=== PATIENT | male | born 1935 | race Caucasian/White ===

== ENCOUNTER → 2016-07-04 | Outpatient (CLI) | payer MEDICARE, OTHER ==
--- NOTE | 2016-07-05 08:11 | EKG REPORT ---
SEVERITY:- ABNORMAL ECG - UNKNOWN RHYTHM, IRREGULAR RATE 53-76 FIRST DEGREE AV BLOCK PROBABLE LEFT ATRIAL ABNORMALITY LOW VOLTAGE IN FRONTAL LEADS LEFT VENTRICULAR HYPERTROPHY : Confirmed by: Marily Mcgrath MD 05-Jul-2016 08:11:18
== END ==
LOC: OD 15:42
PROVIDERS: ATTEND Internal Medicine Nephrology
DX: I49.9 Cardiac arrhythmia, unspecified (principal)
CPT/HCPCS: 93005; 93010

== ENCOUNTER → 2016-07-04 | Outpatient (CLI) | payer MEDICARE, OTHER ==
[2016-07-04 18:46] LABS: HEMATOCRIT 29.5 % (37.9-51.0); HEMOGLOBIN 9.7 g/dL (13.5-17.0); HGB HCT DIFFERENCE -0.4; MEAN CORPUSCULAR HEMOGLOBIN 31.3 pg (27.0-33.4); MEAN CORPUSCULAR HGB CONC 32.8 g/dL (32.0-36.0); MEAN CORPUSCULAR VOLUME 96 fl (80-97); RED BLOOD COUNT 3.09 10^6/uL (4.35-5.55); RED CELL DISTRIBUTION WIDTH 16.1 % (11.5-14.0); WHITE BLOOD COUNT 4.4 10^3/uL (4.0-10.5)
== END ==
LOC: DAVITANR 17:31
PROVIDERS: ATTEND Internal Medicine Nephrology
DX: D64.9 Anemia, unspecified (principal)
CPT/HCPCS: 85027

== ENCOUNTER → 2016-08-07 | Outpatient (CLI) | payer MEDICARE, OTHER | LOC: OD 11:20 | PROVIDERS: ATTEND Family Medicine Geriatric Medicine | DX: J44.1 Chronic obstructive pulmonary disease with (acute) exacerbation (principal) | CPT/HCPCS: 71020 ==

== ENCOUNTER → 2016-10-18 | Outpatient (CLI) | payer MEDICARE, OTHER ==
[2016-10-18 14:23] LABS: ABSOLUTE EOSINOPHILS # (AUTO) 0.2 10^3/uL (0.0-0.6); ABSOLUTE LYMPHOCYTES (AUTO) 1.2 10^3/uL (0.5-4.7); ABSOLUTE MONOCYTES (AUTO) 0.4 10^3/uL (0.1-1.4); ABSOLUTE NEUT (AUTO) 1.8 10^3/uL (1.7-8.2); BASOPHILS % (AUTO) 0.6 % (0-2); EOSINOPHILS % (AUTO) 6.1 % (0-6); HEMATOCRIT 41.9 % (37.9-51.0); HEMOGLOBIN 13.3 g/dL (13.5-17.0); LYMPHOCYTES % (AUTO) 33.4 % (13-45); MEAN CORPUSCULAR HEMOGLOBIN 28.4 pg (27.0-33.4); MEAN CORPUSCULAR HGB CONC 31.7 g/dL (32.0-36.0); MEAN CORPUSCULAR VOLUME 90 fl (80-97); MONOCYTES % (AUTO) 10.2 % (3-13); RED BLOOD COUNT 4.68 10^6/uL (4.35-5.55); RED CELL DISTRIBUTION WIDTH 17.5 % (11.5-14.0); SEGMENTED NEUTROPHILS % (AUTO) 49.7 % (42-78); WHITE BLOOD COUNT 3.7 10^3/uL (4.0-10.5)
[2016-10-18 14:56] LABS: ALANINE AMINOTRANSFERASE 28 U/L (21-72); ALBUMIN 3.9 g/dL (3.5-5.0); ALKALINE PHOSPHATASE 58 U/L (38-126); ANION GAP 11 (5-19); ASPARTATE AMINO TRANSFERASE 22 U/L (17-59); BILIRUBIN,DIRECT 0.7 mg/dL (0.0-0.4); BILIRUBIN,TOTAL 0.8 mg/dL (0.2-1.3); BLOOD UREA NITROGEN 32 mg/dL (7-20); CALCIUM 8.8 mg/dL (8.4-10.2); CARBON DIOXIDE 28 mmol/L (22-30); CHLORIDE 99 mmol/L (98-107); CHOLESTEROL 178.88 mg/dL (0-200); CREATININE RESULT 3.55 mg/dL (0.52-1.25); Direct HDL 82 mg/dL (>40); GLUCOSE 81 mg/dL (75-110); POTASSIUM 5.1 mmol/L (3.6-5.0); SODIUM 138.4 mmol/L (137-145); TOTAL PROTEIN 6.4 g/dL (6.3-8.2); TRIGLYCERIDES 74 mg/dL (<150)
--- NOTE | 2016-10-18 14:57 | RADIOLOGY REPORT (SQ) ---
EXAM DESCRIPTION: CHEST PA/LATERAL COMPLETED DATE/TIME: 10/18/2016 2:12 pm REASON FOR STUDY: COPD; LLL PNEUMONIA COMPARISON: 08/07/2016 EXAM PARAMETERS: NUMBER OF VIEWS: two views TECHNIQUE: Digital Frontal and Lateral radiographic views of the chest acquired. RADIATION DOSE: NA LIMITATIONS: none FINDINGS: LUNGS AND PLEURA: Chronic interstitial changes are present. There is subsegmental atelect asis in the right base. The colon appears to be interposed between the liver and right hemidiaphragm . No acute pulmonary infiltrate is appreciated. MEDIASTINUM AND HILAR STRUCTURES: No masses or contour abnormalities. HEART AND VASCULAR STRUCTURES: The heart size is at the upper limit of normal. There is pulmonary va scular prominence. BONES: No acute findings. HARDWARE: Sternotomy wires. OTHER: No other significant finding. IMPRESSION: 1. Chronic lung changes with no acute pulmonary disease. 2. Pulmonary vascular congestion. 3. The left lower lobe pneumonia on the earlier study appears to have resolved, leaving only chronic changes. TECHNICAL DOCUMENTATION: JOB ID: [id number] [employer]- All Rights Reserved
[2016-10-18 15:07] LABS: DIRECT LDL 69 mg/dL (<100)
== END ==
LOC: OD 13:30
PROVIDERS: ATTEND Family Medicine Geriatric Medicine
DX: J18.9 Pneumonia, unspecified organism (principal); J44.9 Chronic obstructive pulmonary disease, unspecified; E11.9 Type 2 diabetes mellitus without complications; I10 Essential (primary) hypertension; Z79.899 Other long term (current) drug therapy
CPT/HCPCS: 36415; 71020; 80053; 80061; 83036; 84443; 85025

== ENCOUNTER → 2016-10-22 | Outpatient (CLI) | payer MEDICARE, OTHER | LOC: OD 15:04 | PROVIDERS: ATTEND Family Medicine Geriatric Medicine | DX: E87.6 Hypokalemia (principal); Z79.899 Other long term (current) drug therapy | CPT/HCPCS: 36415; 84132 ==

== ENCOUNTER → 2016-12-26 | Outpatient (CLI) | payer MEDICARE, OTHER ==
[2016-12-26 16:24] LABS: ABSOLUTE BASOPHILS # (AUTO) 0.1 10^3/uL (0.0-0.2); ABSOLUTE EOSINOPHILS # (AUTO) 0.2 10^3/uL (0.0-0.6); ABSOLUTE MONOCYTES (AUTO) 0.5 10^3/uL (0.1-1.4); BASOPHILS % (AUTO) 1.4 % (0-2); EOSINOPHILS % (AUTO) 6.2 % (0-6); HEMATOCRIT 31.1 % (37.9-51.0); HEMOGLOBIN 10.5 g/dL (13.5-17.0); HGB HCT DIFFERENCE 0.4; MEAN CORPUSCULAR HEMOGLOBIN 31.5 pg (27.0-33.4); MEAN CORPUSCULAR HGB CONC 33.9 g/dL (32.0-36.0); MEAN CORPUSCULAR VOLUME 93 fl (80-97); MONOCYTES % (AUTO) 12.4 % (3-13); RED BLOOD COUNT 3.34 10^6/uL (4.35-5.55); RED CELL DISTRIBUTION WIDTH 17.8 % (11.5-14.0); WHITE BLOOD COUNT 3.7 10^3/uL (4.0-10.5)
--- NOTE | 2016-12-28 15:34 | RADIOLOGY REPORT (SQ) ---
EXAM DESCRIPTION: CHEST PA/LATERAL COMPLETED DATE/TIME: 12/26/2016 3:38 pm REASON FOR STUDY: Cough COMPARISON: CT angio chest 11/04/2015 Chest films 08/07/2016, 10/18/2016 TECHNIQUE: PA and lateral chest LIMITATIONS: None FINDINGS: Lungs are hyperinflated and hyperlucent from obstructive disease. No pleural effusions. No pneumothorax. No focal infiltrates. Cardiac silhouette size normal. Old sternotomy for CABG. IMPRESSION: No acute findings. Obstructive lung disease.
== END ==
LOC: OD 15:11
PROVIDERS: ATTEND Internal Medicine Pulmonary Disease
DX: R05 Cough (principal)
CPT/HCPCS: 36415; 71020; 85025

== ENCOUNTER 2016-12-27 07:23 | Emergency (ER) | payer OTHER, MEDICARE ==
[2016-12-27 07:34] VITALS: BP 152/46
--- NOTE | 2016-12-27 07:55 | ER Document Report ---
ED General - General Mode of Arrival: Ambulatory Information source: Patient TRAVEL OUTSIDE OF THE [place] IN LAST 30 DAYS: No - HPI Onset: Other - past month Associated symptoms: Other - see above - General Chief Complaint: Abnormal Lab Results Stated Complaint: DIFFICULTY BREATHING Notes: Patient is an 81 year old male who presents to the ED sent by Dr. Conner for high WBC and possible anemia. He states he was told his chest x ray showed the start of pneumonia and extreme anemia. Patient reports a cough x3 months and was diagnosed with pneumonia approximately 5 months ago. Patient has a history of COPD. Upon reviewing patients labs his WBC was actually found to be low and his hemoglobin was was actually at or above baseline to him in comparison to his CBCs over the last year. His chest x ray showed stable COPD and it was much improved from his last x ray from October of this year. Patient states yesterday while he was at dialysis he felt SOB and was recommended to go see his Dredge Runner. Patient states he has been wheezing more than baseline for him for a little over the past month. They have not adjusted any of his daily medications over this past month. Patient is on 2L of O2 at home. PCP: Dr. Liu Fashion Photographer: Dr. Bhardwaj Dredge Runner: Dr. Conner ([facility]) - Related Data Allergies/Adverse Reactions: adhesive tape Allergy (Verified 12/27/16 07:33) Blisters propofol Adverse Reaction (Uncoded 12/27/16 07:33) Past Medical History - General Information source: Patient - Social History Smoking Status: Former Smoker Family History: Reviewed & Not Pertinent - Medical History Medical History: Other - hyperlipidemia - Past Medical History Cardiac Medical History: Reports: Hx Hypertension Pulmonary Medical History: Reports: Hx COPD Renal/ Medical History: Reports: Hx End Stage Renal Disease. Denies: Hx Peritoneal Dialysis Infectious Medical History: Denies: Hx Hepatitis Past Surgical History: Reports: Hx Herniorrhaphy, Hx Open Heart Surgery - mitral valve repair 2009, Hx Tonsillectomy. Denies: Hx Pacemaker - Immunizations Hx Diphtheria, Pertussis, Tetanus Vaccination: No Hx Pneumococcal Vaccination: 03/13/11 Review of Systems - Review of Systems Constitutional: No symptoms reported EENT: No symptoms reported Cardiovascular: No symptoms reported Respiratory: See HPI, Cough, Short of breath, Wheezing Gastrointestinal: No symptoms reported Genitourinary: No symptoms reported Male Genitourinary: No symptoms reported Musculoskeletal: No symptoms reported Skin: No symptoms reported Hematologic/Lymphatic: No symptoms reported Neurological/Psychological: No symptoms reported Physical Exam - General General appearance: Alert, Other - cachectic In distress: None - HEENT Head: Normocephalic, Atraumatic Eyes: Normal Extraocular movements intact: Yes Pupils: PERRL Neck: No: Carotid bruit - Respiratory Respiratory status: No respiratory distress, Other - dysnea standing and talking , pulse ox 94% Breath sounds: Rhonchi, Wheezing - Cardiovascular Rhythm: Other - frequent irregular beats Heart sounds: Normal auscultation Murmur: No - Abdominal Distension: No distension - Back Back: Normal - Extremities General upper extremity: Normal inspection, Normal ROM General lower extremity: Normal inspection, Normal ROM. No: Edema - Neurological Neuro grossly intact: Yes - Psychological Associated symptoms: Normal affect, Normal mood - Skin Skin Temperature: Warm Skin Moisture: Dry Skin Color: Normal - Vital signs Vitals: Temp Pulse Resp BP Pulse Ox 98.4 F 67 16 152/46 H 93 12/27/16 07:32 12/27/16 07:32 12/27/16 07:32 12/27/16 07:32 12/27/16 07:32 Course - Re-evaluation Re-evalutation: 12/27/16 09:10 The patient is improved after the DuoNeb treatment. He does have DuoNeb at home , but uses it only twice daily. He is reluctant to use it in the late afternoon to evening because it keeps him from sleeping at night. He also drinks at least 3 cups of coffee daily. I will give him a prescription for Atrovent solution to use in the nebulizer in the evening and see if this helps without causing sleeping problems that seem to be due to the albuterol. He will also try a mentholated cough drops such as Ricola a to see if that helps his cough, as he has been taking Tessalon Perles without much improvement. (THU MALONE) - Vital Signs Vital signs: Temp Pulse Resp BP Pulse Ox 98.4 F 67 22 H 152/46 H 96 12/27/16 07:32 12/27/16 07:32 12/27/16 08:00 12/27/16 07:32 12/27/16 08:00 Discharge - Discharge Clinical Impression: Anemia in chronic kidney disease, on chronic dialysis, Cough COPD (chronic obstructive pulmonary disease) Qualifiers: COPD type: unspecified COPD Qualified Code(s): J44.9 - Chronic obstructive pulmonary disease, unspecified Condition: Stable Disposition: HOME, SELF-CARE Additional Instructions: Your hemoglobin level yesterday was normal for you. Your chest x-ray yesterday did not show acute process, it did show considerable improvement since a chest x-ray done in October of this year. Add the ipratropium bromide nebulizing treatments in the early evening to see if that helps her breathing without preventing sleep. Try Ricola a cough drops to see if it will help with your cough. Follow-up with your primary care doctor next week for recheck if not improving. RETURN TO THE EMERGENCY ROOM IF ANY NEW OR WORSENING SYMPTOMS. Prescriptions: Ipratropium [place] 0.2 mg IH DAILY #30 ml Referrals: ANYI LIU MD [Primary Care Provider] - Follow up as needed Scribe Attestation: 12/27/16 08:45 I personally performed the services described in the documentation, reviewed and edited the documentation which was dictated to the scribe in my presence, and it accurately records my words and actions. (THU MALONE) Scribe Documentation - Scribe Written by Mack:: mack Acharya, 12/27/2016, 804 acting as scribe for :: Marlon
[2016-12-27] MEDS ORDERED: IPRATROPIUM/ALBUTEROL 0.5-2.5 MG/3 ML AMPUL NEB ONE (08:10)
== END 2016-12-27 09:39 | disposition home or self-care (01) ==
LOC: ER 07:23
DX: Z99.81 Dependence on supplemental oxygen (principal); J44.9 Chronic obstructive pulmonary disease, unspecified; I12.0 Hypertensive chronic kidney disease with stage 5 chronic kidney disease or end stage renal disease; N18.6 End stage renal disease; Z99.2 Dependence on renal dialysis; D63.1 Anemia in chronic kidney disease; R05 Cough; Z87.01 Personal history of pneumonia (recurrent); Z79.899 Other long term (current) drug therapy; Z91.048 Other nonmedicinal substance allergy status
CPT/HCPCS: 94640; 99283; J7620

== ENCOUNTER 2017-01-06 18:16 | Emergency (ER) | payer OTHER, MEDICARE ==
--- NOTE | 2017-01-06 22:33 | RADIOLOGY REPORT (SQ) ---
EXAM DESCRIPTION: CT ABD/PELVIS ORAL ONLY COMPLETED DATE/TIME: 01/06/2017 10:03 pm REASON FOR STUDY: ABD PAIN/RLQ COMPARISON: None. TECHNIQUE: CT scan of the abdomen and pelvis performed without intravenous or oral contrast. Images reviewed with lung, soft tissue, and bone windows. Reconstructed coronal and sagittal MPR images revi ewed. All images stored on PACS. All CT scanners at this facility use dose modulation, iterative reconstruction, and/or weight based d osing when appropriate to reduce radiation dose to as low as reasonably achievable (ALARA). [facility]: Dose Right [facility]: CareDose [facility]: Dose Right [facility]: Teradose 4D [facility]: [employer] RADIATION DOSE: mGy. LIMITATIONS: None. FINDINGS: LOWER CHEST: Bilateral lower lobe subsegmental atelectasis. NON-CONTRASTED LIVER, SPLEEN, ADRENALS: Evaluation limited by lack of IV contrast. No identified sign ificant masses. PANCREAS: No masses. No peripancreatic inflammatory changes. GALLBLADDER: No identified stones by CT criteria. No inflammatory changes to suggest cholecystitis. RIGHT KIDNEY AND URETER: No suspicious masses. Assessment limited by lack of IV contrast. No signif icant calcifications. No hydronephrosis or hydroureter. LEFT KIDNEY AND URETER: 5.6 cm cyst, assessment limited by lack of IV contrast. No significant calc ifications. No hydronephrosis or hydroureter. 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 No retroperitoneal masses or adenopathy. BOWEL AND PERITONEAL CAVITY: No obstruction. No obvious masses or inflammatory changes. No free flui d. APPENDIX: Not visualized. PELVIS, BLADDER, AND ABDOMINAL WALL:No abnormal masses. No free fluid. Bladder normal. BONES: No significant findings. OTHER: No other significant finding. IMPRESSION: No acute inflammatory changes or evidence of obstruction.Bilateral lower lobe subsegment al atelectasis. TECHNICAL DOCUMENTATION: JOB ID: [id number] Quality ID # [id number]: Final reports with documentation of one or more dose reduction techniques (e.g., Au tomated exposure control, adjustment of the mA and/or kV according to patient size, use of iterative reconstruction technique) 2010 [employer]- All Rights Reserved
--- NOTE | 2017-01-06 22:38 | ER Document Report ---
ED GI/ - General Mode of Arrival: Ambulatory Information source: Patient TRAVEL OUTSIDE OF THE [place] IN LAST 30 DAYS: No - HPI Patient complains to provider of: Abdominal pain Onset: Just prior to arrival Timing/Duration: Sudden Associated symptoms: Vomiting - General Chief Complaint: Abdominal Pain Time Seen by Provider: 01/06/17 21:37 Notes: Patient is an 82-year-old male who presents to the emergency department today secondary to complaints of abdominal pain. Patient states that almost immediately after consuming a cup of coffee his abdominal pain began. Patient states this pain to be localized in his right lower quadrant and he describes the pain as a sharp and throbbing sensation. Patient states he has had associated vomiting but denies any diarrhea, blood in his vomit, fevers, or radiation of pain into his testicles. (LEAH TURNER) - Related Data Allergies/Adverse Reactions: adhesive tape Allergy (Verified 12/27/16 07:33) Blisters propofol Adverse Reaction (Uncoded 12/27/16 07:33) Past Medical History - General Information source: Patient, [facility] Records - Social History Smoking Status: Former Smoker Cigarette use (# per day): No Frequency of alcohol use: None Drug Abuse: None Family History: Reviewed & Not Pertinent - Past Medical History Cardiac Medical History: Reports: Hx Hypertension Pulmonary Medical History: Reports: Hx COPD Renal/ Medical History: Reports: Hx End Stage Renal Disease Past Surgical History: Reports: Hx Abdominal Surgery - hernia repair, Hx Herniorrhaphy, Hx Open Heart Surgery - mitral valve repair 2009, Hx Tonsillectomy. Denies: Hx Pacemaker - Immunizations Hx Diphtheria, Pertussis, Tetanus Vaccination: No Hx Pneumococcal Vaccination: 03/13/11 Review of Systems - Review of Systems Constitutional: denies: Fever EENT: No symptoms reported Cardiovascular: No symptoms reported Respiratory: No symptoms reported Gastrointestinal: See HPI, Abdominal pain, Vomiting. denies: Diarrhea Genitourinary: No symptoms reported Male Genitourinary: No symptoms reported Musculoskeletal: No symptoms reported Skin: No symptoms reported Hematologic/Lymphatic: No symptoms reported Neurological/Psychological: No symptoms reported -: Yes All other systems reviewed and negative Physical Exam - Notes Notes: PHYSICAL EXAM GENERAL: Alert, interacts well. No acute distress. HEAD: Normocephalic, atraumatic. EYES: Pupils equal, round, and reactive to light. Extraocular movements intact. ENT: Oral mucosa moist, tongue midline. NECK: Full range of motion. Supple. Trachea midline. LUNGS: Clear to auscultation bilaterally, no wheezes, rales, or rhonchi. No respiratory distress. HEART: Regular rate and rhythm. No gallops or rubs. Systolic ejection murmur best heard at the right upper sternal border. ABDOMEN: Soft, RLQ and RUQ tenderness with palpation with small amount of guarding, no rebound or rigidity. Non-distended. Bowel sounds present in all 4 quadrants. EXTREMITIES: Moves all 4 extremities spontaneously. No edema, radial and dorsalis pedis pulses 2/4 bilaterally. No cyanosis. Fistula on left forearm with good thrill. NEUROLOGICAL: Alert and oriented x3. Normal speech. PSYCH: Normal affect, normal mood. SKIN: Warm, dry, normal turgor. No rashes or lesions noted. (LEAH TURNER) Course - Re-evaluation Re-evalutation: 01/06/17 22:58 CT scan shows no acute process, CBC shows chronic anemia with hemoglobin 10.9 likely related to his renal dysfunction, no leukocytosis, CMP shows chronic renal failure, patient is feeling much better, no further nausea or vomiting, pain is completely resolved, at present I do not have an exact explanation for the patient's abdominal pain however has completely resolved and there is no leukocytosis and there is no fever. Patient will be discharged home. Appendix was not visualized on the CAT scan, patient is aware of this, patient will return should pain return, he develop any fevers or he develop any new or concerning symptoms. (VANI ARZOLA) Discharge - Discharge Clinical Impression: Right lower quadrant abdominal pain of unknown etiology Condition: Stable Disposition: HOME, SELF-CARE Additional Instructions: Today your CAT scan was normal, there is no evidence of infection, your white blood cell count was normal. On the CAT scan we were unable to see your appendix. I find it unlikely that you have appendicitis as your white blood cell count was normal and your pain has completely resolved however since we could not see your appendix I cannot tell you this for certain. Should your pain return, you develop fevers, you develop vomiting or you have any new or concerning symptoms please return to the emergency department. Referrals: AYLA VÁSQUEZ MD [[facility]] - Follow up as needed Scribe Attestation: 01/06/17 23:16 I personally performed the services described in the documentation, reviewed and edited the documentation which was dictated to the scribe in my presence, and it accurately records my words and actions. (VANI ARZOLA)
[2017-01-06 23:19] VITALS: BP 146/64
[2017-01-07 05:47] LABS: ABSOLUTE BASOPHILS # (AUTO) 0.1 10^3/uL (0.0-0.2); ABSOLUTE EOSINOPHILS # (AUTO) 0.1 10^3/uL (0.0-0.6); ABSOLUTE LYMPHOCYTES (AUTO) 0.6 10^3/uL (0.5-4.7); ABSOLUTE MONOCYTES (AUTO) 0.4 10^3/uL (0.1-1.4); EOSINOPHILS % (AUTO) 1.8 % (0-6); HEMATOCRIT 31.6 % (37.9-51.0); HEMOGLOBIN 10.9 g/dL (13.5-17.0); HGB HCT DIFFERENCE 1.1; LYMPHOCYTES % (AUTO) 9.8 % (13-45); MEAN CORPUSCULAR HEMOGLOBIN 32.2 pg (27.0-33.4); MEAN CORPUSCULAR HGB CONC 34.5 g/dL (32.0-36.0); MEAN CORPUSCULAR VOLUME 93 fl (80-97); MONOCYTES % (AUTO) 5.8 % (3-13); RED BLOOD COUNT 3.39 10^6/uL (4.35-5.55); RED CELL DISTRIBUTION WIDTH 16.9 % (11.5-14.0); SEGMENTED NEUTROPHILS % (AUTO) 81.6 % (42-78); WHITE BLOOD COUNT 6.2 10^3/uL (4.0-10.5)
[2017-01-07 05:48] LABS: BLOOD UREA NITROGEN 40 mg/dL (7-20); CALCIUM 9.3 mg/dL (8.4-10.2); CREATININE RESULT 5.14 mg/dL (0.52-1.25); GLUCOSE 105 mg/dL (75-110)
[2017-01-07 05:49] LABS: ALANINE AMINOTRANSFERASE 29 U/L (21-72); ALBUMIN 4.4 g/dL (3.5-5.0); ALKALINE PHOSPHATASE 65 U/L (38-126); ANION GAP 17 (5-19); ASPARTATE AMINO TRANSFERASE 26 U/L (17-59); CARBON DIOXIDE 22 mmol/L (22-30); CHLORIDE 99 mmol/L (98-107)
[2017-01-07 05:50] LABS: LIPASE 183.3 U/L (23-300); TOTAL PROTEIN 6.6 g/dL (6.3-8.2)
== END 2017-01-06 23:19 | disposition home or self-care (01) ==
LOC: ER 18:16
DX: R10.31 Right lower quadrant pain (principal); R11.10 Vomiting, unspecified; J44.9 Chronic obstructive pulmonary disease, unspecified; I12.0 Hypertensive chronic kidney disease with stage 5 chronic kidney disease or end stage renal disease; N18.6 End stage renal disease; D63.1 Anemia in chronic kidney disease
CPT/HCPCS: 36415; 74176; 80053; 83690; 85025; 99284

== ENCOUNTER → 2017-02-07 | Outpatient (CLI) | payer OTHER, MEDICARE ==
[2017-02-07 13:20] LABS: ABSOLUTE BASOPHILS # (AUTO) 0.1 10^3/uL (0.0-0.2); ABSOLUTE EOSINOPHILS # (AUTO) 0.3 10^3/uL (0.0-0.6); ABSOLUTE LYMPHOCYTES (AUTO) 1.2 10^3/uL (0.5-4.7); ABSOLUTE MONOCYTES (AUTO) 0.5 10^3/uL (0.1-1.4); ABSOLUTE NEUT (AUTO) 2.8 10^3/uL (1.7-8.2); BASOPHILS % (AUTO) 1.2 % (0-2); EOSINOPHILS % (AUTO) 6.1 % (0-6); HEMATOCRIT 34.1 % (37.9-51.0); HEMOGLOBIN 11.6 g/dL (13.5-17.0); HGB HCT DIFFERENCE 0.7; LYMPHOCYTES % (AUTO) 23.9 % (13-45); MEAN CORPUSCULAR HEMOGLOBIN 32.1 pg (27.0-33.4); MEAN CORPUSCULAR VOLUME 94 fl (80-97); MONOCYTES % (AUTO) 10.8 % (3-13); RED BLOOD COUNT 3.61 10^6/uL (4.35-5.55); RED CELL DISTRIBUTION WIDTH 13.8 % (11.5-14.0); WHITE BLOOD COUNT 4.9 10^3/uL (4.0-10.5)
[2017-02-07 13:43] LABS: ALANINE AMINOTRANSFERASE 31 U/L (21-72); ANION GAP 11 (5-19); ASPARTATE AMINO TRANSFERASE 18 U/L (17-59); BLOOD UREA NITROGEN 36 mg/dL (7-20); CALCIUM 9.2 mg/dL (8.4-10.2); CARBON DIOXIDE 30 mmol/L (22-30); CHLORIDE 97 mmol/L (98-107); CHOLESTEROL 156.73 mg/dL (0-200); CREATININE RESULT 3.98 mg/dL (0.52-1.25); Direct HDL 77 mg/dL (>40); GLUCOSE 84 mg/dL (75-110); POTASSIUM 4.9 mmol/L (3.6-5.0); SODIUM 138.2 mmol/L (137-145); TRIGLYCERIDES 71 mg/dL (<150)
[2017-02-07 13:54] LABS: DIRECT LDL 64 mg/dL (<100)
== END ==
LOC: OD 12:29
PROVIDERS: ATTEND Family Medicine Geriatric Medicine
DX: R19.7 Diarrhea, unspecified (principal)
CPT/HCPCS: 36415; 80048; 80061; 84450; 84460; 85025

== ENCOUNTER → 2017-02-08 | Outpatient (CLI) | payer OTHER, MEDICARE | LOC: OD 10:26 | PROVIDERS: ATTEND Physician Assistant Surgical | DX: Z53.9 Procedure and treatment not carried out, unspecified reason (principal) ==

== ENCOUNTER → 2017-06-20 | Outpatient (CLI) | payer MEDICARE, OTHER ==
[2017-06-20 13:56] LABS: ABSOLUTE EOSINOPHILS # (AUTO) 0.2 10^3/uL (0.0-0.6); ABSOLUTE LYMPHOCYTES (AUTO) 0.8 10^3/uL (0.5-4.7); ABSOLUTE MONOCYTES (AUTO) 0.5 10^3/uL (0.1-1.4); ABSOLUTE NEUT (AUTO) 1.7 10^3/uL (1.7-8.2); ABSOLUTE RETICS # 0.051 10^6/uL (0.028-0.122); BASOPHILS % (AUTO) 1.4 % (0-2); EOSINOPHILS % (AUTO) 5.9 % (0-6); HEMOGLOBIN 9.6 g/dL (13.5-17.0); LYMPHOCYTES % (AUTO) 26.1 % (13-45); MEAN CORPUSCULAR HEMOGLOBIN 32.1 pg (27.0-33.4); MEAN CORPUSCULAR HGB CONC 33.3 g/dL (32.0-36.0); MEAN CORPUSCULAR VOLUME 97 fl (80-97); MONOCYTES % (AUTO) 14.3 % (3-13); PLATELET COUNT 140 10^3/uL (150-450); RED CELL DISTRIBUTION WIDTH 15.5 % (11.5-14.0); RETICULOCYTE COUNT (AUTO) 1.71 % (0.66-2.85); SEGMENTED NEUTROPHILS % (AUTO) 52.3 % (42-78); TOTAL CELLS COUNTED % (AUTO) 100 %; WHITE BLOOD COUNT 3.2 10^3/uL (4.0-10.5)
== END ==
LOC: OD 13:00
PROVIDERS: ATTEND Family Medicine Geriatric Medicine
DX: J44.9 Chronic obstructive pulmonary disease, unspecified (principal); N18.6 End stage renal disease; R53.83 Other fatigue
CPT/HCPCS: 36415; 82728; 83540; 83550; 84443; 84466; 85025; 85045

== ENCOUNTER → 2017-07-04 | Outpatient (CLI) | payer MEDICARE, OTHER ==
--- NOTE | 2017-07-04 14:10 | RADIOLOGY REPORT (SQ) ---
EXAM DESCRIPTION: CT CHEST WITHOUT COMPLETED DATE/TIME: 07/04/2017 9:49 am REASON FOR STUDY: R91.1 SOLITARY PULMONARY NODULE R91.1 SOLITARY PULMONARY NODULE COMPARISON: CT chest exams 08/13/2006, 08/29/2012, 12/29/2012, 05/26/2015, 01/04/2016 TECHNIQUE: CT scan performed of the chest without intravenous contrast. Images reviewed with lung, soft tissue and bone windows. Reconstructed coronal and sagittal MPR images reviewed. All images st ored on PACS. All CT scanners at this facility use dose modulation, iterative reconstruction, and/or weight based d osing when appropriate to reduce radiation dose to as low as reasonably achievable (ALARA). [facility]: Dose Right [facility]: CareDose [facility]: Dose Right [facility]: Teradose 4D [facility]: Smart [employer] RADIATION DOSE: CT Rad equipment meets quality standard of care and radiation dose reduction techniq ues were employed. CTDIvol: 3.9 mGy. DLP: 160 mGy-cm. mGy. LIMITATIONS: No technical limitations. FINDINGS: LUNGS AND PLEURA: The right upper lobe lesion seen on 05/26/2015 is no longer present. No worrisome pulmonary nodules. Obstructive lung disease is present with enlarged airspaces most pronounced in the bilateral upper lo bes. There is fluid and debris in the right bronchus intermedius and right lower lobe segmental bronchi. Question aspiration. Minimal volume loss right lower lobe without dense consolidation. No pleural effusions, no pneumothorax. HILAR AND MEDIASTINAL STRUCTURES: No identified masses or abnormal nodes. No obvious aneurysm. HEART AND VASCULAR STRUCTURES: No aneurysm. No pericardial effusion. Old sternotomy for CABG, heavi ly calcified [place] coronary arteries. Calcified aortic valve and aortic arch UPPER ABDOMEN: 1 cm hemorrhagic cyst right upper pole kidney. Colonic interposition between the live r and right hemidiaphragm THYROID AND OTHER SOFT TISSUES: No masses. No adenopathy. BONES: No significant finding. HARDWARE: None in the chest. OTHER: No other significant findings. IMPRESSION: No worrisome pulmonary nodules Fluid and debris in the bronchus intermedius and right lower lobe bronchi. Findings are worrisome fo r aspiration TECHNICAL DOCUMENTATION: JOB ID: [id number] Quality ID # [id number]: Final reports with documentation of one or more dose reduction techniques (e.g., Au tomated exposure control, adjustment of the mA and/or kV according to patient size, use of iterative reconstruction technique) 2010 [employer]- All Rights Reserved
== END ==
LOC: RAD 09:50
PROVIDERS: ATTEND Physician Assistant
DX: R91.1 Solitary pulmonary nodule (principal)
CPT/HCPCS: 71250

== ENCOUNTER → 2017-07-25 | Outpatient (CLI) | payer MEDICARE, OTHER ==
--- NOTE | 2017-07-25 11:18 | RADIOLOGY REPORT (SQ) ---
EXAM DESCRIPTION: SHALA SWALLOW COMPLETED DATE/TIME: 07/25/2017 8:45 am REASON FOR STUDY: R13.10 DYSPHAGIA, UNSPECIFIED R05 COUGH R13.10 DYSPHAGIA, UNSPECIFIED R05 COUGH COMPARISON: None. TECHNIQUE: Videofluoroscopic swallowing examination was performed in conjunction with speech patholo gy. Videofluoroscopic imaging was obtained and reviewed and these are the findings: RADIATION DOSE: 1 minutes 27 seconds of fluoroscopy was used. 1 images saved to PACS. LIMITATIONS: None FINDINGS: The patient was brought into the fluoro room and placed upright on a modified barium swall ow chair. The patient was then given multiple consistencies mixed with barium to swallow under live fluoroscopic video guidance. According to the Speech Pathologist there was no penetration or aspirat ion. Moderate cricopharyngeal hypertrophy IMPRESSION: NO EVIDENCE OF PENETRATION OR ASPIRATION.PLEASE SEE SPEECH PATHOLOGIST REPORT FOR OTHER FINDINGS AND RECOMMENDATIONS. COMMENT: Quality ID [id number]: Final reports for procedures using fluoroscopy that document radiation exp osure indices, or exposure time and number of fluorographic images (if radiation exposure indices are not available) TECHNICAL DOCUMENTATION: JOB ID: [id number] [employer]- All Rights Reserved Reading location - IP/workstation name: [email or web address]
--- NOTE | 2017-07-25 17:39 | ST Modified Barium Swallow ---
Recommendation - Recommendations Recommendations: No diet change recommendations, oral and pharyngeal phase swallowing within normal limits. Possible esophageal deficits, may benefit from additional gastrointestinal consult. Medical Diagnoses - Medical Diagnoses Medical Diagnosis Description & ICD-10 Code(s): cough R05, dysphaga R13.10 Other Medical Diagnoses/Co-Morbidities: patient reports COPD, possible reflux ST Modified Barium Swallow - General Date: 07/25/17 Referring Physician: DRAGAN Markham - History History obtained from: Patient -: Medical - Patient states that he has some pain swallowing water, states this happens when taking "large gulps". Also states that he is recovering from a recent pneumonia. When asked about reflux, patient stated that the "doctor says it appears I have reflux" but did not report symptoms. Medications: Patient reports taking "heart meds, breathing meds, kidney meds, aspirin" and is on dialysis. - Functional Status Prior Functional Status: INDEPENDENT: feeding - independent Current Functional Limitations: feeding - Subjective Cognitive-Linguistic Function: WNL Speech Intelligibility: WNL Current Nutritional Means: PO Current PO diet: Regular Current symptoms: other Pain: Patient reports, 0/5 - Objective Assessment: Upright, Left Lateral - Food Trials Used Food trials used: Thin liquids, Pureed, Regular The patient: Was Able to Self Feed - Oral-Motor Skills Oral Motor Skills: WNL - Assessment Oral prep: Normal Labial closure: Adequate Leakage: None Mastication: Adequate Lingual Movement: Normal Oral stage: Normal for this Procedure - Pharyngeal Stage Initiation of Pharyngeal Stage Reflex: Normal Decreased laryngeal elevation: No Reduced Velopharyngeal Closure: no Reduced pressure generation: No reduced tongue-based retraction: No Pre-swallow pooling in valleculae: None Pre-Swallow pooling in pyriforms: None Reduced Thyro-Hyoid approximation: No Reduced epiglottic excursion: No Reduced pharyngeal peristalsis/contraction: No Post-swallow residulas vallecular: None Post-Swallow residuals in pyriforms: Mild Pharyngeal Stage Comments: Normal pharyngeal function, possible reduced movement of bolus through UES. - Esophageal Stage Esophageal Stage: Possible signs of reduced upper esophageal peristalsis. - Fall Risk Assessment Medications/Conditions that increase fall risks include: Antidepressants, sedatives, anti-arrhythmic, diuretic, benzodiazipenes, neuroleptics. BP regulation problems, cardiac problems, balance or gait deficits, neurological problems. Fall Risk Actions Taken: No action needed - Behavioral Observations During evaluation process patient: was pleasant, was cooperative, able to answer questions - Treatment / Educational Needs: Treatment/Education Needs: Treatment consisted of patient education on the role of the Speech Pathologist. Patient's plan of care and golas were communicated as well as scheduling and attendance policies. Recommendations for initial home program were shared. Patient demonstrated understanding and verbalized agreement. - Impression/Summary Laryngeal Penetration: No Tracheal Aspiration: no Patient presents with: Normal swallow at eval Evaluation and Findings: Patient presents with normal oral and pharyngeal phase swallowing. Possible signs of esophageal issues. - Recommendations Solid diet recommendations: Regular Liquid Diet Modification: Thin Dysphagia therapy with TRACK WORKER: no Reflux Precautions: Taught to Patient Recommended techniques: Fully Upright During Meal, Small Bites and Sips Supervision: Independent Information, Precautions and Recommendations: Patient (Written), Patient (Verbal ) - Plan of Care Strategies to optimize patient understanding include:: ongoing assessment of educational needs, implementation of educational strategies, and re-education. - - -: Thank you for the opportunity to work with this patient and his/her family. Should you have any questions about this patient's plan or progress, I can be reached at [phone]. Charge G Code? - - -: Yes ST F.L. Impairment Category - Rationale Based On Rationale Based On: Func. Asses. Tool Results - Swallowing Current G8996: CH 0% Impaired Goal G8997: CH 0% Impaired Discharge G8998: CH 0% Impaired
== END ==
LOC: RAD 08:30
PROVIDERS: ATTEND Physician Assistant
DX: R13.10 Dysphagia, unspecified (principal); R05 Cough
CPT/HCPCS: 74230; 92611; G8996; G8997; G8998

== ENCOUNTER → 2017-08-12 | Outpatient (CLI) | payer MEDICARE, OTHER ==
--- NOTE | 2017-08-12 13:16 | RADIOLOGY REPORT (SQ) ---
EXAM DESCRIPTION: U/S ABDOMEN LIMITED W/O DOP COMPLETED DATE/TIME: 08/12/2017 1:01 pm REASON FOR STUDY: RUQ ABD PAIN (R10.11) R10.11 RIGHT UPPER QUADRANT PAIN COMPARISON: CT chest 07/04/2017 CT abdomen pelvis 01/06/2017 TECHNIQUE: Dynamic and static grayscale images acquired of the abdomen and recorded on PACS. Additio nal selected color Doppler and spectral images recorded. LIMITATIONS: Midline bowel gas FINDINGS: PANCREAS: Not well seen LIVER: No masses. Echotexture normal. LIVER VASCULATURE: Normal directional flow of the main portal vein and hepatic veins. GALLBLADDER: No stones. Normal wall thickness. No pericholecystic fluid. ULTRASOUND-DETECTED IVY'S SIGN: Negative. INTRAHEPATIC DUCTS AND COMMON DUCT: CBD and intrahepatic ducts normal caliber. No filling defects. INFERIOR VENA CAVA: Normal flow. AORTA: Infrarenal abdominal aorta is 3.5 x 3.4 cm in greatest diameter, similar compared to CT abdome n and pelvis 01/06/2017 RIGHT KIDNEY: Normal size. Cortical thinning with diffuse increased echogenicity. No solid or suspi cious masses. 2.3 cm upper pole cyst, 2.3 cm lower pole cyst. No hydronephrosis. No calcifications. PERITONEAL AND RIGHT PLEURAL SPACE: No ascites or effusions. OTHER: No other significant findings. IMPRESSION: No gallstones, gallbladder wall thickening or pericholecystic fluid Increased echogenicity right kidney from medical renal disease Unruptured 3.5 x 3.4 cm infrarenal abdominal aortic aneurysm TECHNICAL DOCUMENTATION: JOB ID: [id number] [employer]- All Rights Reserved Reading location - IP/workstation name: [email or web address]END[facility] TO [email or web address]
== END ==
LOC: RAD 12:15
PROVIDERS: ATTEND Family Medicine Geriatric Medicine
DX: R10.11 Right upper quadrant pain (principal); I71.4 Abdominal aortic aneurysm, without rupture
CPT/HCPCS: 76705

== ENCOUNTER → 2017-08-13 | Outpatient (CLI) | payer MEDICARE, OTHER ==
--- NOTE | 2017-08-13 11:09 | RADIOLOGY REPORT (SQ) ---
EXAM DESCRIPTION: RIBS RIGHT W/PA CHEST COMPLETED DATE/TIME: 08/13/2017 10:23 am REASON FOR STUDY: RIGHT UPPER QUADRANT PAIN,PLEURODYNIA R10.11 RIGHT UPPER QUADRANT PAIN R07.81 PL EURODYNIA COMPARISON: CT chest 07/04/2017 TECHNIQUE: Frontal view of the chest and additional views of the right ribs acquired. NUMBER OF VIEWS: PA chest, right rib detail three views LIMITATIONS: None. FINDINGS: FRONTAL CXR: No pneumothorax. No pleural effusion. No atelectasis or infiltrates. Old s ternotomy for CABG. Mild cardiomegaly. Chronic bandlike scarring left lateral lung base. RIBS: No displaced rib fractures. No lytic or blastic bony lesions. OTHER: No other significant finding. IMPRESSION: NO PNEUMOTHORAX. NO DISPLACED RIB FRACTURES. COMMENT: SITE OF TRAUMA/COMPLAINT MARKED/STAMP COMPLETED: Yes TECHNICAL DOCUMENTATION: JOB ID: [id number] [employer]- All Rights Reserved Reading location - IP/workstation name: [email or web address]
== END ==
LOC: OD 09:54
PROVIDERS: ATTEND Family Medicine Geriatric Medicine
DX: R07.81 Pleurodynia (principal); R10.11 Right upper quadrant pain

== ENCOUNTER → 2017-10-05 | Outpatient (CLI) | payer MEDICARE, OTHER ==
--- NOTE | 2017-10-05 12:01 | RADIOLOGY REPORT (SQ) ---
EXAM DESCRIPTION: CHEST 2 VIEWS COMPLETED DATE/TIME: 10/05/2017 10:52 am REASON FOR STUDY: COPD R05 COUGH COMPARISON: 02/10/2016. NUMBER OF VIEWS: Two view. TECHNIQUE: Frontal and lateral radiographic views of the chest acquired. LIMITATIONS: None. FINDINGS: LUNGS AND PLEURA: Chronic interstitial scarring. No focal infiltrates, masses or pneumoth orax. No pleural effusion. Attenuated blood vessels and flattened alexia-diaphragms. MEDIASTINUM AND HILAR STRUCTURES: No masses. No contour abnormalities. HEART AND VASCULAR STRUCTURES: Heart normal in size and contour. No evidence for failure. BONES: No acute findings. HARDWARE: Sternotomy wires. OTHER: No other significant finding. IMPRESSION: COPD. CHRONIC SCARRING. NO ACUTE RADIOGRAPHIC FINDING IN THE CHEST. TECHNICAL DOCUMENTATION: JOB ID: [id number] [employer]- All Rights Reserved Reading location - IP/workstation name: [email or web address]
--- NOTE | 2017-10-05 13:14 | RADIOLOGY REPORT (SQ) ---
EXAM DESCRIPTION: CT CHEST WITHOUT COMPLETED DATE/TIME: 10/05/2017 11:18 am REASON FOR STUDY: COUGH R05 COUGH COMPARISON: Chest x-ray dated 10/05/2017. Chest CT dated 07/04/2017. TECHNIQUE: CT scan performed of the chest without intravenous contrast. Images reviewed with lung, soft tissue and bone windows. Reconstructed coronal and sagittal MPR images reviewed. All images st ored on PACS. All CT scanners at this facility use dose modulation, iterative reconstruction, and/or weight based d osing when appropriate to reduce radiation dose to as low as reasonably achievable (ALARA). [facility]: Dose Right [facility]: CareDose [facility]: Dose Right [facility]: Teradose 4D [facility]: O[employer] Water RADIATION DOSE: CT Rad equipment meets quality standard of care and radiation dose reduction techniq ues were employed. CTDIvol: 6.6 mGy. DLP: 285 mGy-cm. mGy. LIMITATIONS: No technical limitations. FINDINGS: LUNGS AND PLEURA: Emphysematous changes. Linear parenchymal scarring in the lung bases. No masses, infiltrates, pneumothorax. No pleural effusions, calcifications. HILAR AND MEDIASTINAL STRUCTURES: No identified masses or abnormal nodes. No obvious aneurysm. HEART AND VASCULAR STRUCTURES: No aneurysm. No pericardial effusion. UPPER ABDOMEN: No significant findings. Limited exam. THYROID AND OTHER SOFT TISSUES: No masses. No adenopathy. BONES: No significant finding. HARDWARE: None in the chest. OTHER: No other significant findings. IMPRESSION: EMPHYSEMATOUS CHANGES. SCARRING IN THE LUNG BASES. NO ACUTE FINDING ON NON-CONTRASTED CHEST CT. TECHNICAL DOCUMENTATION: JOB ID: [id number] Quality ID # [id number]: Final reports with documentation of one or more dose reduction techniques (e.g., Au tomated exposure control, adjustment of the mA and/or kV according to patient size, use of iterative reconstruction technique) 2010 [employer]- All Rights Reserved Reading location - IP/workstation name: [email or web address]
== END ==
LOC: RAD 10:41
PROVIDERS: ATTEND Physician Assistant
DX: J44.9 Chronic obstructive pulmonary disease, unspecified (principal); R05 Cough
CPT/HCPCS: 71046; 71250

== ENCOUNTER → 2017-10-17 | Outpatient (CLI) | payer MEDICARE, OTHER ==
[2017-10-17 14:00] LABS: HEMATOCRIT 27.9 % (37.9-51.0); HEMOGLOBIN 9.4 g/dL (13.5-17.0); MEAN CORPUSCULAR HEMOGLOBIN 30.6 pg (27.0-33.4); MEAN CORPUSCULAR HGB CONC 33.7 g/dL (32.0-36.0); MEAN CORPUSCULAR VOLUME 91 fl (80-97); PLATELET COUNT 151 10^3/uL (150-450); RED BLOOD COUNT 3.07 10^6/uL (4.35-5.55); RED CELL DISTRIBUTION WIDTH 16.5 % (11.5-14.0); WHITE BLOOD COUNT 4.1 10^3/uL (4.0-10.5)
[2017-10-17 14:23] LABS: ALBUMIN 3.4 g/dL (3.5-5.0); ANION GAP 10 (5-19); BLOOD UREA NITROGEN 34 mg/dL (7-20); CALCIUM 8.6 mg/dL (8.4-10.2); CARBON DIOXIDE 29 mmol/L (22-30); CHLORIDE 97 mmol/L (98-107); GLUCOSE 95 mg/dL (75-110); NT PRO BNP 14100 pg/mL (<450); PHOSPHORUS 5.1 mg/dL (2.5-4.5); POTASSIUM 4.8 mmol/L (3.6-5.0); TROPONIN I < 0.012 ng/mL
== END ==
LOC: LAB 13:40
PROVIDERS: ATTEND Internal Medicine Cardiovascular Disease
DX: I50.9 Heart failure, unspecified (principal); R53.83 Other fatigue
CPT/HCPCS: 36415; 80069; 83735; 83880; 84443; 84484; 85027

== ENCOUNTER → 2017-10-29 | Outpatient (CLI) | payer MEDICARE, OTHER ==
--- NOTE | 2017-10-29 15:54 | RADIOLOGY REPORT (SQ) ---
EXAM DESCRIPTION: VENOUS UNILATERAL LOWER COMPLETED DATE/TIME: 10/29/2017 3:45 pm REASON FOR STUDY: VENOUS INSUFF I87.2 VENOUS INSUFFICIENCY (CHRONIC) (PERIPHERAL) COMPARISON: None. TECHNIQUE: Dynamic and static reilly scale and color images acquired of the left leg venous system. Se lected spectral images acquired with additional compression and augmentation maneuvers. The contralat eral common femoral vein and saphenofemoral junction were also imaged. Images stored on PACS. LIMITATIONS: None. FINDINGS: COMMON FEMORAL: Normal phasicity, compression and augmentation. No visualized echogenic ma terial on reilly scale. No defects on color images. FEMORAL: Normal compression and augmentation. No visualized echogenic material on reilly scale. No defe cts on color images. POPLITEAL: Normal compression, augmentation. No visualized echogenic material on reilly scale. No defec ts on color images. CALF VESSELS: Normal compression, augmentation. No visualized echogenic material on reilly scale. No de fects on color images. GSV and SSV: Normal compression, augmentation. No visualized echogenic material on reilly scale. No def ects on color images. ANY DEEP VENOUS INSUFFICIENCY: No. ANY EVIDENCE OF POPLITEAL CYST: No. OTHER: No other significant finding. CONTRALATERAL COMMON FEMORAL VEIN AND SAPHENOFEMORAL JUNCTION: Normal phasicity, compression and augmentation. No visualized echogenic material on reilly scale. No de fects on color images. IMPRESSION: NO EVIDENCE OF DVT OR SVT IN THE LEFT LEG. NO EVIDENCE OF VENOUS INSUFFICIENCY. TECHNICAL DOCUMENTATION: JOB ID: [id number] [employer]- All Rights Reserved Reading location - IP/workstation name: [email or web address]
== END ==
LOC: SP 14:09
PROVIDERS: ATTEND Physician Assistant Medical
DX: I87.2 Venous insufficiency (chronic) (peripheral) (principal); R23.8 Other skin changes
CPT/HCPCS: 93971

== ENCOUNTER 2017-11-26 15:20 | Day surgery (SDC) | payer MEDICARE, OTHER ==
[~2017-11-26 15:20] MED LIST: DIPHENHYDRAMINE HCL 50 MG/ML VIAL ONE; EPINEPHRINE INJ 1 MG/10 ML DISP.SYRIN ONE; FLUMAZENIL INJ 0.5 MG/5 ML VIAL ONE; GLUCAGON,HUMAN RECOMB 1 MG INJ ONE; MIDAZOLAM 2 MG/2 ML INJ ONE; NALOXONE HCL INJ/PF 0.4 MG/1 ML SDV ONE; ONDANSETRON HCL INJ/PF 4 MG/2 ML SDV ONE
[2017-11-26] MEDS: FENTANYL CITRATE INJ/PF 100 MCG/2 ML AMPUL ONE ×2 (16:20→16:30)
--- NOTE | 2017-11-26 17:30 | Operative Report ---
Operative Report DATE OF SURGERY: 11/26/17 Operative Report: Pre-op diagnosis: Anemia Post-op diagnosis: 1. 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 Upper endoscopy could not be performed 3. Sigmoid diverticulosis 4. Polyps in the ascending, transverse, descending, and the rectum Surgery: Attempted upper endoscopy and Colonoscopy with polypectomy Medications: Versed 2mg, Fentanyl 75mcg IV push Tissue removed: Colon polyps Procedure: After informed consent obtained from patient, patient's pharynx was sprayed with Hurricane and conscious sedation was achieved. Multiple attempts were then made to pass the endoscope into the esophagus unsuccessfully. Digital rectal examination was performed and this was unremarkable. The colonoscope was inserted into the rectum and advanced to the cecum. The appendiceal orifice and the terminal ileum were both identified. The mucosa was examined into details as the colonoscope was slowly pulled out of the patient. The endoscope was retroflexed in the rectum. Patient tolerated the procedure well. 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 Multiple diverticuli were identified Rectum: Normal except for internal hemorrhoids Plan: Await pathology. Schedule barium swallow OPERATION: .
[2017-11-26 17:58] VITALS: BP 147/59
== END 2017-11-26 18:15 | disposition home or self-care (01) ==
LOC: END 15:20
PROVIDERS: ATTEND Internal Medicine Gastroenterology
DX: D50.0 Iron deficiency anemia secondary to blood loss (chronic) (principal); D12.4 Benign neoplasm of descending colon; D12.2 Benign neoplasm of ascending colon; D12.3 Benign neoplasm of transverse colon; D12.5 Benign neoplasm of sigmoid colon; K57.30 Diverticulosis of large intestine without perforation or abscess without bleeding; K92.1 Melena; Z86.010 Personal history of colon polyps; E78.00 Pure hypercholesterolemia, unspecified; J44.9 Chronic obstructive pulmonary disease, unspecified; I12.0 Hypertensive chronic kidney disease with stage 5 chronic kidney disease or end stage renal disease; N18.5 Chronic kidney disease, stage 5; Z99.2 Dependence on renal dialysis; Z99.81 Dependence on supplemental oxygen; Z79.899 Other long term (current) drug therapy; Z79.51 Long term (current) use of inhaled steroids; Z79.82 Long term (current) use of aspirin
CPT/HCPCS: 45385; 88305 ×2; J2250; J3010; J0171; J1200; J1610; J2310; J2405; J3490

== ENCOUNTER → 2017-12-05 | Outpatient (CLI) | payer MEDICARE, OTHER ==
--- NOTE | 2017-12-05 16:21 | RADIOLOGY REPORT (SQ) ---
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 TECHNIQUE: Under fluoroscopic guidance, patient ingested effervescent granules followed by thick and thin barium. Fluoroscopic spot images and routine radiographic images acquired and stored on PACS. 12 MM BARIUM TABLET GIVEN: The patient swallowed a 12 mm barium tablet which passed easily through th e esophagus and into the stomach without delay. LIMITATIONS: None. FLUOROSCOPY TIME: FLUORO TIME: 3.27 minutes 10 images saved to PACS. FINDINGS: NEUROMUSCULAR COORDINATION OF SWALLOW: Normal. No aspiration. Cricopharyngeus hypertrophy causing a narrowing in the upper esophagus. ESOPHAGEAL MOTILITY: Mild esophageal dysmotility with mild tertiary contractions seen. ESOPHAGEAL MUCOSA: Normal mucosa without masses or ulceration. GASTRO-ESOPHAGEAL JUNCTION: Small hiatal hernia present. No gastroesophageal reflux. NON-GI TRACT STRUCTURES: No significant finding. OTHER: No other significant finding. 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 ESOPHAGEAL DYSMOTILITY. OTHERWISE UNREMARKABLE STUDY. RECOMMENDATION: None COMMENT: None Quality ID 145: Final reports for procedures using fluoroscopy that document radiation exposure jonathan shirley, or exposure time and number of fluorographic images (if radiation exposure indices are not avail able) TECHNICAL DOCUMENTATION: JOB ID: [id number] [employer]- All Rights Reserved Reading location - IP/workstation name: [email or web address] [id number]
== END ==
LOC: RAD 08:51
PROVIDERS: ATTEND Internal Medicine Gastroenterology
DX: D50.0 Iron deficiency anemia secondary to blood loss (chronic) (principal); K21.9 Gastro-esophageal reflux disease without esophagitis
CPT/HCPCS: 74220

== ENCOUNTER 2018-01-10 15:32 | Emergency (ER) | payer MEDICARE, OTHER ==
[2018-01-10] MEDS ORDERED: METHYLPREDNISOLONE INJ 125 MG/2 ML SDV IV ONE (15:48)
[2018-01-10] MEDS ORDERED: IPRATROPIUM/ALBUTEROL 0.5-2.5 MG/3 ML AMPUL NEB ONE (15:48)
--- NOTE | 2018-01-10 15:52 | ER Document Report ---
ED Medical Screen (RME) - General Chief Complaint: Shortness Of Breath Stated Complaint: SHORT OF BREATH Time Seen by Provider: 01/10/18 15:48 Notes: 82 years old male with a history of COPD terminal, end-stage renal disease on dialysis, post dialysis had increasing shortness of breath from his baseline. And also his hemoglobin was around 5 therefore was patient was sent over to the ED to be evaluated further. No fever chills or other constitutional symptoms Cachectic elderly male seems to be in moderate respiratory discomfort. With inspiratory coarse crackles, no expiratory wheezing TRAVEL OUTSIDE OF THE [place] IN LAST 30 DAYS: No - Related Data Allergies/Adverse Reactions: adhesive tape Allergy (Verified 11/26/17 15:33) Blisters propofol Adverse Reaction (Uncoded 11/26/17 15:33) Past Medical History - Social History Chew tobacco use (# tins/day): No Frequency of alcohol use: None Drug Abuse: None - Past Medical History Cardiac Medical History: Reports: Hx Hypertension Denies: Hx Coronary Artery Disease, Hx Heart Attack Pulmonary Medical History: Reports: Hx COPD Denies: Hx Asthma, Hx Bronchitis, Hx Pneumonia Neurological Medical History: Denies: Hx Cerebrovascular Accident, Hx Seizures Renal/ Medical History: Reports: Hx End Stage Renal Disease. Denies: Hx Peritoneal Dialysis Musculoskeltal Medical History: Denies Hx Arthritis Past Surgical History: Reports: Hx Abdominal Surgery - hernia repair, Hx Herniorrhaphy, Hx Open Heart Surgery - mitral valve repair 2009, Hx Tonsillectomy. Denies: Hx Pacemaker - Immunizations Hx Diphtheria, Pertussis, Tetanus Vaccination: No Physical Exam - Vital signs Vitals: Temp Pulse Resp BP Pulse Ox 98.5 F 94 32 H 107/49 L 84 L 01/10/18 15:47 01/10/18 15:47 01/10/18 15:47 01/10/18 15:47 01/10/18 15:47 Course - Vital Signs Vital signs: Temp Pulse Resp BP Pulse Ox 98.5 F 94 32 H 107/49 L 84 L 01/10/18 15:47 01/10/18 15:47 01/10/18 15:47 01/10/18 15:47 01/10/18 15:47 Doctor's Discharge - Discharge Referrals: Dean PORRAS MD [Primary Care Provider] - Follow up as needed
--- NOTE | 2018-01-10 16:29 | RADIOLOGY REPORT (SQ) ---
EXAM DESCRIPTION: CHEST SINGLE VIEW COMPLETED DATE/TIME: 01/10/2018 4:14 pm REASON FOR STUDY: Shortness of breath COMPARISON: 526 18th EXAM PARAMETERS: NUMBER OF VIEWS: One view. TECHNIQUE: Single frontal radiographic view of the chest acquired. RADIATION DOSE: NA LIMITATIONS: None. FINDINGS: LUNGS AND PLEURA: Mild hyperexpansion of the lungs. No infiltrate or effusion. No mass. MEDIASTINUM AND HILAR STRUCTURES: No masses. Contour normal. HEART AND VASCULAR STRUCTURES: Heart normal in size. Normal vasculature. BONES: No acute findings. HARDWARE: Sternotomy wires. OTHER: No other significant finding. IMPRESSION: Chronic lung changes with no acute cardiopulmonary disease. TECHNICAL DOCUMENTATION: JOB ID: [id number] [employer]- All Rights Reserved Reading location - IP/workstation name: [email or web address]
[2018-01-10 16:48] LABS: VENOUS BLOOD BASE EXCESS 7.6 mmol/L; VENOUS BLOOD HCO3 34.9 mmol/L (20-32); VENOUS BLOOD PH 7.32 (7.30-7.42)
[2018-01-10 16:52] LABS: VENOUS BLOOD PCO2 68.9 mmHg (35-63)
[2018-01-10 17:09] LABS: ABSOLUTE LYMPHOCYTES (AUTO) 0.5 10^3/uL (0.5-4.7); ABSOLUTE MONOCYTES (AUTO) 0.8 10^3/uL (0.1-1.4); ABSOLUTE NEUT (AUTO) 4.7 10^3/uL (1.7-8.2); BASOPHILS % (AUTO) 0.6 % (0-2); EOSINOPHILS % (AUTO) 0.2 % (0-6); HEMATOCRIT 22.9 % (37.9-51.0); LYMPHOCYTES % (AUTO) 8.9 % (13-45); MEAN CORPUSCULAR VOLUME 103 fl (80-97); MONOCYTES % (AUTO) 12.6 % (3-13); PLATELET COUNT 152 10^3/uL (150-450); RED BLOOD COUNT 2.21 10^6/uL (4.35-5.55); RED CELL DISTRIBUTION WIDTH 18.5 % (11.5-14.0); SEGMENTED NEUTROPHILS % (AUTO) 77.7 % (42-78); TOTAL CELLS COUNTED % (AUTO) 100 %; WHITE BLOOD COUNT 6.1 10^3/uL (4.0-10.5)
[2018-01-10 17:11] LABS: HEMOGLOBIN 7.1 g/dL (13.5-17.0)
[2018-01-10 17:30] LABS: ALANINE AMINOTRANSFERASE 38 U/L (21-72); ALBUMIN 3.4 g/dL (3.5-5.0); ALKALINE PHOSPHATASE 55 U/L (38-126); ANION GAP 11 (5-19); ASPARTATE AMINO TRANSFERASE 20 U/L (17-59); BILIRUBIN,DIRECT 0.4 mg/dL (0.0-0.4); BILIRUBIN,TOTAL 0.4 mg/dL (0.2-1.3); BLOOD UREA NITROGEN 26 mg/dL (7-20); CALCIUM 8.5 mg/dL (8.4-10.2); CARBON DIOXIDE 29 mmol/L (22-30); CHLORIDE 98 mmol/L (98-107); GLUCOSE 107 mg/dL (75-110); POTASSIUM 3.8 mmol/L (3.6-5.0); SODIUM 138.4 mmol/L (137-145); TOTAL PROTEIN 5.6 g/dL (6.3-8.2)
[2018-01-10] MEDS ORDERED: NORMAL SALINE 250 ML IV PRN ×2 (17:35)
[2018-01-10] MEDS ORDERED: PANTOPRAZOLE SODIUM 40 MG VIAL IV ONE (17:50)
--- NOTE | 2018-01-10 18:25 | ER Document Report ---
ED General - General Chief Complaint: Shortness Of Breath Stated Complaint: SHORT OF BREATH Time Seen by Provider: 01/10/18 15:48 TRAVEL OUTSIDE OF THE [place] IN LAST 30 DAYS: No - HPI Patient complains to provider of: Shortness of breath low hemoglobin Notes: Patient is a renal dialysis patient come having dialysis every Saturday coming in from dialysis due to low hemoglobin shortness of breath. Patient states he was able to complete his entire session however since they are because he was told his hemoglobin was 6. Patient states history of low hemoglobins due to her iron insufficiency receiving blood transfusion and iron infusions in the past. Patient states recently had a colonoscopy performed by Dr. Galeano with no source of bleeding found. Patient states that he is scheduled for an EGD with Dr. Galeano later on. Patient otherwise was found to be acutely short of breath however does wear oxygen on the 24 7 also wears CPAP at night. Patient was placed on his oxygen dose given a breathing treatment with improvement of his symptoms upon my evaluation. Patient does have an AV fistula of the left arm at the wrist with a palpable thrill. Otherwise patient denies any fevers chills nausea vomiting diarrhea chest pain abdominal pain denies any cough no sputum production. - Related Data Allergies/Adverse Reactions: adhesive tape Allergy (Verified 11/26/17 15:33) Blisters propofol Adverse Reaction (Uncoded 11/26/17 15:33) Past Medical History - Social History Smoking Status: Former Smoker Chew tobacco use (# tins/day): No Frequency of alcohol use: None Drug Abuse: None Family History: Reviewed & Not Pertinent Patient has suicidal ideation: No Patient has homicidal ideation: No - Past Medical History Cardiac Medical History: Reports: Hx Hypertension Denies: Hx Coronary Artery Disease, Hx Heart Attack Pulmonary Medical History: Reports: Hx COPD Denies: Hx Asthma, Hx Bronchitis, Hx Pneumonia Neurological Medical History: Denies: Hx Cerebrovascular Accident, Hx Seizures Renal/ Medical History: Reports: Hx End Stage Renal Disease. Denies: Hx Peritoneal Dialysis Musculoskeletal Medical History: Denies Hx Arthritis Past Surgical History: Reports: Hx Abdominal Surgery - hernia repair, Hx Herniorrhaphy, Hx Open Heart Surgery - mitral valve repair 2009, Hx Tonsillectomy. Denies: Hx Pacemaker - Immunizations Hx Diphtheria, Pertussis, Tetanus Vaccination: No Hx Pneumococcal Vaccination: 11/01/11 Review of Systems - Review of Systems Constitutional: No symptoms reported EENT: No symptoms reported Cardiovascular: Dyspnea Respiratory: Short of breath Gastrointestinal: No symptoms reported Genitourinary: No symptoms reported Male Genitourinary: No symptoms reported Musculoskeletal: No symptoms reported Skin: No symptoms reported Hematologic/Lymphatic: No symptoms reported Neurological/Psychological: No symptoms reported -: Yes All other systems reviewed and negative Physical Exam - Vital signs Vitals: Temp Pulse Resp BP Pulse Ox 98.5 F 94 32 H 107/49 L 84 L 01/10/18 15:47 01/10/18 15:47 01/10/18 15:47 01/10/18 15:47 01/10/18 15:47 Interpretation: Normal - General General appearance: Appears well, Alert - HEENT Head: Normocephalic, Atraumatic Eyes: Normal Pupils: PERRL - Respiratory Respiratory status: No respiratory distress Breath sounds: Normal, Wheezing Chest palpation: Normal - Cardiovascular Rhythm: Regular Heart sounds: Normal auscultation Murmur: No - Abdominal Inspection: Normal Distension: No distension Bowel sounds: Normal Tenderness: Nontender Organomegaly: No organomegaly - Rectal Tenderness: No Stool: Heme positive, Black Hemorrhoids: External Prostate: Normal - Back Back: Normal, Nontender - Extremities General upper extremity: Normal inspection, Nontender, Normal color, Normal ROM , Normal temperature, Other - AV fistula left upper extremity at the wrist with palpable thrill General lower extremity: Normal inspection, Nontender, Normal color, Normal ROM , Normal temperature, Normal weight bearing. No: Sindy's sign - Neurological Neuro grossly intact: Yes Cognition: Normal Orientation: AAOx4 Jeremias Coma Scale Eye Opening: Spontaneous Jeremias Coma Scale Verbal: Oriented [place] Coma Scale Motor: Obeys Commands Jeremias Coma Scale Total: 15 Speech: Normal Motor strength normal: LUE, RUE, LLE, RLE Sensory: Normal - Psychological Associated symptoms: Normal affect, Normal mood - Skin Skin Temperature: Warm Skin Moisture: Dry Skin Color: Normal Course - Re-evaluation Re-evalutation: 01/10/18 18:21 Patient's hemoglobin returned at 7.1. Patient does seem to be symptomatic with his shortness of breath. states much improved sob with vbg show hypercapnia with no acidosis possible baseline as the patient on reeval shows no signs of sob/hypercapnic state aox3 Hemoccult card did return positive for blood in stool was black. Patient was informed of his results. Also informed the patient and due to lack of dialysis and also due to lack of GI coverage would recommend transfer to another tertiary care facility at this time. Patient is refusing transfer and admission to the hospital at this time. I did discuss the patient's case with his boat tender Dr. Rios who agrees that with the patient being dialyzed today that more likely will have enough room for 2 units of blood without too much of a concern for fluid overload. Long discussion with the patient at bedside risk and benefits of being transferred to tertiary care facility for further GI workup. Patient states that he would rather receive only blood return to the ER if symptoms worsen follow-up with Dr. Galeano as outpatient so that he may enjoy the weekend. Patient is alert and oriented 3 able to make his own medical decisions understands the risk of and disability if the patient leaves without further evaluation of his symptoms. Will order the patient blood will monitor the patient after his blood is being transfused patient will sign out AGAINST MEDICAL ADVICE. 01/10/18 20:26 - Vital Signs Vital signs: Temp Pulse Resp BP Pulse Ox 98.5 F 94 32 H 107/49 L 84 L 01/10/18 15:47 01/10/18 15:47 01/10/18 15:47 01/10/18 15:47 01/10/18 15:47 - Laboratory Result Diagrams: 01/10/18 16:38 01/10/18 16:38 Laboratory results interpreted by me: 01/10/18 01/10/18 01/10/18 16:38 16:38 16:38 RBC 2.21 L Hgb 7.1 L Hct 22.9 L MCV 103 H MCHC 31.0 L RDW 18.5 H Lymphocytes % 8.9 L VBG pCO2 68.9 H* VBG HCO3 34.9 H BUN 26 H Creatinine 3.62 H Est GFR ( Amer) 20 L Est GFR (Non-Af Amer) 16 L Total Protein 5.6 L Albumin 3.4 L Crossmatch 01/10/18 16:38 RBC Hgb Hct MCV MCHC RDW Lymphocytes % VBG pCO2 VBG HCO3 BUN Creatinine Est GFR ( Amer) Est GFR (Non-Af Amer) Total Protein Albumin Crossmatch See Detail Discharge - Discharge Clinical Impression: Anemia Qualifiers: Anemia type: unspecified type Qualified Code(s): D64.9 - Anemia, unspecified Chronic obstructive lung disease Qualifiers: COPD type: unspecified COPD Qualified Code(s): J44.9 - Chronic obstructive pulmonary disease, unspecified GI bleed Qualifiers: GI bleed type/associated pathology: unspecified gastrointestinal hemorrhage type Qualified Code(s): K92.2 - Gastrointestinal hemorrhage, unspecified Condition: Good Disposition: AGAINST MEDICAL ADVICE Instructions: Anemia ([facility]), Rectal Bleeding, Unclear Cause ([facility]) Additional Instructions: You this is to leave AGAINST MEDICAL ADVICE at this time. Your physical examination and workup shows signs of a possible underlying GI bleed for the reason of your anemia. We did give you blood here however he may continue to bleed causing worsening anemia unstable vital signs causing possible and disability. You have excepted these risk stated you will follow-up with your GI specialist as outpatient. You are welcome to return to the ER at any time to complete your workup. Follow-up with your physicians immediately Prescriptions: Omeprazole 20 mg PO DAILY #10 capsule. Referrals: Dean RIOS MD [ACTIVE STAFF] - Follow up as needed BUBBA GALEANO MD [ACTIVE STAFF] - Follow up as needed
--- NOTE | 2018-01-10 19:06 | EKG REPORT ---
SEVERITY:- ABNORMAL ECG - SINUS RHYTHM WITH FIRST DEGREE AVB MULTIPLE VENTRICULAR PREMATURE COMPLEXES NONSPECIFIC INTRAVENTRICULAR CONDUCTION DELAY PROBABLE LEFT VENTRICULAR HYPERTROPHY : Confirmed by: [place] MD 10-Jan-2018 19:06:18
[2018-01-11 01:44] VITALS: BP 120/63
== END 2018-01-11 02:31 | disposition left against medical advice (07) ==
LOC: ER 15:32
DX: J44.9 Chronic obstructive pulmonary disease, unspecified (principal); K92.2 Gastrointestinal hemorrhage, unspecified; D64.9 Anemia, unspecified; R06.02 Shortness of breath; Z87.891 Personal history of nicotine dependence; I10 Essential (primary) hypertension
CPT/HCPCS: 93005; 94640; 99285; 96361; 96374; 96375; 86900; 86901; 36415; 36430; 86850; 85025; 82272; 80053; 86920; 82803; 71045; 93010; P9016; J2930; C9113; J7050; A9270; J7620; S0164

== ENCOUNTER 2018-02-18 14:14 | Day surgery (SDC) | payer MEDICARE, OTHER ==
[~2018-02-18 14:14] MED LIST changes: -DIPHENHYDRAMINE HCL 50 MG/ML VIAL ONE; -EPINEPHRINE INJ 1 MG/10 ML DISP.SYRIN ONE; +ETOMIDATE INJ/PF 20 MG/10 ML SDV IV ONE; -FLUMAZENIL INJ 0.5 MG/5 ML VIAL ONE; -GLUCAGON,HUMAN RECOMB 1 MG INJ ONE; -MIDAZOLAM 2 MG/2 ML INJ ONE; -NALOXONE HCL INJ/PF 0.4 MG/1 ML SDV ONE
[2018-02-18] MEDS ORDERED: PROPOFOL INJ 200 MG/20 ML VIAL IV ONE (15:26)
[2018-02-18] MEDS ORDERED: MIDAZOLAM 2 MG/2 ML INJ ONE (15:43)
[2018-02-18] MEDS ORDERED: PROMETHAZINE HCL INJ 25 MG/1 ML VIAL IV PRN (16:28)
[2018-02-18] MEDS ORDERED: MEPERIDINE HCL/PF INJ 25 MG/1 ML DISP.SYRIN IV PRN (16:28)
[2018-02-18] MEDS ORDERED: FENTANYL CITRATE INJ/PF 100 MCG/2 ML AMPUL IV PRN (16:28)
[2018-02-18] MEDS ORDERED: DIPHENHYDRAMINE HCL 50 MG/ML VIAL IV PRN (16:28)
--- NOTE | 2018-02-18 16:30 | Operative Report ---
Operative Report DATE OF SURGERY: 02/18/18 Operative Report: Pre-op diagnosis: Persistent iron deficiency anemia and history of cricopharyngeal hypertrophy Post-op diagnosis: 1. Mild antral gastritis 2. Gastric body polyp 3. Normal duodenum and proximal jejunum 4. Upper esophageal sphincter stricture Surgery: Esophagogastroduodenoscopy with enteroscopy and biopsy Medications: As per anesthesia Tissue removed: Antral biopsy and gastric polyp for pathology Procedure: After informed consent obtained from patient, the throat was sprayed with Hurricane and conscious sedation was achieved by anesthesia. The pediatric colonoscope was initially used and multiple attempts at passing the upper esophageal sphincter were unsuccessful. This was then changed to the regular EGD scope that I was able to pass with some difficulty. The endoscope was inserted into the stomach, duodenum and proximal jejunum about 10-15 cm beyond the ligament of Treitz. Endoscope was then slowly pulled out of the patient as the mucosa was examined into details. Patient tolerated procedure well. Findings Esophagus: Normal Antrum: Mild antral gastritis Body: 4 mm polyp removed with the biopsy forceps Fundus: Normal Duodenum first part: Normal Duodenum second part: Normal Proximal jejunum: Normal Plan: Await pathology. Patient was not able to swallow a capsule endoscope. Continue to follow CBC and iron levels OPERATION: .
[2018-02-18] MEDS ORDERED: DEXTROSE 5%-1/2 NORMAL SALINE 1,000 ML IV PRN (16:44)
[2018-02-18] MEDS ORDERED: SIMETHICONE 80 MG TAB.CHEW PO PRN (17:11)
[2018-02-18] MEDS ORDERED: ACETAMINOPHEN 325 MG TABLET PO PRN (17:15)
[2018-02-18] MEDS ORDERED: PROMETHAZINE HCL INJ 25 MG/1 ML VIAL INJ PRN (17:15)
[2018-02-18] MEDS: FLUMAZENIL INJ 0.5 MG/5 ML VIAL ONE ×2 (17:15→17:25)
[2018-02-18 19:16] VITALS: BP 130/53
== END 2018-02-18 19:10 | disposition home or self-care (01) ==
LOC: OROUT 14:14
PROVIDERS: ATTEND Internal Medicine Gastroenterology
DX: K31.7 Polyp of stomach and duodenum (principal); K29.70 Gastritis, unspecified, without bleeding; K22.2 Esophageal obstruction; D50.0 Iron deficiency anemia secondary to blood loss (chronic); I12.0 Hypertensive chronic kidney disease with stage 5 chronic kidney disease or end stage renal disease; N18.5 Chronic kidney disease, stage 5; J44.9 Chronic obstructive pulmonary disease, unspecified; E78.00 Pure hypercholesterolemia, unspecified; Z99.2 Dependence on renal dialysis; Z79.899 Other long term (current) drug therapy; Z79.51 Long term (current) use of inhaled steroids; Z79.82 Long term (current) use of aspirin; Z99.81 Dependence on supplemental oxygen
CPT/HCPCS: 43239; 88342 ×2; 88305 ×2; J3490 ×2; J2250; J2405; 36415; 44376; 731; J2704

== ENCOUNTER 2018-02-19 19:30 | Inpatient (IN) | payer MEDICARE, OTHER ==
--- NOTE | 2018-02-19 19:52 | ER Document Report ---
ED Respiratory Problem - General Chief Complaint: Shortness Of Breath Stated Complaint: SHORTNESS OF BREATH Time Seen by Provider: 02/19/18 19:49 Notes: This is an 82-year-old male patient to the emergency department for evaluation of fall. Altered mental status. Patient states that he tripped over his oxygen concentrator cord. Landed on his oxygen concentrator. Hit his head. Had pain in the left side of his chest and left arm with some bleeding on his left arm. EMS called and evaluated patient. Patient refused to come in. His arm had a skin tear on the right elbow area which was bandaged with a triple dressing. Throughout the day patient complained of increased shortness of breath, sleepy, headache and generally not feeling well. Finally agreed to come in to be evaluated. Patient is a renal failure patient on dialysis. Has not been to dialysis because he did not feel good enough to go. TRAVEL OUTSIDE OF THE [place] IN LAST 30 DAYS: No - HPI Patient complains to provider of: Short of breath Onset: Yesterday Duration: Worse/persistent - Related Data Allergies/Adverse Reactions: adhesive tape Allergy (Verified 11/26/17 15:33) Blisters propofol Adverse Reaction (Unknown, Uncoded 02/18/18 15:41) Past Medical History - General Information source: Patient - Social History Smoking Status: Former Smoker Cigarette use (# per day): No Frequency of alcohol use: None Drug Abuse: None Lives with: Family Family History: Reviewed & Not Pertinent - Past Medical History Cardiac Medical History: Reports: Hx Hypertension Denies: Hx Coronary Artery Disease, Hx Heart Attack Pulmonary Medical History: Reports: Hx COPD Denies: Hx Asthma, Hx Bronchitis, Hx Pneumonia Neurological Medical History: Denies: Hx Cerebrovascular Accident, Hx Seizures Renal/ Medical History: Reports: Hx End Stage Renal Disease. Denies: Hx Peritoneal Dialysis Musculoskeletal Medical History: Reports Hx Arthritis Past Surgical History: Reports: Hx Abdominal Surgery - hernia repair, Hx Herniorrhaphy, Hx Open Heart Surgery - mitral valve repair 2009, Hx Tonsillectomy. Denies: Hx Pacemaker - Immunizations Hx Diphtheria, Pertussis, Tetanus Vaccination: No Hx Pneumococcal Vaccination: 03/13/11 Review of Systems - Review of Systems Notes: Constitutional: denies: Chills, Diaphoresis, Fever, Malaise, Weakness. States that he feels sluggish EENT: denies: Eye discharge, Blurred vision, Tearing, Double vision, Nose congestion, Nose discharge, Throat swelling, Mouth pain Cardiovascular: denies: Palpitations, Heart racing, Orthopnea, Dyspnea, Chest pain Respiratory: denies: Cough, Hurts to breathe, Wheezing. Does complain of some chest wall pain and increased shortness of breath Gastrointestinal: denies: Abdominal pain, Diarrhea, Nausea, Vomiting, Black stools, bright red blood in stool Genitourinary: denies: Burning, Dysuria, Discharge, Frequency, Flank pain, Hematuria Musculoskeletal: denies: Joint pain, Joint swelling, Muscle pain, Muscle stiffness, back pain Hematologic/Lymphatic: denies: Anemia, Easy bleeding, Easy bruising, Blood clots Neurological/Psychological: denies: Confusion, Dementia, Depression, Loss of consciousness Skin: No lesions, no masses, no skin breakdown, no abscesses. Complains of a laceration/skin tear on the right elbow area. Physical Exam - Vital signs Vitals: Pulse Resp BP Pulse Ox 79 24 H 93/37 L 83 L 02/19/18 19:38 02/19/18 19:38 02/19/18 19:38 02/19/18 19:38 Interpretation: Tachycardic - irregular, Tachypneic - General General appearance: Appears well, Alert - HEENT Head: Normocephalic, Atraumatic Eyes: Normal Pupils: PERRL - Respiratory Respiratory status: No respiratory distress Chest status: Nontender Breath sounds: Normal Chest palpation: Normal - Cardiovascular Rhythm: Irregularly irregular, Tachycardia Heart sounds: Normal auscultation Murmur: No - Abdominal Inspection: Normal Distension: No distension Bowel sounds: Normal Tenderness: Nontender Organomegaly: No organomegaly - Back Back: Normal, Nontender - Extremities General upper extremity: Normal inspection, Nontender, Normal color, Normal ROM , Normal temperature, Other - Patient has an AV fistula present in the left upper extremity. There is a skin tear present on the right elbow with approximately time since injury of 24 hours. Is a cellulitis or infection. General lower extremity: Normal inspection, Nontender, Normal color, Normal ROM , Normal temperature, Normal weight bearing, Other - No hip pain. No hip instability.. No: Sindy's sign - Neurological Neuro grossly intact: Yes Cognition: Normal Orientation: AAOx4 [place] Coma Scale Eye Opening: Spontaneous Jeremias Coma Scale Verbal: Oriented Jeremias Coma Scale Motor: Obeys Commands Jeremias Coma Scale Total: 15 Speech: Normal Motor strength normal: LUE, RUE, LLE, RLE Sensory: Normal - Psychological Associated symptoms: Normal affect, Normal mood - Skin Skin Temperature: Warm Skin Moisture: Dry Skin Color: Normal Course - Re-evaluation Re-evalutation: Chest X-Ray 02/19/18 19:51 IMPRESSION: Borderline cardiomegaly without pulmonary edema. Cannot exclude limited left lower lobe pneumonia. Head CT 02/19/18 20:28 IMPRESSION: Limited study due to motion artifact. No gross intracranial hemorrhage or skull fracture. 02/19/18 21:41 Laboratory 02/19/18 02/19/18 02/19/18 20:32 20:32 20:32 WBC 8.0 RBC 2.74 L Hgb 7.8 L Hct 25.8 L MCV 94 MCH 28.4 MCHC 30.2 L RDW 18.5 H Plt Count 170 Total Counted 100 Seg Neutrophils % Not Reportable Seg Neuts % (Manual) 82 H Band Neutrophils % 2 L Lymphocytes % Not Reportable Lymphocytes % (Manual) 5 L Monocytes % Not Reportable Monocytes % (Manual) 10 Eosinophils % Not Reportable Eosinophils % (Manual) 0 Basophils % Not Reportable Basophils % (Manual) 0 Metamyelocytes % 1 H Absolute Neutrophils Not Reportable Abs Neuts (Manual) 6.8 Absolute Lymphocytes Not Reportable Abs Lymphs (Manual) 0.4 L Absolute Monocytes Not Reportable Abs Monocytes (Manual) 0.8 Absolute Eosinophils Not Reportable Absolute Eos (Manual) 0.0 Absolute Basophils Not Reportable Abs Basophils (Manual) 0.0 Toxic Granulation SLIGHT Platelet Comment ADEQUATE Polychromasia SLIGHT Hypochromasia SLIGHT Poikilocytosis SLIGHT Anisocytosis 2+ Ovalocytes SLIGHT PT INR APTT Sodium 137.6 Potassium 6.5 H* Chloride 95 L Carbon Dioxide 21 L Anion Gap 22 H BUN 68 H Creatinine 6.83 H Est GFR ( Amer) 9 L Est GFR (Non-Af Amer) 8 L Glucose 99 Calcium 8.6 Total Bilirubin 1.0 Direct Bilirubin 1.0 H Neonat Total Bilirubin Not Reportable Neonat Direct Bilirubin Not Reportable Neonat Indirect Bili Not Reportable AST 264 H ALT 220 H Alkaline Phosphatase 75 Creatine Kinase 69 CK-MB (CK-2) 5.53 H Troponin I 0.041 Total Protein 6.5 Albumin 4.0 02/19/18 20:32 WBC RBC Hgb Hct MCV MCH MCHC RDW Plt Count Total Counted Seg Neutrophils % Seg Neuts % (Manual) Band Neutrophils % Lymphocytes % Lymphocytes % (Manual) Monocytes % Monocytes % (Manual) Eosinophils % Eosinophils % (Manual) Basophils % Basophils % (Manual) Metamyelocytes % Absolute Neutrophils Abs Neuts (Manual) Absolute Lymphocytes Abs Lymphs (Manual) Absolute Monocytes Abs Monocytes (Manual) Absolute Eosinophils Absolute Eos (Manual) Absolute Basophils Abs Basophils (Manual) Toxic Granulation Platelet Comment Polychromasia Hypochromasia Poikilocytosis Anisocytosis Ovalocytes PT 16.0 H INR 1.22 APTT 34.7 Sodium Potassium Chloride Carbon Dioxide Anion Gap BUN Creatinine Est GFR ( Amer) Est GFR (Non-Af Amer) Glucose Calcium Total Bilirubin Direct Bilirubin Neonat Total Bilirubin Neonat Direct Bilirubin Neonat Indirect Bili AST ALT Alkaline Phosphatase Creatine Kinase CK-MB (CK-2) Troponin I Total Protein Albumin Patient with hyperkalemia, low hemoglobin and hematocrit. Likely needs blood transfusion. Starting temporizing measures for his hyperkalemia due to the fact that he has new onset atrial fibrillation and shortness of breath. Uncertain whether or not he has something going on in his lungs. Likely this is a pleural effusion but will add blood culture as well. Will type and cross for PRBCs. Will order transfusion. Will consult with custom shop worker and hospitalist shortly. Anticipate admit to ICU. 02/19/18 21:44 02/19/18 22:10 Initially ordered 1 unit of PRBCs but custom shop worker, Dr. Rios, does not want me to transfuse him at this time. He will do that during dialysis. Starting on a diltiazem drip. Will give Kayexalate based on Dr. Rios's recommendations. Have done all the other temporizing measures for the atrial fibrillation. At this time patient is in stable condition but definitely is guarded. Will consult with hospitalist for admission at this time. - Vital Signs Vital signs: Temp Pulse Resp BP Pulse Ox 97.6 F 79 24 H 93/37 L 83 L 02/19/18 20:11 02/19/18 19:38 02/19/18 19:38 02/19/18 19:38 02/19/18 19:38 - Laboratory Result Diagrams: 02/19/18 20:32 02/19/18 20:32 Laboratory results interpreted by me: 02/19/18 02/19/18 02/19/18 20:32 20:32 20:32 RBC 2.74 L Hgb 7.8 L Hct 25.8 L MCHC 30.2 L RDW 18.5 H Seg Neuts % (Manual) 82 H Band Neutrophils % 2 L Lymphocytes % (Manual) 5 L Metamyelocytes % 1 H Abs Lymphs (Manual) 0.4 L PT Potassium 6.5 H* Chloride 95 L Carbon Dioxide 21 L Anion Gap 22 H BUN 68 H Creatinine 6.83 H Est GFR ( Amer) 9 L Est GFR (Non-Af Amer) 8 L Direct Bilirubin 1.0 H AST 264 H ALT 220 H CK-MB (CK-2) 5.53 H 02/19/18 20:32 RBC Hgb Hct MCHC RDW Seg Neuts % (Manual) Band Neutrophils % Lymphocytes % (Manual) Metamyelocytes % Abs Lymphs (Manual) PT 16.0 H Potassium Chloride Carbon Dioxide Anion Gap BUN Creatinine Est GFR ( Amer) Est GFR (Non-Af Amer) Direct Bilirubin AST ALT CK-MB (CK-2) - EKG Interpretation by Me Rhythm: A.Flutter Critical Care Note - Critical Care Note Total time excluding time spent on procedures (mins): 60 Comments: Hyperkalemia, renal failure, A. fib with RVR Discharge - Discharge Clinical Impression: Hyperkalemia, Atrial fibrillation with rapid ventricular response Condition: Good Disposition: ADMITTED INPATIENT Admitting Provider: Hospitalist [facility] Admitted: ICU Referrals: SHEA ERVIN MD [Primary Care Provider] - Follow up as needed
--- NOTE | 2018-02-19 20:27 | RADIOLOGY REPORT (SQ) ---
EXAM DESCRIPTION: CHEST SINGLE VIEW COMPLETED DATE/TIME: 02/19/2018 8:06 pm REASON FOR STUDY: sob COMPARISON: 01/10/2018 EXAM PARAMETERS: NUMBER OF VIEWS: One view. TECHNIQUE: Single frontal radiographic view of the chest acquired. RADIATION DOSE: NA LIMITATIONS: None. FINDINGS: LUNGS AND PLEURA: Elevated right hemidiaphragm. Patchy opacification in the left base. MEDIASTINUM AND HILAR STRUCTURES: No masses. Contour normal. HEART AND VASCULAR STRUCTURES: Heart size is borderline. No pulmonary edema. BONES: No acute findings. HARDWARE: Sternotomy wires. OTHER: No other significant finding. IMPRESSION: Borderline cardiomegaly without pulmonary edema. Cannot exclude limited left lower lobe pneumonia. TECHNICAL DOCUMENTATION: JOB ID: [id number] [employer]- All Rights Reserved Reading location - IP/workstation name: [email or web address]
[2018-02-19 20:55] LABS: INTERNATIONAL RATION (INR) 1.22
[2018-02-19 20:56] LABS: PARTIAL THROMBOPLASTIN TIME 34.7 SEC (23.5-35.8)
[2018-02-19 21:02] LABS: ALANINE AMINOTRANSFERASE 220 U/L (21-72); ALKALINE PHOSPHATASE 75 U/L (38-126); ASPARTATE AMINO TRANSFERASE 264 U/L (17-59); BLOOD UREA NITROGEN 68 mg/dL (7-20); CALCIUM 8.6 mg/dL (8.4-10.2); CREATINE KINASE 69 U/L (55-170); GLUCOSE 99 mg/dL (75-110); TOTAL PROTEIN 6.5 g/dL (6.3-8.2)
[2018-02-19 21:06] LABS: HEMATOCRIT 25.8 % (37.9-51.0); MEAN CORPUSCULAR HEMOGLOBIN 28.4 pg (27.0-33.4); MEAN CORPUSCULAR HGB CONC 30.2 g/dL (32.0-36.0); MEAN CORPUSCULAR VOLUME 94 fl (80-97); PLATELET COUNT 170 10^3/uL (150-450); RED BLOOD COUNT 2.74 10^6/uL (4.35-5.55); RED CELL DISTRIBUTION WIDTH 18.5 % (11.5-14.0)
[2018-02-19 21:08] LABS: CARBON DIOXIDE 21 mmol/L (22-30); CHLORIDE 95 mmol/L (98-107); SODIUM 137.6 mmol/L (137-145)
[2018-02-19 21:12] LABS: ANION GAP 22 (5-19)
[2018-02-19 21:14] LABS: CREATINE KINASE MB 5.53 ng/mL (<4.55); POTASSIUM 6.5 mmol/L (3.6-5.0)
[2018-02-19] MEDS ORDERED: CALCIUM GLUCONATE 1000 MG/10 ML INJ IV ONE (21:15)
[2018-02-19] MEDS ORDERED: SODIUM BICARBONATE 8.4% INJ 50 MEQ/50 ML DISP.SYRIN IV ONE (21:15)
[2018-02-19] MEDS ORDERED: DILTIAZEM HCL 120 MG CAP.SR.24H PO ONE (21:15)
[2018-02-19 21:16] LABS: TROPONIN I 0.041 ng/mL
[2018-02-19] MEDS ORDERED: DEXTROSE 50%-WATER 25 GM/50 ML DISP.SYRIN IV ONE (21:17)
[2018-02-19] MEDS ORDERED: INSULIN REG, HUMAN 100 UNIT/ML 3 ML VIAL (PYX) IV ONE (21:17)
[2018-02-19 21:22] LABS: ABSOLUTE LYMPHOCYTES# (MANUAL) 0.4 10^3/uL (0.5-4.7); ABSOLUTE MONOCYTES # (MANUAL) 0.8 10^3/uL (0.1-1.4); ABSOLUTE NEUTROPHILS# (MANUAL) 6.8 10^3/uL (1.7-8.2); BAND NEUTROPHILS % (MANUAL) 2 % (3-5); BASOPHILS % (MANUAL) 0 % (0-2); EOSINOPHILS % (MANUAL) 0 % (0-6); LYMPHOCYTES % (MANUAL) 5 % (13-45); METAMYELOCYTES % (MANUAL) 1 % (0); MONOCYTES % (MANUAL) 10 % (3-13); SEGMENTED NEUTROPHILS % (MAN) 82 % (42-78); TOTAL CELLS COUNTED 100
--- NOTE | 2018-02-19 21:25 | RADIOLOGY REPORT (SQ) ---
CT HEAD WITHOUT IV CONTRAST HISTORY: Fall. Altered mental status. COMPARISON: None. TECHNIQUE: CT scan of the brain. This exam was performed according to our departmental dose-optimization program, which includes automated exposure control, adjustment of the mA and/or kV according to patient size and/or use of iterative reconstruction technique. FINDINGS: Limited study due to motion artifact. No gross intracranial hemorrhage. No air-fluid levels in the paranasal sinuses. Skull is intact. IMPRESSION: Limited study due to motion artifact. No gross intracranial hemorrhage or skull fracture.
[2018-02-19 21:30] LABS: ANISOCYTOSIS 2+; HYPOCHROMASIA SLIGHT; OVALOCYTES SLIGHT; PLATELET COMMENT ADEQUATE; POIKILOCYTOSIS SLIGHT; POLYCHROMASIA SLIGHT; TOXIC GRANULATION SLIGHT
[2018-02-19 21:33] LABS: HEMOGLOBIN 7.8 g/dL (13.5-17.0)
[2018-02-19] MEDS ORDERED: NORMAL SALINE 250 ML IV PRN (21:41)
[2018-02-19] MEDS ORDERED: DILTIAZEM HCL/D5W 125 MG/125 ML RTUINJ IV PRN ×2 (21:43→22:29)
[2018-02-19] MEDS ORDERED: SODIUM POLYSTYRENE SULFONATE 15 GM/60 ML PO ONE (22:08)
[2018-02-19] MEDS ORDERED: DILTIAZEM HCL/D5W 125 MG/125 ML RTUINJ IV ONE (22:25)
[2018-02-19] MEDS ORDERED: HEPARIN SODIUM,PORCINE/D5W 25,000 UNIT/250 ML RTUINJ IV PRN (22:32)
[2018-02-19] MEDS ORDERED: MAGNESIUM HYDROXIDE SUSP 30 ML UDCUP PO PRN (22:32)
[2018-02-19] MEDS ORDERED: LEVALBUTEROL HCL NEB 1.25 MG/3 ML AMPUL NEB PRN (22:32)
[2018-02-19] MEDS ORDERED: NORMAL SALINE 1000 ML 1,000 ML IV PRN (22:37)
[2018-02-19] MEDS ORDERED: CALCIUM GLUCONATE 2,000 MG in DEXTROSE 5%-WATER 100 ML IV ONE (22:45)
[2018-02-19] MEDS ORDERED: LACTULOSE SYRUP 20 GM/30 ML UDCUP PO ONE (22:45)
[2018-02-19] MEDS ORDERED: HEPARIN SOD (PORCINE) 1,000 UNIT/ML 10 ML VIAL IV ONE (23:00)
[2018-02-19 23:33] LABS: HEMATOCRIT 24.2 % (37.9-51.0); MEAN CORPUSCULAR HEMOGLOBIN 28.3 pg (27.0-33.4); MEAN CORPUSCULAR HGB CONC 30.9 g/dL (32.0-36.0); MEAN CORPUSCULAR VOLUME 92 fl (80-97); PLATELET COUNT 148 10^3/uL (150-450); RED BLOOD COUNT 2.64 10^6/uL (4.35-5.55); RED CELL DISTRIBUTION WIDTH 18.3 % (11.5-14.0); WHITE BLOOD COUNT 7.1 10^3/uL (4.0-10.5)
[2018-02-19 23:35] LABS: ABSOLUTE RETICS # 0.057 10^6/uL (0.028-0.122); RETICULOCYTE COUNT (AUTO) 2.17 % (0.66-2.85)
[2018-02-19] MEDS ORDERED: NORMAL SALINE 1000 ML 500 ML IV PRN (23:46)
[2018-02-19 23:47] LABS: INTERNATIONAL RATION (INR) 1.28; PROTHROMBIN TIME 16.6 SEC (11.4-15.4)
[2018-02-19 23:55] LABS: ABSOLUTE LYMPHOCYTES# (MANUAL) 0.4 10^3/uL (0.5-4.7); ABSOLUTE MONOCYTES # (MANUAL) 0.3 10^3/uL (0.1-1.4); ABSOLUTE NEUTROPHILS# (MANUAL) 6.5 10^3/uL (1.7-8.2); BASOPHILS % (MANUAL) 0 % (0-2); EOSINOPHILS % (MANUAL) 0 % (0-6); LYMPHOCYTES % (MANUAL) 5 % (13-45); MONOCYTES % (MANUAL) 4 % (3-13); NUCLEATED RED BLOOD CELLS 1 /100 WBC (0); SEGMENTED NEUTROPHILS % (MAN) 91 % (42-78); TOTAL CELLS COUNTED 100
[2018-02-19 23:56] LABS: ANISOCYTOSIS 2+; PLATELET COMMENT DECREASED; POLYCHROMASIA SLIGHT
[2018-02-19 23:57] LABS: HEMOGLOBIN 7.5 g/dL (13.5-17.0)
[2018-02-20 00:27] LABS: BLOOD UREA NITROGEN 70 mg/dL (7-20); CALCIUM 8.5 mg/dL (8.4-10.2); GLUCOSE 221 mg/dL (75-110)
[2018-02-20 00:33] LABS: CARBON DIOXIDE 25 mmol/L (22-30); CHLORIDE 91 mmol/L (98-107); SODIUM 136.4 mmol/L (137-145)
[2018-02-20 00:34] LABS: ANION GAP 20 (5-19)
[2018-02-20 00:37] LABS: POTASSIUM 6.3 mmol/L (3.6-5.0)
[2018-02-20 01:14] LABS: CREATINE KINASE MB 4.68 ng/mL (<4.55); TROPONIN I 0.043 ng/mL
[2018-02-20 01:23] LABS: FOLATE > 20.00 ng/mL (>2.76)
[2018-02-20] MEDS ORDERED: HEPARIN SOD (PORCINE) 1,000 UNIT/ML 10 ML VIAL IV PRN (01:35)
--- NOTE | 2018-02-20 01:42 | RADIOLOGY REPORT (SQ) ---
EXAM DESCRIPTION: US ABDOMEN DOPPLER LIMITED COMPLETED DATE/TME: 02/19/2018 22:19 CLINICAL HISTORY: 82 years, Male, elevated LFT COMPARISON: None. TECHNIQUE: Grayscale and color Doppler evaluation of the right upper quadrant of the abdomen was done LIMITATIONS: None. FINDINGS: The gallbladder wall is thickened measuring 5 mm. There is mild pericholecystic fluid There is no intraluminal sludge or gallstones. These findings are suspicious for acute acalculous cholecystitis. There is no ultrasonographically positive Reyes's sign. 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 The liver measures 13.7 cm in length without any intrahepatic biliary dilatation. The common duct is of normal caliber measuring 2 mm across. The right kidney measures 9.5 cm in length. There is generalized increased echogenicity of the right kidney suspicious for underlying medical renal disease. Multiple cysts are seen in the right kidney, the largest measuring 1.6 x 1.4 x 1.6 cm. There is also presence of complex free fluid superior to the right kidney in the hepatorenal pouch. There is no hydronephrosis or nephrolithiasis in the right kidney IMPRESSION: The gallbladder wall is thickened measuring 5 mm. There is mild pericholecystic fluid There is no intraluminal sludge or gallstones. These findings are suspicious for acute acalculous cholecystitis. 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 There is generalized increased echogenicity of the right kidney suspicious for underlying medical renal disease. Multiple cysts are seen in the right kidney, the largest measuring 1.6 x 1.4 x 1.6 cm. There is also presence of complex free fluid superior to the right kidney in the hepatorenal pouch 2010 [employer]- All Rights Reserved
[2018-02-20] MEDS ORDERED: NORMAL SALINE 500 ML IV ONE (02:00)
[2018-02-20 05:13] LABS: HEMATOCRIT 22.9 % (37.9-51.0); MEAN CORPUSCULAR HEMOGLOBIN 28.2 pg (27.0-33.4); MEAN CORPUSCULAR HGB CONC 30.7 g/dL (32.0-36.0); MEAN CORPUSCULAR VOLUME 92 fl (80-97); PLATELET COUNT 157 10^3/uL (150-450); RED BLOOD COUNT 2.49 10^6/uL (4.35-5.55); RED CELL DISTRIBUTION WIDTH 18.5 % (11.5-14.0); WHITE BLOOD COUNT 9.3 10^3/uL (4.0-10.5)
[2018-02-20 05:34] LABS: ABSOLUTE LYMPHOCYTES# (MANUAL) 0.7 10^3/uL (0.5-4.7); ABSOLUTE MONOCYTES # (MANUAL) 0.7 10^3/uL (0.1-1.4); ABSOLUTE NEUTROPHILS# (MANUAL) 7.9 10^3/uL (1.7-8.2); BAND NEUTROPHILS % (MANUAL) 1 % (3-5); BASOPHILS % (MANUAL) 0 % (0-2); EOSINOPHILS % (MANUAL) 0 % (0-6); LYMPHOCYTES % (MANUAL) 8 % (13-45); MONOCYTES % (MANUAL) 7 % (3-13); SEGMENTED NEUTROPHILS % (MAN) 84 % (42-78); TOTAL CELLS COUNTED 100
[2018-02-20 05:35] LABS: ANISOCYTOSIS 2+; OVALOCYTES SLIGHT; PLATELET COMMENT ADEQUATE; POIKILOCYTOSIS SLIGHT; POLYCHROMASIA SLIGHT
[2018-02-20] MEDS ORDERED: IRON SUCROSE COMPLEX INJ/PF 100 MG/5 ML SDV IV ONE (05:35)
[2018-02-20 05:39] LABS: CREATINE KINASE MB 4.22 ng/mL (<4.55); TROPONIN I 0.053 ng/mL
--- NOTE | 2018-02-20 06:01 | PDOC H&P ---
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 In the emergency room he is found to have new A. fib, A flutter with RVR, hypotension, acute on chronic anemia, LFT elevation and hyperkalemia with peaked T waves. He receives calcium , dextrose, insulin, albuterol, Kayexalate and referred to the hospitalist for admission. He denies alcohol, excessive caffeine, constipation, recent change in medication , diet or lifestyle. He admits to dark stools, Tylenol 2 tabs unknown dose every 6 hours. Past Medical History Cardiac Medical History: Reports: Coronary Artery Disease, Hypertension Denies: Atrial Fibrillation, Myocardial Infarction Pulmonary Medical History: Reports: Chronic Obstructive Pulmonary Disease (COPD) Denies: Asthma, Bronchitis, Pneumonia Neurological Medical History: Denies: Seizures Renal/ Medical History: Reports: End Stage Renal Disease GI Medical History: Denies: Cirrhosis Musculoskeltal Medical History: Reports: Arthritis Psychiatric Medical History: Denies: Alcohol Dependency, Depression, Substance Abuse, Tobacco Dependency Hematology: Reports: Anemia, Bleeding Tendencies Denies: Sickle Cell Disease Past Surgical History Past Surgical History: Reports: Herniorrhaphy, Tonsillectomy, Other - Mitral valve repair Denies: Pacemaker Social History Information Source: Patient, Emergency Med Personnel, [facility] Records Lives with: Family Smoking Status: Former Smoker Last Time Smoked: 1997 Frequency of Alcohol Use: None Hx Recreational Drug Use: No Drugs: None Hx Prescription Drug Abuse: No - Advance Directive Resuscitation Status: Full Code Family History Family History: Hypertension Parental Family History Reviewed: Yes Children Family History Reviewed: Yes Sibling(s) Family History Reviewed.: Yes Medication/Allergy Home Medications: Ezetimibe [Zetia 10 mg Tablet] 10 mg PO QHS 12/07/13 Rosuvastatin Calcium [Crestor 20 mg Tablet] 40 mg PO QHS 12/07/13 Montelukast Sodium [Singulair] 10 mg PO QPM #0 tablet 04/23/15 Sertraline HCl [Zoloft 50 mg Tablet] 50 mg PO QAM #0 tablet 09/02/14 Cholecalciferol (Vitamin D3) [Vitamin D3 1000 Unit Tablet] 1,000 unit PO DAILY # 0 tablet 05/12/15 Fluticasone/Salmeterol [Advair 500-50 Diskus 14 Dose/Diskus] 1 inh IH Q12 #0 inhaler 05/12/15 Amlodipine Besylate [Norvasc 10 mg Tablet] 10 mg PO DAILY 06/23/15 Tiotropium [place] [Spiriva Handihaler 18 mcg/dose (30 Dose)] 2 puff IH DAILY Albuterol Sulfate [Proventil 0.5% Neb 2.5 mg/0.5 ml Vial.neb] 2.5 mg NEB ASDIR 11/26/17 Aspirin [Aspirin EC] 81 mg PO DAILY 11/26/17 Benzonatate [Tessalon Perle 100 mg Capsule] 100 mg PO ASDIR PRN 11/26/17 Cetirizine HCl [All Day Allergy] 10 mg PO DAILY 11/26/17 Folic Acid/Vitamin B Comp W-C [Nephrocaps Multiple Vitamin Capsule] 1 cap PO DAILY 11/26/17 Furosemide [Lasix] 40 mg PO DAILY 11/26/17 Guaifenesin [Mucinex] 600 mg PO BID 11/26/17 Ipratropium [place] 2 spray IH BID 11/26/17 Omeprazole 20 mg PO DAILY #10 capsule. 01/10/18 Allergies/Adverse Reactions: adhesive tape Allergy (Verified 11/26/17 15:33) Blisters propofol Adverse Reaction (Unknown, Uncoded 02/18/18 15:41) Review of Systems Constitutional: PRESENT: as per HPI, fatigue, weakness. ABSENT: chills, fever(s ), headache(s), weight gain, weight loss Eyes: ABSENT: visual disturbances Ears: ABSENT: hearing changes Cardiovascular: PRESENT: as per HPI, dyspnea on exertion, palpitations. ABSENT : chest pain, edema, orthropnea Respiratory: ABSENT: cough, hemoptysis Gastrointestinal: PRESENT: as per HPI. ABSENT: abdominal pain, constipation, diarrhea, hematemesis, hematochezia, nausea, vomiting Genitourinary: ABSENT: dysuria, hematuria Musculoskeletal: ABSENT: joint swelling Integumentary: ABSENT: rash, wounds Neurological: ABSENT: abnormal gait, abnormal speech, confusion, dizziness, focal weakness, syncope Psychiatric: ABSENT: anxiety, depression, homidical ideation, suicidal ideation Endocrine: ABSENT: cold intolerance, heat intolerance, polydipsia, polyuria Hematologic/Lymphatic: ABSENT: easy bleeding, easy bruising Physical Exam Vital Signs: Temp Pulse Resp BP Pulse Ox 98.2 F 74 15 114/47 L 96 02/20/18 05:12 02/20/18 00:17 02/20/18 04:50 02/20/18 04:50 02/20/18 04:50 Intake & Output 02/18/18 02/19/18 02/20/18 11:59 11:59 11:59 Intake Total 6 Output Total 0 Balance 6 Weight 58.7 kg General appearance: PRESENT: cooperative, mild distress, thin. ABSENT: hard of hearing, obese, severe distress Head exam: PRESENT: atraumatic, normocephalic Eye exam: PRESENT: conjunctiva pink, EOMI, PERRLA. ABSENT: scleral icterus Ear exam: PRESENT: normal external ear exam Mouth exam: PRESENT: dry mucosa, tongue midline Neck exam: ABSENT: carotid bruit, JVD, lymphadenopathy, thyromegaly Respiratory exam: PRESENT: prolonged expiratory phas, symmetrical, tachypnea. ABSENT: rales, rhonchi, wheezes Cardiovascular exam: PRESENT: irregular rhythm, +S1, +S2, tachycardia Pulses: PRESENT: normal dorsalis pedis pul Vascular exam: PRESENT: normal capillary refill GI/Abdominal exam: PRESENT: normal bowel sounds, soft. ABSENT: distended, guarding, mass, organolmegaly, rebound, tenderness Rectal exam: PRESENT: deferred Extremities exam: PRESENT: full ROM, other - 2 large right forearm skin tears. ABSENT: calf tenderness, clubbing, pedal edema Musculoskeletal exam: PRESENT: ambulatory, full ROM. ABSENT: deformity, dislocation Neurological exam: PRESENT: alert, awake, oriented to person, oriented to place , oriented to time, oriented to situation, CN II-XII grossly intact. ABSENT: motor sensory deficit Psychiatric exam: PRESENT: appropriate affect, normal mood. ABSENT: homicidal ideation, suicidal ideation Skin exam: PRESENT: dry, skin tears - X2 right forearm, other. ABSENT: intact Results Laboratory Results: 02/20/18 04:55 02/19/18 02/19/18 02/19/18 23:05 23:05 23:05 WBC RBC Hgb Hct MCV MCH MCHC RDW Plt Count Seg Neutrophils % Lymphocytes % Monocytes % Eosinophils % Basophils % Absolute Neutrophils Absolute Lymphocytes Absolute Monocytes Absolute Eosinophils Absolute Basophils Retic Count (auto) 2.17 Absolute Retic 0.057 Sodium Potassium Chloride Carbon Dioxide Anion Gap BUN Creatinine Est GFR ( Amer) Est GFR (Non-Af Amer) Glucose Calcium Iron 12.0 L TIBC 414 % Saturation 3 Ferritin 1780.00 H Vitamin B12 872.0 Folate > 20.00 TSH Stool Occult Blood Blood Type O POSITIVE Antibody Screen NEGATIVE 02/19/18 02/19/18 02/19/18 23:05 23:05 23:05 WBC 7.1 RBC 2.64 L Hgb 7.5 L Hct 24.2 L MCV 92 MCH 28.3 MCHC 30.9 L RDW 18.3 H Plt Count 148 L Seg Neutrophils % Not Reportable Lymphocytes % Not Reportable Monocytes % Not Reportable Eosinophils % Not Reportable Basophils % Not Reportable Absolute Neutrophils Not Reportable Absolute Lymphocytes Not Reportable Absolute Monocytes Not Reportable Absolute Eosinophils Not Reportable Absolute Basophils Not Reportable Retic Count (auto) Absolute Retic Sodium 136.4 L Potassium 6.3 H* Chloride 91 L Carbon Dioxide 25 Anion Gap 20 H BUN 70 H Creatinine 6.44 H Est GFR ( Amer) 10 L Est GFR (Non-Af Amer) 8 L Glucose 221 H Calcium 8.5 Iron TIBC % Saturation Ferritin Vitamin B12 Folate TSH 1.41 Stool Occult Blood Blood Type Antibody Screen 02/20/18 02/20/18 02:20 04:55 WBC 9.3 RBC 2.49 L Hgb 7.0 L Hct 22.9 L MCV 92 MCH 28.2 MCHC 30.7 L RDW 18.5 H Plt Count 157 Seg Neutrophils % Not Reportable Lymphocytes % Not Reportable Monocytes % Not Reportable Eosinophils % Not Reportable Basophils % Not Reportable Absolute Neutrophils Not Reportable Absolute Lymphocytes Not Reportable Absolute Monocytes Not Reportable Absolute Eosinophils Not Reportable Absolute Basophils Not Reportable Retic Count (auto) Absolute Retic Sodium Potassium Chloride Carbon Dioxide Anion Gap BUN Creatinine Est GFR ( Amer) Est GFR (Non-Af Amer) Glucose Calcium Iron TIBC % Saturation Ferritin Vitamin B12 Folate TSH Stool Occult Blood POSITIVE Blood Type Antibody Screen 02/20/18 02/20/18 00:30 00:30 Creatine Kinase 55 CK-MB (CK-2) 4.68 H Troponin I 0.043 Impressions: Chest X-Ray 02/19/18 19:51 IMPRESSION: Borderline cardiomegaly without pulmonary edema. Cannot exclude limited left lower lobe pneumonia. Head CT 02/19/18 20:28 IMPRESSION: Limited study due to motion artifact. No gross intracranial hemorrhage or skull fracture. Abdomen Ultrasound 02/19/18 22:19 IMPRESSION: The gallbladder wall is thickened measuring 5 mm. There is mild pericholecystic fluid There is no intraluminal sludge or gallstones. These findings are suspicious for acute acalculous cholecystitis. 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 There is generalized increased echogenicity of the right kidney suspicious for underlying medical renal disease. Multiple cysts are seen in the right kidney, the largest measuring 1.6 x 1.4 x 1.6 cm. There is also presence of complex free fluid superior to the right kidney in the hepatorenal pouch 2010 [employer]- All Rights Reserved Assessment & Plan - Diagnosis (1) Hyperkalemia Is this a current diagnosis for this admission?: Yes Plan: Complicated by peaked T waves and end-stage renal failure. ICU admission, Kayexalate, lactulose, calcium gluconate, emergent hemodialysis, follow-up chemistry every 8 hours (2) Atrial fibrillation with rapid ventricular response Is this a current diagnosis for this admission?: Yes Plan: No clear underlying trigger. Although appears somewhat hypovolemic, IV Cardizem , serial cardiac enzymes and cardiology consult from Dr. Montez. (3) End stage renal failure on dialysis Is this a current diagnosis for this admission?: Yes Plan: Limit volume resuscitation, nephrology consulted. (4) LFT elevation Is this a current diagnosis for this admission?: Yes Plan: Aside from Tylenol level, follow-up hepatitis profile. (5) Anemia Qualifiers: Anemia type: iron deficiency Iron deficiency anemia type: chronic blood loss Qualified Code(s): D50.0 - Iron deficiency anemia secondary to blood loss (chronic) Is this a current diagnosis for this admission?: Yes Plan: Multifactorial secondary to suspected AVM resulting in iron deficiency also of chronic renal failure. Follow-up iron level, iron and packed red blood cells as needed, follow-up GI consult and CBC (6) Laceration of right upper arm Qualifiers: Encounter type: initial encounter Qualified Code(s): S41.111A - Laceration without foreign body of right upper arm, initial encounter Is this a current diagnosis for this admission?: Yes Plan: Secondary to mechanical fall, symptomatic management, consider PT consult (7) Chronic obstructive lung disease Qualifiers: COPD type: unspecified COPD Qualified Code(s): J44.9 - Chronic obstructive pulmonary disease, unspecified Is this a current diagnosis for this admission?: Yes Plan: Supplemental oxygen, incentive spirometry, flutter valve, Xopenex over albuterol given new A. fib. - Time Time Spent: Greater than 70 Minutes - Inpatient Certification Medical Necessity: Need Close Monitoring Due to Risk of Patient Decompensation
[2018-02-20] MEDS ORDERED: DEXTROSE 50%-WATER 25 GM/50 ML DISP.SYRIN IV ONE (06:18)
[2018-02-20] MEDS ORDERED: DEXTROSE 40% GEL 15 GM TUBE PO PRN (06:29)
[2018-02-20] MEDS ORDERED: DEXTROSE 40% GEL 15 GM TUBE X 2 PO PRN (06:29)
[2018-02-20] MEDS ORDERED: DEXTROSE 50%-WATER SYRINGE 12.5 GM/25 ML DOSE IV PRN (06:29)
[2018-02-20] MEDS ORDERED: GLUCAGON,HUMAN RECOMB 1 MG INJ IM PRN (06:29)
[2018-02-20] MEDS ORDERED: DEXTROSE 50%-WATER SYRINGE 25 GM/50 ML DOSE IV PRN (06:29)
--- NOTE | 2018-02-20 06:46 | EKG REPORT ---
SEVERITY:- ABNORMAL ECG - ATRIAL FLUTTER, A-RATE 200 NONSPECIFIC IVCD WITH LAD LVH WITH SECONDARY REPOLARIZATION ABNORMALITY PROBABLE INFERIOR INFARCT, OLD : Confirmed by: Marily Mcgrath MD 20-Feb-2018 06:45:22
[2018-02-20 07:11] LABS: ANION GAP 13 (5-19); BLOOD UREA NITROGEN 76 mg/dL (7-20); CALCIUM 7.8 mg/dL (8.4-10.2); CARBON DIOXIDE 26 mmol/L (22-30); CHLORIDE 97 mmol/L (98-107); CREATINE KINASE 50 U/L (55-170); GLUCOSE 149 mg/dL (75-110); POTASSIUM 5.7 mmol/L (3.6-5.0); SODIUM 135.5 mmol/L (137-145)
[2018-02-20] MEDS ORDERED: EPOETIN ALFA 30,000 UNIT in SYRINGE, DISPOSABLE, 1 EACH IV ONE (09:00)
[2018-02-20] MEDS ORDERED: NALOXONE HCL INJ 2 MG/2 ML DISP.SYRIN ONE (09:19)
[2018-02-20] MEDS ORDERED: CALCIUM GLUCONATE 1000 MG/10 ML INJ IV ONE ×2 (09:38→11:56)
[2018-02-20 10:03] LABS: ABSOLUTE BASOPHILS # (AUTO) 0.1 10^3/uL (0.0-0.2); ABSOLUTE LYMPHOCYTES (AUTO) 0.7 10^3/uL (0.5-4.7); ABSOLUTE MONOCYTES (AUTO) 1.2 10^3/uL (0.1-1.4); ABSOLUTE NEUT (AUTO) 10.4 10^3/uL (1.7-8.2); BASOPHILS % (AUTO) 0.4 % (0-2); EOSINOPHILS % (AUTO) 0.1 % (0-6); HEMATOCRIT 30.9 % (37.9-51.0); LYMPHOCYTES % (AUTO) 5.8 % (13-45); MEAN CORPUSCULAR HEMOGLOBIN 29.2 pg (27.0-33.4); MEAN CORPUSCULAR HGB CONC 31.4 g/dL (32.0-36.0); MEAN CORPUSCULAR VOLUME 93 fl (80-97); MONOCYTES % (AUTO) 9.6 % (3-13); PLATELET COUNT 174 10^3/uL (150-450); RED BLOOD COUNT 3.32 10^6/uL (4.35-5.55); RED CELL DISTRIBUTION WIDTH 16.9 % (11.5-14.0); SEGMENTED NEUTROPHILS % (AUTO) 84.1 % (42-78); TOTAL CELLS COUNTED % (AUTO) 100 %; WHITE BLOOD COUNT 12.3 10^3/uL (4.0-10.5)
[2018-02-20 10:06] LABS: HEMOGLOBIN 9.7 g/dL (13.5-17.0)
[2018-02-20 10:22] LABS: ANION GAP 7 (5-19); CARBON DIOXIDE 35 mmol/L (22-30); CHLORIDE 98 mmol/L (98-107); GLUCOSE 118 mg/dL (75-110); PHOSPHORUS 6.5 mg/dL (2.5-4.5)
[2018-02-20 10:24] LABS: ARTERIAL BLOOD FIO2 4L; ARTERIAL BLOOD H2CO3 4.83 mmol/L (1.05-1.35); ARTERIAL BLOOD HCO3 37.8 mmol/L (20-24); ARTERIAL BLOOD O2 SATURATION 91.8 % (94-98); ARTERIAL BLOOD PO2 98.5 mmHg (80-100); ARTERIAL BLOOD TOTAL CO2 42.8 mmol/L (23-27)
[2018-02-20 10:26] LABS: ARTERIAL BLOOD PCO2 160.6 mmHg (35-45); ARTERIAL BLOOD PH 6.99 (7.35-7.45)
[2018-02-20] MEDS ORDERED: AMIODARONE HCL INJ 150 MG/3 ML VIAL IV ONE (10:30)
[2018-02-20 10:38] LABS: BLOOD UREA NITROGEN 30 mg/dL (7-20); POTASSIUM 3.9 mmol/L (3.6-5.0)
[2018-02-20 11:04] LABS: AMORPHOUS SEDIMENT,URINE 1+ /HPF; APPEARANCE,URINE CLOUDY; BILIRUBIN,URINE NEGATIVE (NEGATIVE); GLUCOSE, URINE NEGATIVE (NEGATIVE); KETONES,URINE NEGATIVE (NEGATIVE); LEUKOCYTE ESTERASE,URINE TRACE (NEGATIVE); NITRITE,URINE NEGATIVE (NEGATIVE); PROTEIN,URINE 100 mg/dL (NEGATIVE); URINE SPECIFIC GRAVITY 1.016; UROBILINOGEN,URINE NEGATIVE mg/dL (<2.0)
[2018-02-20 11:05] LABS: COLOR,URINE YELLOW
--- NOTE | 2018-02-20 11:21 | CONSULTATION REPORT E ---
Consultation Report NAME: VERN COLLINS : 1935 AGE: 82Y DATE: 608 A TO: AYLA VÁSQUEZ M.D. FROM: CARMEN PHILLIP M.D. Requesting Physician REASON FOR CONSULTATION: ATRIAL FIBRILLATION AND VENTRICULAR TACHYCARDIA. HISTORY OF PRESENT ILLNESS: This 82-year-old male, well-known to me for cardiac problems to include frequent PACs, moderate MR with severe left atrial enlargement, mild calcific aortic valvular stenosis, and moderate aortic regurgitation with no need for aortic valve replacement, chronic severe dyspnea with minimal exertion, recent workup by [facility] bleach maker to show that his class-III dyspnea is mostly due to his end-stage COPD and therefore does not require any aortic valve replacement, known to have only mild coronary artery disease with most coronary vessels by catheterization showing 20% lesions and only 1 vessel showing only 40% lesion; therefore also no need for revascularization. He is known to have end-stage renal disease and has been on dialysis, he skipped yesterday due to not feeling well at home after he fell and hit his head. Daughter said he had been feeling sick for 2 weeks. He finally felt terrible enough to agree togo to the ER and was found to have first time atrial fibrillation with rapid ventricular response, with a blood pressure in the 90s (? before or during IV Cardizem) in the ER. Therefore, IV Cardizem was stopped. He also presented with hyperkalemia due to absent dialysis x1 day and was treated in the ER with IV dextrose, insulin, and calcium infusion followed by Kayexalate. He was noted to be anemic with Hemoglobin in the 7.0 and was given 2 units of packed cells. He was then admitted to the ICU, during which he was able to recover his blood pressure up to 140 at the time of my examination. However, his mental status continued to deteriorate to the point that he is lethargic and unable to respond to me calling his name on exam. An ABG is in the works (eventually came back pCO2 of 160. Contemplating intubation, confirming CO2 narcosis and respiratory failure. Initially family (daughter) requests intubation, shortly thereafter she requested that this patient be made a DNR, therefore intubation will not be pursued, pt currently place on BiPAP. While in the ICU an initiation of dialysis was done, during which he had several runs of ventricular tachycardia besides being in the atrial fibrillation rhythm off Cardizem. Dialysis had to be stopped. His vital signs showed no further hypotension, in fact last blood pressure was systolic 140. I discussed this patient's cardiac status with Dr. Rios and his PA, with the nurses, and spent another 1/2 hour discussing pts situation with the daughter and son who is regarding changing Bipap to intubation and mechanical ventilation since Bipap not likely to work at pCO2 of 160. Another son is coming. I have reviewed his entire chart in my office with respect to all of his cardiac problems up to date. I have reviewed the hospital EMR regarding his initial 12 to 24 hour course while in the ER and in ICU and management achieved up to this point. I have examined the patient.I agree with most of the documentation on these charts up to this point. RECOMMENDATION: 1. Atrial fibrillation with intermittent ventricular tachycardia since admission. The total duration of atrial fibrillation (i.e. onset? time) is unknown, posibly 2 weeks. Patient is currently unresponsive to his name and gentle stimulation. His ventricular response is not high but he does have episodes of ventricular tachycardia, at which time the dialysis was stopped. 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 He also developed hypotension while being given IV Cardizem for rate control. Due to his lethargy, it is suspected that we need to rule out thromboembolism causing stroke, although he was moving all 4 on admission, and now, and admission CT head showed no stroke. Therefore, recommend: a. No attempt to do direct current cardioversion. b. Due to atrial fibrillation with initial rapid ventricular response and now emergence of ventricular tachycardia, there is no other choice but resort to IV amiodarone. Therefore we will begin with 150 mg bolus over 10 minutes followed by 1 mg/minute IV infusion for 6 hours, then followed by 0.5 mg/minute for 18 hours before converting it to oral amiodarone tomorrow if patient survives. Hopefully this will achieve rate control and stability from his ventricular tachycardia. Daily serum potassium and serum magnesium level will be monitored. Troponin-I needs to be done every 8 hours x3 to detect any evidence of acute CO which is not shown on his admission EKG. There is a risk of him converting to normal sinus rhythm while on IV amiodarone loading, and this will increase his stroke risk from TE, and we are unable to anticoagulate due to GI bleeding. Will have to tolerate this risk due to both atrial and ventricular tachyarrhythmias. 2. Respiratory failure. Patient is lethargic, unresponsive. ABG showed pCO2 of 160, this is severe CO2 narcosis and hypoxemic respiratory failure. He is better served by intubation due to no hypoxemic drive and overall frailty to be able to breathe adequately and pre-existing severe end stage COPD and history that he had undergone intubation mechan. ventilation in the past and was weanable from respirator. Pending family's decision for intubation. 3. It is recalled that his echo on 10/24/2017 showed an LVES of 57% with stage-I left ventricular diastolic dysfunction but increased LVEDP which is being treated through dialysis. He has mild cor disease only. So he has the cardiac reserve, and may be the coronary reserve to go through this illness if adequately supported by mech ventialtion till he is weanable. Except if this continues he may have a Type 2 CO reducing his chance of survival. ASSESSMENT: 1. ATRIAL FIBRILLATION, VENTRICULAR TACHYCARDIA. 2. HYPOTENSION, REVERSED. 3. ALTERED MENTAL STATUS, LETHARGY, AcuteRESPIRATORY FAILURE with severe CO2 narcosis. 4. HYPERKALEMIA. MISSED DIALYSIS X1 DAY, temporarily reversed. 5. RULE OUT CARDIOGENIC EMBOLI FROM UNKNOWN DURATION ATRIAL FIBRILLATION. TOTAL TIME SPENT: One hour and 50 minutes including talking to the daughter and son and also hospitalist. DICTATING PHYSICIAN: AYLA VÁSQUEZ M.D. [id number] PHY#: [id number] ID: [id number] JOB#: [id number] ACCT: [id number] cc:AYLA VÁSQUEZ M.D. > MTDD
--- NOTE | 2018-02-20 11:35 | PDOC PROGRESS REPORT ---
Subjective Progress Note for:: 02/20/18 Subjective:: VERN COLLINS is a 82 year old male with a complex past medical history of oxygen dependent COPD, coronary artery disease, hypertension, mitral valve repair, iron deficient anemia with suspected AVM, and end-stage renal failure on hemodialysis Saturday, missing his scheduled dialysis appointment February 19 after sustaining a mechanical fall resulting in right forearm skin tear and emergency room evaluation. In the emergency room he is found to have new A. fib, A flutter with RVR, hypotension, acute on chronic anemia, LFT elevation and hyperkalemia with peaked T waves. He receives calcium , dextrose, insulin, albuterol, Kayexalate and referred to the hospitalist for admission. Patient receiving dialysis this morning. Patient was responsive during admission was somewhat lethargic at the initiation of dialysis and became more lethargic. A glucose was checked and he was hypoglycemic at 34. Patient was given dextrose and his sugar responded however his level of consciousness did not improve. An ABG was ordered by Dr. Rios which revealed severe hypercapnia with a CO2 of 160. Discussion with the daughter regarding the patient's wishes he initially was a full code however had said in the past he did not want to go on a ventilator. Waterworks Chief Engineer Dr. MONTEZ was present in the room and the daughter and son decided the patient will be a DNR. Patient was placed on BiPAP for ventilatory support and Dr. Flores who was consulted is aware. An ABG will be performed after patient has had sufficient time on BiPAP and a determination at that time as to whether to proceed to mechanical ventilation and intubation will be made by the family. Reason For Visit: HYPERKALEMIA, AFLUTTER, LFT ELEVATION, ESRD, Physical Exam Vital Signs: Temp Pulse Resp BP Pulse Ox 97.4 F 68 16 151/73 H 99 02/20/18 08:19 02/20/18 08:43 02/20/18 11:11 02/20/18 10:05 02/20/18 11:11 Intake & Output 02/19/18 02/20/18 02/21/18 06:59 06:59 06:59 Intake Total 506 601.5 Output Total 0 Balance 506 601.5 Weight 58.7 kg General appearance: PRESENT: no acute distress, other - Obtunded but tolerating BiPAP Neck exam: ABSENT: carotid bruit, JVD, lymphadenopathy, thyromegaly Cardiovascular exam: PRESENT: irregular rhythm, systolic murmur - 2/6 GI/Abdominal exam: PRESENT: normal bowel sounds, soft. ABSENT: distended, guarding, mass, organolmegaly, rebound, tenderness Extremities exam: PRESENT: full ROM. ABSENT: calf tenderness, clubbing, pedal edema Neurological exam: PRESENT: other - Obtunded moving all extremities Skin exam: PRESENT: abrasion - Right arm fistula left arm Results Laboratory Results: 02/20/18 09:50 02/20/18 09:50 02/19/18 02/19/18 02/19/18 23:05 23:05 23:05 WBC RBC Hgb Hct MCV MCH MCHC RDW Plt Count Seg Neutrophils % Lymphocytes % Monocytes % Eosinophils % Basophils % Absolute Neutrophils Absolute Lymphocytes Absolute Monocytes Absolute Eosinophils Absolute Basophils Retic Count (auto) 2.17 Absolute Retic 0.057 Carbonic Acid HCO3/H2CO3 Ratio ABG pH ABG pCO2 ABG pO2 ABG HCO3 ABG O2 Saturation ABG Base Excess FiO2 Sodium Potassium Chloride Carbon Dioxide Anion Gap BUN Creatinine Est GFR ( Amer) Est GFR (Non-Af Amer) Glucose Calcium Phosphorus Magnesium Iron 12.0 L TIBC 414 % Saturation 3 Ferritin 1780.00 H Vitamin B12 872.0 Folate > 20.00 TSH Urine Color Urine Appearance Urine pH Ur Specific [place] Urine Protein Urine Glucose (UA) Urine Ketones Urine Blood Urine Nitrite Ur Leukocyte Esterase Urine WBC (Auto) Urine RBC (Auto) Stool Occult Blood Blood Type O POSITIVE Antibody Screen NEGATIVE 02/19/18 02/19/18 02/19/18 23:05 23:05 23:05 WBC 7.1 RBC 2.64 L Hgb 7.5 L Hct 24.2 L MCV 92 MCH 28.3 MCHC 30.9 L RDW 18.3 H Plt Count 148 L Seg Neutrophils % Not Reportable Lymphocytes % Not Reportable Monocytes % Not Reportable Eosinophils % Not Reportable Basophils % Not Reportable Absolute Neutrophils Not Reportable Absolute Lymphocytes Not Reportable Absolute Monocytes Not Reportable Absolute Eosinophils Not Reportable Absolute Basophils Not Reportable Retic Count (auto) Absolute Retic Carbonic Acid HCO3/H2CO3 Ratio ABG pH ABG pCO2 ABG pO2 ABG HCO3 ABG O2 Saturation ABG Base Excess FiO2 Sodium 136.4 L Potassium 6.3 H* Chloride 91 L Carbon Dioxide 25 Anion Gap 20 H BUN 70 H Creatinine 6.44 H Est GFR ( Amer) 10 L Est GFR (Non-Af Amer) 8 L Glucose 221 H Calcium 8.5 Phosphorus Magnesium Iron TIBC % Saturation Ferritin Vitamin B12 Folate TSH 1.41 Urine Color Urine Appearance Urine pH Ur Specific [place] Urine Protein Urine Glucose (UA) Urine Ketones Urine Blood Urine Nitrite Ur Leukocyte Esterase Urine WBC (Auto) Urine RBC (Auto) Stool Occult Blood Blood Type Antibody Screen 02/20/18 02/20/18 02/20/18 02:20 04:55 04:55 WBC 9.3 RBC 2.49 L Hgb 7.0 L Hct 22.9 L MCV 92 MCH 28.2 MCHC 30.7 L RDW 18.5 H Plt Count 157 Seg Neutrophils % Not Reportable Lymphocytes % Not Reportable Monocytes % Not Reportable Eosinophils % Not Reportable Basophils % Not Reportable Absolute Neutrophils Not Reportable Absolute Lymphocytes Not Reportable Absolute Monocytes Not Reportable Absolute Eosinophils Not Reportable Absolute Basophils Not Reportable Retic Count (auto) Absolute Retic Carbonic Acid HCO3/H2CO3 Ratio ABG pH ABG pCO2 ABG pO2 ABG HCO3 ABG O2 Saturation ABG Base Excess FiO2 Sodium Cancelled Potassium Cancelled Chloride Cancelled Carbon Dioxide Cancelled Anion Gap Cancelled BUN Cancelled Creatinine Cancelled Est GFR ( Amer) Cancelled Est GFR (Non-Af Amer) Cancelled Glucose Cancelled Calcium Cancelled Phosphorus Magnesium Cancelled Iron TIBC % Saturation Ferritin Vitamin B12 Folate TSH Urine Color Urine Appearance Urine pH Ur Specific [place] Urine Protein Urine Glucose (UA) Urine Ketones Urine Blood Urine Nitrite Ur Leukocyte Esterase Urine WBC (Auto) Urine RBC (Auto) Stool Occult Blood POSITIVE Blood Type Antibody Screen 02/20/18 02/20/18 02/20/18 06:34 09:36 09:50 WBC 12.3 H RBC 3.32 L Hgb 9.7 L D Hct 30.9 L MCV 93 MCH 29.2 MCHC 31.4 L RDW 16.9 H Plt Count 174 Seg Neutrophils % 84.1 H Lymphocytes % 5.8 L Monocytes % 9.6 Eosinophils % 0.1 Basophils % 0.4 Absolute Neutrophils 10.4 H Absolute Lymphocytes 0.7 Absolute Monocytes 1.2 Absolute Eosinophils 0.0 Absolute Basophils 0.1 Retic Count (auto) Absolute Retic Carbonic Acid Cancelled HCO3/H2CO3 Ratio Cancelled ABG pH Cancelled ABG pCO2 Cancelled ABG pO2 Cancelled ABG HCO3 Cancelled ABG O2 Saturation Cancelled ABG Base Excess Cancelled FiO2 Cancelled Sodium 135.5 L Potassium 5.7 H Chloride 97 L Carbon Dioxide 26 Anion Gap 13 BUN 76 H Creatinine 6.64 H Est GFR ( Amer) 10 L Est GFR (Non-Af Amer) 8 L Glucose 149 H Calcium 7.8 L Phosphorus Magnesium 2.4 H Iron TIBC % Saturation Ferritin Vitamin B12 Folate TSH Urine Color Urine Appearance Urine pH Ur Specific [place] Urine Protein Urine Glucose (UA) Urine Ketones Urine Blood Urine Nitrite Ur Leukocyte Esterase Urine WBC (Auto) Urine RBC (Auto) Stool Occult Blood Blood Type Antibody Screen 02/20/18 02/20/18 02/20/18 09:50 10:10 10:20 WBC RBC Hgb Hct MCV MCH MCHC RDW Plt Count Seg Neutrophils % Lymphocytes % Monocytes % Eosinophils % Basophils % Absolute Neutrophils Absolute Lymphocytes Absolute Monocytes Absolute Eosinophils Absolute Basophils Retic Count (auto) Absolute Retic Carbonic Acid 4.83 H HCO3/H2CO3 Ratio 7:1 ABG pH 6.99 L* ABG pCO2 160.6 H* ABG pO2 98.5 ABG HCO3 37.8 H ABG O2 Saturation 91.8 L ABG Base Excess 3.0 FiO2 4L Sodium 140.0 Potassium 3.9 D Chloride 98 Carbon Dioxide 35 H Anion Gap 7 BUN 30 H D Creatinine 2.92 H Est GFR ( Amer) 25 L Est GFR (Non-Af Amer) 21 L Glucose 118 H Calcium 8.0 L Phosphorus 6.5 H Magnesium 2.1 Iron TIBC % Saturation Ferritin Vitamin B12 Folate TSH Urine Color YELLOW Urine Appearance CLOUDY Urine pH 5.0 Ur Specific [place] 1.016 Urine Protein 100 H Urine Glucose (UA) NEGATIVE Urine Ketones NEGATIVE Urine Blood MODERATE H Urine Nitrite NEGATIVE Ur Leukocyte Esterase TRACE H Urine WBC (Auto) 3 Urine RBC (Auto) 3 Stool Occult Blood Blood Type Antibody Screen 02/20/18 02/20/18 02/20/18 00:30 00:30 04:55 Creatine Kinase 55 Cancelled CK-MB (CK-2) 4.68 H Troponin I 0.043 02/20/18 02/20/18 04:55 06:34 Creatine Kinase 50 L CK-MB (CK-2) 4.22 Troponin I 0.053 Impressions: Chest X-Ray 02/19/18 19:51 IMPRESSION: Borderline cardiomegaly without pulmonary edema. Cannot exclude limited left lower lobe pneumonia. Head CT 02/19/18 20:28 IMPRESSION: Limited study due to motion artifact. No gross intracranial hemorrhage or skull fracture. Abdomen Ultrasound 02/19/18 22:19 IMPRESSION: The gallbladder wall is thickened measuring 5 mm. There is mild pericholecystic fluid There is no intraluminal sludge or gallstones. These findings are suspicious for acute acalculous cholecystitis. 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 There is generalized increased echogenicity of the right kidney suspicious for underlying medical renal disease. Multiple cysts are seen in the right kidney, the largest measuring 1.6 x 1.4 x 1.6 cm. There is also presence of complex free fluid superior to the right kidney in the hepatorenal pouch 2010 [employer]- All Rights Reserved Assessment & Plan - Diagnosis (1) Acute on chronic respiratory failure with hypoxia and hypercapnia Is this a current diagnosis for this admission?: Yes Plan: CO2 of 160 on ABG. Patient placed on BiPAP achieving tidal volumes of 500 and rate set at 12 to help ventilate. Will check ABG at noon and at that time we will have further discussion with the family as to whether they wish to proceed with intubation despite the patient expressing in the past he has not want to be on a ventilator. Daughter and son feel it may be indicated if it is just a brief time to assist him with his hypercapnia. (2) Blood in stool Is this a current diagnosis for this admission?: Yes Plan: Stool not colonic but guaiac positive. Patient has had a GI workup in the past suspected he has AVMs there was no active bleeding but some gastritis found. GI has been consulted (3) Chronic blood loss anemia Is this a current diagnosis for this admission?: Yes Plan: Iron deficiency anemia. Iron level 12 with a saturation of 3. Ferritin 1700 however in September of this year was 57. Suspect ferritin elevated by acute phase reactant due to the profound hypercapnia. (4) Anemia in chronic renal disease Is this a current diagnosis for this admission?: Yes Plan: Baseline hemoglobin varies between 7.5 and 9.8 historically. Has received 2 units of packed red cells during dialysis. Post transfusion hemoglobin 9.7 we will follow daily CBCs. (5) Atrial fibrillation with rapid ventricular response Is this a current diagnosis for this admission?: Yes Plan: Initiated on amiodarone drip. Case discussed with Dr. Montez with family present. Patient is not to have cardio version or defibrillation she had a rhythm deteriorate. Troponins mild elevation but flat likely secondary to his renal disease. (6) End stage renal failure on dialysis Is this a current diagnosis for this admission?: Yes Plan: Nephrology consulted for dialysis as per Dr. Rios (7) Hyperkalemia Is this a current diagnosis for this admission?: Yes Plan: Post dialysis follow-up labs pending. - Time Time Spent with patient: 35 or more minutes
[2018-02-20] MEDS ORDERED: DEXTROSE 5%-1/2 NORMAL SALINE 1,000 ML IV PRN (11:43)
[2018-02-20] MEDS: DEXTROSE 5%-WATER 500 ML with AMIODARONE HCL 900 MG IV PRN ×2 (11:53)
--- NOTE | 2018-02-20 11:53 | PDOC CONSULTATION ---
Consultation Consult Date: 02/20/18 Attending physician:: Dean PORRAS Consult reason:: Acute on chronic respiratory failure History of Present Illness Admission Date/PCP: 02/19/18 22:22 SHEA ERVIN MD History of Present Illness: VERN COLLINS is a 82 year old male respiratory failure wears oxygen at home also has chronic renal failure but he skipped his dialysis because he did not feel good presented because of increasing lethargy and was found to have a potassium that was elevated he was lethargic and unresponsive subsequently was found to have a pH of 6.99 with a PCO2 of 160 he is currently in the ICU lethargic but arousable Past Medical History Cardiac Medical History: Reports: Coronary Artery Disease, Hypertension Denies: Atrial Fibrillation, Myocardial Infarction Pulmonary Medical History: Reports: Chronic Obstructive Pulmonary Disease (COPD) Denies: Asthma, Bronchitis, Pneumonia Neurological Medical History: Denies: Seizures Renal/ Medical History: Reports: End Stage Renal Disease GI Medical History: Denies: Cirrhosis Musculoskeltal Medical History: Reports: Arthritis Psychiatric Medical History: Denies: Alcohol Dependency, Depression, Substance Abuse, Tobacco Dependency Hematology: Reports: Anemia, Bleeding Tendencies Denies: Sickle Cell Disease Past Surgical History Past Surgical History: Reports: Herniorrhaphy, Tonsillectomy, Other - Mitral valve repair Denies: Pacemaker Social History Information Source: [facility] Records Lives with: Family Smoking Status: Former Smoker Last Time Smoked: 1997 Frequency of Alcohol Use: None Hx Recreational Drug Use: No Drugs: None Hx Prescription Drug Abuse: No - Advance Directive Resuscitation Status: Full Code Family History Family History: Hypertension Parental Family History Reviewed: No Children Family History Reviewed: No Sibling(s) Family History Reviewed.: No Medication/Allergy Home Medications: Albuterol Sulfate [Proair HFA Inhalation Aerosol 8.5 gm MDI] 1 puff IH Q4HP PRN 02/20/18 Amlodipine Besylate [Norvasc 5 mg Tablet] 5 mg PO BID 02/20/18 Aspirin [Aspirin EC] 81 mg PO DAILY 02/20/18 B Complex W-C No.20/Folic Acid [Nephrocaps Softgel] 1 mg PO DAILY 02/20/18 Benzonatate [Tessalon [place] 100 mg Capsule] 100 mg PO TIDP PRN 02/20/18 Cetirizine HCl [Zyrtec 10 mg Tablet] 10 mg PO DAILY 02/20/18 Cholecalciferol (Vitamin D3) [Vitamin D3 1000 Unit Tablet] 1,000 unit PO DAILY 02/20/18 Ezetimibe [Zetia 10 mg Tablet] 10 mg PO QHS 02/20/18 Fluticasone/Salmeterol [Advair 500-50 Diskus 14 Dose/Diskus] 1 puff IH Q12 02/20 Furosemide [Lasix 40 mg Tablet] 40 mg PO DAILY 02/20/18 Guaifenesin [Mucinex] 600 mg PO BID 02/20/18 Ipratropium [place] [Atrovent Hfa Inhalation Aerosol 12.9 gm Mdi] 2 puff IH Q4HP PRN 02/20/18 Montelukast Sodium [Singulair 10 mg Tablet] 10 mg PO QPM 02/20/18 Rosuvastatin Calcium [Crestor] 40 mg PO QHS 02/20/18 Sertraline HCl [Zoloft 50 mg Tablet] 50 mg PO QAM 02/20/18 Tiotropium [place] [Spiriva [place] 18 mcg/dose (30 Dose)] 18 mcg IH DAILY Allergies/Adverse Reactions: adhesive tape Allergy (Verified 11/26/17 15:33) Blisters propofol Adverse Reaction (Unknown, Uncoded 02/18/18 15:41) Review of Systems ROS unobtainable: Due to mental status Physical Exam Vital Signs: Temp Pulse Resp BP Pulse Ox 97.4 F 68 16 151/73 H 99 02/20/18 08:19 02/20/18 08:43 02/20/18 11:11 02/20/18 10:05 02/20/18 11:11 Intake & Output 02/19/18 02/20/18 02/21/18 06:59 06:59 06:59 Intake Total 506 601.5 Output Total 0 Balance 506 601.5 Weight 58.7 kg General appearance: PRESENT: no acute distress, disheveled, thin. ABSENT: cooperative Head exam: PRESENT: atraumatic, normocephalic Eye exam: PRESENT: conjunctiva pale. ABSENT: nystagmus, scleral icterus Mouth exam: PRESENT: dry mucosa, neck supple, tongue midline Teeth exam: PRESENT: poor dentation Neck exam: ABSENT: carotid bruit, JVD, lymphadenopathy, thyromegaly, tracheal deviation, tracheostomy Respiratory exam: PRESENT: decreased breath sounds, prolonged expiratory phas, rhonchi, symmetrical, unlabored. ABSENT: retraction, stridor, tachypnea Cardiovascular exam: PRESENT: RRR, +S1, +S2 Pulses: PRESENT: normal radial pulses GI/Abdominal exam: PRESENT: soft. ABSENT: tenderness Extremities exam: PRESENT: other - AV fistula left upper extremity. ABSENT: calf tenderness, clubbing, joint swelling Musculoskeletal exam: ABSENT: deformity, dislocation Neurological exam: PRESENT: awake, oriented to person. ABSENT: oriented to place, oriented to time, oriented to situation - [id number] Psychiatric exam: PRESENT: flat affect Skin exam: PRESENT: dry, warm Results Laboratory Results: 02/20/18 09:50 02/20/18 09:50 02/19/18 02/19/18 02/19/18 23:05 23:05 23:05 WBC RBC Hgb Hct MCV MCH MCHC RDW Plt Count Seg Neutrophils % Lymphocytes % Monocytes % Eosinophils % Basophils % Absolute Neutrophils Absolute Lymphocytes Absolute Monocytes Absolute Eosinophils Absolute Basophils Retic Count (auto) 2.17 Absolute Retic 0.057 Carbonic Acid HCO3/H2CO3 Ratio ABG pH ABG pCO2 ABG pO2 ABG HCO3 ABG O2 Saturation ABG Base Excess FiO2 Sodium Potassium Chloride Carbon Dioxide Anion Gap BUN Creatinine Est GFR ( Amer) Est GFR (Non-Af Amer) Glucose Calcium Phosphorus Magnesium Iron 12.0 L TIBC 414 % Saturation 3 Ferritin 1780.00 H Vitamin B12 872.0 Folate > 20.00 TSH Urine Color Urine Appearance Urine pH Ur Specific [place] Urine Protein Urine Glucose (UA) Urine Ketones Urine Blood Urine Nitrite Ur Leukocyte Esterase Urine WBC (Auto) Urine RBC (Auto) Stool Occult Blood Blood Type O POSITIVE Antibody Screen NEGATIVE 02/19/18 02/19/18 02/19/18 23:05 23:05 23:05 WBC 7.1 RBC 2.64 L Hgb 7.5 L Hct 24.2 L MCV 92 MCH 28.3 MCHC 30.9 L RDW 18.3 H Plt Count 148 L Seg Neutrophils % Not Reportable Lymphocytes % Not Reportable Monocytes % Not Reportable Eosinophils % Not Reportable Basophils % Not Reportable Absolute Neutrophils Not Reportable Absolute Lymphocytes Not Reportable Absolute Monocytes Not Reportable Absolute Eosinophils Not Reportable Absolute Basophils Not Reportable Retic Count (auto) Absolute Retic Carbonic Acid HCO3/H2CO3 Ratio ABG pH ABG pCO2 ABG pO2 ABG HCO3 ABG O2 Saturation ABG Base Excess FiO2 Sodium 136.4 L Potassium 6.3 H* Chloride 91 L Carbon Dioxide 25 Anion Gap 20 H BUN 70 H Creatinine 6.44 H Est GFR ( Amer) 10 L Est GFR (Non-Af Amer) 8 L Glucose 221 H Calcium 8.5 Phosphorus Magnesium Iron TIBC % Saturation Ferritin Vitamin B12 Folate TSH 1.41 Urine Color Urine Appearance Urine pH Ur Specific [place] Urine Protein Urine Glucose (UA) Urine Ketones Urine Blood Urine Nitrite Ur Leukocyte Esterase Urine WBC (Auto) Urine RBC (Auto) Stool Occult Blood Blood Type Antibody Screen 02/20/18 02/20/18 02/20/18 02:20 04:55 04:55 WBC 9.3 RBC 2.49 L Hgb 7.0 L Hct 22.9 L MCV 92 MCH 28.2 MCHC 30.7 L RDW 18.5 H Plt Count 157 Seg Neutrophils % Not Reportable Lymphocytes % Not Reportable Monocytes % Not Reportable Eosinophils % Not Reportable Basophils % Not Reportable Absolute Neutrophils Not Reportable Absolute Lymphocytes Not Reportable Absolute Monocytes Not Reportable Absolute Eosinophils Not Reportable Absolute Basophils Not Reportable Retic Count (auto) Absolute Retic Carbonic Acid HCO3/H2CO3 Ratio ABG pH ABG pCO2 ABG pO2 ABG HCO3 ABG O2 Saturation ABG Base Excess FiO2 Sodium Cancelled Potassium Cancelled Chloride Cancelled Carbon Dioxide Cancelled Anion Gap Cancelled BUN Cancelled Creatinine Cancelled Est GFR ( Amer) Cancelled Est GFR (Non-Af Amer) Cancelled Glucose Cancelled Calcium Cancelled Phosphorus Magnesium Cancelled Iron TIBC % Saturation Ferritin Vitamin B12 Folate TSH Urine Color Urine Appearance Urine pH Ur Specific [place] Urine Protein Urine Glucose (UA) Urine Ketones Urine Blood Urine Nitrite Ur Leukocyte Esterase Urine WBC (Auto) Urine RBC (Auto) Stool Occult Blood POSITIVE Blood Type Antibody Screen 02/20/18 02/20/18 02/20/18 06:34 09:36 09:50 WBC 12.3 H RBC 3.32 L Hgb 9.7 L D Hct 30.9 L MCV 93 MCH 29.2 MCHC 31.4 L RDW 16.9 H Plt Count 174 Seg Neutrophils % 84.1 H Lymphocytes % 5.8 L Monocytes % 9.6 Eosinophils % 0.1 Basophils % 0.4 Absolute Neutrophils 10.4 H Absolute Lymphocytes 0.7 Absolute Monocytes 1.2 Absolute Eosinophils 0.0 Absolute Basophils 0.1 Retic Count (auto) Absolute Retic Carbonic Acid Cancelled HCO3/H2CO3 Ratio Cancelled ABG pH Cancelled ABG pCO2 Cancelled ABG pO2 Cancelled ABG HCO3 Cancelled ABG O2 Saturation Cancelled ABG Base Excess Cancelled FiO2 Cancelled Sodium 135.5 L Potassium 5.7 H Chloride 97 L Carbon Dioxide 26 Anion Gap 13 BUN 76 H Creatinine 6.64 H Est GFR ( Amer) 10 L Est GFR (Non-Af Amer) 8 L Glucose 149 H Calcium 7.8 L Phosphorus Magnesium 2.4 H Iron TIBC % Saturation Ferritin Vitamin B12 Folate TSH Urine Color Urine Appearance Urine pH Ur Specific [place] Urine Protein Urine Glucose (UA) Urine Ketones Urine Blood Urine Nitrite Ur Leukocyte Esterase Urine WBC (Auto) Urine RBC (Auto) Stool Occult Blood Blood Type Antibody Screen 02/20/18 02/20/18 02/20/18 09:50 10:10 10:20 WBC RBC Hgb Hct MCV MCH MCHC RDW Plt Count Seg Neutrophils % Lymphocytes % Monocytes % Eosinophils % Basophils % Absolute Neutrophils Absolute Lymphocytes Absolute Monocytes Absolute Eosinophils Absolute Basophils Retic Count (auto) Absolute Retic Carbonic Acid 4.83 H HCO3/H2CO3 Ratio 7:1 ABG pH 6.99 L* ABG pCO2 160.6 H* ABG pO2 98.5 ABG HCO3 37.8 H ABG O2 Saturation 91.8 L ABG Base Excess 3.0 FiO2 4L Sodium 140.0 Potassium 3.9 D Chloride 98 Carbon Dioxide 35 H Anion Gap 7 BUN 30 H D Creatinine 2.92 H Est GFR ( Amer) 25 L Est GFR (Non-Af Amer) 21 L Glucose 118 H Calcium 8.0 L Phosphorus 6.5 H Magnesium 2.1 Iron TIBC % Saturation Ferritin Vitamin B12 Folate TSH Urine Color YELLOW Urine Appearance CLOUDY Urine pH 5.0 Ur Specific [place] 1.016 Urine Protein 100 H Urine Glucose (UA) NEGATIVE Urine Ketones NEGATIVE Urine Blood MODERATE H Urine Nitrite NEGATIVE Ur Leukocyte Esterase TRACE H Urine WBC (Auto) 3 Urine RBC (Auto) 3 Stool Occult Blood Blood Type Antibody Screen 02/20/18 02/20/18 02/20/18 00:30 00:30 04:55 Creatine Kinase 55 Cancelled CK-MB (CK-2) 4.68 H Troponin I 0.043 02/20/18 02/20/18 04:55 06:34 Creatine Kinase 50 L CK-MB (CK-2) 4.22 Troponin I 0.053 Impressions: Chest X-Ray 02/19/18 19:51 IMPRESSION: Borderline cardiomegaly without pulmonary edema. Cannot exclude limited left lower lobe pneumonia. Head CT 02/19/18 20:28 IMPRESSION: Limited study due to motion artifact. No gross intracranial hemorrhage or skull fracture. Abdomen Ultrasound 02/19/18 22:19 IMPRESSION: The gallbladder wall is thickened measuring 5 mm. There is mild pericholecystic fluid There is no intraluminal sludge or gallstones. These findings are suspicious for acute acalculous cholecystitis. 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 There is generalized increased echogenicity of the right kidney suspicious for underlying medical renal disease. Multiple cysts are seen in the right kidney, the largest measuring 1.6 x 1.4 x 1.6 cm. There is also presence of complex free fluid superior to the right kidney in the hepatorenal pouch 2010 [employer]- All Rights Reserved Assessment & Plan - Diagnosis (1) Acute on chronic respiratory failure with hypoxia and hypercapnia Is this a current diagnosis for this admission?: Yes Plan: Noninvasive positive pressure ventilation BiPAP 18/8 and a minute volumes 10-9 L T volumes 550-700; hopefully this will preclude intubation (2) Atrial fibrillation with rapid ventricular response Is this a current diagnosis for this admission?: Yes Plan: Currently normal sinus rhythm (3) Chronic obstructive lung disease Qualifiers: COPD type: unspecified COPD Qualified Code(s): J44.9 - Chronic obstructive pulmonary disease, unspecified Is this a current diagnosis for this admission?: Yes Plan: Consider adding long-acting muscarinic agent such as Spiriva (4) AAA (abdominal aortic aneurysm) without rupture Is this a current diagnosis for this admission?: Yes (5) Pneumonia Qualifiers: Pneumonia type: due to unspecified organism Laterality: left Lung location: lower lobe of lung Qualified Code(s): J18.9 - Pneumonia, unspecified organism Is this a current diagnosis for this admission?: Yes Plan: Left lower lobe etiology undetermined leukocytosis is present - Time Total Critical Time (Minutes): 60
[2018-02-20 12:10] LABS: CREATINE KINASE MB 4.83 ng/mL (<4.55); TROPONIN I 0.061 ng/mL
[2018-02-20 12:25] LABS: ARTERIAL BLOOD H2CO3 2.44 mmol/L (1.05-1.35); ARTERIAL BLOOD HCO3 30.5 mmol/L (20-24); ARTERIAL BLOOD O2 SATURATION 83.7 % (94-98); ARTERIAL BLOOD PO2 60.2 mmHg (80-100)
[2018-02-20 12:29] LABS: ARTERIAL BLOOD FIO2 30%; ARTERIAL BLOOD PH 7.19 (7.35-7.45)
--- NOTE | 2018-02-20 14:10 | PDOC CONSULTATION ---
Consultation Consult Date: 02/20/18 Consult reason:: Acute hyperkalemia, CHF, severe anemia, altered mental staus, ESRD for urgent dialysis. History of Present Illness Admission Date/PCP: 02/19/18 22:22 SHEA ERVIN MD History of Present Illness: VERN COLLINS is a 82 year old male with a h/o Hypertension, ESRD on dialysis was admitted with altered mental status and general run down .He has missed his last dialysis treatment due on the . He has had chronic anemia -of CKD and iron deficiency with positive occult stools for a long time for which he has had extensive work up in the past and was labelled GI bleeding secondary to AVM' s. Initial eval in the ER revealed that he was in rapid A.fib with CHF and he had a K of 6.5 and possible uremic. he was given appropriate conservative treatments while readied for dialysis early AM today. He dropped his BP after initiation of IV Cardizem which was then stopped. He had blood typed and cross matched which was infused now on dialysis.Currently being seen on dialysis. He has become more stuporous and currently on evaluation he is hardly responding to oral commands and poorly localising to painful stimuli. His blood sugar was asked to be checked and was 76 and he was given a amp of D50 and his blood sugar has responded well and is at 140 now. That however did not make any difference. His pupils were mid point with sluggish reaction. Vs were stable even though he had occasional runs of V tach. he is currently off the IV Cardizem. Labs and medications were reviewed.Further labs and a CT brain were ordered. His ABG came back with a ph of 6.9, Pco2 of 169,bic 37.Dialysis orders were reviewed with the treating spark plug tester. patient was also discussed with his treating RN Liat and Dr [place] Montez- Cardiology. Past Medical History Cardiac Medical History: Reports: Coronary Artery Disease, Hypertension-primary Denies: Atrial Fibrillation, Myocardial Infarction Pulmonary Medical History: Reports: Chronic Obstructive Pulmonary Disease (COPD) Denies: Asthma, Bronchitis, Pneumonia Neurological Medical History: Denies: Seizures Renal/ Medical History: Reports: End Stage Renal Disease, Secondary Hyperparathyroidism GI Medical History: Denies: Cirrhosis Musculoskeltal Medical History: Reports: Arthritis Psychiatric Medical History: Denies: Alcohol Dependency, Depression, Substance Abuse, Tobacco Dependency Hematology Medical History: Reports Anemia of Chronic Kidney Disease, Reports Iron Deficiency Anemia Past Surgical History Past Surgical History: Reports: Herniorrhaphy, Tonsillectomy, Other - Mitral valve repair Denies: Pacemaker Social History Lives with: Family Smoking Status: Former Smoker Last Time Smoked: 1997 Frequency of Alcohol Use: None Hx Recreational Drug Use: No Drugs: None Hx Prescription Drug Abuse: No - Advance Directive Resuscitation Status: Full Code Family History Parental Family History Reviewed: Yes - negative for ESRd Children Family History Reviewed: No Sibling(s) Family History Reviewed.: No Medication/Allergy Home Medications: Albuterol Sulfate [Proair HFA Inhalation Aerosol 8.5 gm MDI] 1 puff IH Q4HP PRN 02/20/18 Amlodipine Besylate [Norvasc 5 mg Tablet] 5 mg PO BID 02/20/18 Aspirin [Aspirin EC] 81 mg PO DAILY 02/20/18 B Complex W-C No.20/Folic Acid [Nephrocaps Softgel] 1 mg PO DAILY 02/20/18 Benzonatate [Tessalon Perle 100 mg Capsule] 100 mg PO TIDP PRN 02/20/18 Cetirizine HCl [Zyrtec 10 mg Tablet] 10 mg PO DAILY 02/20/18 Cholecalciferol (Vitamin D3) [Vitamin D3 1000 Unit Tablet] 1,000 unit PO DAILY 02/20/18 Ezetimibe [Zetia 10 mg Tablet] 10 mg PO QHS 02/20/18 Fluticasone/Salmeterol [Advair 500-50 Diskus 14 Dose/Diskus] 1 puff IH Q12 02/20 Furosemide [Lasix 40 mg Tablet] 40 mg PO DAILY 02/20/18 Guaifenesin [Mucinex] 600 mg PO BID 02/20/18 Ipratropium [place] [Atrovent Hfa Inhalation Aerosol 12.9 gm Mdi] 2 puff IH Q4HP PRN 02/20/18 Montelukast Sodium [Singulair 10 mg Tablet] 10 mg PO QPM 02/20/18 Rosuvastatin Calcium [Crestor] 40 mg PO QHS 02/20/18 Sertraline HCl [Zoloft 50 mg Tablet] 50 mg PO QAM 02/20/18 Tiotropium [place] [Spiriva Handihaler 18 mcg/dose (30 Dose)] 18 mcg IH DAILY 10 /11/18 Allergies/Adverse Reactions: adhesive tape Allergy (Verified 11/26/17 15:33) Blisters propofol Adverse Reaction (Unknown, Uncoded 02/18/18 15:41) Review of Systems ROS unobtainable: Due to mental status - However chart review was done and discussions done with his treating RN. Physical Exam Vital Signs: Temp Pulse Resp BP Pulse Ox 97.4 F 68 16 151/73 H 99 02/20/18 08:19 02/20/18 08:43 02/20/18 11:11 02/20/18 10:05 02/20/18 11:11 Intake & Output 02/19/18 02/20/18 02/21/18 06:59 06:59 06:59 Intake Total 506 601.5 Output Total 0 Balance 506 601.5 Weight 58.7 kg General appearance: PRESENT: mild distress Eye exam: PRESENT: conjunctiva pink, EOMI. ABSENT: PERRLA Mouth exam: PRESENT: neck supple. ABSENT: moist Neck exam: ABSENT: lymphadenopathy, meningismus, tenderness, thyromegaly, tracheal deviation Respiratory exam: PRESENT: clear to auscultation raymond. ABSENT: crackles Cardiovascular exam: PRESENT: +S1, +S2, systolic murmur GI/Abdominal exam: PRESENT: normal bowel sounds, soft. ABSENT: organomegaly, tenderness Extremities exam: ABSENT: pedal edema Neurological exam: PRESENT: altered Skin exam: PRESENT: normal color. ABSENT: cyanosis, erythema, rash Results Laboratory Results: 02/20/18 09:50 02/20/18 09:50 02/19/18 02/19/18 02/19/18 23:05 23:05 23:05 WBC RBC Hgb Hct MCV MCH MCHC RDW Plt Count Seg Neutrophils % Lymphocytes % Monocytes % Eosinophils % Basophils % Absolute Neutrophils Absolute Lymphocytes Absolute Monocytes Absolute Eosinophils Absolute Basophils Retic Count (auto) 2.17 Absolute Retic 0.057 Carbonic Acid HCO3/H2CO3 Ratio ABG pH ABG pCO2 ABG pO2 ABG HCO3 ABG O2 Saturation ABG Base Excess FiO2 Sodium Potassium Chloride Carbon Dioxide Anion Gap BUN Creatinine Est GFR ( Amer) Est GFR (Non-Af Amer) Glucose Calcium Phosphorus Magnesium Iron 12.0 L TIBC 414 % Saturation 3 Ferritin 1780.00 H Vitamin B12 872.0 Folate > 20.00 TSH Urine Color Urine Appearance Urine pH Ur Specific [place] Urine Protein Urine Glucose (UA) Urine Ketones Urine Blood Urine Nitrite Ur Leukocyte Esterase Urine WBC (Auto) Urine RBC (Auto) Stool Occult Blood Blood Type O POSITIVE Antibody Screen NEGATIVE 02/19/18 02/19/18 02/19/18 23:05 23:05 23:05 WBC 7.1 RBC 2.64 L Hgb 7.5 L Hct 24.2 L MCV 92 MCH 28.3 MCHC 30.9 L RDW 18.3 H Plt Count 148 L Seg Neutrophils % Not Reportable Lymphocytes % Not Reportable Monocytes % Not Reportable Eosinophils % Not Reportable Basophils % Not Reportable Absolute Neutrophils Not Reportable Absolute Lymphocytes Not Reportable Absolute Monocytes Not Reportable Absolute Eosinophils Not Reportable Absolute Basophils Not Reportable Retic Count (auto) Absolute Retic Carbonic Acid HCO3/H2CO3 Ratio ABG pH ABG pCO2 ABG pO2 ABG HCO3 ABG O2 Saturation ABG Base Excess FiO2 Sodium 136.4 L Potassium 6.3 H* Chloride 91 L Carbon Dioxide 25 Anion Gap 20 H BUN 70 H Creatinine 6.44 H Est GFR ( Amer) 10 L Est GFR (Non-Af Amer) 8 L Glucose 221 H Calcium 8.5 Phosphorus Magnesium Iron TIBC % Saturation Ferritin Vitamin B12 Folate TSH 1.41 Urine Color Urine Appearance Urine pH Ur Specific [place] Urine Protein Urine Glucose (UA) Urine Ketones Urine Blood Urine Nitrite Ur Leukocyte Esterase Urine WBC (Auto) Urine RBC (Auto) Stool Occult Blood Blood Type Antibody Screen 02/20/18 02/20/18 02/20/18 02:20 04:55 04:55 WBC 9.3 RBC 2.49 L Hgb 7.0 L Hct 22.9 L MCV 92 MCH 28.2 MCHC 30.7 L RDW 18.5 H Plt Count 157 Seg Neutrophils % Not Reportable Lymphocytes % Not Reportable Monocytes % Not Reportable Eosinophils % Not Reportable Basophils % Not Reportable Absolute Neutrophils Not Reportable Absolute Lymphocytes Not Reportable Absolute Monocytes Not Reportable Absolute Eosinophils Not Reportable Absolute Basophils Not Reportable Retic Count (auto) Absolute Retic Carbonic Acid HCO3/H2CO3 Ratio ABG pH ABG pCO2 ABG pO2 ABG HCO3 ABG O2 Saturation ABG Base Excess FiO2 Sodium Cancelled Potassium Cancelled Chloride Cancelled Carbon Dioxide Cancelled Anion Gap Cancelled BUN Cancelled Creatinine Cancelled Est GFR ( Amer) Cancelled Est GFR (Non-Af Amer) Cancelled Glucose Cancelled Calcium Cancelled Phosphorus Magnesium Cancelled Iron TIBC % Saturation Ferritin Vitamin B12 Folate TSH Urine Color Urine Appearance Urine pH Ur Specific [place] Urine Protein Urine Glucose (UA) Urine Ketones Urine Blood Urine Nitrite Ur Leukocyte Esterase Urine WBC (Auto) Urine RBC (Auto) Stool Occult Blood POSITIVE Blood Type Antibody Screen 02/20/18 02/20/18 02/20/18 06:34 09:36 09:50 WBC 12.3 H RBC 3.32 L Hgb 9.7 L D Hct 30.9 L MCV 93 MCH 29.2 MCHC 31.4 L RDW 16.9 H Plt Count 174 Seg Neutrophils % 84.1 H Lymphocytes % 5.8 L Monocytes % 9.6 Eosinophils % 0.1 Basophils % 0.4 Absolute Neutrophils 10.4 H Absolute Lymphocytes 0.7 Absolute Monocytes 1.2 Absolute Eosinophils 0.0 Absolute Basophils 0.1 Retic Count (auto) Absolute Retic Carbonic Acid Cancelled HCO3/H2CO3 Ratio Cancelled ABG pH Cancelled ABG pCO2 Cancelled ABG pO2 Cancelled ABG HCO3 Cancelled ABG O2 Saturation Cancelled ABG Base Excess Cancelled FiO2 Cancelled Sodium 135.5 L Potassium 5.7 H Chloride 97 L Carbon Dioxide 26 Anion Gap 13 BUN 76 H Creatinine 6.64 H Est GFR ( Amer) 10 L Est GFR (Non-Af Amer) 8 L Glucose 149 H Calcium 7.8 L Phosphorus Magnesium 2.4 H Iron TIBC % Saturation Ferritin Vitamin B12 Folate TSH Urine Color Urine Appearance Urine pH Ur Specific [place] Urine Protein Urine Glucose (UA) Urine Ketones Urine Blood Urine Nitrite Ur Leukocyte Esterase Urine WBC (Auto) Urine RBC (Auto) Stool Occult Blood Blood Type Antibody Screen 02/20/18 02/20/18 02/20/18 09:50 10:10 10:20 WBC RBC Hgb Hct MCV MCH MCHC RDW Plt Count Seg Neutrophils % Lymphocytes % Monocytes % Eosinophils % Basophils % Absolute Neutrophils Absolute Lymphocytes Absolute Monocytes Absolute Eosinophils Absolute Basophils Retic Count (auto) Absolute Retic Carbonic Acid 4.83 H HCO3/H2CO3 Ratio 7:1 ABG pH 6.99 L* ABG pCO2 160.6 H* ABG pO2 98.5 ABG HCO3 37.8 H ABG O2 Saturation 91.8 L ABG Base Excess 3.0 FiO2 4L Sodium 140.0 Potassium 3.9 D Chloride 98 Carbon Dioxide 35 H Anion Gap 7 BUN 30 H D Creatinine 2.92 H Est GFR ( Amer) 25 L Est GFR (Non-Af Amer) 21 L Glucose 118 H Calcium 8.0 L Phosphorus 6.5 H Magnesium 2.1 Iron TIBC % Saturation Ferritin Vitamin B12 Folate TSH Urine Color YELLOW Urine Appearance CLOUDY Urine pH 5.0 Ur Specific [place] 1.016 Urine Protein 100 H Urine Glucose (UA) NEGATIVE Urine Ketones NEGATIVE Urine Blood MODERATE H Urine Nitrite NEGATIVE Ur Leukocyte Esterase TRACE H Urine WBC (Auto) 3 Urine RBC (Auto) 3 Stool Occult Blood Blood Type Antibody Screen 02/20/18 11:40 WBC RBC Hgb Hct MCV MCH MCHC RDW Plt Count Seg Neutrophils % Lymphocytes % Monocytes % Eosinophils % Basophils % Absolute Neutrophils Absolute Lymphocytes Absolute Monocytes Absolute Eosinophils Absolute Basophils Retic Count (auto) Absolute Retic Carbonic Acid Cancelled HCO3/H2CO3 Ratio Cancelled ABG pH Cancelled ABG pCO2 Cancelled ABG pO2 Cancelled ABG HCO3 Cancelled ABG O2 Saturation Cancelled ABG Base Excess Cancelled FiO2 Cancelled Sodium Potassium Chloride Carbon Dioxide Anion Gap BUN Creatinine Est GFR ( Amer) Est GFR (Non-Af Amer) Glucose Calcium Phosphorus Magnesium Iron TIBC % Saturation Ferritin Vitamin B12 Folate TSH Urine Color Urine Appearance Urine pH Ur Specific [place] Urine Protein Urine Glucose (UA) Urine Ketones Urine Blood Urine Nitrite Ur Leukocyte Esterase Urine WBC (Auto) Urine RBC (Auto) Stool Occult Blood Blood Type Antibody Screen 02/20/18 02/20/18 02/20/18 00:30 00:30 04:55 Creatine Kinase 55 Cancelled CK-MB (CK-2) 4.68 H Troponin I 0.043 02/20/18 02/20/18 04:55 06:34 Creatine Kinase 50 L CK-MB (CK-2) 4.22 Troponin I 0.053 Impressions: Chest X-Ray 02/19/18 19:51 IMPRESSION: Borderline cardiomegaly without pulmonary edema. Cannot exclude limited left lower lobe pneumonia. Head CT 02/19/18 20:28 IMPRESSION: Limited study due to motion artifact. No gross intracranial hemorrhage or skull fracture. Abdomen Ultrasound 02/19/18 22:19 IMPRESSION: The gallbladder wall is thickened measuring 5 mm. There is mild pericholecystic fluid There is no intraluminal sludge or gallstones. These findings are suspicious for acute acalculous cholecystitis. 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 There is generalized increased echogenicity of the right kidney suspicious for underlying medical renal disease. Multiple cysts are seen in the right kidney, the largest measuring 1.6 x 1.4 x 1.6 cm. There is also presence of complex free fluid superior to the right kidney in the hepatorenal pouch 2010 [employer]- All Rights Reserved Assessment & Plan - Diagnosis (1) Acute on chronic respiratory failure with hypoxia and hypercapnia Is this a current diagnosis for this admission?: Yes Plan: He is severely hypercarbic with resultant encephalopathy from the initial evaluations. Will discuss with Dr Conner -Unit Operator on further guidance in this matter. (2) CHF (congestive heart failure) Plan: Likely precipitated by combination of factors including rapid A.fib, severe anemia, missing dialysis and others. Appreciate Dr Montez help in management . Has responded to appropriate UF on dialysis and rate control of a.fib.Continue to monitor closely.Discussed with his daughter . (3) Anemia Qualifiers: Anemia type: iron deficiency Iron deficiency anemia type: chronic blood loss Qualified Code(s): D50.0 - Iron deficiency anemia secondary to blood loss (chronic) Is this a current diagnosis for this admission?: Yes Plan: As mentioned in my earlier notes.He is now s/p transfusion x 2 and that has helped his overall stability.Has also titrated EPO.Will avoid anticoagulation given his GI leaks. (4) Atrial fibrillation with rapid ventricular response Is this a current diagnosis for this admission?: Yes Plan: Now rate controlled and Dr Montez managing. (5) End stage renal failure on dialysis Is this a current diagnosis for this admission?: Yes Plan: He is being seen on Dialysis which he is undergoing without any issues besides the fact that he is currently unresponsive. Dialysis is being supervised to ensure a safe and smooth procedure. VS are stable including a controlled heart rate in A.fib. Plan to remove 2-3 L as tolerated. His hyperkalemia should respond to current treatment and a follow up lab is being ordered to confirm that. (6) Hyperkalemia Is this a current diagnosis for this admission?: Yes Plan: Should respond to current dialysis.will follow up with labs. (7) Chronic obstructive lung disease Qualifiers: COPD type: unspecified COPD Qualified Code(s): J44.9 - Chronic obstructive pulmonary disease, unspecified Is this a current diagnosis for this admission?: Yes Plan: Has bad COPD and has contributed to his current hypercarbic state.Dr Conner on board. (8) AAA (abdominal aortic aneurysm) without rupture Plan: Incidental finding of a large AAA of 6 cm. Currently asymptomatic.will need to looked at after he gets out of his present crisis. (9) Altered mental status Plan: Secondary to Hypercarbic respiratory failure and also a small element of likely uremia.
[2018-02-20 16:14] LABS: ARTERIAL BLOOD BASE EXCESS 4.3 mmol/L; ARTERIAL BLOOD FIO2 30%; ARTERIAL BLOOD H2CO3 1.83 mmol/L (1.05-1.35); ARTERIAL BLOOD HCO3 31.3 mmol/L (20-24); ARTERIAL BLOOD O2 SATURATION 88.7 % (94-98); ARTERIAL BLOOD PCO2 60.8 mmHg (35-45); ARTERIAL BLOOD PH 7.33 (7.35-7.45); ARTERIAL BLOOD PO2 60.3 mmHg (80-100); ARTERIAL BLOOD TOTAL CO2 33.1 mmol/L (23-27)
--- NOTE | 2018-02-20 20:19 | PDOC CONSULTATION ---
History of Present Illness Admission Date/PCP: 02/19/18 22:22 SHEA ERVIN MD History of Present Illness: VERN COLLINS is a 82 year old malePatient who was admitted on 02/18/2018 with hyperkalemia, atrial fibrillation with rapid ventricular response. According to the patient he had tripped on a cable at home and fell. For the rest of the day he was not feeling well and was getting out of breath. On admission his potassium was 6.5 with a creatinine of 6.8. His heart rate was said to be 170s in atrial fibrillation. He was started on Cardizem IV and responded very well. Consultation was requested for heme-positive stool and anemia. His admission hemoglobin was 7.8. He was in the hospital for outpatient EGD with enteroscopy on 02/18/2018. This was performed in the operating room and the procedure went on without any complications. He went to bed that night feeling good and also woke up the next morning without any problems until he tripped on a cable. He has a history of persistent iron deficiency anemia that has been present at least since 2008. He had EGD, colonoscopy in 2008, 2013 and again this year. He had capsule endoscopy in 2008 and in 2013 and none of these endoscopies showed significant pathology to explain his iron deficiency. He is EGD and enteroscopy performed a few days ago was unremarkable except for gastritis. He has been receiving frequent iron infusions. He has never had any significant obvious GI blood loss. He does bleed once in a while from his hemorrhoids but only when he is constipated. Past Medical History Cardiac Medical History: Reports: Coronary Artery Disease, Hypertension Denies: Atrial Fibrillation, Myocardial Infarction Pulmonary Medical History: Reports: Chronic Obstructive Pulmonary Disease (COPD) Denies: Asthma, Bronchitis, Pneumonia Neurological Medical History: Denies: Seizures Renal/ Medical History: Reports: End Stage Renal Disease GI Medical History: Denies: Cirrhosis GI History Note: Erosive esophagitis, iron deficiency anemia, hemorrhoids, gastritis, colon polyps Musculoskeltal Medical History: Reports: Arthritis Psychiatric Medical History: Denies: Alcohol Dependency, Depression, Substance Abuse, Tobacco Dependency Hematology: Reports: Anemia, Bleeding Tendencies Denies: Sickle Cell Disease Past Surgical History Past Surgical History: Reports: Herniorrhaphy, Tonsillectomy, Other - Mitral valve repair Denies: Pacemaker Social History Lives with: Family Smoking Status: Former Smoker Last Time Smoked: 1997 Frequency of Alcohol Use: None Hx Recreational Drug Use: No Drugs: None Hx Prescription Drug Abuse: No - Advance Directive Resuscitation Status: Full Code Family History Family History: Hypertension Parental Family History Reviewed: No Children Family History Reviewed: NA Sibling(s) Family History Reviewed.: NA Medication/Allergy Home Medications: Albuterol Sulfate [Proair HFA Inhalation Aerosol 8.5 gm MDI] 1 puff IH Q4HP PRN 02/20/18 Amlodipine Besylate [Norvasc 5 mg Tablet] 5 mg PO BID 02/20/18 Aspirin [Aspirin EC] 81 mg PO DAILY 02/20/18 B Complex W-C No.20/Folic Acid [Nephrocaps Softgel] 1 mg PO DAILY 02/20/18 Benzonatate [Tessalon Perle 100 mg Capsule] 100 mg PO TIDP PRN 02/20/18 Cetirizine HCl [Zyrtec 10 mg Tablet] 10 mg PO DAILY 02/20/18 Cholecalciferol (Vitamin D3) [Vitamin D3 1000 Unit Tablet] 1,000 unit PO DAILY 02/20/18 Ezetimibe [Zetia 10 mg Tablet] 10 mg PO QHS 02/20/18 Fluticasone/Salmeterol [Advair 500-50 Diskus 14 Dose/Diskus] 1 puff IH Q12 02/20 Furosemide [Lasix 40 mg Tablet] 40 mg PO DAILY 02/20/18 Guaifenesin [Mucinex] 600 mg PO BID 02/20/18 Ipratropium Ayr [Atrovent Hfa Inhalation Aerosol 12.9 gm Mdi] 2 puff IH Q4HP PRN 02/20/18 Montelukast Sodium [Singulair 10 mg Tablet] 10 mg PO QPM 02/20/18 Rosuvastatin Calcium [Crestor] 40 mg PO QHS 02/20/18 Sertraline HCl [Zoloft 50 mg Tablet] 50 mg PO QAM 02/20/18 Tiotropium [place] [Spiriva Handihaler 18 mcg/dose (30 Dose)] 18 mcg IH DAILY Allergies/Adverse Reactions: adhesive tape Allergy (Verified 11/26/17 15:33) Blisters propofol Adverse Reaction (Unknown, Uncoded 02/18/18 15:41) Review of Systems All systems: reviewed and no additional remarkable complaints except as stated Physical Exam Vital Signs: Temp Pulse Resp BP Pulse Ox 100.6 F H 68 15 106/61 97 02/20/18 20:00 02/20/18 08:43 02/20/18 18:00 02/20/18 17:50 02/20/18 18:00 Intake & Output 02/19/18 02/20/18 02/21/18 06:59 06:59 06:59 Intake Total 506 797.5 Output Total 0 1940 Balance 506 -1142.5 Weight 58.7 kg Exam: General: Patient is alert and oriented. He has some respiratory difficulty and has a CPAP mask on. He is able to communicate with me appropriately. HEENT: There is no pallor or jaundice. PERRLA. Oropharynx normal Respiratory: He has kyphoscoliosis and some respiratory distress. Chest wall palpitation was unremarkable. Breath sounds were reduced Cardiovascular: Heart sounds 1 and 2 normal with no murmurs. Abdominal: Not distended. Soft and nontender. Liver and spleen not palpable. No ascites demonstrated. Bowel sounds active. Rectal examination was deferred. Extremities: No edema Neurological: Alert and oriented x4. Grossly nonfocal. Normal speech Psychological: Normal affect Results Laboratory Results: 02/20/18 09:50 02/20/18 09:50 02/19/18 02/19/18 02/19/18 23:05 23:05 23:05 WBC RBC Hgb Hct MCV MCH MCHC RDW Plt Count Seg Neutrophils % Lymphocytes % Monocytes % Eosinophils % Basophils % Absolute Neutrophils Absolute Lymphocytes Absolute Monocytes Absolute Eosinophils Absolute Basophils Retic Count (auto) 2.17 Absolute Retic 0.057 Carbonic Acid HCO3/H2CO3 Ratio ABG pH ABG pCO2 ABG pO2 ABG HCO3 ABG O2 Saturation ABG Base Excess FiO2 Sodium Potassium Chloride Carbon Dioxide Anion Gap BUN Creatinine Est GFR ( Amer) Est GFR (Non-Af Amer) Glucose Calcium Phosphorus Magnesium Iron 12.0 L TIBC 414 % Saturation 3 Ferritin 1780.00 H Vitamin B12 872.0 Folate > 20.00 TSH Urine Color Urine Appearance Urine pH Ur Specific [place] Urine Protein Urine Glucose (UA) Urine Ketones Urine Blood Urine Nitrite Ur Leukocyte Esterase Urine WBC (Auto) Urine RBC (Auto) Stool Occult Blood Blood Type O POSITIVE Antibody Screen NEGATIVE 02/19/18 02/19/18 02/19/18 23:05 23:05 23:05 WBC 7.1 RBC 2.64 L Hgb 7.5 L Hct 24.2 L MCV 92 MCH 28.3 MCHC 30.9 L RDW 18.3 H Plt Count 148 L Seg Neutrophils % Not Reportable Lymphocytes % Not Reportable Monocytes % Not Reportable Eosinophils % Not Reportable Basophils % Not Reportable Absolute Neutrophils Not Reportable Absolute Lymphocytes Not Reportable Absolute Monocytes Not Reportable Absolute Eosinophils Not Reportable Absolute Basophils Not Reportable Retic Count (auto) Absolute Retic Carbonic Acid HCO3/H2CO3 Ratio ABG pH ABG pCO2 ABG pO2 ABG HCO3 ABG O2 Saturation ABG Base Excess FiO2 Sodium 136.4 L Potassium 6.3 H* Chloride 91 L Carbon Dioxide 25 Anion Gap 20 H BUN 70 H Creatinine 6.44 H Est GFR ( Amer) 10 L Est GFR (Non-Af Amer) 8 L Glucose 221 H Calcium 8.5 Phosphorus Magnesium Iron TIBC % Saturation Ferritin Vitamin B12 Folate TSH 1.41 Urine Color Urine Appearance Urine pH Ur Specific [place] Urine Protein Urine Glucose (UA) Urine Ketones Urine Blood Urine Nitrite Ur Leukocyte Esterase Urine WBC (Auto) Urine RBC (Auto) Stool Occult Blood Blood Type Antibody Screen 02/20/18 02/20/18 02/20/18 02:20 04:55 04:55 WBC 9.3 RBC 2.49 L Hgb 7.0 L Hct 22.9 L MCV 92 MCH 28.2 MCHC 30.7 L RDW 18.5 H Plt Count 157 Seg Neutrophils % Not Reportable Lymphocytes % Not Reportable Monocytes % Not Reportable Eosinophils % Not Reportable Basophils % Not Reportable Absolute Neutrophils Not Reportable Absolute Lymphocytes Not Reportable Absolute Monocytes Not Reportable Absolute Eosinophils Not Reportable Absolute Basophils Not Reportable Retic Count (auto) Absolute Retic Carbonic Acid HCO3/H2CO3 Ratio ABG pH ABG pCO2 ABG pO2 ABG HCO3 ABG O2 Saturation ABG Base Excess FiO2 Sodium Cancelled Potassium Cancelled Chloride Cancelled Carbon Dioxide Cancelled Anion Gap Cancelled BUN Cancelled Creatinine Cancelled Est GFR ( Amer) Cancelled Est GFR (Non-Af Amer) Cancelled Glucose Cancelled Calcium Cancelled Phosphorus Magnesium Cancelled Iron TIBC % Saturation Ferritin Vitamin B12 Folate TSH Urine Color Urine Appearance Urine pH Ur Specific [place] Urine Protein Urine Glucose (UA) Urine Ketones Urine Blood Urine Nitrite Ur Leukocyte Esterase Urine WBC (Auto) Urine RBC (Auto) Stool Occult Blood POSITIVE Blood Type Antibody Screen 02/20/18 02/20/18 02/20/18 06:34 09:36 09:50 WBC 12.3 H RBC 3.32 L Hgb 9.7 L D Hct 30.9 L MCV 93 MCH 29.2 MCHC 31.4 L RDW 16.9 H Plt Count 174 Seg Neutrophils % 84.1 H Lymphocytes % 5.8 L Monocytes % 9.6 Eosinophils % 0.1 Basophils % 0.4 Absolute Neutrophils 10.4 H Absolute Lymphocytes 0.7 Absolute Monocytes 1.2 Absolute Eosinophils 0.0 Absolute Basophils 0.1 Retic Count (auto) Absolute Retic Carbonic Acid Cancelled HCO3/H2CO3 Ratio Cancelled ABG pH Cancelled ABG pCO2 Cancelled ABG pO2 Cancelled ABG HCO3 Cancelled ABG O2 Saturation Cancelled ABG Base Excess Cancelled FiO2 Cancelled Sodium 135.5 L Potassium 5.7 H Chloride 97 L Carbon Dioxide 26 Anion Gap 13 BUN 76 H Creatinine 6.64 H Est GFR ( Amer) 10 L Est GFR (Non-Af Amer) 8 L Glucose 149 H Calcium 7.8 L Phosphorus Magnesium 2.4 H Iron TIBC % Saturation Ferritin Vitamin B12 Folate TSH Urine Color Urine Appearance Urine pH Ur Specific [place] Urine Protein Urine Glucose (UA) Urine Ketones Urine Blood Urine Nitrite Ur Leukocyte Esterase Urine WBC (Auto) Urine RBC (Auto) Stool Occult Blood Blood Type Antibody Screen 02/20/18 02/20/18 02/20/18 09:50 10:10 10:20 WBC RBC Hgb Hct MCV MCH MCHC RDW Plt Count Seg Neutrophils % Lymphocytes % Monocytes % Eosinophils % Basophils % Absolute Neutrophils Absolute Lymphocytes Absolute Monocytes Absolute Eosinophils Absolute Basophils Retic Count (auto) Absolute Retic Carbonic Acid 4.83 H HCO3/H2CO3 Ratio 7:1 ABG pH 6.99 L* ABG pCO2 160.6 H* ABG pO2 98.5 ABG HCO3 37.8 H ABG O2 Saturation 91.8 L ABG Base Excess 3.0 FiO2 4L Sodium 140.0 Potassium 3.9 D Chloride 98 Carbon Dioxide 35 H Anion Gap 7 BUN 30 H D Creatinine 2.92 H Est GFR ( Amer) 25 L Est GFR (Non-Af Amer) 21 L Glucose 118 H Calcium 8.0 L Phosphorus 6.5 H Magnesium 2.1 Iron TIBC % Saturation Ferritin Vitamin B12 Folate TSH Urine Color YELLOW Urine Appearance CLOUDY Urine pH 5.0 Ur Specific [place] 1.016 Urine Protein 100 H Urine Glucose (UA) NEGATIVE Urine Ketones NEGATIVE Urine Blood MODERATE H Urine Nitrite NEGATIVE Ur Leukocyte Esterase TRACE H Urine WBC (Auto) 3 Urine RBC (Auto) 3 Stool Occult Blood Blood Type Antibody Screen 02/20/18 02/20/18 02/20/18 11:40 12:05 16:00 WBC RBC Hgb Hct MCV MCH MCHC RDW Plt Count Seg Neutrophils % Lymphocytes % Monocytes % Eosinophils % Basophils % Absolute Neutrophils Absolute Lymphocytes Absolute Monocytes Absolute Eosinophils Absolute Basophils Retic Count (auto) Absolute Retic Carbonic Acid Cancelled 2.44 H 1.83 H HCO3/H2CO3 Ratio Cancelled 12:1 17:1 ABG pH Cancelled 7.19 L* 7.33 L ABG pCO2 Cancelled 81.0 H* 60.8 H ABG pO2 Cancelled 60.2 L 60.3 L ABG HCO3 Cancelled 30.5 H 31.3 H ABG O2 Saturation Cancelled 83.7 L 88.7 L ABG Base Excess Cancelled 1.0 4.3 FiO2 Cancelled 30% 30% Sodium Potassium Chloride Carbon Dioxide Anion Gap BUN Creatinine Est GFR ( Amer) Est GFR (Non-Af Amer) Glucose Calcium Phosphorus Magnesium Iron TIBC % Saturation Ferritin Vitamin B12 Folate TSH Urine Color Urine Appearance Urine pH Ur Specific [place] Urine Protein Urine Glucose (UA) Urine Ketones Urine Blood Urine Nitrite Ur Leukocyte Esterase Urine WBC (Auto) Urine RBC (Auto) Stool Occult Blood Blood Type Antibody Screen 02/20/18 02/20/18 02/20/18 00:30 00:30 04:55 Creatine Kinase 55 Cancelled CK-MB (CK-2) 4.68 H Troponin I 0.043 02/20/18 02/20/18 02/20/18 04:55 06:34 11:30 Creatine Kinase 50 L 54 L CK-MB (CK-2) 4.22 Troponin I 0.053 02/20/18 02/20/18 11:30 18:58 Creatine Kinase CK-MB (CK-2) 4.83 H Troponin I 0.061 0.069 Impressions: Chest X-Ray 02/19/18 19:51 IMPRESSION: Borderline cardiomegaly without pulmonary edema. Cannot exclude limited left lower lobe pneumonia. Head CT 02/19/18 20:28 IMPRESSION: Limited study due to motion artifact. No gross intracranial hemorrhage or skull fracture. Abdomen Ultrasound 02/19/18 22:19 IMPRESSION: The gallbladder wall is thickened measuring 5 mm. There is mild pericholecystic fluid There is no intraluminal sludge or gallstones. These findings are suspicious for acute acalculous cholecystitis. 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 There is generalized increased echogenicity of the right kidney suspicious for underlying medical renal disease. Multiple cysts are seen in the right kidney, the largest measuring 1.6 x 1.4 x 1.6 cm. There is also presence of complex free fluid superior to the right kidney in the hepatorenal pouch 2010 [employer]- All Rights Reserved Assessment & Plan - Diagnosis (1) Iron deficiency anemia due to chronic blood loss Is this a current diagnosis for this admission?: Yes Plan: He has had iron deficiency for many years with no significant GI pathology identified so far. He has had multiple endoscopies including 2 capsule endoscopies. He could not swallow a capsule endoscope a few weeks ago. I suspect his anemia is related to his chronic illnesses and he may also have AVMs in his small bowel especially with his end-stage renal disease and valvular heart disease. I will suggest that we continue conservative management with transfusion as needed and iron infusions. (2) Anemia in chronic renal disease Qualifiers: Chronic kidney disease stage: on chronic dialysis Qualified Code(s): N18.6 - End stage renal disease; D63.1 - Anemia in chronic kidney disease; D63.1 - Anemia in chronic kidney disease; Z99.2 - Dependence on renal dialysis; Z99.2 - Dependence on renal dialysis; Z99.2 - Dependence on renal dialysis; Z99.2 - Dependence on renal dialysis Is this a current diagnosis for this admission?: Yes (3) Blood in stool Is this a current diagnosis for this admission?: Yes Plan: There is no active significant GI bleed and no intervention is required for this at this time. (4) LFT elevation Is this a current diagnosis for this admission?: Yes Plan: This could be related to CHF (5) Laceration of right upper arm Qualifiers: Encounter type: initial encounter Qualified Code(s): S41.111A - Laceration without foreign body of right upper arm, initial encounter Is this a current diagnosis for this admission?: Yes
[2018-02-20] MEDS ORDERED: PIPERACILLIN/TAZOBACTAM 2.25 GM VIAL IV SCH (22:00)
--- NOTE | 2018-02-20 22:25 | EKG REPORT ---
SEVERITY:- ABNORMAL ECG - ATRIAL FLUTTER, A-RATE 234 PAIRED VENTRICULAR PREMATURE COMPLEXES LOW VOLTAGE IN FRONTAL LEADS PROBABLE LEFT VENTRICULAR HYPERTROPHY : Confirmed by: Marily Mcgrath MD 20-Feb-2018 22:24:38
[2018-02-20] MEDS: PIPERACILLIN SODIUM/TAZOBACTAM 2.25 GM in NORMAL SALINE 50 ML IV SCH (22:32)
[2018-02-21 03:10] LABS: ABSOLUTE BASOPHILS # (AUTO) 0.1 10^3/uL (0.0-0.2); ABSOLUTE LYMPHOCYTES (AUTO) 0.4 10^3/uL (0.5-4.7); ABSOLUTE MONOCYTES (AUTO) 0.6 10^3/uL (0.1-1.4); ABSOLUTE NEUT (AUTO) 5.4 10^3/uL (1.7-8.2); BASOPHILS % (AUTO) 0.9 % (0-2); EOSINOPHILS % (AUTO) 0.1 % (0-6); HEMATOCRIT 27.4 % (37.9-51.0); HEMOGLOBIN 8.9 g/dL (13.5-17.0); LYMPHOCYTES % (AUTO) 6.4 % (13-45); MEAN CORPUSCULAR HEMOGLOBIN 29.5 pg (27.0-33.4); MEAN CORPUSCULAR HGB CONC 32.5 g/dL (32.0-36.0); MEAN CORPUSCULAR VOLUME 91 fl (80-97); MONOCYTES % (AUTO) 9.3 % (3-13); PLATELET COUNT 109 10^3/uL (150-450); RED BLOOD COUNT 3.01 10^6/uL (4.35-5.55); RED CELL DISTRIBUTION WIDTH 17.5 % (11.5-14.0); SEGMENTED NEUTROPHILS % (AUTO) 83.3 % (42-78); TOTAL CELLS COUNTED % (AUTO) 100 %; WHITE BLOOD COUNT 6.5 10^3/uL (4.0-10.5)
[2018-02-21 03:22] LABS: ANION GAP 11 (5-19); BLOOD UREA NITROGEN 43 mg/dL (7-20); CALCIUM 8.3 mg/dL (8.4-10.2); CARBON DIOXIDE 27 mmol/L (22-30); CHLORIDE 99 mmol/L (98-107); GLUCOSE 101 mg/dL (75-110); POTASSIUM 4.7 mmol/L (3.6-5.0); SODIUM 137.2 mmol/L (137-145)
[2018-02-21 04:37] LABS: HEPATITIS A AB IGM Negative (Negative); HEPATITIS B CORE AB IGM Negative (Negative); HEPATITS B SURFACE ANTIGEN Negative (Negative)
[2018-02-21] MEDS ORDERED: EPOETIN ALFA INJ 20000 UNIT/1 ML VIAL (RENAL) IV PRN (05:00)
[2018-02-21] MEDS: PIPERACILLIN SODIUM/TAZOBACTAM 2.25 GM in NORMAL SALINE 50 ML IV SCH ×3 (05:09→21:28)
--- NOTE | 2018-02-21 06:35 | RADIOLOGY REPORT (SQ) ---
EXAM DESCRIPTION: XR CHEST 1 VIEW COMPLETED DATE/TME: 02/21/2018 06:00 CLINICAL HISTORY: 82 years Male, fever COMPARISON: 2 days prior. NUMBER OF VIEWS/TECHNIQUE: 1/AP FINDINGS: Moderate bilateral lower hemithoracic opacity-effusion, right more than left, moderate interstitial markings, atherosclerosis, normal cardiac silhouette, sternotomy. No pneumothorax. Stable bony thorax. IMPRESSION: No significant change.
[2018-02-21 07:46] LABS: HEPATITIS C VIRUS ANTIBODY <0.1 s/co ratio (0.0-0.9)
[2018-02-21 08:58] LABS: ARTERIAL BLOOD BASE EXCESS 1.8 mmol/L; ARTERIAL BLOOD FIO2 45%; ARTERIAL BLOOD H2CO3 1.47 mmol/L (1.05-1.35); ARTERIAL BLOOD HCO3 27.6 mmol/L (20-24); ARTERIAL BLOOD O2 SATURATION 98.6 % (94-98); ARTERIAL BLOOD PH 7.37 (7.35-7.45); ARTERIAL BLOOD TOTAL CO2 29.1 mmol/L (23-27)
--- NOTE | 2018-02-21 10:46 | PDOC PROGRESS REPORT ---
Subjective Progress Note for:: 02/21/18 Reason For Visit: Patient seen on dialysis. He is undergoing dialysis without any issues currently. Patient is awake alert and oriented and is talking well in spite of him being on BiPAP.Patient denies any history of chest pains or abdominal pains. Labs and medications were reviewed with the patient. His blood gases almost normal but his PCO2 now down to the high 40s from the 160s was yesterday. Physical Exam Vital Signs: Temp Pulse Resp BP Pulse Ox 99.0 F 64 17 155/57 H 98 02/21/18 09:00 02/21/18 08:00 02/21/18 09:00 02/21/18 08:51 02/21/18 09:00 Intake & Output 02/20/18 02/21/18 02/22/18 06:59 06:59 06:59 Intake Total 506 897.5 Output Total 0 1960 Balance 506 -1062.5 Weight 58.7 kg 60.7 kg General appearance: PRESENT: no acute distress Respiratory exam: PRESENT: clear to auscultation raymond, crackles - Few and scattered, decreased breath sounds, wheezes - Few and scattered. Cardiovascular exam: PRESENT: +S1, +S2, systolic murmur GI/Abdominal exam: PRESENT: normal bowel sounds, soft. ABSENT: organomegaly, tenderness Extremities exam: ABSENT: joint swelling, pedal edema Neurological exam: PRESENT: alert, awake, oriented to person, oriented to place Psychiatric exam: PRESENT: anxious Skin exam: ABSENT: erythema, mottled Results Laboratory Results: 02/21/18 03:02 02/21/18 03:02 02/20/18 02/20/18 02/20/18 09:50 10:20 11:40 WBC RBC Hgb Hct MCV MCH MCHC RDW Plt Count Seg Neutrophils % Lymphocytes % Monocytes % Eosinophils % Basophils % Absolute Neutrophils Absolute Lymphocytes Absolute Monocytes Absolute Eosinophils Absolute Basophils Carbonic Acid Cancelled HCO3/H2CO3 Ratio Cancelled ABG pH Cancelled ABG pCO2 Cancelled ABG pO2 Cancelled ABG HCO3 Cancelled ABG O2 Saturation Cancelled ABG Base Excess Cancelled FiO2 Cancelled Sodium 140.0 Potassium 3.9 D Chloride 98 Carbon Dioxide 35 H Anion Gap 7 BUN 30 H D Creatinine 2.92 H Est GFR ( Amer) 25 L Est GFR (Non-Af Amer) 21 L Glucose 118 H Calcium 8.0 L Phosphorus 6.5 H Magnesium 2.1 Urine Color YELLOW Urine Appearance CLOUDY Urine pH 5.0 Ur Specific [place] 1.016 Urine Protein 100 H Urine Glucose (UA) NEGATIVE Urine Ketones NEGATIVE Urine Blood MODERATE H Urine Nitrite NEGATIVE Ur Leukocyte Esterase TRACE H Urine WBC (Auto) 3 Urine RBC (Auto) 3 02/20/18 02/20/18 02/21/18 12:05 16:00 03:02 WBC 6.5 RBC 3.01 L Hgb 8.9 L Hct 27.4 L MCV 91 MCH 29.5 MCHC 32.5 RDW 17.5 H Plt Count 109 L Seg Neutrophils % 83.3 H Lymphocytes % 6.4 L Monocytes % 9.3 Eosinophils % 0.1 Basophils % 0.9 Absolute Neutrophils 5.4 Absolute Lymphocytes 0.4 L Absolute Monocytes 0.6 Absolute Eosinophils 0.0 Absolute Basophils 0.1 Carbonic Acid 2.44 H 1.83 H HCO3/H2CO3 Ratio 12:1 17:1 ABG pH 7.19 L* 7.33 L ABG pCO2 81.0 H* 60.8 H ABG pO2 60.2 L 60.3 L ABG HCO3 30.5 H 31.3 H ABG O2 Saturation 83.7 L 88.7 L ABG Base Excess 1.0 4.3 FiO2 30% 30% Sodium Potassium Chloride Carbon Dioxide Anion Gap BUN Creatinine Est GFR ( Amer) Est GFR (Non-Af Amer) Glucose Calcium Phosphorus Magnesium Urine Color Urine Appearance Urine pH Ur Specific [place] Urine Protein Urine Glucose (UA) Urine Ketones Urine Blood Urine Nitrite Ur Leukocyte Esterase Urine WBC (Auto) Urine RBC (Auto) 02/21/18 02/21/18 03:02 08:40 WBC RBC Hgb Hct MCV MCH MCHC RDW Plt Count Seg Neutrophils % Lymphocytes % Monocytes % Eosinophils % Basophils % Absolute Neutrophils Absolute Lymphocytes Absolute Monocytes Absolute Eosinophils Absolute Basophils Carbonic Acid 1.47 H HCO3/H2CO3 Ratio 18:1 ABG pH 7.37 ABG pCO2 49.0 H ABG pO2 137.0 H ABG HCO3 27.6 H ABG O2 Saturation 98.6 H ABG Base Excess 1.8 FiO2 45% Sodium 137.2 Potassium 4.7 Chloride 99 Carbon Dioxide 27 Anion Gap 11 BUN 43 H Creatinine 4.28 H Est GFR ( Amer) 16 L Est GFR (Non-Af Amer) 13 L Glucose 101 Calcium 8.3 L Phosphorus Magnesium 2.0 Urine Color Urine Appearance Urine pH Ur Specific [place] Urine Protein Urine Glucose (UA) Urine Ketones Urine Blood Urine Nitrite Ur Leukocyte Esterase Urine WBC (Auto) Urine RBC (Auto) 02/20/18 02/20/18 02/20/18 00:30 00:30 04:55 Creatine Kinase 55 Cancelled CK-MB (CK-2) 4.68 H Troponin I 0.043 02/20/18 02/20/18 02/20/18 04:55 06:34 11:30 Creatine Kinase 50 L 54 L CK-MB (CK-2) 4.22 Troponin I 0.053 02/20/18 02/20/18 02/21/18 11:30 18:58 03:02 Creatine Kinase CK-MB (CK-2) 4.83 H Troponin I 0.061 0.069 0.073 Impressions: Head CT 02/19/18 20:28 IMPRESSION: Limited study due to motion artifact. No gross intracranial hemorrhage or skull fracture. Abdomen Ultrasound 02/19/18 22:19 IMPRESSION: The gallbladder wall is thickened measuring 5 mm. There is mild pericholecystic fluid There is no intraluminal sludge or gallstones. These findings are suspicious for acute acalculous cholecystitis. 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 There is generalized increased echogenicity of the right kidney suspicious for underlying medical renal disease. Multiple cysts are seen in the right kidney, the largest measuring 1.6 x 1.4 x 1.6 cm. There is also presence of complex free fluid superior to the right kidney in the hepatorenal pouch 2010 [employer]- All Rights Reserved Chest X-Ray 02/21/18 06:00 IMPRESSION: No significant change. Assessment & Plan - Diagnosis (1) Acute on chronic respiratory failure with hypoxia and hypercapnia Is this a current diagnosis for this admission?: Yes Plan: Much improved on current management. His blood gases whole lot better with his PCO2 in the high 40s compared to 160 yesterday. 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 (2) CHF (congestive heart failure) Plan: Improving. Rate is better controlled. We will try to remove close to 2 L on fluid removal on dialysis as tolerated. (3) Anemia Qualifiers: Anemia type: iron deficiency Iron deficiency anemia type: chronic blood loss Qualified Code(s): D50.0 - Iron deficiency anemia secondary to blood loss (chronic) Is this a current diagnosis for this admission?: Yes Plan: Stable post transfusion. Continue on erythropoietin as per titration. (4) Atrial fibrillation with rapid ventricular response Is this a current diagnosis for this admission?: Yes Plan: Rate control as per Dr. Montez/cardiology. Currently on IV amiodarone. (5) End stage renal failure on dialysis Is this a current diagnosis for this admission?: Yes Plan: Patient undergoing dialysis without any issues. Dialysis is being supervised to ensure safe and smooth procedure. Vital signs are stable. Labs and medications were reviewed with patient and treating dialysis nurse. We will plan to remove close to 2 L as tolerated. Orders were reviewed with the treating nurse Hospital. (6) Hyperkalemia Is this a current diagnosis for this admission?: Yes Plan: Resolved. (7) Chronic obstructive lung disease Qualifiers: COPD type: unspecified COPD Qualified Code(s): J44.9 - Chronic obstructive pulmonary disease, unspecified Is this a current diagnosis for this admission?: Yes Plan: Relatively stable at the moment. (8) AAA (abdominal aortic aneurysm) without rupture Is this a current diagnosis for this admission?: Yes Plan: Status quo. As mentioned earlier in my notes patient would have to have this evaluated as an outpatient given its size. (9) Altered mental status Plan: Resolved with the resolution of CO2 narcosis.
--- NOTE | 2018-02-21 11:00 | PDOC PROGRESS REPORT ---
Subjective Progress Note for:: 02/21/18 Subjective:: VERN COLLINS is a 82 year old male with a complex past medical history of oxygen dependent COPD, coronary artery disease, hypertension, mitral valve repair, iron deficient anemia with suspected AVM, and end-stage renal failure on hemodialysis Saturday, missing his scheduled dialysis appointment February 19 after sustaining a mechanical fall resulting in right forearm skin tear and emergency room evaluation. In the emergency room he is found to have new A. fib, A flutter with RVR, hypotension, acute on chronic anemia, LFT elevation and hyperkalemia with peaked T waves. He receives calcium , dextrose, insulin, albuterol, Kayexalate and referred to the hospitalist for admission. Patient receiving dialysis this morning. Patient was responsive during admission was somewhat lethargic at the initiation of dialysis and became more lethargic. A glucose was checked and he was hypoglycemic at 34. Patient was given dextrose and his sugar responded however his level of consciousness did not improve. Was on BiPAP since yesterday. CO2 now 60 on this morning's ABG. He is awake alert. He is oxygenating adequately on the BiPAP. He does desaturate with talking and if he attempts to go on a nasal cannula. He is to receive dialysis today again. His rhythm remains a flutter 4-1 block by telemetry denies chest pain family present in the room Reason For Visit: HYPERKALEMIA, AFLUTTER, LFT ELEVATION, ESRD, Physical Exam Vital Signs: Temp Pulse Resp BP Pulse Ox 99.0 F 64 17 155/57 H 98 02/21/18 09:00 02/21/18 08:00 02/21/18 09:00 02/21/18 08:51 02/21/18 09:00 Intake & Output 02/20/18 02/21/18 02/22/18 06:59 06:59 06:59 Intake Total 506 897.5 Output Total 0 1960 Balance 506 -1062.5 Weight 58.7 kg 60.7 kg General appearance: PRESENT: no acute distress, well-developed, well-nourished Respiratory exam: PRESENT: accessory muscle use, clear to auscultation raymond, decreased breath sounds. ABSENT: rhonchi Cardiovascular exam: PRESENT: RRR, systolic murmur - 2/6. ABSENT: diastolic murmur, rubs GI/Abdominal exam: PRESENT: normal bowel sounds, soft. ABSENT: distended, guarding, mass, organolmegaly, rebound, tenderness Musculoskeletal exam: PRESENT: normal inspection Skin exam: PRESENT: other - Skin tear right upper arm Results Laboratory Results: 02/21/18 03:02 02/21/18 03:02 02/20/18 02/20/18 02/20/18 10:20 11:40 12:05 WBC RBC Hgb Hct MCV MCH MCHC RDW Plt Count Seg Neutrophils % Lymphocytes % Monocytes % Eosinophils % Basophils % Absolute Neutrophils Absolute Lymphocytes Absolute Monocytes Absolute Eosinophils Absolute Basophils Carbonic Acid Cancelled 2.44 H HCO3/H2CO3 Ratio Cancelled 12:1 ABG pH Cancelled 7.19 L* ABG pCO2 Cancelled 81.0 H* ABG pO2 Cancelled 60.2 L ABG HCO3 Cancelled 30.5 H ABG O2 Saturation Cancelled 83.7 L ABG Base Excess Cancelled 1.0 FiO2 Cancelled 30% Sodium Potassium Chloride Carbon Dioxide Anion Gap BUN Creatinine Est GFR ( Amer) Est GFR (Non-Af Amer) Glucose Calcium Magnesium Urine Color YELLOW Urine Appearance CLOUDY Urine pH 5.0 Ur Specific [place] 1.016 Urine Protein 100 H Urine Glucose (UA) NEGATIVE Urine Ketones NEGATIVE Urine Blood MODERATE H Urine Nitrite NEGATIVE Ur Leukocyte Esterase TRACE H Urine WBC (Auto) 3 Urine RBC (Auto) 3 02/20/18 02/21/18 02/21/18 16:00 03:02 03:02 WBC 6.5 RBC 3.01 L Hgb 8.9 L Hct 27.4 L MCV 91 MCH 29.5 MCHC 32.5 RDW 17.5 H Plt Count 109 L Seg Neutrophils % 83.3 H Lymphocytes % 6.4 L Monocytes % 9.3 Eosinophils % 0.1 Basophils % 0.9 Absolute Neutrophils 5.4 Absolute Lymphocytes 0.4 L Absolute Monocytes 0.6 Absolute Eosinophils 0.0 Absolute Basophils 0.1 Carbonic Acid 1.83 H HCO3/H2CO3 Ratio 17:1 ABG pH 7.33 L ABG pCO2 60.8 H ABG pO2 60.3 L ABG HCO3 31.3 H ABG O2 Saturation 88.7 L ABG Base Excess 4.3 FiO2 30% Sodium 137.2 Potassium 4.7 Chloride 99 Carbon Dioxide 27 Anion Gap 11 BUN 43 H Creatinine 4.28 H Est GFR ( Amer) 16 L Est GFR (Non-Af Amer) 13 L Glucose 101 Calcium 8.3 L Magnesium 2.0 Urine Color Urine Appearance Urine pH Ur Specific [place] Urine Protein Urine Glucose (UA) Urine Ketones Urine Blood Urine Nitrite Ur Leukocyte Esterase Urine WBC (Auto) Urine RBC (Auto) 02/21/18 08:40 WBC RBC Hgb Hct MCV MCH MCHC RDW Plt Count Seg Neutrophils % Lymphocytes % Monocytes % Eosinophils % Basophils % Absolute Neutrophils Absolute Lymphocytes Absolute Monocytes Absolute Eosinophils Absolute Basophils Carbonic Acid 1.47 H HCO3/H2CO3 Ratio 18:1 ABG pH 7.37 ABG pCO2 49.0 H ABG pO2 137.0 H ABG HCO3 27.6 H ABG O2 Saturation 98.6 H ABG Base Excess 1.8 FiO2 45% Sodium Potassium Chloride Carbon Dioxide Anion Gap BUN Creatinine Est GFR ( Amer) Est GFR (Non-Af Amer) Glucose Calcium Magnesium Urine Color Urine Appearance Urine pH Ur Specific [place] Urine Protein Urine Glucose (UA) Urine Ketones Urine Blood Urine Nitrite Ur Leukocyte Esterase Urine WBC (Auto) Urine RBC (Auto) 02/20/18 02/20/18 02/20/18 00:30 00:30 04:55 Creatine Kinase 55 Cancelled CK-MB (CK-2) 4.68 H Troponin I 0.043 02/20/18 02/20/18 02/20/18 04:55 06:34 11:30 Creatine Kinase 50 L 54 L CK-MB (CK-2) 4.22 Troponin I 0.053 02/20/18 02/20/18 02/21/18 11:30 18:58 03:02 Creatine Kinase CK-MB (CK-2) 4.83 H Troponin I 0.061 0.069 0.073 Impressions: Head CT 02/19/18 20:28 IMPRESSION: Limited study due to motion artifact. No gross intracranial hemorrhage or skull fracture. Abdomen Ultrasound 02/19/18 22:19 IMPRESSION: The gallbladder wall is thickened measuring 5 mm. There is mild pericholecystic fluid There is no intraluminal sludge or gallstones. These findings are suspicious for acute acalculous cholecystitis. 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 There is generalized increased echogenicity of the right kidney suspicious for underlying medical renal disease. Multiple cysts are seen in the right kidney, the largest measuring 1.6 x 1.4 x 1.6 cm. There is also presence of complex free fluid superior to the right kidney in the hepatorenal pouch 2010 [employer]- All Rights Reserved Chest X-Ray 02/21/18 06:00 IMPRESSION: No significant change. Assessment & Plan - Diagnosis (1) Acute on chronic respiratory failure with hypoxia and hypercapnia Is this a current diagnosis for this admission?: Yes Plan: CO2 of 160 on ABG. Patient has responded well to BiPAP CO2 is now at 60 his O2 saturations are at 60 it well which is likely his baseline. Dr. Flores is consulted for pulmonary management. Patient appears comfortable but would like to remove the BiPAP but still requiring it for maintaining his saturation. Patient to undergo dialysis today perhaps with removal of fluid this may help with his respiratory status. Continue current therapy (2) Blood in stool Is this a current diagnosis for this admission?: Yes Plan: Stool not malonic but guaiac positive. Patient has had a GI workup in the past suspected he has AVMs there was no active bleeding but some gastritis found. GI has been consulted conservative management has been recommended. (3) Chronic blood loss anemia Is this a current diagnosis for this admission?: Yes Plan: Iron deficiency anemia. Iron level 12 with a saturation of 3. Ferritin 1700 however in September of this year was 57. Suspect ferritin elevated by acute phase reactant due to the profound hypercapnia. She is status post 2 units packed red cells hemoglobin posttransfusion 9.7 this morning 8.9 continue to monitor daily CBCs. (4) Anemia in chronic renal disease Qualifiers: Chronic kidney disease stage: on chronic dialysis Qualified Code(s): N18.6 - End stage renal disease; D63.1 - Anemia in chronic kidney disease; D63.1 - Anemia in chronic kidney disease; Z99.2 - Dependence on renal dialysis; Z99.2 - Dependence on renal dialysis; Z99.2 - Dependence on renal dialysis; Z99.2 - Dependence on renal dialysis Is this a current diagnosis for this admission?: Yes Plan: Baseline hemoglobin varies between 7.5 and 9.8 historically. Has received 2 units of packed red cells during dialysis. Post transfusion hemoglobin 8.9 we will follow daily CBCs. (5) Atrial fibrillation with rapid ventricular response Is this a current diagnosis for this admission?: Yes Plan: Initiated on amiodarone drip. Case discussed with Dr. Montez with family present. Patient is not to have cardio version or defibrillation she had a rhythm deteriorate. Troponins mild elevation but flat likely secondary to his renal disease. Telemetry appears to be a flutter for 1 block rate controlled continue amiodarone (6) End stage renal failure on dialysis Is this a current diagnosis for this admission?: Yes Plan: Nephrology consulted for dialysis as per Dr. Rios (7) Hyperkalemia Is this a current diagnosis for this admission?: Yes Plan: Resolved - Time Time Spent with patient: 25-34 minutes
[2018-02-21] MEDS: DEXTROSE 5%-WATER 500 ML with AMIODARONE HCL 900 MG IV PRN ×2 (12:28)
[2018-02-22 04:12] LABS: ABSOLUTE EOSINOPHILS # (AUTO) 0.1 10^3/uL (0.0-0.6); ABSOLUTE LYMPHOCYTES (AUTO) 0.6 10^3/uL (0.5-4.7); ABSOLUTE MONOCYTES (AUTO) 0.7 10^3/uL (0.1-1.4); ABSOLUTE NEUT (AUTO) 4.4 10^3/uL (1.7-8.2); BASOPHILS % (AUTO) 0.3 % (0-2); HEMATOCRIT 29.4 % (37.9-51.0); HEMOGLOBIN 9.6 g/dL (13.5-17.0); LYMPHOCYTES % (AUTO) 10.3 % (13-45); MEAN CORPUSCULAR HEMOGLOBIN 29.3 pg (27.0-33.4); MEAN CORPUSCULAR HGB CONC 32.7 g/dL (32.0-36.0); MEAN CORPUSCULAR VOLUME 90 fl (80-97); MONOCYTES % (AUTO) 11.8 % (3-13); PLATELET COUNT 116 10^3/uL (150-450); RED BLOOD COUNT 3.28 10^6/uL (4.35-5.55); RED CELL DISTRIBUTION WIDTH 17.4 % (11.5-14.0); SEGMENTED NEUTROPHILS % (AUTO) 76.6 % (42-78); TOTAL CELLS COUNTED % (AUTO) 100 %; WHITE BLOOD COUNT 5.8 10^3/uL (4.0-10.5)
[2018-02-22 04:37] LABS: ANION GAP 7 (5-19); BLOOD UREA NITROGEN 35 mg/dL (7-20); CALCIUM 7.8 mg/dL (8.4-10.2); CARBON DIOXIDE 32 mmol/L (22-30); CHLORIDE 99 mmol/L (98-107); GLUCOSE 92 mg/dL (75-110); POTASSIUM 3.9 mmol/L (3.6-5.0); SODIUM 138.1 mmol/L (137-145)
[2018-02-22 05:24] LABS: ARTERIAL BLOOD BASE EXCESS 2.8 mmol/L; ARTERIAL BLOOD FIO2 3L; ARTERIAL BLOOD H2CO3 1.32 mmol/L (1.05-1.35); ARTERIAL BLOOD HCO3 27.7 mmol/L (20-24); ARTERIAL BLOOD O2 SATURATION 97.8 % (94-98); ARTERIAL BLOOD PCO2 43.8 mmHg (35-45); ARTERIAL BLOOD PH 7.42 (7.35-7.45); ARTERIAL BLOOD PO2 103.2 mmHg (80-100); ARTERIAL BLOOD TOTAL CO2 29.1 mmol/L (23-27)
[2018-02-22] MEDS: PIPERACILLIN SODIUM/TAZOBACTAM 2.25 GM in NORMAL SALINE 50 ML IV SCH ×3 (05:25→21:48)
--- NOTE | 2018-02-22 06:56 | RADIOLOGY REPORT (SQ) ---
EXAM DESCRIPTION: XR CHEST 1 VIEW COMPLETED DATE/TME: 02/22/2018 06:00 CLINICAL HISTORY: 82 years, Male, resp failure COMPARISON: 02/21/2018 NUMBER OF VIEWS: One TECHNIQUE: AP view of the chest LIMITATIONS: None. FINDINGS: Lungs are clear. The heart size is stable. There is elevation the right hemidiaphragm. There is no pneumothorax or pleural effusion. Median sternotomy wires are noted. IMPRESSION: No acute cardiopulmonary abnormality 2010 [employer]- All Rights Reserved
--- NOTE | 2018-02-22 09:33 | EKG REPORT ---
SEVERITY:- ABNORMAL ECG - A-FLUTTER W/ PREDOM 3:1 AV BLOCK, A-RATE 238 NONSPECIFIC INTRAVENTRICULAR CONDUCTION DELAY LOW VOLTAGE IN FRONTAL LEADS PROBABLE LEFT VENTRICULAR HYPERTROPHY : Confirmed by: Marily Mcgrath MD 22-Feb-2018 09:32:29
[2018-02-22] MEDS: AMIODARONE HCL 200 MG TABLET PO SCH ×2 (10:00→21:49)
--- NOTE | 2018-02-22 13:06 | PDOC PROGRESS REPORT ---
Subjective Subjective:: Patient receiving dialysis yesterday. Saturations have been maintained in the low 90s. Patient did not use BiPAP much of the evening. CO2 this morning was 40 mmHg. He is awake alert. Amiodarone drip discontinued on p.o. amiodarone at this point. Appears to be in a flutter with 4-1 block heart rate in the 70s. White count remains normal patient on Zosyn for possible aspiration pneumonia. No fevers tolerating meals. Reason For Visit: HYPERKALEMIA, AFLUTTER, LFT ELEVATION, ESRD, Physical Exam Vital Signs: Temp Pulse Resp BP Pulse Ox 98.7 F 56 L 16 113/69 100 02/22/18 12:00 02/22/18 12:00 02/22/18 12:00 02/22/18 12:00 02/22/18 12:00 Intake & Output 02/21/18 02/22/18 02/23/18 06:59 06:59 06:59 Intake Total 897.5 994 Output Total 1960 2240 Balance -1062.5 -1246 Weight 60.7 kg 60.1 kg General appearance: PRESENT: no acute distress, well-developed, well-nourished Eye exam: PRESENT: conjunctiva pink, EOMI, PERRLA. ABSENT: scleral icterus Neck exam: ABSENT: carotid bruit, JVD, lymphadenopathy, thyromegaly Respiratory exam: PRESENT: clear to auscultation raymond, decreased breath sounds. ABSENT: rales, rhonchi, wheezes Cardiovascular exam: PRESENT: RRR. ABSENT: diastolic murmur, rubs, systolic murmur GI/Abdominal exam: PRESENT: normal bowel sounds, soft. ABSENT: distended, guarding, mass, organolmegaly, rebound, tenderness Extremities exam: PRESENT: full ROM. ABSENT: calf tenderness, clubbing, pedal edema Musculoskeletal exam: PRESENT: normal inspection Skin exam: PRESENT: abrasion - Right arm. ABSENT: cyanosis, rash Results Laboratory Results: 02/22/18 04:03 02/22/18 04:03 02/22/18 02/22/18 02/22/18 04:03 04:03 05:13 WBC 5.8 RBC 3.28 L Hgb 9.6 L Hct 29.4 L MCV 90 MCH 29.3 MCHC 32.7 RDW 17.4 H Plt Count 116 L Seg Neutrophils % 76.6 Lymphocytes % 10.3 L Monocytes % 11.8 Eosinophils % 1.0 Basophils % 0.3 Absolute Neutrophils 4.4 Absolute Lymphocytes 0.6 Absolute Monocytes 0.7 Absolute Eosinophils 0.1 Absolute Basophils 0.0 Carbonic Acid 1.32 HCO3/H2CO3 Ratio 20:1 ABG pH 7.42 ABG pCO2 43.8 ABG pO2 103.2 H ABG HCO3 27.7 H ABG O2 Saturation 97.8 ABG Base Excess 2.8 FiO2 3L Sodium 138.1 Potassium 3.9 Chloride 99 Carbon Dioxide 32 H Anion Gap 7 BUN 35 H Creatinine 3.78 H Est GFR ( Amer) 19 L Est GFR (Non-Af Amer) 15 L Glucose 92 Calcium 7.8 L Magnesium 2.0 02/20/18 02/20/18 02/20/18 00:30 00:30 04:55 Creatine Kinase 55 Cancelled CK-MB (CK-2) 4.68 H Troponin I 0.043 02/20/18 02/20/18 02/20/18 04:55 06:34 11:30 Creatine Kinase 50 L 54 L CK-MB (CK-2) 4.22 Troponin I 0.053 02/20/18 02/20/18 02/21/18 11:30 18:58 03:02 Creatine Kinase CK-MB (CK-2) 4.83 H Troponin I 0.061 0.069 0.073 02/21/18 02/22/18 11:40 04:03 Creatine Kinase CK-MB (CK-2) Troponin I 0.076 0.067 Impressions: Head CT 02/19/18 20:28 IMPRESSION: Limited study due to motion artifact. No gross intracranial hemorrhage or skull fracture. Abdomen Ultrasound 02/19/18 22:19 IMPRESSION: The gallbladder wall is thickened measuring 5 mm. There is mild pericholecystic fluid There is no intraluminal sludge or gallstones. These findings are suspicious for acute acalculous cholecystitis. 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 There is generalized increased echogenicity of the right kidney suspicious for underlying medical renal disease. Multiple cysts are seen in the right kidney, the largest measuring 1.6 x 1.4 x 1.6 cm. There is also presence of complex free fluid superior to the right kidney in the hepatorenal pouch 2010 [employer]- All Rights Reserved Chest X-Ray 02/22/18 06:00 IMPRESSION: No acute cardiopulmonary abnormality 2010 [employer]- All Rights Reserved Assessment & Plan - Diagnosis (1) Acute on chronic respiratory failure with hypoxia and hypercapnia Is this a current diagnosis for this admission?: Yes Plan: CO2 of 160. Now CO2 40 PO2 102 on 3 L. Patient appears to be back at his baseline. Continue current pulmonary toilet (2) Blood in stool Is this a current diagnosis for this admission?: Yes Plan: Stool not malonic but guaiac positive. Patient has had a GI workup in the past suspected he has AVMs there was no active bleeding but some gastritis found. GI has been consulted conservative management has been recommended. (3) Chronic blood loss anemia Is this a current diagnosis for this admission?: Yes Plan: Status post 2 units packed red cells hemoglobin 9.6 stable x3 (4) Anemia in chronic renal disease Qualifiers: Chronic kidney disease stage: on chronic dialysis Qualified Code(s): N18.6 - End stage renal disease; D63.1 - Anemia in chronic kidney disease; D63.1 - Anemia in chronic kidney disease; Z99.2 - Dependence on renal dialysis; Z99.2 - Dependence on renal dialysis; Z99.2 - Dependence on renal dialysis; Z99.2 - Dependence on renal dialysis Is this a current diagnosis for this admission?: Yes Plan: Baseline hemoglobin varies between 7.5 and 9.8 historically. Has received 2 units of packed red cells during dialysis. Post transfusion hemoglobin stable (5) Atrial fibrillation with rapid ventricular response Is this a current diagnosis for this admission?: Yes Plan: Patient to begin on p.o. amiodarone. At this point will transfer patient from medical intensive care to [facility] begin ambulation physical therapy. (6) End stage renal failure on dialysis Is this a current diagnosis for this admission?: Yes Plan: Nephrology consulted for dialysis as per Dr. Rios (7) Hyperkalemia Is this a current diagnosis for this admission?: Yes - Time Time Spent with patient: 25-34 minutes
[2018-02-23 04:37] LABS: ANION GAP 12 (5-19); BLOOD UREA NITROGEN 47 mg/dL (7-20); CALCIUM 7.9 mg/dL (8.4-10.2); CARBON DIOXIDE 27 mmol/L (22-30); CHLORIDE 98 mmol/L (98-107); GLUCOSE 90 mg/dL (75-110); POTASSIUM 4.1 mmol/L (3.6-5.0)
[2018-02-23] MEDS: PIPERACILLIN SODIUM/TAZOBACTAM 2.25 GM in NORMAL SALINE 50 ML IV SCH ×3 (05:41→23:39)
[2018-02-23] MEDS: AMIODARONE HCL 200 MG TABLET PO SCH ×2 (09:51→22:00)
--- NOTE | 2018-02-23 13:14 | PDOC PROGRESS REPORT ---
Subjective Progress Note for:: 02/23/18 Subjective:: Patient sitting in a chair on 3 L saturations mid 90s CO2 40s. Patient appears to be at his pulmonary baseline. Heart rate controlled on p.o. amiodarone. Chest x-ray is clear at this point white count normal patient to be transferred to medical floor telemetry bed. Reason For Visit: HYPERKALEMIA, AFLUTTER, LFT ELEVATION, ESRD, Physical Exam Vital Signs: Temp Pulse Resp BP Pulse Ox 98.0 F 63 16 133/61 H 100 02/23/18 11:24 02/23/18 11:24 02/23/18 11:24 02/23/18 11:24 02/23/18 11:24 Intake & Output 02/22/18 02/23/18 02/24/18 06:59 06:59 06:59 Intake Total 994 100 450 Output Total 2240 0 Balance -1246 100 450 Weight 61.5 kg General appearance: PRESENT: no acute distress, well-developed, well-nourished Eye exam: PRESENT: conjunctiva pink, EOMI, PERRLA. ABSENT: scleral icterus Neck exam: ABSENT: carotid bruit, JVD, lymphadenopathy, thyromegaly Respiratory exam: PRESENT: clear to auscultation raymond, decreased breath sounds. ABSENT: rales, rhonchi, wheezes Cardiovascular exam: PRESENT: RRR. ABSENT: diastolic murmur, rubs, systolic murmur GI/Abdominal exam: PRESENT: normal bowel sounds, soft. ABSENT: distended, guarding, mass, organolmegaly, rebound, tenderness Extremities exam: PRESENT: full ROM, other - Shunt the left arm. ABSENT: calf tenderness, clubbing, pedal edema Results Laboratory Results: 02/22/18 04:03 02/23/18 04:06 02/23/18 04:06 Sodium 137.0 Potassium 4.1 Chloride 98 Carbon Dioxide 27 Anion Gap 12 BUN 47 H Creatinine 5.26 H Est GFR ( Amer) 13 L Est GFR (Non-Af Amer) 11 L Glucose 90 Calcium 7.9 L Magnesium 2.1 02/20/18 02/20/18 02/20/18 00:30 00:30 04:55 Creatine Kinase 55 Cancelled CK-MB (CK-2) 4.68 H Troponin I 0.043 02/20/18 02/20/18 02/20/18 04:55 06:34 11:30 Creatine Kinase 50 L 54 L CK-MB (CK-2) 4.22 Troponin I 0.053 02/20/18 02/20/18 02/21/18 11:30 18:58 03:02 Creatine Kinase CK-MB (CK-2) 4.83 H Troponin I 0.061 0.069 0.073 02/21/18 02/22/18 11:40 04:03 Creatine Kinase CK-MB (CK-2) Troponin I 0.076 0.067 Impressions: Head CT 02/19/18 20:28 IMPRESSION: Limited study due to motion artifact. No gross intracranial hemorrhage or skull fracture. Abdomen Ultrasound 02/19/18 22:19 IMPRESSION: The gallbladder wall is thickened measuring 5 mm. There is mild pericholecystic fluid There is no intraluminal sludge or gallstones. These findings are suspicious for acute acalculous cholecystitis. 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 There is generalized increased echogenicity of the right kidney suspicious for underlying medical renal disease. Multiple cysts are seen in the right kidney, the largest measuring 1.6 x 1.4 x 1.6 cm. There is also presence of complex free fluid superior to the right kidney in the hepatorenal pouch 2010 [employer]- All Rights Reserved Chest X-Ray 02/22/18 06:00 IMPRESSION: No acute cardiopulmonary abnormality 2010 [employer]- All Rights Reserved Assessment & Plan - Diagnosis (1) Acute on chronic respiratory failure with hypoxia and hypercapnia Is this a current diagnosis for this admission?: Yes Plan: CO2 of 160. Now CO2 43 PO2 103 on 3 L stable times 48 hours. Patient appears to be back at his baseline. Continue current pulmonary toilet (2) Left lower lobe pneumonia Qualifiers: Pneumonia type: due to unspecified organism Qualified Code(s): J18.1 - Lobar pneumonia, unspecified organism Is this a current diagnosis for this admission?: Yes Plan: Patient responded well to Zosyn changed to p.o. Augmentin current dose cultures are negative (3) Blood in stool Is this a current diagnosis for this admission?: Yes Plan: Not a candidate for anticoagulation (4) Chronic blood loss anemia Is this a current diagnosis for this admission?: Yes Plan: Status post 2 units packed red cells hemoglobin 9.6 stable x3 (5) Anemia in chronic renal disease Qualifiers: Chronic kidney disease stage: on chronic dialysis Qualified Code(s): N18.6 - End stage renal disease; D63.1 - Anemia in chronic kidney disease; D63.1 - Anemia in chronic kidney disease; Z99.2 - Dependence on renal dialysis; Z99.2 - Dependence on renal dialysis; Z99.2 - Dependence on renal dialysis; Z99.2 - Dependence on renal dialysis Is this a current diagnosis for this admission?: Yes Plan: Receives Procrit and iron during dialysis as per Dr. Rios (6) Atrial fibrillation with rapid ventricular response Is this a current diagnosis for this admission?: Yes Plan: Patient to begin on p.o. amiodarone. At this point will transfer to [facility] begin ambulation physical therapy. (7) End stage renal failure on dialysis Is this a current diagnosis for this admission?: Yes Plan: Nephrology consulted for dialysis as per Dr. Rios (8) Hyperkalemia Is this a current diagnosis for this admission?: Yes Plan: Resolved - Time Time Spent with patient: 25-34 minutes Anticipated discharge: Home Within: within 48 hours
[2018-02-23] MEDS ORDERED: PIPERACILLIN/TAZOBACTAM 2.25 GM VIAL IV ONE ×2 (23:26→23:30)
[2018-02-24] MEDS ORDERED: EPOETIN ALFA INJ 20000 UNIT/1 ML VIAL (RENAL) IV PRN (05:00)
[2018-02-24] MEDS: PIPERACILLIN SODIUM/TAZOBACTAM 2.25 GM in NORMAL SALINE 50 ML IV SCH ×2 (05:38→17:46)
[2018-02-24 06:56] LABS: HEMATOCRIT 32.9 % (37.9-51.0); HEMOGLOBIN 10.5 g/dL (13.5-17.0); MEAN CORPUSCULAR HEMOGLOBIN 28.8 pg (27.0-33.4); MEAN CORPUSCULAR HGB CONC 31.8 g/dL (32.0-36.0); MEAN CORPUSCULAR VOLUME 91 fl (80-97); PLATELET COUNT 125 10^3/uL (150-450); RED BLOOD COUNT 3.63 10^6/uL (4.35-5.55); RED CELL DISTRIBUTION WIDTH 17.5 % (11.5-14.0); WHITE BLOOD COUNT 6.4 10^3/uL (4.0-10.5)
[2018-02-24 07:55] LABS: ANION GAP 17 (5-19); BLOOD UREA NITROGEN 69 mg/dL (7-20); CARBON DIOXIDE 25 mmol/L (22-30); CHLORIDE 97 mmol/L (98-107); GLUCOSE 127 mg/dL (75-110); SODIUM 138.9 mmol/L (137-145)
--- NOTE | 2018-02-24 09:53 | PDOC DISCHARGE SUMMARY ---
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 His discharge hemoglobin was 10.5. Iron level 12 B12 level 872 patient receives iron through dialysis (5) Anemia in chronic renal disease Is this a current diagnosis for this admission?: Yes (6) Atrial fibrillation with rapid ventricular response Is this a current diagnosis for this admission?: Yes Summary: Initiated on amiodarone 200 mg twice daily we will follow up with Dr. Montez (7) End stage renal failure on dialysis Is this a current diagnosis for this admission?: Yes (8) Hyperkalemia Is this a current diagnosis for this admission?: Yes Summary: 4.0 discharge - Additional Information Resuscitation Status: Full Code Discharge Diet: As Tolerated Discharge Activity: Activity As Tolerated Prescriptions: Amiodarone HCl [Cordarone 200 mg Tablet] 400 mg PO Q12 #60 tablet Amox Tr/Potassium Clavulanate [Augmentin 875-125 mg Tablet] 1 tab PO BID #10 tablet Home Medications: Albuterol Sulfate [Proair HFA Inhalation Aerosol 8.5 gm MDI] 1 puff IH Q4HP PRN 02/20/18 Amlodipine Besylate [Norvasc 5 mg Tablet] 5 mg PO BID 02/20/18 Aspirin [Aspirin EC] 81 mg PO DAILY 02/20/18 B Complex W-C No.20/Folic Acid [Nephrocaps Softgel] 1 mg PO DAILY 02/20/18 Benzonatate [Tessalon Perle 100 mg Capsule] 100 mg PO TIDP PRN 02/20/18 Cetirizine HCl [Zyrtec 10 mg Tablet] 10 mg PO DAILY 02/20/18 Cholecalciferol (Vitamin D3) [Vitamin D3 1000 Unit Tablet] 1,000 unit PO DAILY 02/20/18 Ezetimibe [Zetia 10 mg Tablet] 10 mg PO QHS 02/20/18 Fluticasone/Salmeterol [Advair 500-50 Diskus 14 Dose/Diskus] 1 puff IH Q12 02/20 Furosemide [Lasix 40 mg Tablet] 40 mg PO DAILY 02/20/18 Guaifenesin [Mucinex] 600 mg PO BID 02/20/18 Ipratropium [place] [Atrovent Hfa Inhalation Aerosol 12.9 gm Mdi] 2 puff IH Q4HP PRN 02/20/18 Montelukast Sodium [Singulair 10 mg Tablet] 10 mg PO QPM 02/20/18 Rosuvastatin Calcium [Crestor] 40 mg PO QHS 02/20/18 Sertraline HCl [Zoloft 50 mg Tablet] 50 mg PO QAM 02/20/18 Tiotropium [place] [Spiriva Handihaler 18 mcg/dose (30 Dose)] 18 mcg IH DAILY Amiodarone HCl [Cordarone 200 mg Tablet] 400 mg PO Q12 #60 tablet 02/24/18 Amox Tr/Potassium Clavulanate [Augmentin 875-125 mg Tablet] 1 tab PO BID #10 tablet 02/24/18 History of Present Illness History of Present Illness: VERN COLLINS is a 82 year old male with a complex past medical history of oxygen dependent COPD, coronary artery disease, hypertension, mitral valve repair, iron deficient anemia with suspected AVM, and end-stage renal failure on hemodialysis Saturday, missing his scheduled dialysis appointment February 19 after sustaining a mechanical fall resulting in right forearm skin tear and emergency room evaluation. In the emergency room he is found to have new A. fib, A flutter with RVR, hypotension, acute on chronic anemia, LFT elevation and hyperkalemia with peaked T waves. He receives calcium , dextrose, insulin, albuterol, Kayexalate and referred to the hospitalist for admission. Hospital Course Hospital Course: Patient was admitted to the medical intensive care unit. His hyperkalemia was treated with dextrose and insulin as well as lactulose and a consultation with nephrology was obtained. Unfortunately patient became hypoglycemic with a blood sugar of 34 he then became exceedingly somnolent and ABG were yielded a CO2 of 160. He was placed on BiPAP and a consultation with Dr. Conner of pulmonary was obtained. He was placed on BiPAP within 48 hours had blown off his CO2 and was awake and alert. Patient's atrial fibrillation with rapid ventricular response was initially treated with Cardizem a consultation with cardiology was obtained and patient's outpatient plastic battery assembler Dr. MONTEZ changed patient to an amiodarone infusion. He received the amiodarone for 48 hours and was transitioned to p.o. amiodarone. He remained in flutter and his rate was controlled. Patient had guaiac positive stools in addition to his presenting anemia. A consultation with gastroenterology was obtained. 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 The result was patient is not suitable candidate for anticoagulation. The patient's initial x-ray revealed a mild infiltrate in the left lower lobe he did develop a white count and fever and was placed on Zosyn. His pulmonary status improved over the course of the hospital stay and he returned to his baseline oxygen requirements of 2-3 L. He was at this point suitable for discharge to home as his pulmonary status was at baseline and is atrial fibrillation was controlled. Physical Exam Vital Signs: Temp Pulse Resp BP Pulse Ox 98.2 F 68 20 109/55 L 100 02/24/18 07:30 02/24/18 07:30 02/24/18 07:30 02/24/18 07:30 02/24/18 07:30 Intake & Output 02/23/18 02/24/18 02/25/18 06:59 06:59 06:59 Intake Total 100 908 Output Total 0 1 Balance 100 907 Weight 61.5 kg General appearance: PRESENT: no acute distress, well-developed, well-nourished Neck exam: ABSENT: carotid bruit, JVD, lymphadenopathy, thyromegaly Respiratory exam: PRESENT: clear to auscultation raymond, decreased breath sounds. ABSENT: rales, rhonchi, wheezes Cardiovascular exam: PRESENT: RRR. ABSENT: diastolic murmur, rubs, systolic murmur GI/Abdominal exam: PRESENT: normal bowel sounds, soft. ABSENT: distended, guarding, mass, organolmegaly, rebound, tenderness Extremities exam: PRESENT: full ROM. ABSENT: calf tenderness, clubbing, pedal edema Results Laboratory Results: 02/24/18 05:58 02/24/18 07:13 02/24/18 02/24/18 02/24/18 05:58 05:58 07:13 WBC 6.4 RBC 3.63 L Hgb 10.5 L Hct 32.9 L MCV 91 MCH 28.8 MCHC 31.8 L RDW 17.5 H Plt Count 125 L Sodium Cancelled 138.9 Potassium Cancelled 4.0 Chloride Cancelled 97 L Carbon Dioxide Cancelled 25 Anion Gap Cancelled 17 BUN Cancelled 69 H Creatinine Cancelled 6.81 H Est GFR ( Amer) Cancelled 9 L Est GFR (Non-Af Amer) Cancelled 8 L Glucose Cancelled 127 H Calcium Cancelled 8.0 L 02/20/18 02/20/18 02/20/18 00:30 00:30 04:55 Creatine Kinase 55 Cancelled CK-MB (CK-2) 4.68 H Troponin I 0.043 02/20/18 02/20/18 02/20/18 04:55 06:34 11:30 Creatine Kinase 50 L 54 L CK-MB (CK-2) 4.22 Troponin I 0.053 02/20/18 02/20/18 02/21/18 11:30 18:58 03:02 Creatine Kinase CK-MB (CK-2) 4.83 H Troponin I 0.061 0.069 0.073 02/21/18 02/22/18 11:40 04:03 Creatine Kinase CK-MB (CK-2) Troponin I 0.076 0.067 Impressions: Head CT 02/19/18 20:28 IMPRESSION: Limited study due to motion artifact. No gross intracranial hemorrhage or skull fracture. Abdomen Ultrasound 02/19/18 22:19 IMPRESSION: The gallbladder wall is thickened measuring 5 mm. There is mild pericholecystic fluid There is no intraluminal sludge or gallstones. These findings are suspicious for acute acalculous cholecystitis. 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 There is generalized increased echogenicity of the right kidney suspicious for underlying medical renal disease. Multiple cysts are seen in the right kidney, the largest measuring 1.6 x 1.4 x 1.6 cm. There is also presence of complex free fluid superior to the right kidney in the hepatorenal pouch 2010 [employer]- All Rights Reserved Chest X-Ray 02/22/18 06:00 IMPRESSION: No acute cardiopulmonary abnormality 2010 [employer]- All Rights Reserved Qualifiers - * PATIENT BEING DISCHARGED WITH ANY OF THE FOLLOWING DIAGNOSIS: No Plan Time Spent: Greater than 30 Minutes
[2018-02-24] MEDS: AMIODARONE HCL 200 MG TABLET PO SCH (11:19)
[2018-02-24] MEDS ORDERED: EPOETIN ALFA 10,000 UNIT in SYRINGE, DISPOSABLE, 1 EACH IV PRN (15:15)
[2018-02-24 17:43] VITALS: BP 142/77
--- NOTE | 2018-02-25 16:06 | PDOC PROGRESS REPORT ---
Subjective Progress Note for:: 02/24/18 Subjective:: Patient seen on dialysis. He is undergoing dialysis without any issues currently. Patient is awake alert and oriented. Patient denies any history of chest pains or abdominal pains. Labs and medications were reviewed with the patient. He is currently ready to get out of the hospital and will be discharged today after dialysis. Reason For Visit: HYPERKALEMIA, AFLUTTER, LFT ELEVATION, ESRD, Physical Exam Vital Signs: Temp Pulse Resp BP Pulse Ox 97.7 F 58 L 16 142/77 H 98 02/24/18 17:40 02/24/18 17:40 02/24/18 17:40 02/24/18 17:40 02/24/18 17:40 Intake & Output 02/23/18 02/24/18 02/25/18 06:59 06:59 06:59 Intake Total 100 908 237.5 Output Total 0 1 Balance 100 907 237.5 Weight 61.5 kg General appearance: PRESENT: no acute distress, well-developed, well-nourished Mouth exam: PRESENT: moist. ABSENT: neck supple Neck exam: PRESENT: full ROM. ABSENT: JVD Respiratory exam: PRESENT: crackles. ABSENT: accessory muscle use, clear to auscultation raymond, rhonchi, stridor, wheezes Cardiovascular exam: PRESENT: +S1, +S2, systolic murmur GI/Abdominal exam: PRESENT: normal bowel sounds, soft. ABSENT: organomegaly, tenderness Extremities exam: ABSENT: pedal edema, tenderness, +1 edema, +2 edema Musculoskeletal exam: PRESENT: normal inspection. ABSENT: tenderness Neurological exam: PRESENT: alert, awake, oriented to person, oriented to place , oriented to time, oriented to situation Skin exam: PRESENT: dry, intact, warm. ABSENT: cyanosis Results Laboratory Results: 02/24/18 05:58 02/24/18 07:13 02/24/18 02/24/18 02/24/18 05:58 05:58 07:13 WBC 6.4 RBC 3.63 L Hgb 10.5 L Hct 32.9 L MCV 91 MCH 28.8 MCHC 31.8 L RDW 17.5 H Plt Count 125 L Sodium Cancelled 138.9 Potassium Cancelled 4.0 Chloride Cancelled 97 L Carbon Dioxide Cancelled 25 Anion Gap Cancelled 17 BUN Cancelled 69 H Creatinine Cancelled 6.81 H Est GFR ( Amer) Cancelled 9 L Est GFR (Non-Af Amer) Cancelled 8 L Glucose Cancelled 127 H Calcium Cancelled 8.0 L 02/20/18 02/20/18 02/20/18 00:30 00:30 04:55 Creatine Kinase 55 Cancelled CK-MB (CK-2) 4.68 H Troponin I 0.043 02/20/18 02/20/18 02/20/18 04:55 06:34 11:30 Creatine Kinase 50 L 54 L CK-MB (CK-2) 4.22 Troponin I 0.053 02/20/18 02/20/18 02/21/18 11:30 18:58 03:02 Creatine Kinase CK-MB (CK-2) 4.83 H Troponin I 0.061 0.069 0.073 02/21/18 02/22/18 11:40 04:03 Creatine Kinase CK-MB (CK-2) Troponin I 0.076 0.067 Impressions: Head CT 02/19/18 20:28 IMPRESSION: Limited study due to motion artifact. No gross intracranial hemorrhage or skull fracture. Abdomen Ultrasound 02/19/18 22:19 IMPRESSION: The gallbladder wall is thickened measuring 5 mm. There is mild pericholecystic fluid There is no intraluminal sludge or gallstones. These findings are suspicious for acute acalculous cholecystitis. 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 There is generalized increased echogenicity of the right kidney suspicious for underlying medical renal disease. Multiple cysts are seen in the right kidney, the largest measuring 1.6 x 1.4 x 1.6 cm. There is also presence of complex free fluid superior to the right kidney in the hepatorenal pouch 2010 [employer]- All Rights Reserved Chest X-Ray 02/22/18 06:00 IMPRESSION: No acute cardiopulmonary abnormality 2010 [employer]- All Rights Reserved Assessment & Plan - Diagnosis (1) Acute on chronic respiratory failure with hypoxia and hypercapnia Is this a current diagnosis for this admission?: Yes Plan: improved and currently stable (2) End stage renal failure on dialysis Is this a current diagnosis for this admission?: Yes Plan: Patient undergoing dialysis without any issues. Dialysis is being supervised to ensure safe and smooth procedure. Vital signs are stable. Labs and medications were reviewed with patient and treating dialysis nurse. We will plan to remove close to 2 L as tolerated. Orders were reviewed with the treating nurse [facility]. (4) Anemia in chronic renal disease Qualifiers: Chronic kidney disease stage: on chronic dialysis Qualified Code(s): N18.6 - End stage renal disease; D63.1 - Anemia in chronic kidney disease; D63.1 - Anemia in chronic kidney disease; Z99.2 - Dependence on renal dialysis; Z99.2 - Dependence on renal dialysis; Z99.2 - Dependence on renal dialysis; Z99.2 - Dependence on renal dialysis Is this a current diagnosis for this admission?: Yes Plan: stable, on epogen with dialysis (5) Atrial fibrillation with rapid ventricular response Is this a current diagnosis for this admission?: Yes Plan: currently controlled (6) CHF (congestive heart failure) Plan: stable (7) Iron deficiency anemia due to chronic blood loss Is this a current diagnosis for this admission?: Yes Plan: currently stable (8) AAA (abdominal aortic aneurysm) without rupture Is this a current diagnosis for this admission?: Yes Plan: will refer to vascular surgeon for evaluation and possible surgery
== END 2018-02-24 19:12 | disposition home or self-care (01) | DRG 640 ==
LOC: ER 19:30 → EH 22:22 → ICU 02-20 → 3S 02-23 10:59
PROVIDERS: ADMIT Internal Medicine; ATTEND Internal Medicine
PROC: 5A09457 Assistance with Respiratory Ventilation, 24-96 Consecutive Hours, Continuous Positive Airway Pressure (ICD-10-PCS; 2018-02-19)
PROC: 5A1D70Z Performance of Urinary Filtration, Intermittent, Less than 6 Hours Per Day (ICD-10-PCS; principal; 2018-02-20)
PROC: 30243N1 Transfusion of Nonautologous Red Blood Cells into Central Vein, Percutaneous Approach (ICD-10-PCS; 2018-02-20)
PROC: 5A1D70Z Performance of Urinary Filtration, Intermittent, Less than 6 Hours Per Day (ICD-10-PCS; 2018-02-21)
DX: E87.5 Hyperkalemia (principal); N18.6 End stage renal disease; J18.9 Pneumonia, unspecified organism; J96.22 Acute and chronic respiratory failure with hypercapnia; J96.21 Acute and chronic respiratory failure with hypoxia; I13.2 Hypertensive heart and chronic kidney disease with heart failure and with stage 5 chronic kidney disease, or end stage renal disease; G93.40 Encephalopathy, unspecified; I47.2 Ventricular tachycardia; I48.91 Unspecified atrial fibrillation; I50.9 Heart failure, unspecified; S51.011A Laceration without foreign body of right elbow, initial encounter; W01.198A Fall on same level from slipping, tripping and stumbling with subsequent striking against other object, initial encounter; Y92.019 Unspecified place in single-family (private) house as the place of occurrence of the external cause; D50.0 Iron deficiency anemia secondary to blood loss (chronic); Z87.891 Personal history of nicotine dependence; J44.9 Chronic obstructive pulmonary disease, unspecified; Z99.2 Dependence on renal dialysis; I35.1 Nonrheumatic aortic (valve) insufficiency; M19.90 Unspecified osteoarthritis, unspecified site; Z99.81 Dependence on supplemental oxygen; I71.4 Abdominal aortic aneurysm, without rupture; K31.819 Angiodysplasia of stomach and duodenum without bleeding; I25.10 Atherosclerotic heart disease of native coronary artery without angina pectoris; I95.9 Hypotension, unspecified; D63.1 Anemia in chronic kidney disease; Z66 Do not resuscitate; K64.9 Unspecified hemorrhoids; E16.2 Hypoglycemia, unspecified; Z82.49 Family history of ischemic heart disease and other diseases of the circulatory system; Z79.82 Long term (current) use of aspirin; Z79.899 Other long term (current) drug therapy; Z88.8 Allergy status to other drugs, medicaments and biological substances; Z91.15 Patient's noncompliance with renal dialysis
CPT/HCPCS: 36415; 36430; 70450; 71045; 76705; 80048; 80053; 80074; 80307; 81001; 82272; 82550; 82553; 82607; 82728; 82746; 82803; 82962; 83036; 83540; 83550; 83735; 84100; 84443; 84484; 85025; 85027; 85045; 85610; 85730; 86850; 86900; 86901; 86920; 87040; 93005; 93010; 93976; 94660; 94667; 94668; 94799; 96374; 96375; 99291; G8978-GP; G8979-GP; J0282; J0610; J1644; J1815; J2310; J2543; J3490; J7040; J7060; P9016; Q4081

== ENCOUNTER 2018-02-28 15:08 | Emergency (ER) | payer MEDICARE ==
--- NOTE | 2018-02-28 15:54 | ER Document Report ---
ED General - General Chief Complaint: Breathing Difficulty Stated Complaint: DIZZY/SHORTNESS OF BREATH Time Seen by Provider: 02/28/18 15:25 Mode of Arrival: Stretcher Information source: Patient Notes: This is an 82-year-old man with a complicated medical history including end- stage renal disease (hemodialysis, just dialyzed today), COPD (2-1/2 L oxygen), recent diagnosis of atrial flutter (amiodarone, not candidate for anticoagulation), anemia (suspected gastric ectasia). Patient did have a recent hospitalization for atrial fibrillation/flutter in the setting of hyperkalemia and chronic respiratory failure. He was just released from the hospital 4 days ago. Patient is brought into the emergency room with shortness of breath and dizziness. He did receive a full treatment with dialysis. The family is concerned that the amiodarone may be worsening his shortness of breath. Patient states that shortness of breath is more when he walks around. He denies fever or significant cough. Currently, there is no wheezing. TRAVEL OUTSIDE OF THE [place] IN LAST 30 DAYS: No - HPI Onset: Last week Onset/Duration: Gradual Quality of pain: No pain Severity: None Pain Level: Denies Associated symptoms: Shortness of breath. denies: Chest pain, Fever Exacerbated by: Movement Relieved by: Remaining still Similar symptoms previously: Yes Recently seen / treated by doctor: Yes - Related Data Allergies/Adverse Reactions: adhesive tape Allergy (Verified 02/28/18 15:09) Blisters propofol Adverse Reaction (Unknown, Uncoded 02/28/18 15:09) Past Medical History - General Information source: Patient, Relative - Social History Smoking Status: Unknown if Ever Smoked Cigarette use (# per day): No Chew tobacco use (# tins/day): No Frequency of alcohol use: None Drug Abuse: None Lives with: Family Family History: None, Hypertension Patient has suicidal ideation: No Patient has homicidal ideation: No - Past Medical History Cardiac Medical History: Reports: Hx Coronary Artery Disease, Hx Hypertension Denies: Hx Atrial Fibrillation, Hx Heart Attack Pulmonary Medical History: Reports: Hx COPD Denies: Hx Asthma, Hx Bronchitis, Hx Pneumonia Neurological Medical History: Denies: Hx Cerebrovascular Accident, Hx Seizures Renal/ Medical History: Reports: Hx End Stage Renal Disease. Denies: Hx Peritoneal Dialysis GI Medical History: Denies: Hx Cirrhosis Musculoskeletal Medical History: Reports Hx Arthritis Psychiatric Medical History: Denies: Hx Depression Past Surgical History: Reports: Hx Abdominal Surgery - hernia repair, Hx Herniorrhaphy, Hx Open Heart Surgery - mitral valve repair 2009, Hx Tonsillectomy, Other - Mitral valve repair. Denies: Hx Pacemaker - Immunizations Hx Diphtheria, Pertussis, Tetanus Vaccination: No Hx Pneumococcal Vaccination: 03/13/11 Review of Systems - Review of Systems Constitutional: denies: Chills, Fever EENT: No symptoms reported Cardiovascular: No symptoms reported Respiratory: See HPI Gastrointestinal: No symptoms reported Genitourinary: No symptoms reported Male Genitourinary: No symptoms reported Musculoskeletal: No symptoms reported Skin: No symptoms reported Hematologic/Lymphatic: No symptoms reported Neurological/Psychological: No symptoms reported Physical Exam - Vital signs Vitals: Temp Pulse Resp BP Pulse Ox 97.6 F 63 24 H 84/48 L 90 L 02/28/18 15:11 02/28/18 15:11 02/28/18 15:11 02/28/18 15:11 02/28/18 15:11 Notes: Physical exam: GENERAL: This is a frail, chronically ill man that is alert, answering questions , joking and does not appear in any acute distress. HEAD: Atraumatic, normocephalic. EYES: Pupils equal round and reactive to light, extraocular movements intact, sclera anicteric, conjunctiva are normal. ENT: TMs normal, nares patent, oropharynx clear without exudates. Moist mucous membranes. NECK: Normal range of motion, supple without obvious mass or JVD. LUNGS: Scattered wheezes bilaterally HEART: Regular rate and rhythm without murmurs, rubs or gallops. ABDOMEN: Soft, normoactive bowel sounds. No tenderness to palpation. No guarding, no rebound. No masses appreciated. EXTREMITIES: Normal range of motion, no pitting or edema. No clubbing or cyanosis. NEUROLOGICAL: Cranial nerves II through XII grossly intact. Normal speech, moving all extremities. PSYCH: Normal mood, normal affect. SKIN: Skin tears on the right arm and forearm (sustained a week ago after a fall ). The patient does have swelling of the right upper extremity from bandages ( [place]) that were wrapped rather tight. Distal cap refill is good. Skin tears are in various stages of healing and there is no obvious infection. Course - Re-evaluation Re-evalutation: 02/28/18 17:[address] Montez knows the patient well and is looked at the patient' s chest x-ray. Family is concerned that the amiodarone may be making the shortness of breath worse, but the patient really does have advanced COPD. There is no evidence of amiodarone-induced lung disease. He is only been on the medicine for a short period of time. He is on the medicine because of atrial fibrillation with episodes of ventricular tachycardia. So it is ultimately preferred to that the patient have the medicine rather than not have the medicine. Ultimately, I believe the patient symptoms are from COPD. His chest x-ray is unchanged. His labs look quite good his pH is acceptable for him. Patient does state that he has been in the hospital before and sent home on steroids and that has helped his COPD. I have paged Dr. Conner to discuss this with him. The patient has had some gastritis in the past and has required transfusions in the past but has had a GI workup with no obvious ulcers. The plan would be to otherwise give him some steroids. The patient would prefer to go home if he can. - Vital Signs Vital signs: Temp Pulse Resp BP Pulse Ox 97.6 F 63 17 81/47 L 100 02/28/18 15:11 02/28/18 15:11 02/28/18 18:01 02/28/18 18:01 02/28/18 18:01 - Laboratory Result Diagrams: 02/28/18 16:00 02/28/18 16:00 Laboratory results interpreted by me: 02/28/18 02/28/18 16:00 16:00 RBC 3.12 L Hgb 9.0 L Hct 28.7 L MCHC 31.2 L RDW 18.0 H Seg Neutrophils % 80.0 H Lymphocytes % 5.2 L Absolute Lymphocytes 0.3 L Sodium 135.3 L Chloride 93 L BUN 33 H Creatinine 2.93 H Est GFR ( Amer) 25 L Est GFR (Non-Af Amer) 21 L Direct Bilirubin 0.7 H ALT 142 H Total Protein 6.1 L - Diagnostic Test Radiology reviewed: Image reviewed, Reports reviewed - X-ray shows no significant change from previous. There are no infiltrates. Discharge - Discharge Clinical Impression: COPD Condition: Stable Disposition: HOME, SELF-CARE Additional Instructions: As we discussed, I did speak with Dr. Montez recommended staying on the amiodarone. I was unable to get a hold of Dr. Conner today: I would like you to call the office on Saturday for follow-up appointment. In the meantime, return to the emergency room for any concerns for worsening shortness of breath. Return to the ER for any concerns for bleeding, dark black stools or any concerns or getting worse. Take the prednisone as below: 6 tabs for 2 days, 4 tabs X 2 days, 2 tabs X 2 days, 1 tab X 2 days, 1/2 tab X 2 days. Prescriptions: Prednisone 10 mg PO DAILY #27 tablet Referrals: SHEA ERVIN MD [Primary Care Provider] - Follow up as needed
--- NOTE | 2018-02-28 16:15 | RADIOLOGY REPORT (SQ) ---
EXAM DESCRIPTION: CHEST SINGLE VIEW COMPLETED DATE/TIME: 02/28/2018 4:04 pm REASON FOR STUDY: sob COMPARISON: 10/05/2017. EXAM PARAMETERS: NUMBER OF VIEWS: One view. TECHNIQUE: Single frontal radiographic view of the chest acquired. RADIATION DOSE: NA LIMITATIONS: None. FINDINGS: LUNGS AND PLEURA: Chronic interstitial changes. No focal infiltrates, masses or pneumotho rax. No pleural effusion. MEDIASTINUM AND HILAR STRUCTURES: No masses. Contour normal. HEART AND VASCULAR STRUCTURES: Heart normal in size. Normal vasculature. BONES: No acute findings. HARDWARE: Sternotomy wires and coronary bypass markers. OTHER: No other significant finding. IMPRESSION: CHRONIC CHANGES. NO ACUTE RADIOGRAPHIC FINDING IN THE CHEST. TECHNICAL DOCUMENTATION: JOB ID: [id number] [employer]- All Rights Reserved Reading location - IP/workstation name: [email or web address]
[2018-02-28 16:16] LABS: ABSOLUTE EOSINOPHILS # (AUTO) 0.1 10^3/uL (0.0-0.6); ABSOLUTE LYMPHOCYTES (AUTO) 0.3 10^3/uL (0.5-4.7); ABSOLUTE MONOCYTES (AUTO) 0.8 10^3/uL (0.1-1.4); ABSOLUTE NEUT (AUTO) 4.8 10^3/uL (1.7-8.2); BASOPHILS % (AUTO) 0.7 % (0-2); EOSINOPHILS % (AUTO) 1.5 % (0-6); HEMATOCRIT 28.7 % (37.9-51.0); LYMPHOCYTES % (AUTO) 5.2 % (13-45); MEAN CORPUSCULAR HEMOGLOBIN 28.8 pg (27.0-33.4); MEAN CORPUSCULAR HGB CONC 31.2 g/dL (32.0-36.0); MEAN CORPUSCULAR VOLUME 92 fl (80-97); MONOCYTES % (AUTO) 12.6 % (3-13); PLATELET COUNT 173 10^3/uL (150-450); RED BLOOD COUNT 3.12 10^6/uL (4.35-5.55); TOTAL CELLS COUNTED % (AUTO) 100 %
[2018-02-28 16:33] LABS: ALANINE AMINOTRANSFERASE 142 U/L (21-72); ALBUMIN 3.6 g/dL (3.5-5.0); ALKALINE PHOSPHATASE 70 U/L (38-126); ANION GAP 12 (5-19); ASPARTATE AMINO TRANSFERASE 28 U/L (17-59); BILIRUBIN,DIRECT 0.7 mg/dL (0.0-0.4); BILIRUBIN,TOTAL 0.9 mg/dL (0.2-1.3); BLOOD UREA NITROGEN 33 mg/dL (7-20); CALCIUM 8.4 mg/dL (8.4-10.2); CARBON DIOXIDE 30 mmol/L (22-30); CHLORIDE 93 mmol/L (98-107); GLUCOSE 87 mg/dL (75-110); POTASSIUM 4.2 mmol/L (3.6-5.0); SODIUM 135.3 mmol/L (137-145); TOTAL PROTEIN 6.1 g/dL (6.3-8.2)
[2018-02-28 16:50] LABS: VENOUS BLOOD BASE EXCESS 0.8 mmol/L; VENOUS BLOOD HCO3 27.7 mmol/L (20-32); VENOUS BLOOD PCO2 57.1 mmHg (35-63); VENOUS BLOOD PH 7.3 (7.30-7.42)
[2018-02-28] MEDS ORDERED: METHYLPREDNISOLONE INJ 125 MG/2 ML SDV IV ONE (18:15)
[2018-02-28 18:17] VITALS: BP 81/47
== END 2018-02-28 18:48 | disposition home or self-care (01) ==
LOC: ER 15:08
DX: J44.9 Chronic obstructive pulmonary disease, unspecified (principal); Z99.81 Dependence on supplemental oxygen; I12.0 Hypertensive chronic kidney disease with stage 5 chronic kidney disease or end stage renal disease; N18.6 End stage renal disease; Z99.2 Dependence on renal dialysis; I48.91 Unspecified atrial fibrillation; R00.0 Tachycardia, unspecified; I48.92 Unspecified atrial flutter; R06.02 Shortness of breath; R42 Dizziness and giddiness; I25.10 Atherosclerotic heart disease of native coronary artery without angina pectoris; S51.811D Laceration without foreign body of right forearm, subsequent encounter; W19.XXXD Unspecified fall, subsequent encounter; Z91.048 Other nonmedicinal substance allergy status
CPT/HCPCS: 99285; 96374; 36415; 85025; 80053; 82803; 71045; J2930

== ENCOUNTER 2018-03-05 15:37 | Outpatient (CLI) | payer MEDICARE ==
[~2018-03-05 15:37] MED LIST changes: +ACETAMINOPHEN 325 MG TABLET PO PRN; +DIPHENHYDRAMINE HCL 25 MG CAPSULE PO PRN; -ETOMIDATE INJ/PF 20 MG/10 ML SDV IV ONE; +FUROSEMIDE INJ/PF 20 MG/2 ML SDV IV PRN; -ONDANSETRON HCL INJ/PF 4 MG/2 ML SDV ONE
[2018-03-05 16:11] LABS: HEMATOCRIT 25.3 % (37.9-51.0); MEAN CORPUSCULAR HEMOGLOBIN 29.6 pg (27.0-33.4); MEAN CORPUSCULAR HGB CONC 31.5 g/dL (32.0-36.0); MEAN CORPUSCULAR VOLUME 94 fl (80-97); PLATELET COUNT 212 10^3/uL (150-450); RED BLOOD COUNT 2.69 10^6/uL (4.35-5.55); RED CELL DISTRIBUTION WIDTH 20.9 % (11.5-14.0); WHITE BLOOD COUNT 7.9 10^3/uL (4.0-10.5)
[2018-03-05] MEDS ORDERED: NORMAL SALINE 250 ML IV PRN (16:37)
[2018-03-05 23:47] VITALS: BP 116/48
== END 2018-03-06 00:48 | disposition home or self-care (01) ==
LOC: II 15:37 → 2N 15:43 → II 03-06 00:48
PROVIDERS: ATTEND Internal Medicine Nephrology
PROC: 30233N1 Transfusion of Nonautologous Red Blood Cells into Peripheral Vein, Percutaneous Approach (ICD-10-PCS; principal; 2018-03-05)
PROC: 3E033GC Introduction of Other Therapeutic Substance into Peripheral Vein, Percutaneous Approach (ICD-10-PCS; 2018-03-05)
DX: N18.9 Chronic kidney disease, unspecified (principal); D63.1 Anemia in chronic kidney disease
CPT/HCPCS: 86900; 86901; 36430; 86850; 86920; 96374; P9016; A9270 ×2; J1940; 96375

== ENCOUNTER 2018-03-21 15:29 | Outpatient (CLI) | payer MEDICARE, OTHER ==
[2018-03-21] MEDS ORDERED: NORMAL SALINE 250 ML IV PRN (17:37)
[2018-03-21 19:28] LABS: HEMATOCRIT 19.5 % (37.9-51.0); MEAN CORPUSCULAR HEMOGLOBIN 31.1 pg (27.0-33.4); MEAN CORPUSCULAR HGB CONC 31.4 g/dL (32.0-36.0); PLATELET COUNT 143 10^3/uL (150-450); RED BLOOD COUNT 1.96 10^6/uL (4.35-5.55); RED CELL DISTRIBUTION WIDTH 22.3 % (11.5-14.0); WHITE BLOOD COUNT 5.4 10^3/uL (4.0-10.5)
[2018-03-21 19:34] LABS: MEAN CORPUSCULAR VOLUME 99 fl (80-97)
[2018-03-21 19:36] LABS: HEMOGLOBIN 6.1 g/dL (13.5-17.0)
[2018-03-22 02:24] VITALS: BP 111/49
== END 2018-03-22 03:05 | disposition home or self-care (01) ==
LOC: II 15:29 → 4S 15:34 → II 03-22 03:05
PROVIDERS: ATTEND Internal Medicine Nephrology
PROC: 30233N1 Transfusion of Nonautologous Red Blood Cells into Peripheral Vein, Percutaneous Approach (ICD-10-PCS; principal; 2018-03-21)
DX: N18.6 End stage renal disease (principal); D63.1 Anemia in chronic kidney disease
CPT/HCPCS: 86900; 86901; 36415; 36430; 86850; 85027; 86920; P9016; A9270 ×2

== ENCOUNTER 2018-04-07 10:55 | Inpatient (IN) | payer MEDICARE, OTHER ==
--- NOTE | 2018-04-07 11:21 | ER Document Report ---
ED Medical Screen (RME) - General TRAVEL OUTSIDE OF THE [place] IN LAST 30 DAYS: No <THU MALONE - Last Filed: 04/07/18 11:22> <VERN ASHER - Last Filed: 04/07/18 12:38> - General Chief Complaint: Shortness Of Breath Stated Complaint: SHORTNESS OF BREATH Time Seen by Provider: 04/07/18 11:15 Notes: 82-year-old male patient presents for shortness of breath that started about 10: 45 AM today. He was on his way to dialysis. He is normally on 2-1/2 L nasal cannula at home. He increased his rate to 3 L when he began feeling short of breath. He had lab work on 03/21/2018 showing a hemoglobin of 6.1, was transfused 2 units of packed cells on that day. The patient is on 3 L nasal cannula at this time, claiming that he is not getting any oxygen, however his pulse ox reading is 99%. I have greeted and performed a rapid initial assessment of this patient. A comprehensive ED assessment and evaluation of the patient, analysis of test results and completion of the medical decision making process will be conducted by additional ED providers. (THU MALONE) - Related Data Allergies/Adverse Reactions: adhesive tape Allergy (Verified 02/28/18 15:09) Blisters amiodarone Adverse Reaction (Verified 04/07/18 12:36) prednisone Adverse Reaction (Verified 04/07/18 12:36) trazodone Adverse Reaction (Verified 04/07/18 12:36) propofol Adverse Reaction (Unknown, Uncoded 02/28/18 15:09) Past Medical History - Past Medical History Cardiac Medical History: Reports: Hx Coronary Artery Disease, Hx Hypertension Denies: Hx Atrial Fibrillation, Hx Heart Attack Pulmonary Medical History: Reports: Hx COPD Denies: Hx Asthma, Hx Bronchitis, Hx Pneumonia Neurological Medical History: Denies: Hx Cerebrovascular Accident, Hx Seizures Renal/ Medical History: Reports: Hx End Stage Renal Disease. Denies: Hx Peritoneal Dialysis GI Medical History: Denies: Hx Cirrhosis, Hx Ulcer Musculoskeltal Medical History: Reports Hx Arthritis Psychiatric Medical History: Denies: Hx Depression Past Surgical History: Reports: Hx Abdominal Surgery - hernia repair, Hx Herniorrhaphy, Hx Open Heart Surgery - mitral valve repair 2009, Hx Tonsillectomy, Other - Mitral valve repair. Denies: Hx Pacemaker - Immunizations Hx Diphtheria, Pertussis, Tetanus Vaccination: No History of Influenza Vaccine for 02/2017 - 07/2017 Season: No <THU MALONE - Last Filed: 04/07/18 11:22> - Vital signs Vitals: Temp Pulse Resp BP Pulse Ox 98.3 F 68 16 117/46 L 100 04/07/18 10:58 04/07/18 10:58 04/07/18 10:58 04/07/18 10:58 04/07/18 10:58 Course - Laboratory Result Diagrams: 04/07/18 12:01 04/07/18 12:01 <VERN ASHER - Last Filed: 04/07/18 12:38> - Vital Signs Vital signs: Temp Pulse Resp BP Pulse Ox 98.3 F 85 16 117/46 L 100 04/07/18 10:58 04/07/18 12:23 04/07/18 10:58 04/07/18 10:58 04/07/18 10:58 - Laboratory Laboratory results interpreted by me: 04/07/18 04/07/18 12:01 12:01 WBC 12.3 H RBC 2.32 L Hgb 7.3 L Hct 23.9 L MCV 103 H D MCHC 30.5 L RDW 21.2 H Sodium 131.1 L Potassium 8.1 H* Chloride 88 L Anion Gap 21 H BUN 75 H Creatinine 8.26 H Est GFR ( Amer) 8 L Est GFR (Non-Af Amer) 6 L Magnesium 2.5 H Total Bilirubin 1.4 H Direct Bilirubin 1.4 H Total Protein 5.7 L Albumin 3.2 L Doctor's Discharge <THU MALONE - Last Filed: 04/07/18 11:22> <VERN ASHER - Last Filed: 04/07/18 12:38> - Discharge Referrals: Dean PORRAS MD [Primary Care Provider] - Follow up as needed
[2018-04-07] MEDS ORDERED: CALCIUM GLUCONATE 1000 MG/10 ML INJ IV ONE ×3 (11:55→11:56)
[2018-04-07] MEDS ORDERED: SODIUM POLYSTYRENE SULFONATE 15 GM/60 ML PO ONE (12:03)
[2018-04-07] MEDS ORDERED: INSULIN REG, HUMAN 100 UNIT/ML 3 ML VIAL (PYX) IV ONE (12:03)
[2018-04-07] MEDS ORDERED: DEXTROSE 50%-WATER 25 GM/50 ML DISP.SYRIN IV ONE (12:03)
[2018-04-07] MEDS ORDERED: ALBUTEROL SULFATE 0.083% NEB 2.5 MG/3 ML AMPUL NEB ONE ×2 (12:04→12:16)
[2018-04-07 12:20] LABS: HEMATOCRIT 23.9 % (37.9-51.0); MEAN CORPUSCULAR HEMOGLOBIN 31.4 pg (27.0-33.4); MEAN CORPUSCULAR HGB CONC 30.5 g/dL (32.0-36.0); PLATELET COUNT 290 10^3/uL (150-450); RED BLOOD COUNT 2.32 10^6/uL (4.35-5.55); RED CELL DISTRIBUTION WIDTH 21.2 % (11.5-14.0); WHITE BLOOD COUNT 12.3 10^3/uL (4.0-10.5)
[2018-04-07 12:29] LABS: ALANINE AMINOTRANSFERASE 28 U/L (21-72); ALBUMIN 3.2 g/dL (3.5-5.0); ALKALINE PHOSPHATASE 87 U/L (38-126); ASPARTATE AMINO TRANSFERASE 33 U/L (17-59); BILIRUBIN,DIRECT 1.4 mg/dL (0.0-0.4); BILIRUBIN,TOTAL 1.4 mg/dL (0.2-1.3); BLOOD UREA NITROGEN 75 mg/dL (7-20); CALCIUM 8.4 mg/dL (8.4-10.2); CREATINE KINASE 84 U/L (55-170); GLUCOSE 94 mg/dL (75-110); TOTAL PROTEIN 5.7 g/dL (6.3-8.2)
[2018-04-07 12:30] LABS: HEMOGLOBIN 7.3 g/dL (13.5-17.0)
[2018-04-07 12:31] LABS: MEAN CORPUSCULAR VOLUME 103 fl (80-97)
[2018-04-07 12:34] LABS: CARBON DIOXIDE 22 mmol/L (22-30); CHLORIDE 88 mmol/L (98-107); SODIUM 131.1 mmol/L (137-145)
[2018-04-07 12:36] LABS: ANION GAP 21 (5-19)
[2018-04-07 12:38] LABS: ABSOLUTE MONOCYTES # (MANUAL) 1.2 10^3/uL (0.1-1.4); ABSOLUTE NEUTROPHILS# (MANUAL) 9.8 10^3/uL (1.7-8.2); BASOPHILS % (MANUAL) 1 % (0-2); EOSINOPHILS % (MANUAL) 1 % (0-6); LYMPHOCYTES % (MANUAL) 8 % (13-45); MONOCYTES % (MANUAL) 10 % (3-13); POTASSIUM 8.1 mmol/L (3.6-5.0); SEGMENTED NEUTROPHILS % (MAN) 80 % (42-78); TOTAL CELLS COUNTED 100
[2018-04-07 12:40] LABS: ANISOCYTOSIS 2+; HYPOCHROMASIA 1+; OVALOCYTES 2+; PLATELET COMMENT ADEQUATE; POIKILOCYTOSIS 2+; POLYCHROMASIA 1+; SCHISTOCYTES SLIGHT; TOXIC GRANULATION SLIGHT; TOXIC VACUOLATION PRESENT
[2018-04-07 12:48] LABS: CREATINE KINASE MB 4.99 ng/mL (<4.55)
[2018-04-07 13:03] LABS: TROPONIN I 0.042 ng/mL
--- NOTE | 2018-04-07 13:04 | RADIOLOGY REPORT (SQ) ---
EXAM DESCRIPTION: CHEST SINGLE VIEW COMPLETED DATE/TIME: 04/07/2018 12:43 pm REASON FOR STUDY: SOB COMPARISON: CT chest 10/05/2017 Chest films 02/21/2018, 02/22/2018, 02/28/2018 EXAM PARAMETERS: NUMBER OF VIEWS: One view. TECHNIQUE: Single frontal radiographic view of the chest acquired. RADIATION DOSE: NA LIMITATIONS: None. FINDINGS: LUNGS AND PLEURA: Stable left retrocardiac atelectasis or scarring. No acute infiltrates. No pleural effusion. No pneumothorax. MEDIASTINUM AND HILAR STRUCTURES: No masses. Contour normal. HEART AND VASCULAR STRUCTURES: Old sternotomy for CABG. No cardiomegaly. BONES: No acute findings. HARDWARE: None in the chest. 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 Chronic scarring left lung base. TECHNICAL DOCUMENTATION: JOB ID: [id number] [employer]- All Rights Reserved Reading location - IP/workstation name: [email or web address]
--- NOTE | 2018-04-07 18:01 | PDOC CONSULTATION ---
Consultation Consult Date: 04/07/18 Consult reason:: Acute and severe hyperkalemia with almost sine wave changes on EKG requiring Emergent dialysis. History of Present Illness Admission Date/PCP: Dean PORRAS MD History of Present Illness: VERN COLLINS is a 82 year old male Past Medical History Cardiac Medical History: Reports: Coronary Artery Disease, Hypertension-primary Denies: Atrial Fibrillation, Myocardial Infarction Pulmonary Medical History: Reports: Chronic Obstructive Pulmonary Disease (COPD ) - End stage O2 dependent. Denies: Asthma, Bronchitis, Pneumonia Neurological Medical History: Denies: Seizures Renal/ Medical History: Reports: End Stage Renal Disease, Secondary Hyperparathyroidism GI Medical History: Denies: Cirrhosis Musculoskeltal Medical History: Reports: Arthritis Psychiatric Medical History: Denies: Depression Hematology Medical History: Reports Anemia of Chronic Kidney Disease, Reports Iron Deficiency Anemia Past Surgical History Past Surgical History: Reports: Herniorrhaphy, Tonsillectomy, Other - Mitral valve repair Denies: Pacemaker Social History Smoking Status: Former Smoker Frequency of Alcohol Use: None Hx Recreational Drug Use: No Drugs: None Hx Prescription Drug Abuse: No Family History Parental Family History Reviewed: Yes - negative for ESRD Children Family History Reviewed: No Sibling(s) Family History Reviewed.: No Medication/Allergy Home Medications: Albuterol Sulfate [Proair HFA Inhalation Aerosol 8.5 gm MDI] 1 puff IH Q4HP PRN 02/20/18 Amlodipine Besylate [Norvasc 5 mg Tablet] 5 mg PO BID 02/20/18 Aspirin [Aspirin EC] 81 mg PO DAILY 02/20/18 B Complex W-C No.20/Folic Acid [Nephrocaps Softgel] 1 mg PO DAILY 02/20/18 Benzonatate [Tessalon Perle 100 mg Capsule] 100 mg PO TIDP PRN 02/20/18 Cetirizine HCl [Zyrtec 10 mg Tablet] 10 mg PO DAILY 02/20/18 Cholecalciferol (Vitamin D3) [Vitamin D3 1000 Unit Tablet] 1,000 unit PO DAILY 02/20/18 Ezetimibe [Zetia 10 mg Tablet] 10 mg PO QHS 02/20/18 Fluticasone/Salmeterol [Advair 500-50 Diskus 14 Dose/Diskus] 1 puff IH Q12 02/20 Furosemide [Lasix 40 mg Tablet] 40 mg PO DAILY 02/20/18 Guaifenesin [Mucinex] 600 mg PO BID 02/20/18 Ipratropium [place] [Atrovent Hfa Inhalation Aerosol 12.9 gm Mdi] 2 puff IH Q4HP PRN 02/20/18 Montelukast Sodium [Singulair 10 mg Tablet] 10 mg PO QPM 02/20/18 Rosuvastatin Calcium [Crestor] 40 mg PO QHS 02/20/18 Sertraline HCl [Zoloft 50 mg Tablet] 50 mg PO QAM 02/20/18 Tiotropium [place] [Spiriva Handihaler 18 mcg/dose (30 Dose)] 18 mcg IH DAILY Amiodarone HCl [Cordarone 200 mg Tablet] 400 mg PO Q12 #60 tablet 02/24/18 Amox Tr/Potassium Clavulanate [Augmentin 875-125 mg Tablet] 1 tab PO BID #10 tablet 02/24/18 Prednisone 10 mg PO DAILY #27 tablet 02/28/18 Allergies/Adverse Reactions: adhesive tape Allergy (Verified 02/28/18 15:09) Blisters amiodarone Adverse Reaction (Verified 04/07/18 12:36) prednisone Adverse Reaction (Verified 04/07/18 12:36) trazodone Adverse Reaction (Verified 04/07/18 12:36) propofol Adverse Reaction (Unknown, Uncoded 02/28/18 15:09) Review of Systems Constitutional: PRESENT: anorexia, fatigue, weakness. ABSENT: chills, fever(s) , headache(s), night sweats Nose, Mouth, and Throat: ABSENT: mouth pain, sore throat Cardiovascular: PRESENT: dyspnea on exertion, edema, orthropnea, palpitations. ABSENT: chest pain Respiratory: PRESENT: cough, dyspnea. ABSENT: hemoptysis Gastrointestinal: PRESENT: nausea. ABSENT: abdominal pain, diarrhea, dysphagia , heartburn, hematemesis, hematochezia, vomiting Genitourinary: ABSENT: dysuria, hematuria Integumentary: ABSENT: lesions, pruritus Neurological: PRESENT: memory loss. ABSENT: abnormal gait, abnormal movements, abnormal speech, confusion, focal weakness Endocrine: ABSENT: heat intolerance, polydipsia Hematologic/Lymphatic: ABSENT: easy bleeding, easy bruising, lymphadenopathy Physical Exam Vital Signs: Temp Pulse Resp BP Pulse Ox 98.3 F 85 16 117/46 L 100 04/07/18 10:58 04/07/18 12:23 04/07/18 10:58 04/07/18 10:58 04/07/18 10:58 Intake & Output 04/06/18 04/07/18 04/08/18 06:59 06:59 06:59 Weight 62 kg General appearance: PRESENT: cooperative, mild distress Eye exam: PRESENT: conjunctiva pale, EOMI, PERRLA. ABSENT: nystagmus Ear exam: PRESENT: normal external ear exam. ABSENT: bleeding Neck exam: ABSENT: lymphadenopathy, meningismus, tenderness, thyromegaly, tracheal deviation Respiratory exam: PRESENT: clear to auscultation raymond, decreased breath sounds, symmetrical, tachypnea, wheezes Cardiovascular exam: PRESENT: +S1, +S2, systolic murmur GI/Abdominal exam: PRESENT: normal bowel sounds, soft. ABSENT: organomegaly, tenderness Extremities exam: PRESENT: +1 edema Neurological exam: PRESENT: alert, awake, oriented to person, oriented to place , oriented to time Psychiatric exam: PRESENT: anxious Skin exam: ABSENT: erythema, mottled, rash Results Laboratory Results: 04/07/18 12:01 04/07/18 12:01 04/07/18 04/07/18 12:01 12:01 WBC 12.3 H RBC 2.32 L Hgb 7.3 L Hct 23.9 L MCV 103 H D MCH 31.4 MCHC 30.5 L RDW 21.2 H Plt Count 290 Seg Neutrophils % Not Reportable Lymphocytes % Not Reportable Monocytes % Not Reportable Eosinophils % Not Reportable Basophils % Not Reportable Absolute Neutrophils Not Reportable Absolute Lymphocytes Not Reportable Absolute Monocytes Not Reportable Absolute Eosinophils Not Reportable Absolute Basophils Not Reportable Sodium 131.1 L Potassium 8.1 H* Chloride 88 L Carbon Dioxide 22 Anion Gap 21 H BUN 75 H Creatinine 8.26 H Est GFR ( Amer) 8 L Est GFR (Non-Af Amer) 6 L Glucose 94 Calcium 8.4 Magnesium 2.5 H Total Bilirubin 1.4 H AST 33 ALT 28 Alkaline Phosphatase 87 Total Protein 5.7 L Albumin 3.2 L 04/07/18 04/07/18 12:01 12:01 Creatine Kinase 84 CK-MB (CK-2) 4.99 H Troponin I 0.042 NT-Pro-B Natriuret Pep 31806 H Impressions: Chest X-Ray 04/07/18 11:20 IMPRESSION: No acute findings. Chronic scarring left lung base. Assessment & Plan - Diagnosis (1) Hyperkalemia Plan: Severe and imminent life threatening with almost Sine wave changes on EKG.Urgent dialysis has been instituted and he is currently undergoing dialysis without any issues. Follow up with K values.Advised on the consequences of high K. (2) End stage renal failure on dialysis Plan: Emergent dialysis on way as we are trying to save him from imminent cardiac arrest in the face of severe hypekalemia of 8.1 with a almost sine wave changes on EKG.Its being supervised to ensure a safe and smooth procedure. (6) Anemia Qualifiers:
--- NOTE | 2018-04-07 19:16 | ER Document Report ---
ED General - General Chief Complaint: Shortness Of Breath Stated Complaint: SHORTNESS OF BREATH Time Seen by Provider: 04/07/18 11:15 Mode of Arrival: Medic Information source: Patient, Relative TRAVEL OUTSIDE OF THE [place] IN LAST 30 DAYS: No - HPI Patient complains to provider of: Weakness Onset: Other - 82-year-old man on hospice for COPD that presents for evaluation of worsening weakness and fatigue. He is a dialysis patient as well but is continuing to undergo treatment for his kidney disease. His dialysis nurse notes that he has been having great difficulty in tolerating full dialysis sessions losing as much as 8 L per session. - Related Data Allergies/Adverse Reactions: adhesive tape Allergy (Verified 02/28/18 15:09) Blisters amiodarone Adverse Reaction (Verified 04/07/18 23:20) lorazepam Adverse Reaction (Verified 04/07/18 23:20) prednisone Adverse Reaction (Verified 04/07/18 23:20) trazodone Adverse Reaction (Verified 04/07/18 23:20) propofol Adverse Reaction (Unknown, Uncoded 04/07/18 23:20) Past Medical History - General Information source: Patient, Relative - Social History Smoking Status: Former Smoker Frequency of alcohol use: None Drug Abuse: None Family History: None, Hypertension Patient has suicidal ideation: No Patient has homicidal ideation: No - Past Medical History Cardiac Medical History: Reports: Hx Coronary Artery Disease, Hx Hypertension Denies: Hx Atrial Fibrillation, Hx Heart Attack Pulmonary Medical History: Reports: Hx COPD - End stage O2 dependent. Denies: Hx Asthma, Hx Bronchitis, Hx Pneumonia Neurological Medical History: Denies: Hx Cerebrovascular Accident, Hx Seizures Renal/ Medical History: Reports: Hx End Stage Renal Disease. Denies: Hx Peritoneal Dialysis GI Medical History: Denies: Hx Cirrhosis, Hx Ulcer Musculoskeletal Medical History: Reports Hx Arthritis Psychiatric Medical History: Denies: Hx Depression Past Surgical History: Reports: Hx Abdominal Surgery - hernia repair, Hx Herniorrhaphy, Hx Open Heart Surgery - mitral valve repair 2009, Hx Tonsillectomy, Other - Mitral valve repair. Denies: Hx Pacemaker - Immunizations Hx Diphtheria, Pertussis, Tetanus Vaccination: No Hx Pneumococcal Vaccination: 03/13/11 Review of Systems - Review of Systems -: Yes All other systems reviewed and negative Physical Exam - Vital signs Vitals: Temp Pulse Resp BP Pulse Ox 98.3 F 68 16 117/46 L 100 11/26/18 10:58 04/07/18 10:58 04/07/18 10:58 04/07/18 10:58 04/07/18 10:58 - General General appearance: Alert, Anxious In distress: Mild - HEENT Head: Normocephalic Eyes: Normal Conjunctiva: Normal Cornea: Normal Extraocular movements intact: Yes Eyelashes: Normal Pupils: PERRL - Respiratory Respiratory status: No respiratory distress Chest status: Nontender Breath sounds: Normal Chest palpation: Normal - Cardiovascular Rhythm: Tachycardia Heart sounds: Normal auscultation Murmur: No - Abdominal Inspection: Normal Distension: No distension Tenderness: Nontender - Back Back: Normal - Extremities General upper extremity: Normal inspection, Nontender, Normal strength, Normal temperature General lower extremity: Normal inspection, Nontender, Normal strength, Normal temperature - Neurological Neuro grossly intact: Yes Cognition: Normal Orientation: AAOx4 [place] Coma Scale Eye Opening: Spontaneous [place] Coma Scale Verbal: Oriented Jeremias Coma Scale Motor: Obeys Commands [place] Coma Scale Total: 15 Speech: Normal Cranial nerves: Normal Cerebellar coordination: Normal Motor strength normal: LUE, RUE, LLE, RLE - Psychological Associated symptoms: Normal affect Course - Re-evaluation Re-evalutation: 82-year-old man with a history of end-stage renal disease as well as hospice level COPD presents for evaluation of generalized weakness. Patient was brought emergently to a room as his initial EKG was dramatically concerning, his EKG demonstrated a wide-complex rhythm with almost absolute fusion of the QRS and T wave. Given his known medical problems in the setting of a wide QRS presumptively have initiated treatment for him of elevated potassium with calcium gluconate 2 g IV, albuterol, insulin 4 units IV, and dextrose. Have contacted on-call florist manager Dr. Rios in relation to this patient's care as he requires emergent dialysis. While awaiting placement on dialysis patient's heart rate did intermittently increase to the 100 range remaining in a wide-complex tachycardia though he remained having normal blood pressures without any other symptoms. Patient was subsequently taken while on his chronic level of oxygen from one room to the dialysis equipment room. Upon transition to better equipped room patient underwent emergent dialysis in the emergency department with ongoing hemodynamic monitoring throughout. Spoke to Dr. Rios about this patient, he believes that he would benefit from inpatient monitoring reassessment and potential next day dialysis. Attempted to contact on-call hospitalist, he notes that patient cannot be admitted at this time until after transition of care to nighttime hospitalist as it is within 40 minutes of his end of shift. We will plan for this patient to undergo admission to the nighttime hospitalist. 04/07/18 19:33 7:33 PM called on-call hospitalist who notes he will have to call back for admission. Admission accepted, will repeat EKG, EKG demonstrates improved with marked first -degree AV block. Patient is otherwise well-appearing and at his baseline. Based on patient's DNR/DNI status in the setting of - Vital Signs Vital signs: Temp Pulse Resp BP Pulse Ox 98.8 F 75 16 123/62 100 04/08/18 07:52 04/08/18 07:52 04/08/18 07:52 04/08/18 07:52 04/08/18 07:52 - Laboratory Result Diagrams: 04/07/18 12:01 04/07/18 19:35 Laboratory results interpreted by me: 04/07/18 04/07/18 04/07/18 12:01 12:01 12:01 WBC 12.3 H RBC 2.32 L Hgb 7.3 L Hct 23.9 L MCV 103 H D MCHC 30.5 L RDW 21.2 H Seg Neuts % (Manual) 80 H Lymphocytes % (Manual) 8 L Abs Neuts (Manual) 9.8 H Retic Count (auto) Sodium 131.1 L Potassium 8.1 H* Chloride 88 L Anion Gap 21 H BUN 75 H Creatinine 8.26 H Est GFR ( Amer) 8 L Est GFR (Non-Af Amer) 6 L POC Glucose Magnesium 2.5 H Iron Total Bilirubin 1.4 H Direct Bilirubin 1.4 H CK-MB (CK-2) 4.99 H NT-Pro-B Natriuret Pep 36820 H Total Protein 5.7 L Albumin 3.2 L Vitamin B12 04/07/18 04/07/18 04/07/18 12:01 12:01 13:32 WBC RBC Hgb Hct MCV MCHC RDW Seg Neuts % (Manual) Lymphocytes % (Manual) Abs Neuts (Manual) Retic Count (auto) 3.43 H Sodium Potassium Chloride Anion Gap BUN Creatinine Est GFR ( Amer) Est GFR (Non-Af Amer) POC Glucose 154 H Magnesium Iron 37.7 L Total Bilirubin Direct Bilirubin CK-MB (CK-2) NT-Pro-B Natriuret Pep Total Protein Albumin Vitamin B12 940.0 H 04/07/18 19:35 WBC RBC Hgb Hct MCV MCHC RDW Seg Neuts % (Manual) Lymphocytes % (Manual) Abs Neuts (Manual) Retic Count (auto) Sodium Potassium 5.7 H D Chloride Anion Gap BUN Creatinine Est GFR ( Amer) Est GFR (Non-Af Amer) POC Glucose Magnesium Iron Total Bilirubin Direct Bilirubin CK-MB (CK-2) NT-Pro-B Natriuret Pep Total Protein Albumin Vitamin B12 Critical Care Note - Critical Care Note Total time excluding time spent on procedures (mins): 35 Discharge - Discharge Clinical Impression: Hyperkalemia, Atrial fibrillation with rapid ventricular response, Renal failure (ARF), acute on chronic Condition: Stable Disposition: ADMITTED INPATIENT Admitting Provider: Hospitalist Unit Admitted: [facility]
--- NOTE | 2018-04-07 19:33 | EKG REPORT ---
SEVERITY:- ABNORMAL ECG - SINUS RHYTHM MARKEDLY POSTERIOR QRS AXIS PROLONGED QT INTERVAL IVCD, R/O HYPERKALEMIA. : Confirmed by: [place] Monte[place] MD 07-Apr-2018 19:33:05
[2018-04-07] MEDS ORDERED: HYDRALAZINE HCL INJ/PF 20 MG/1 ML SDV IV PRN (19:56)
[2018-04-07] MEDS ORDERED: IPRATROPIUM/ALBUTEROL 0.5-2.5 MG/3 ML AMPUL NEB PRN ×2 (19:57→20:28)
[2018-04-07 20:27] LABS: RETICULOCYTE COUNT (AUTO) 3.43 % (0.66-2.85)
[2018-04-07] MEDS ORDERED: MAGNESIUM HYDROXIDE SUSP 30 ML UDCUP PO PRN (20:28)
[2018-04-07 20:30] LABS: IRON(TIBC) 37.7 ug/dL (49-181)
[2018-04-07 21:39] LABS: FOLATE > 20.00 ng/mL (>2.76)
[2018-04-07] MEDS: HEPARIN SOD (PORCINE) 5,000 UNIT/ML 1 ML SYRINGE SUBCUT SCH (23:41)
[2018-04-07] MEDS: FLUTICASONE NASAL SPRAY 50 MCG/SPRY 120 SPRAY/16 GM NASL SCH (23:41)
--- NOTE | 2018-04-08 05:03 | PDOC H&P ---
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 In the emergency room he is found to have shortness of breath and severe QRS wide- complex with near sign wave EKG rhythm. Potassium is found to be 8.5. He receives emergent dialysis with return of his baseline EKG and left bundle branch block without peak T waves. He is referred to the hospitalist for admission. Patient's CODE STATUS is verified is DNR/DNI Past Medical History Cardiac Medical History: Reports: Coronary Artery Disease, Hypertension Denies: Atrial Fibrillation, Myocardial Infarction Pulmonary Medical History: Reports: Chronic Obstructive Pulmonary Disease (COPD ) - End stage O2 dependent. Denies: Asthma, Bronchitis, Pneumonia Neurological Medical History: Denies: Seizures Renal/ Medical History: Reports: End Stage Renal Disease GI Medical History: Denies: Cirrhosis Musculoskeltal Medical History: Reports: Arthritis Psychiatric Medical History: Denies: Depression - anxiety Hematology: Reports: Anemia, Bleeding Tendencies Denies: Sickle Cell Disease Past Surgical History Past Surgical History: Reports: Herniorrhaphy, Tonsillectomy, Other - Mitral valve repair Denies: Pacemaker Social History Information Source: Patient Smoking Status: Former Smoker Pipes Per Day: 20 Frequency of Alcohol Use: None Hx Recreational Drug Use: No Drugs: None Hx Prescription Drug Abuse: No - Advance Directive Resuscitation Status: Do Not Resuscitate Family History Family History: Hypertension Parental Family History Reviewed: Yes Children Family History Reviewed: Yes Sibling(s) Family History Reviewed.: Yes Medication/Allergy Home Medications: Albuterol Sulfate [Proair HFA Inhalation Aerosol 8.5 gm MDI] 1 puff IH Q4HP PRN 02/20/18 Amlodipine Besylate [Norvasc 5 mg Tablet] 5 mg PO BID 02/20/18 Aspirin [Aspirin EC] 81 mg PO DAILY 02/20/18 B Complex W-C No.20/Folic Acid [Nephrocaps Softgel] 1 mg PO DAILY 02/20/18 Benzonatate [Tessalon Perle 100 mg Capsule] 100 mg PO TIDP PRN 02/20/18 Cetirizine HCl [Zyrtec 10 mg Tablet] 10 mg PO DAILY 02/20/18 Cholecalciferol (Vitamin D3) [Vitamin D3 1000 Unit Tablet] 1,000 unit PO DAILY 02/20/18 Ezetimibe [Zetia 10 mg Tablet] 10 mg PO QHS 02/20/18 Fluticasone/Salmeterol [Advair 500-50 Diskus 14 Dose/Diskus] 1 puff IH Q12 02/20 Furosemide [Lasix 40 mg Tablet] 40 mg PO DAILY 02/20/18 Guaifenesin [Mucinex] 600 mg PO BID 02/20/18 Ipratropium Beaver [Atrovent Hfa Inhalation Aerosol 12.9 gm Mdi] 2 puff IH Q4HP PRN 02/20/18 Montelukast Sodium [Singulair 10 mg Tablet] 10 mg PO QPM 02/20/18 Rosuvastatin Calcium [Crestor] 40 mg PO QHS 02/20/18 Sertraline HCl [Zoloft 50 mg Tablet] 50 mg PO QAM 02/20/18 Tiotropium Beaver [Spiriva Handihaler 18 mcg/dose (30 Dose)] 18 mcg IH DAILY Amiodarone HCl [Cordarone 200 mg Tablet] 400 mg PO Q12 #60 tablet 02/24/18 Amox Tr/Potassium Clavulanate [Augmentin 875-125 mg Tablet] 1 tab PO BID #10 tablet 02/24/18 Prednisone 10 mg PO DAILY #27 tablet 02/28/18 Allergies/Adverse Reactions: adhesive tape Allergy (Verified 02/28/18 15:09) Blisters amiodarone Adverse Reaction (Verified 04/07/18 23:20) lorazepam Adverse Reaction (Verified 04/07/18 23:20) prednisone Adverse Reaction (Verified 04/07/18 23:20) trazodone Adverse Reaction (Verified 04/07/18 23:20) propofol Adverse Reaction (Unknown, Uncoded 04/07/18 23:20) Review of Systems Constitutional: PRESENT: as per HPI, fatigue, weakness, weight gain Eyes: ABSENT: visual disturbances Ears: ABSENT: hearing changes Cardiovascular: PRESENT: dyspnea on exertion. ABSENT: chest pain, edema, orthropnea, palpitations Respiratory: PRESENT: as per HPI, cough, dyspnea. ABSENT: hemoptysis, sputum Gastrointestinal: ABSENT: abdominal pain, constipation, diarrhea, hematemesis, hematochezia, nausea, vomiting Genitourinary: ABSENT: dysuria, hematuria Musculoskeletal: ABSENT: joint swelling Integumentary: ABSENT: rash, wounds Neurological: ABSENT: abnormal gait, abnormal speech, confusion, dizziness, focal weakness, syncope Psychiatric: ABSENT: anxiety, depression, homidical ideation, suicidal ideation Endocrine: ABSENT: cold intolerance, heat intolerance, polydipsia, polyuria Hematologic/Lymphatic: ABSENT: easy bleeding, easy bruising Physical Exam Vital Signs: Temp Pulse Resp BP Pulse Ox 98.0 F 73 20 119/87 H 93 04/08/18 03:46 04/08/18 03:46 04/08/18 03:46 04/08/18 03:46 04/08/18 03:46 Intake & Output 04/06/18 04/07/18 04/08/18 11:59 11:59 11:59 Output Total 0 Balance 0 Weight 56.9 kg General appearance: PRESENT: no acute distress, cooperative, thin, other - Chronically ill appearing with temporal wasting and cachexia Head exam: PRESENT: atraumatic, normocephalic Eye exam: PRESENT: conjunctiva pink, EOMI, PERRLA. ABSENT: scleral icterus Ear exam: PRESENT: normal external ear exam Mouth exam: PRESENT: moist, tongue midline Neck exam: ABSENT: carotid bruit, JVD, lymphadenopathy, thyromegaly Respiratory exam: PRESENT: clear to auscultation raymond, crackles, prolonged expiratory phas. ABSENT: rales, rhonchi, wheezes Cardiovascular exam: PRESENT: RRR, systolic murmur. ABSENT: diastolic murmur, rubs Pulses: PRESENT: normal dorsalis pedis pul Vascular exam: PRESENT: normal capillary refill GI/Abdominal exam: PRESENT: normal bowel sounds, soft. ABSENT: distended, guarding, mass, organolmegaly, rebound, tenderness Rectal exam: PRESENT: deferred Extremities exam: PRESENT: full ROM. ABSENT: calf tenderness, clubbing, pedal edema Neurological exam: PRESENT: alert, awake, oriented to person, oriented to place , oriented to time, oriented to situation, CN II-XII grossly intact. ABSENT: motor sensory deficit Psychiatric exam: PRESENT: appropriate affect, normal mood. ABSENT: homicidal ideation, suicidal ideation Skin exam: PRESENT: dry, intact, warm. ABSENT: cyanosis, rash Results Impressions: Chest X-Ray 04/07/18 11:20 IMPRESSION: No acute findings. Chronic scarring left lung base. 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 - Time Time Spent: 50 to 70 Minutes - Inpatient Certification Medical Necessity: Need Close Monitoring Due to Risk of Patient Decompensation
[2018-04-08] MEDS: HEPARIN SOD (PORCINE) 5,000 UNIT/ML 1 ML SYRINGE SUBCUT SCH ×3 (06:44→22:04)
--- NOTE | 2018-04-08 07:50 | EKG REPORT ---
SEVERITY:- ABNORMAL ECG - SINUS RHYTHM LEFT ANT FASCICULAR BLOCK FIRST DEGREE AVB, MARKEDLY PROLONGED DIAMOND. NONSPECIFIC ST-T CHANGES DIFFUSE. : Confirmed by: [place] MD 08-Apr-2018 07:49:14
[2018-04-08] MEDS: FLUTICASONE NASAL SPRAY 50 MCG/SPRY 120 SPRAY/16 GM NASL SCH ×2 (10:02→22:03)
[2018-04-08 12:09] LABS: ABSOLUTE BASOPHILS # (AUTO) 0.1 10^3/uL (0.0-0.2); ABSOLUTE EOSINOPHILS # (AUTO) 0.1 10^3/uL (0.0-0.6); ABSOLUTE LYMPHOCYTES (AUTO) 0.4 10^3/uL (0.5-4.7); ABSOLUTE MONOCYTES (AUTO) 1.2 10^3/uL (0.1-1.4); BASOPHILS % (AUTO) 0.8 % (0-2); EOSINOPHILS % (AUTO) 1.7 % (0-6); HEMATOCRIT 22.8 % (37.9-51.0); LYMPHOCYTES % (AUTO) 5.2 % (13-45); MEAN CORPUSCULAR HEMOGLOBIN 31.7 pg (27.0-33.4); MEAN CORPUSCULAR HGB CONC 31.2 g/dL (32.0-36.0); MEAN CORPUSCULAR VOLUME 102 fl (80-97); MONOCYTES % (AUTO) 15.4 % (3-13); PLATELET COUNT 233 10^3/uL (150-450); RED BLOOD COUNT 2.25 10^6/uL (4.35-5.55); RED CELL DISTRIBUTION WIDTH 20.6 % (11.5-14.0); SEGMENTED NEUTROPHILS % (AUTO) 76.9 % (42-78); TOTAL CELLS COUNTED % (AUTO) 100 %; WHITE BLOOD COUNT 7.8 10^3/uL (4.0-10.5)
[2018-04-08 12:19] LABS: HEMOGLOBIN 7.1 g/dL (13.5-17.0)
[2018-04-08 12:43] LABS: ANION GAP 17 (5-19); CALCIUM 8.3 mg/dL (8.4-10.2); CARBON DIOXIDE 29 mmol/L (22-30); CHLORIDE 90 mmol/L (98-107); GLUCOSE 93 mg/dL (75-110); POTASSIUM 5.1 mmol/L (3.6-5.0); SODIUM 136.1 mmol/L (137-145)
--- NOTE | 2018-04-08 13:01 | PDOC PROGRESS REPORT ---
Subjective Progress Note for:: 04/08/18 Subjective:: [id number]-[id number] male with history of ESRD on hemodialysis Saturday admitted with potassium of 8.1 he had a dialysis was done yesterday latest potassium is 5.7 today's labs are pending and patient denies any specific complaints today since hemoglobin is 7.1 patient gives a consent for transfusion. Probably he may receive blood transfusion tomorrow during dialysis patient is on oxygen via nasal cannula alert and awake communicating well. Reason For Visit: HYPERKALEMIA ESRD Physical Exam Vital Signs: Temp Pulse Resp BP Pulse Ox 97.7 F 77 20 123/52 L 100 04/08/18 12:00 04/08/18 12:00 04/08/18 12:00 04/08/18 12:00 04/08/18 12:00 Intake & Output 04/07/18 04/08/18 04/09/18 06:59 06:59 06:59 Intake Total 250 Output Total 0 0 Balance 0 250 Weight 56.9 kg General appearance: PRESENT: no acute distress Head exam: PRESENT: atraumatic Neck exam: ABSENT: carotid bruit, JVD, lymphadenopathy, thyromegaly Respiratory exam: PRESENT: other - Patient is on oxygen nasal cannula, decreased bilateral air entry. No wheezing no crepitations. Cardiovascular exam: PRESENT: RRR. ABSENT: diastolic murmur, rubs, systolic murmur GI/Abdominal exam: PRESENT: normal bowel sounds, soft. ABSENT: distended, guarding, mass, organolmegaly, rebound, tenderness Neurological exam: PRESENT: alert, awake, oriented to person, oriented to place , oriented to time, oriented to situation, CN II-XII grossly intact. ABSENT: motor sensory deficit Psychiatric exam: PRESENT: appropriate affect, normal mood. ABSENT: homicidal ideation, suicidal ideation Results Laboratory Results: 04/08/18 11:40 04/08/18 11:40 WBC 7.8 RBC 2.25 L Hgb 7.1 L Hct 22.8 L MCV 102 H MCH 31.7 MCHC 31.2 L RDW 20.6 H Plt Count 233 Seg Neutrophils % 76.9 Lymphocytes % 5.2 L Monocytes % 15.4 H Eosinophils % 1.7 Basophils % 0.8 Absolute Neutrophils 6.0 Absolute Lymphocytes 0.4 L Absolute Monocytes 1.2 Absolute Eosinophils 0.1 Absolute Basophils 0.1 Impressions: Chest X-Ray 04/07/18 11:20 IMPRESSION: No acute findings. Chronic scarring left lung base. Assessment & Plan - Diagnosis (1) Hyperkalemia Is this a current diagnosis for this admission?: Yes Plan: 04/08/2018 patient is asymptomatic admission potassium is 8.1 and latest potassium is 5.7. Today's labs are pending. Patient is getting lactulose and Kayexalate. He is on low potassium diet. Nephrology on board. (2) Chronic obstructive lung disease Is this a current diagnosis for this admission?: Yes Plan: 04/08/2018. Has history of chronic COPD on home oxygen. He is on 3 L oxygen pulse ox is 98%. (3) Anemia Qualifiers: Anemia type: unspecified type Qualified Code(s): D64.9 - Anemia, unspecified Is this a current diagnosis for this admission?: Yes Plan: 06/08/2017 patient's hemoglobin is 7.1 patient gave the consent for blood transfusion. And I am going to speak to Dr. Rios about a possible need for the blood transfusion tomorrow during the dialysis. I am going to order for the CBC tomorrow to to recheck the hemoglobin. (4) Renal failure (ARF), acute on chronic Is this a current diagnosis for this admission?: Yes Plan: 04/08/2018 patient has end-stage renal disease is getting dialysis Saturday as an outpatient. He is going to (5) End stage renal failure on dialysis Is this a current diagnosis for this admission?: Yes Plan: 04/08/2018. end-stage dialysis patient dialysis Saturday he is also hospice patient his CODE STATUS is DNR/DNI. - Time Time Spent with patient: 25-34 minutes Medications reviewed and adjusted accordingly: Yes
[2018-04-08 13:17] LABS: BLOOD UREA NITROGEN 55 mg/dL (7-20)
--- NOTE | 2018-04-08 13:43 | PDOC PROGRESS REPORT ---
Subjective Progress Note for:: 04/08/18 Reason For Visit: Seen today.S/P emergent dialysis for life threatening severe hyperkalemia yesterday. Went well. Sitting on the edge of the bed and is dyspneic at rest.Denies any chest pains.Feels weak and wonders if he should be getting transfusion.No fever or chills.Labs and meds were reviewed with him and his daughter who is here at his bedside. Physical Exam Vital Signs: Temp Pulse Resp BP Pulse Ox 97.7 F 77 20 123/52 L 100 04/08/18 12:00 04/08/18 12:00 04/08/18 12:00 04/08/18 12:00 04/08/18 12:00 Intake & Output 04/07/18 04/08/18 04/09/18 06:59 06:59 06:59 Intake Total 250 Output Total 0 0 Balance 0 250 Weight 56.9 kg General appearance: PRESENT: mild distress Respiratory exam: PRESENT: clear to auscultation raymond, decreased breath sounds, prolonged expiratory phas, tachypnea, wheezes Cardiovascular exam: PRESENT: +S1, +S2, systolic murmur GI/Abdominal exam: PRESENT: normal bowel sounds, soft. ABSENT: organomegaly, tenderness Extremities exam: PRESENT: pedal edema Neurological exam: PRESENT: alert, awake, oriented to person, oriented to place Psychiatric exam: PRESENT: anxious Skin exam: ABSENT: cyanosis, erythema, rash Results Laboratory Results: 04/08/18 11:40 04/08/18 11:40 04/08/18 04/08/18 11:40 11:40 WBC 7.8 RBC 2.25 L Hgb 7.1 L Hct 22.8 L MCV 102 H MCH 31.7 MCHC 31.2 L RDW 20.6 H Plt Count 233 Seg Neutrophils % 76.9 Lymphocytes % 5.2 L Monocytes % 15.4 H Eosinophils % 1.7 Basophils % 0.8 Absolute Neutrophils 6.0 Absolute Lymphocytes 0.4 L Absolute Monocytes 1.2 Absolute Eosinophils 0.1 Absolute Basophils 0.1 Sodium 136.1 L Potassium 5.1 H Chloride 90 L Carbon Dioxide 29 Anion Gap 17 BUN 55 H D Creatinine 6.65 H Est GFR ( Amer) 10 L Est GFR (Non-Af Amer) 8 L Glucose 93 Calcium 8.3 L Impressions: Chest X-Ray 04/07/18 11:20 IMPRESSION: No acute findings. Chronic scarring left lung base. Assessment & Plan - Diagnosis (1) Hyperkalemia Is this a current diagnosis for this admission?: Yes Plan: S/P emergent dialysis and K today is 5.1.Plan fo next dialysis in AM.Adv on proper diet.Will interrogate AVF after discharge.Adv on low K diet. (2) End stage renal failure on dialysis Is this a current diagnosis for this admission?: Yes Plan: Plan next dialysis in AM. (3) Chronic obstructive lung disease Is this a current diagnosis for this admission?: Yes Plan: End stage on continous O2 and still in some distress.Arranged hospice. (6) Anemia Qualifiers: Anemia type: unspecified type Qualified Code(s): D64.9 - Anemia, unspecified Is this a current diagnosis for this admission?: Yes Plan: of CKD and AVM.Plan for transfusion x 2 in AM on HD.
[2018-04-08] MEDS ORDERED: IPRATROPIUM BROMIDE 0.06% NASAL SPRAY 15 ML NASL PRN (14:13)
[2018-04-08] MEDS ORDERED: BENZONATATE 100 MG CAPSULE PO PRN (14:13)
[2018-04-08] MEDS: MONTELUKAST SODIUM 10 MG TABLET PO SCH (17:28)
[2018-04-08] MEDS: EZETIMIBE 10 MG TABLET PO SCH (17:28)
[2018-04-08] MEDS ORDERED: (PENDING PHARMACY ID) (Rosuvastatin Calcium [Crestor] 40 MG) PO SCH (18:00)
[2018-04-08] MEDS: FLUTICASONE/SALMETEROL DISKUS 500-50 MCG/DOSE IH SCH (22:03)
[2018-04-08] MEDS: ATORVASTATIN CALCIUM 80 MG TABLET PO SCH (22:04)
[2018-04-09] MEDS ORDERED: EPOETIN ALFA INJ 20000 UNIT/1 ML VIAL (RENAL) IV PRN (05:00)
[2018-04-09] MEDS: HEPARIN SOD (PORCINE) 5,000 UNIT/ML 1 ML SYRINGE SUBCUT SCH ×3 (05:05→21:38)
[2018-04-09 05:55] LABS: ABSOLUTE BASOPHILS # (AUTO) 0.1 10^3/uL (0.0-0.2); ABSOLUTE EOSINOPHILS # (AUTO) 0.1 10^3/uL (0.0-0.6); ABSOLUTE LYMPHOCYTES (AUTO) 0.6 10^3/uL (0.5-4.7); ABSOLUTE NEUT (AUTO) 6.2 10^3/uL (1.7-8.2); BASOPHILS % (AUTO) 0.9 % (0-2); EOSINOPHILS % (AUTO) 1.8 % (0-6); HEMATOCRIT 21.9 % (37.9-51.0); LYMPHOCYTES % (AUTO) 7.2 % (13-45); MEAN CORPUSCULAR HEMOGLOBIN 31.7 pg (27.0-33.4); MEAN CORPUSCULAR HGB CONC 31.5 g/dL (32.0-36.0); MEAN CORPUSCULAR VOLUME 101 fl (80-97); MONOCYTES % (AUTO) 12.4 % (3-13); PLATELET COUNT 237 10^3/uL (150-450); RED BLOOD COUNT 2.18 10^6/uL (4.35-5.55); RED CELL DISTRIBUTION WIDTH 19.9 % (11.5-14.0); SEGMENTED NEUTROPHILS % (AUTO) 77.7 % (42-78); TOTAL CELLS COUNTED % (AUTO) 100 %
[2018-04-09 05:58] LABS: HEMOGLOBIN 6.9 g/dL (13.5-17.0)
[2018-04-09 06:23] LABS: ALANINE AMINOTRANSFERASE 29 U/L (21-72); ALBUMIN 2.8 g/dL (3.5-5.0); ALKALINE PHOSPHATASE 81 U/L (38-126); ASPARTATE AMINO TRANSFERASE 26 U/L (17-59); BILIRUBIN,DIRECT 0.8 mg/dL (0.0-0.4); BILIRUBIN,TOTAL 0.8 mg/dL (0.2-1.3); BLOOD UREA NITROGEN 62 mg/dL (7-20); CALCIUM 7.9 mg/dL (8.4-10.2); GLUCOSE 105 mg/dL (75-110); POTASSIUM 4.6 mmol/L (3.6-5.0); TOTAL PROTEIN 5.1 g/dL (6.3-8.2)
[2018-04-09 06:29] LABS: CARBON DIOXIDE 26 mmol/L (22-30); CHLORIDE 90 mmol/L (98-107); SODIUM 135.9 mmol/L (137-145)
[2018-04-09 06:57] LABS: ANION GAP 20 (5-19)
[2018-04-09] MEDS ORDERED: (PENDING PHARMACY ID) (Tiotropium Bromide [Spiriva Respimat] 2 PUFF) IH SCH (08:00)
--- NOTE | 2018-04-09 12:09 | PDOC PROGRESS REPORT ---
Subjective Progress Note for:: 04/09/18 Subjective:: [id number]-old male with history of ESRD on hemodialysis Saturday admitted with potassium of 8.1 he had a dialysis was done yesterday latest potassium is 5.7 today's labs are pending and patient denies any specific complaints today since hemoglobin is 7.1 patient gives a consent for transfusion. Probably he may receive blood transfusion tomorrow during dialysis patient is on oxygen via nasal cannula alert and awake communicating well. 04/09/2018 seen the patient in the dialysis unit. He completed his dialysis today. He got 2 units of blood transfusion during the dialysis. Plans from the patient. Reason For Visit: HYPERKALEMIA ESRD Physical Exam Vital Signs: Temp Pulse Resp BP Pulse Ox 98.3 F 67 16 111/55 L 95 04/09/18 07:25 04/09/18 07:25 04/09/18 07:25 04/09/18 10:28 04/09/18 07:25 Intake & Output 04/08/18 04/09/18 04/10/18 06:59 06:59 06:59 Intake Total 250 300 Output Total 0 0 Balance 0 250 300 Weight 56.9 kg 57.8 kg General appearance: PRESENT: no acute distress Head exam: PRESENT: atraumatic Eye exam: PRESENT: PERRLA Mouth exam: PRESENT: moist Neck exam: ABSENT: carotid bruit, JVD, lymphadenopathy, thyromegaly Respiratory exam: PRESENT: clear to auscultation raymond. ABSENT: rales, rhonchi, wheezes Cardiovascular exam: PRESENT: RRR. ABSENT: diastolic murmur, rubs, systolic murmur GI/Abdominal exam: PRESENT: normal bowel sounds, soft. ABSENT: distended, guarding, mass, organolmegaly, rebound, tenderness Extremities exam: PRESENT: other - has AV fistula Neurological exam: PRESENT: alert, awake, oriented to person, oriented to place , oriented to time, oriented to situation, CN II-XII grossly intact. ABSENT: motor sensory deficit Psychiatric exam: PRESENT: appropriate affect, normal mood. ABSENT: homicidal ideation, suicidal ideation Results Laboratory Results: 04/09/18 05:43 04/09/18 05:43 04/08/18 04/08/18 04/08/18 11:40 11:40 14:35 WBC 7.8 RBC 2.25 L Hgb 7.1 L Hct 22.8 L MCV 102 H MCH 31.7 MCHC 31.2 L RDW 20.6 H Plt Count 233 Seg Neutrophils % 76.9 Lymphocytes % 5.2 L Monocytes % 15.4 H Eosinophils % 1.7 Basophils % 0.8 Absolute Neutrophils 6.0 Absolute Lymphocytes 0.4 L Absolute Monocytes 1.2 Absolute Eosinophils 0.1 Absolute Basophils 0.1 Sodium 136.1 L Potassium 5.1 H Chloride 90 L Carbon Dioxide 29 Anion Gap 17 BUN 55 H D Creatinine 6.65 H Est GFR ( Amer) 10 L Est GFR (Non-Af Amer) 8 L Glucose 93 Calcium 8.3 L Total Bilirubin AST ALT Alkaline Phosphatase Total Protein Albumin Blood Type O POSITIVE Antibody Screen NEGATIVE 04/09/18 04/09/18 05:43 05:43 WBC 8.0 RBC 2.18 L Hgb 6.9 L Hct 21.9 L MCV 101 H MCH 31.7 MCHC 31.5 L RDW 19.9 H Plt Count 237 Seg Neutrophils % 77.7 Lymphocytes % 7.2 L Monocytes % 12.4 Eosinophils % 1.8 Basophils % 0.9 Absolute Neutrophils 6.2 Absolute Lymphocytes 0.6 Absolute Monocytes 1.0 Absolute Eosinophils 0.1 Absolute Basophils 0.1 Sodium 135.9 L Potassium 4.6 Chloride 90 L Carbon Dioxide 26 Anion Gap 20 H BUN 62 H Creatinine 7.93 H Est GFR ( Amer) 8 L Est GFR (Non-Af Amer) 7 L Glucose 105 Calcium 7.9 L Total Bilirubin 0.8 AST 26 ALT 29 Alkaline Phosphatase 81 Total Protein 5.1 L Albumin 2.8 L Blood Type Antibody Screen Impressions: Chest X-Ray 04/07/18 11:20 IMPRESSION: No acute findings. Chronic scarring left lung base. Assessment & Plan - Diagnosis (1) Hyperkalemia Is this a current diagnosis for this admission?: Yes Plan: 04/08/2018 patient is asymptomatic admission potassium is 8.1 and latest potassium is 5.7. Today's labs are pending. Patient is getting lactulose and Kayexalate. He is on low potassium diet. Nephrology on board. 04/09/2018 patient completed his dialysis today. Test potassium is 4.6 prior to the dialysis. hyperKalemia is resolved. (2) Chronic obstructive lung disease Is this a current diagnosis for this admission?: Yes Plan: 04/08/2018. Has history of chronic COPD on home oxygen. He is on 3 L oxygen pulse ox is 98%. 04/09/2018 patient denies any problems with breathing today. His pulse ox is 94 % on room air now. (3) Anemia Qualifiers: Anemia type: unspecified type Qualified Code(s): D64.9 - Anemia, unspecified Is this a current diagnosis for this admission?: Yes Plan: 04/08/2018 patient's hemoglobin is 7.1 patient gave the consent for blood transfusion. And I am going to speak to Dr. Rios about a possible need for the blood transfusion tomorrow during the dialysis. I am going to order for the CBC tomorrow to to recheck the hemoglobin. 04/09 patient's hemoglobin is 6.9 this morning after that he got 2 units of blood transfusion to the dialysis today. To do CBC post dialysis. He says he is feeling much better. Me is secondary to (4) Renal failure (ARF), acute on chronic Is this a current diagnosis for this admission?: Yes Plan: 04/08/2018 patient has end-stage renal disease is getting dialysis Saturday as an outpatient. He is going to 04/09/2018 he was previously declared ESRD getting hemodialysis Saturday. (5) End stage renal failure on dialysis Is this a current diagnosis for this admission?: Yes - Time Time Spent with patient: 15-24 minutes Medications reviewed and adjusted accordingly: Yes
[2018-04-09] MEDS: CHOLECALCIFEROL (D3) 1,000 UNIT TABLET PO SCH (12:45)
[2018-04-09] MEDS: ASPIRIN 81 MG TABLET, ENT COATED PO SCH (12:45)
[2018-04-09] MEDS: FLUTICASONE/SALMETEROL DISKUS 500-50 MCG/DOSE IH SCH ×2 (12:45→21:36)
[2018-04-09] MEDS: FOLIC ACID/VITAMIN B COMP W-C CAPSULE PO SCH (12:45)
[2018-04-09] MEDS: CALCITRIOL 0.25 MCG CAPSULE PO SCH (12:45)
[2018-04-09] MEDS: CETIRIZINE 10 MG TABLET PO SCH (12:45)
[2018-04-09] MEDS: FLUTICASONE NASAL SPRAY 50 MCG/SPRY 120 SPRAY/16 GM NASL SCH ×2 (12:46→21:36)
[2018-04-09] MEDS: SERTRALINE HCL 50 MG TABLET PO SCH (12:46)
[2018-04-09 13:22] LABS: ABSOLUTE BASOPHILS # (AUTO) 0.1 10^3/uL (0.0-0.2); ABSOLUTE EOSINOPHILS # (AUTO) 0.2 10^3/uL (0.0-0.6); ABSOLUTE LYMPHOCYTES (AUTO) 0.4 10^3/uL (0.5-4.7); ABSOLUTE MONOCYTES (AUTO) 1.2 10^3/uL (0.1-1.4); ABSOLUTE NEUT (AUTO) 6.2 10^3/uL (1.7-8.2); BASOPHILS % (AUTO) 1.3 % (0-2); EOSINOPHILS % (AUTO) 2.7 % (0-6); HEMATOCRIT 29.1 % (37.9-51.0); LYMPHOCYTES % (AUTO) 5.4 % (13-45); MEAN CORPUSCULAR HEMOGLOBIN 30.7 pg (27.0-33.4); MEAN CORPUSCULAR HGB CONC 32.3 g/dL (32.0-36.0); PLATELET COUNT 218 10^3/uL (150-450); RED BLOOD COUNT 3.06 10^6/uL (4.35-5.55); RED CELL DISTRIBUTION WIDTH 20.9 % (11.5-14.0); SEGMENTED NEUTROPHILS % (AUTO) 75.6 % (42-78); TOTAL CELLS COUNTED % (AUTO) 100 %; WHITE BLOOD COUNT 8.2 10^3/uL (4.0-10.5)
[2018-04-09 13:32] LABS: HEMOGLOBIN 9.4 g/dL (13.5-17.0)
[2018-04-09 13:33] LABS: MEAN CORPUSCULAR VOLUME 95 fl (80-97)
[2018-04-09] MEDS: ALBUTEROL SULFATE 0.083% NEB 2.5 MG/3 ML AMPUL NEB PRN (14:03)
[2018-04-09] MEDS: EZETIMIBE 10 MG TABLET PO SCH (17:35)
[2018-04-09] MEDS: MONTELUKAST SODIUM 10 MG TABLET PO SCH (17:35)
--- NOTE | 2018-04-09 17:57 | PDOC PROGRESS REPORT ---
Subjective Progress Note for:: 04/09/18 Subjective:: I saw the patient during dialysis this morning around 9:45 AM. He was stable and has been tolerating dialysis without any problems no complaints. When I asked him what happened as to why he is potassium has become so elevated on admission he states that he was constipated. He had a good bowel movement this morning after milk of magnesia and some prune juice. He does not have any other complaints. Reason For Visit: HYPERKALEMIA ESRD Physical Exam Vital Signs: Temp Pulse Resp BP Pulse Ox 98.4 F 87 24 H 114/51 L 99 04/09/18 16:00 04/09/18 16:00 04/09/18 16:00 04/09/18 16:00 04/09/18 16:00 Intake & Output 04/08/18 04/09/18 04/10/18 06:59 06:59 06:59 Intake Total 250 600 Output Total 0 0 1529 Balance 0 250 -929 Weight 56.9 kg 57.8 kg Vitals during dialysis: Blood pressure 111/55, heart rate of 73, blood flow rate of 200 mL/min, dialysate flow rate of 800 mL/min. Exam: General appearance: PRESENT: no acute distress, cooperative, well-developed, well-nourished Head exam: PRESENT: atraumatic, normocephalic Eye exam: PRESENT: conjunctiva pink, PERRLA. ABSENT: scleral icterus Neck exam: ABSENT: JVD Respiratory exam: PRESENT: Normal breath sounds. ABSENT: crackles, rales, rhonchi, unlabored, wheezes Cardiovascular exam: PRESENT: Regular rate rhythm -+S1, +S2. Grade 2/6 systolic murmur ABSENT: diastolic murmur GI/Abdominal exam: PRESENT: normal bowel sounds, soft. ABSENT: guarding, mass, tenderness Extremities exam: ABSENT: No edema Neurological exam: PRESENT: alert, awake, oriented to person, place and time. Skin exam: PRESENT: dry, warm, Cardiovascular exam: PRESENT: +S1, +S2, systolic murmur GI/Abdominal exam: PRESENT: normal bowel sounds, soft. ABSENT: organomegaly, tenderness Results Laboratory Results: 04/09/18 12:43 04/09/18 05:43 04/08/18 04/09/18 04/09/18 14:35 05:43 05:43 WBC 8.0 RBC 2.18 L Hgb 6.9 L Hct 21.9 L MCV 101 H MCH 31.7 MCHC 31.5 L RDW 19.9 H Plt Count 237 Seg Neutrophils % 77.7 Lymphocytes % 7.2 L Monocytes % 12.4 Eosinophils % 1.8 Basophils % 0.9 Absolute Neutrophils 6.2 Absolute Lymphocytes 0.6 Absolute Monocytes 1.0 Absolute Eosinophils 0.1 Absolute Basophils 0.1 Sodium 135.9 L Potassium 4.6 Chloride 90 L Carbon Dioxide 26 Anion Gap 20 H BUN 62 H Creatinine 7.93 H Est GFR ( Amer) 8 L Est GFR (Non-Af Amer) 7 L Glucose 105 Calcium 7.9 L Total Bilirubin 0.8 AST 26 ALT 29 Alkaline Phosphatase 81 Total Protein 5.1 L Albumin 2.8 L Blood Type O POSITIVE Antibody Screen NEGATIVE 04/09/18 12:43 WBC 8.2 RBC 3.06 L Hgb 9.4 L D Hct 29.1 L MCV 95 D MCH 30.7 MCHC 32.3 RDW 20.9 H Plt Count 218 Seg Neutrophils % 75.6 Lymphocytes % 5.4 L Monocytes % 15.0 H Eosinophils % 2.7 Basophils % 1.3 Absolute Neutrophils 6.2 Absolute Lymphocytes 0.4 L Absolute Monocytes 1.2 Absolute Eosinophils 0.2 Absolute Basophils 0.1 Sodium Potassium Chloride Carbon Dioxide Anion Gap BUN Creatinine Est GFR ( Amer) Est GFR (Non-Af Amer) Glucose Calcium Total Bilirubin AST ALT Alkaline Phosphatase Total Protein Albumin Blood Type Antibody Screen Impressions: Chest X-Ray 04/07/18 11:20 IMPRESSION: No acute findings. Chronic scarring left lung base. Assessment & Plan - Diagnosis (1) End stage renal failure on dialysis Is this a current diagnosis for this admission?: Yes Plan: We did dialysis today for 3 hours, using the patient's AV fistula, with 2 potassium bath, blood flow rate of 200 mL per minute, dialysate flow rate of 800 mL per minute, ultrafiltration 2 L, no heparin and Procrit with 20,000 units during dialysis intravenously. Patient was monitored throughout dialysis treatment and tolerated procedure very well without any complications. (2) Hyperkalemia Is this a current diagnosis for this admission?: Yes Plan: This was resolved with dialysis treatment. (3) Anemia in chronic renal disease Qualifiers: Chronic kidney disease stage: on chronic dialysis Qualified Code(s): N18.6 - End stage renal disease; D63.1 - Anemia in chronic kidney disease; D63.1 - Anemia in chronic kidney disease; Z99.2 - Dependence on renal dialysis; Z99.2 - Dependence on renal dialysis; Z99.2 - Dependence on renal dialysis; Z99.2 - Dependence on renal dialysis Is this a current diagnosis for this admission?: Yes Plan: Is due to chronic kidney disease and AVM. Patient was given 2 units of packed RBC during dialysis treatment as well as Procrit. - Notes Notes: From nephrology standpoint I think the patient can be safely discharged home either tonight or tomorrow. - Time Time with patient: 15-25 minutes
[2018-04-09] MEDS: ATORVASTATIN CALCIUM 80 MG TABLET PO SCH (21:36)
[2018-04-10] MEDS: HEPARIN SOD (PORCINE) 5,000 UNIT/ML 1 ML SYRINGE SUBCUT SCH (05:04)
[2018-04-10 05:24] LABS: ANION GAP 12 (5-19); BLOOD UREA NITROGEN 49 mg/dL (7-20); CALCIUM 8.1 mg/dL (8.4-10.2); CARBON DIOXIDE 30 mmol/L (22-30); CHLORIDE 94 mmol/L (98-107); GLUCOSE 86 mg/dL (75-110); POTASSIUM 4.6 mmol/L (3.6-5.0); SODIUM 135.9 mmol/L (137-145)
[2018-04-10 07:43] VITALS: BP 124/52
[2018-04-10] MEDS: CALCITRIOL 0.25 MCG CAPSULE PO SCH (08:00)
[2018-04-10] MEDS: CETIRIZINE 10 MG TABLET PO SCH (08:00)
[2018-04-10] MEDS: CHOLECALCIFEROL (D3) 1,000 UNIT TABLET PO SCH (08:00)
[2018-04-10] MEDS: FOLIC ACID/VITAMIN B COMP W-C CAPSULE PO SCH (08:00)
[2018-04-10] MEDS: ALBUTEROL SULFATE 0.083% NEB 2.5 MG/3 ML AMPUL NEB PRN (08:34)
[2018-04-10] MEDS: FLUTICASONE/SALMETEROL DISKUS 500-50 MCG/DOSE IH SCH (09:48)
[2018-04-10] MEDS: SERTRALINE HCL 50 MG TABLET PO SCH (09:49)
[2018-04-10] MEDS: FLUTICASONE NASAL SPRAY 50 MCG/SPRY 120 SPRAY/16 GM NASL SCH (09:49)
[2018-04-10] MEDS: ASPIRIN 81 MG TABLET, ENT COATED PO SCH (09:50)
--- NOTE | 2018-04-10 15:43 | PDOC DISCHARGE SUMMARY ---
General - Admit/Disc Date/PCP Admission Date/Primary Care Provider: 04/07/18 20:37 K Luciana MARY PORRAS MD Discharge Date: 04/10/18 - Discharge Diagnosis (1) End stage renal failure on dialysis Is this a current diagnosis for this admission?: Yes Summary: 04/10/2018 patient is a declared ESRD prior to this admission is doing Saturday dialysis sessions as an outpatient. Last dialysis session was yesterday. Patient was evaluated and followed by the allopathic doctor during the hospital stay. (2) Hyperkalemia Is this a current diagnosis for this admission?: Yes Summary: 04/10/2018 82-year-old male with history of ESRD on hemodialysis admitted on with potassium is 8.1. He was asymptomatic. He received lactulose and Kayexalate. Nephrology consult was done. Her initial session of dialysis potassium levels came back to normal. No EKG changes during the hospital stay. Today's potassium is 4.6 today. Last dialysis session was yesterday. He was educated about low potassium diet. (3) Chronic obstructive lung disease Is this a current diagnosis for this admission?: Yes Summary: 04/10/2018 she has a chronic history of COPD he was on home oxygen we resumed his home oxygen 2 L via nasal cannula. And he was also on incentive spirometry during the hospital stay. No complications no complaints during the hospital stay. Patient advised to resume his home medications. (4) Anemia Is this a current diagnosis for this admission?: Yes Summary: 04/10/2018 patient received 2 units of blood transfusion during the today's session of dialysis. Dialysis . Myoglobin was 6.9 prior to transfusion. Patient's latest hemoglobin is 9.4. (5) Renal failure (ARF), acute on chronic Is this a current diagnosis for this admission?: Yes - Additional Information Resuscitation Status: Do Not Resuscitate Discharge Diet: Other (Comments) Discharge Activity: Activity As Tolerated Home Medications: Albuterol Sulfate [Ventolin 0.083% Neb 2.5 mg/3 mL Ampul] 2.5 mg NEB RTQ4HP PRN 04/08/18 Aspirin [Lo-Dose Aspirin EC] 81 mg PO DAILY 04/08/18 B Complex W-C No.20/Folic Acid [Renal Caps Softgel] 1 mg PO QAM 04/08/18 Benzonatate [Tessalon Perle 100 mg Capsule] 100 mg PO BIDP PRN 04/08/18 Calcitriol 0.5 mcg PO QAM 04/08/18 Cetirizine HCl [Zyrtec 10 mg Tablet] 10 mg PO QAM 04/08/18 Cholecalciferol (Vitamin D3) [Vitamin D3 1000 Unit Tablet] 1,000 unit PO QAM Ezetimibe [Zetia 10 mg Tablet] 10 mg PO QPM 04/08/18 Fluticasone/Salmeterol [Advair 500-50 Diskus 14 Dose/Diskus] 1 puff IH BID 04/08 Furosemide [Lasix 40 mg Tablet] 40 mg PO Q12 04/08/18 Guaifenesin [Mucinex] 600 mg PO BIDP PRN 04/08/18 Ipratropium [place] 1 spray NASL Q12HP PRN 04/08/18 Montelukast Sodium [Singulair 10 mg Tablet] 10 mg PO QPM 04/08/18 Rosuvastatin Calcium [Crestor] 40 mg PO QPM 04/08/18 Sertraline HCl [Zoloft 50 mg Tablet] 50 mg PO DAILY 04/08/18 Tiotropium [place] [Spiriva Respimat] 2 puff IH QAM 04/08/18 History of Present Illness History of Present Illness: VERN COLLINS is a 82 year old male with a past medical history of oxygen dependent COPD on hospice, coronary artery disease, hypertension, mitral valve repair, iron deficiency anemia, 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 In the emergency room he is found to have shortness of breath and severe QRS wide-complex with near sign wave EKG rhythm. Potassium is found to be 8.5. He receives emergent dialysis with return of his baseline EKG and left bundle branch block without peak T waves. He is referred to the hospitalist for admission. Patient's CODE STATUS is verified is DNR/DNI Physical Exam Vital Signs: Temp Pulse Resp BP Pulse Ox 97.4 F 73 16 124/52 L 100 04/10/18 09:59 04/10/18 09:59 04/10/18 09:59 04/10/18 09:59 04/10/18 09:59 Intake & Output 04/09/18 04/10/18 04/11/18 06:59 06:59 06:59 Intake Total 250 1192 Output Total 0 1529 Balance 250 -337 Weight 57.8 kg 58.5 kg General appearance: PRESENT: no acute distress Head exam: PRESENT: atraumatic Eye exam: PRESENT: PERRLA Neck exam: ABSENT: carotid bruit, JVD, lymphadenopathy, thyromegaly Respiratory exam: PRESENT: clear to auscultation raymond. ABSENT: rales, rhonchi, wheezes Cardiovascular exam: PRESENT: RRR. ABSENT: diastolic murmur, rubs, systolic murmur GI/Abdominal exam: PRESENT: normal bowel sounds, soft. ABSENT: distended, guarding, mass, organolmegaly, rebound, tenderness Neurological exam: PRESENT: alert, awake, oriented to person, oriented to place , oriented to time, oriented to situation, CN II-XII grossly intact. ABSENT: motor sensory deficit Psychiatric exam: PRESENT: appropriate affect, normal mood. ABSENT: homicidal ideation, suicidal ideation Results Laboratory Results: 04/09/18 12:43 04/10/18 04:21 04/10/18 04:21 Sodium 135.9 L Potassium 4.6 Chloride 94 L Carbon Dioxide 30 Anion Gap 12 BUN 49 H Creatinine 6.10 H Est GFR ( Amer) 11 L Est GFR (Non-Af Amer) 9 L Glucose 86 Calcium 8.1 L Impressions: Chest X-Ray 04/07/18 11:20 IMPRESSION: No acute findings. Chronic scarring left lung base. Qualifiers - * PATIENT BEING DISCHARGED WITH ANY OF THE FOLLOWING DIAGNOSIS: No VTE patient discharged on overlapping Therapy?: Yes
== END 2018-04-10 11:06 | disposition hospice, home (50) | DRG 682 ==
LOC: ER 10:55 → EH 20:37 → 3W 22:33
PROVIDERS: ADMIT Internal Medicine; ATTEND Internal Medicine
PROC: 5A1D70Z Performance of Urinary Filtration, Intermittent, Less than 6 Hours Per Day (ICD-10-PCS; principal; 2018-04-07)
PROC: 30233N1 Transfusion of Nonautologous Red Blood Cells into Peripheral Vein, Percutaneous Approach (ICD-10-PCS; 2018-04-09)
DX: I12.0 Hypertensive chronic kidney disease with stage 5 chronic kidney disease or end stage renal disease (principal); N18.6 End stage renal disease; N17.9 Acute kidney failure, unspecified; E87.5 Hyperkalemia; Z66 Do not resuscitate; J44.9 Chronic obstructive pulmonary disease, unspecified; D63.1 Anemia in chronic kidney disease; K59.00 Constipation, unspecified; I25.10 Atherosclerotic heart disease of native coronary artery without angina pectoris; I48.91 Unspecified atrial fibrillation; Z99.81 Dependence on supplemental oxygen; Z99.2 Dependence on renal dialysis; Z79.82 Long term (current) use of aspirin; Z79.51 Long term (current) use of inhaled steroids; Z79.52 Long term (current) use of systemic steroids; Z79.899 Other long term (current) drug therapy
CPT/HCPCS: 36415; 36430; 71045; 80048; 80053; 82550; 82553; 82607; 82728; 82746; 82962; 83540; 83550; 83735; 83880; 84132; 84484; 85025; 85045; 86850; 86900; 86901; 86920; 93005; 93010; 94640; 94667; 94668; 94799; 96374; 96375; 99291; J0610; J1644; J1815; J3490; J7620; P9016; Q4081

== ENCOUNTER 2018-04-26 14:44 | Outpatient (CLI) | payer MEDICARE, OTHER ==
[2018-04-26] MEDS ORDERED: NORMAL SALINE 250 ML IV PRN (14:55)
[2018-04-26 16:35] LABS: MEAN CORPUSCULAR HEMOGLOBIN 31.7 pg (27.0-33.4); MEAN CORPUSCULAR HGB CONC 31.8 g/dL (32.0-36.0); MEAN CORPUSCULAR VOLUME 100 fl (80-97); PLATELET COUNT 186 10^3/uL (150-450); WHITE BLOOD COUNT 8.1 10^3/uL (4.0-10.5)
[2018-04-26 16:38] LABS: HEMOGLOBIN 7.6 g/dL (13.5-17.0)
[2018-04-26 23:29] VITALS: BP 136/62
== END 2018-04-26 23:54 | disposition home or self-care (01) ==
LOC: 2N 14:44 → II 14:44
PROVIDERS: ATTEND Internal Medicine Nephrology
PROC: 30233N1 Transfusion of Nonautologous Red Blood Cells into Peripheral Vein, Percutaneous Approach (ICD-10-PCS; principal; 2018-04-26)
PROC: 3E033GC Introduction of Other Therapeutic Substance into Peripheral Vein, Percutaneous Approach (ICD-10-PCS; 2018-04-26)
DX: N18.6 End stage renal disease (principal); D63.1 Anemia in chronic kidney disease
CPT/HCPCS: 86900; 86901; 36415; 36430; 86850; 86920; P9016; J1940; 96374

== ENCOUNTER 2018-05-15 17:03 | Emergency (ER) | payer MEDICARE, OTHER ==
[2018-05-15] MEDS ORDERED: TRANEXAMIC ACID INJ/PF 1,000 MG/10 ML SDV IV ONE (18:16)
--- NOTE | 2018-05-15 19:17 | ER Document Report ---
ED General - General Chief Complaint: Nose Bleed Stated Complaint: NOSEBLEED, FLANK PAIN, SOB Time Seen by Provider: 05/15/18 18:15 Notes: Patient is an 83-year-old male with a past medical history of dialysis dependence secondary to chronic kidney disease, hypertension, presents with complaints of scant bleeding from his left nostril that has been ongoing for the past 8-10 hours. The patient states that it is a slow, trickling bleed from the left nostril and it has made him feel like he could not breathe as he normally uses nasal cannula secondary to underlying COPD. Patient denies a history of prior nosebleeds. Contrary to triage assessment he does not take any form of anticoagulation. He has not seen his primary care doctor regarding today's concerns. Nothing is improved or worsen his symptoms since onset. Denies any trauma to the nose. Denies any additional symptoms beyond the slow trickling nosebleed. TRAVEL OUTSIDE OF THE [place] IN LAST 30 DAYS: No - Related Data Allergies/Adverse Reactions: adhesive tape Allergy (Verified 05/15/18 17:05) Blisters amiodarone Adverse Reaction (Verified 05/15/18 17:05) lorazepam Adverse Reaction (Verified 05/15/18 17:05) prednisone Adverse Reaction (Verified 05/15/18 17:05) trazodone Adverse Reaction (Verified 05/15/18 17:05) propofol Adverse Reaction (Unknown, Uncoded 05/15/18 17:05) Past Medical History - General Information source: Patient - Social History Smoking Status: Former Smoker Frequency of alcohol use: None Drug Abuse: None Lives with: Family Family History: Reviewed & Not Pertinent, Hypertension Patient has suicidal ideation: No Patient has homicidal ideation: No - Past Medical History Cardiac Medical History: Reports: Hx Coronary Artery Disease, Hx Hypertension Denies: Hx Atrial Fibrillation, Hx Heart Attack Pulmonary Medical History: Reports: Hx COPD - End stage O2 dependent. Denies: Hx Asthma, Hx Bronchitis, Hx Pneumonia Neurological Medical History: Denies: Hx Cerebrovascular Accident, Hx Seizures Renal/ Medical History: Reports: Hx End Stage Renal Disease. Denies: Hx Peritoneal Dialysis GI Medical History: Denies: Hx Cirrhosis, Hx Ulcer Musculoskeletal Medical History: Reports Hx Arthritis Psychiatric Medical History: Denies: Hx Depression Past Surgical History: Reports: Hx Abdominal Surgery - hernia repair x2, Hx Cardiac Catheterization, Hx Cardiac Surgery - aortic valve replacement, Hx Herniorrhaphy, Hx Open Heart Surgery - mitral valve repair 2009, Hx Tonsillectomy, Other - Mitral valve repair. Denies: Hx Pacemaker - Immunizations Hx Diphtheria, Pertussis, Tetanus Vaccination: No Hx Pneumococcal Vaccination: 03/13/11 Review of Systems - Review of Systems Notes: Constitutional: Negative for fever. HENT: Positive for nosebleed Eyes: Negative for visual changes. Cardiovascular: Negative for chest pain. Respiratory: Negative for shortness of breath. Gastrointestinal: Negative for abdominal pain, vomiting or diarrhea. Genitourinary: Negative for dysuria. Musculoskeletal: Negative for back pain. Skin: Negative for rash. Neurological: Negative for headaches, weakness or numbness. 10 point ROS negative except as marked above and in HPI. Physical Exam - Vital signs Vitals: Resp BP Pulse Ox 20 129/48 H 100 05/15/18 18:01 05/15/18 18:01 05/15/18 18:01 Interpretation: Normal Notes: PHYSICAL EXAMINATION: GENERAL: Elderly man in no acute distress HEAD: Atraumatic, normocephalic. EYES: Pupils equal round and reactive to light, extraocular movements intact, sclera anicteric, conjunctiva are normal. ENT: nares patent, oropharynx clear without exudates. There is a small area of excoriation on the septum on the left nostril with a scant amount of active bleeding NECK: Normal range of motion, supple without lymphadenopathy LUNGS: Breath sounds clear to auscultation bilaterally and equal. No wheezes rales or rhonchi. HEART: Regular rate and rhythm without murmurs ABDOMEN: Soft, nontender, normoactive bowel sounds. No guarding, no rebound. No masses appreciated. EXTREMITIES: Normal range of motion, no pitting or edema. No cyanosis. NEUROLOGICAL: No focal neurological deficits. Moves all extremities spontaneously and on command. PSYCH: Normal mood, normal affect. SKIN: Warm, Dry, normal turgor, no rashes or lesions noted. Course - Re-evaluation Re-evalutation: 05/15/18 19:15 Patient presents with a scant amount of bleeding from his left nostril making it feel like he cannot breathe as he does normally use nasal cannula oxygen at baseline. At the time of my assessment the patient is in no distress, states he is breathing fine as long as he keeps his nasal cannula in his mouth as opposed to his nose. He reports that the bleeding from the left nostril has been a very slow trickle but will not stop. On inspection of the nares, there is a very small abrasion approximately 0.25 cm posteriorly on the left nasal septum with a scant amount of active bleeding. Silver nitrate was applied to the area with termination of bleeding. The patient was monitored for 30 minutes without any recurrence of bleeding. No indication for labs given the very mild amount of bleeding. The patient reported complete relief of his sensation of breathing after the bleeding stopped and he was able to replace the nasal cannula in his nose. At this time will discharge with return precautions and follow-up recommendations. Verbal discharge instructions given a the bedside and opportunity for questions given. Medication warnings reviewed. Patient is in agreement with this plan and has verbalized understanding of return precautions and the need for primary care follow-up in the next 24-72 hours. - Vital Signs Vital signs: Temp Pulse Resp BP Pulse Ox 98.0 F 79 18 136/70 H 100 05/15/18 19:50 05/15/18 19:50 05/15/18 19:50 05/15/18 19:50 05/15/18 19:50 Discharge - Discharge Clinical Impression: Epistaxis, Dependence on supplemental oxygen Condition: Stable Disposition: HOME, SELF-CARE Additional Instructions: You were seen today for a nosebleed. If this restarts please apply direct pressure to the area for 15 minutes without releasing pressure. You need to apply vasaline or a similar product along the inside of the side of the nose that is bleeding twice daily to help heal the inside of your nose. Please return to emergency department if these measures do not control the bleeding. Please also return if you pass out, have significant pain of the nose or face, or any other symptoms that are concerning to you. Your primary care doctor regarding today's visit. Referrals: ALESIA HERRERA MD [ACTIVE STAFF] - Follow up as needed
[2018-05-15 19:36] VITALS: BP 136/70
== END 2018-05-15 19:50 | disposition home or self-care (01) ==
LOC: ER 17:03
DX: R04.0 Epistaxis (principal); Z99.81 Dependence on supplemental oxygen; I12.0 Hypertensive chronic kidney disease with stage 5 chronic kidney disease or end stage renal disease; N18.6 End stage renal disease; Z99.2 Dependence on renal dialysis; Z95.2 Presence of prosthetic heart valve
CPT/HCPCS: 99283

== ENCOUNTER 2018-05-16 11:56 | Emergency (ER) | payer MEDICARE, OTHER ==
[2018-05-16 12:59] LABS: ABSOLUTE BASOPHILS # (AUTO) 0.1 10^3/uL (0.0-0.2); ABSOLUTE EOSINOPHILS # (AUTO) 0.2 10^3/uL (0.0-0.6); ABSOLUTE LYMPHOCYTES (AUTO) 0.6 10^3/uL (0.5-4.7); ABSOLUTE MONOCYTES (AUTO) 0.7 10^3/uL (0.1-1.4); ABSOLUTE NEUT (AUTO) 3.1 10^3/uL (1.7-8.2); BASOPHILS % (AUTO) 1.3 % (0-2); HEMATOCRIT 17.3 % (37.9-51.0); LYMPHOCYTES % (AUTO) 13.1 % (13-45); MEAN CORPUSCULAR HEMOGLOBIN 32.8 pg (27.0-33.4); MEAN CORPUSCULAR HGB CONC 32.2 g/dL (32.0-36.0); MEAN CORPUSCULAR VOLUME 102 fl (80-97); MONOCYTES % (AUTO) 14.6 % (3-13); PLATELET COUNT 151 10^3/uL (150-450); RED BLOOD COUNT 1.69 10^6/uL (4.35-5.55); RED CELL DISTRIBUTION WIDTH 19.7 % (11.5-14.0); TOTAL CELLS COUNTED % (AUTO) 100 %; WHITE BLOOD COUNT 4.6 10^3/uL (4.0-10.5)
[2018-05-16 13:01] LABS: HEMOGLOBIN 5.5 g/dL (13.5-17.0)
[2018-05-16 13:06] LABS: INTERNATIONAL RATION (INR) 1.11; PROTHROMBIN TIME 14.9 SEC (11.4-15.4)
[2018-05-16] MEDS ORDERED: NORMAL SALINE 250 ML IV PRN (13:10)
[2018-05-16 13:22] LABS: ALANINE AMINOTRANSFERASE 37 U/L (21-72); ALBUMIN 2.6 g/dL (3.5-5.0); ALKALINE PHOSPHATASE 75 U/L (38-126); ANION GAP 12 (5-19); ASPARTATE AMINO TRANSFERASE 44 U/L (17-59); BILIRUBIN,DIRECT 1.4 mg/dL (0.0-0.4); BILIRUBIN,TOTAL 1.4 mg/dL (0.2-1.3); BLOOD UREA NITROGEN 44 mg/dL (7-20); CARBON DIOXIDE 26 mmol/L (22-30); CHLORIDE 97 mmol/L (98-107); CREATINE KINASE 40 U/L (55-170); GLUCOSE 132 mg/dL (75-110); POTASSIUM 4.2 mmol/L (3.6-5.0); SODIUM 134.8 mmol/L (137-145); TOTAL PROTEIN 4.7 g/dL (6.3-8.2)
--- NOTE | 2018-05-16 13:31 | RADIOLOGY REPORT (SQ) ---
EXAM DESCRIPTION: CHEST SINGLE VIEW COMPLETED DATE/TIME: 05/16/2018 1:19 pm REASON FOR STUDY: difficulty breathing COMPARISON: CT chest 10/05/2017 Chest films 02/22/2018, 02/28/2018, 04/07/2018 EXAM PARAMETERS: NUMBER OF VIEWS: One view. TECHNIQUE: Single frontal radiographic view of the chest acquired. RADIATION DOSE: NA LIMITATIONS: None. FINDINGS: LUNGS AND PLEURA: Chronic elevation right hemidiaphragm, unchanged. There is bibasilar airspace disease atelectasis versus pneumonia unchanged from 04/07/2018. No pleural effusions. No pneumothorax. Skin folds are projected over the left lung apex. MEDIASTINUM AND HILAR STRUCTURES: No masses. Contour normal. HEART AND VASCULAR STRUCTURES: No cardiomegaly. BONES: No acute findings. HARDWARE: Old sternotomy OTHER: No other significant finding. IMPRESSION: Bibasilar airspace disease atelectasis versus pneumonia TECHNICAL DOCUMENTATION: JOB ID: [id number] [employer]- All Rights Reserved Reading location - IP/workstation name: [email or web address]
[2018-05-16 13:34] LABS: CREATINE KINASE MB 2.81 ng/mL (<4.55)
[2018-05-16 13:36] LABS: TROPONIN I 0.087 ng/mL
[2018-05-16] MEDS ORDERED: TRANEXAMIC ACID INJ/PF 1,000 MG/10 ML SDV IV ONE (14:20)
[2018-05-16] MEDS ORDERED: CEFTRIAXONE INJ 1000 MG VIAL IV ONE (16:13)
[2018-05-16] MEDS ORDERED: DILTIAZEM HCL/D5W 125 MG/125 ML RTUINJ IV PRN (16:16)
--- NOTE | 2018-05-16 19:37 | ER Document Report ---
ED General - General TRAVEL OUTSIDE OF THE [place] IN LAST 30 DAYS: No <ROBBIN DAVENPORT - Last Filed: 05/16/18 20:28> <INESSA HELM - Last Filed: 05/17/18 01:49> - General Chief Complaint: Breathing Difficulty Stated Complaint: TROUBLE BREATHING Time Seen by Provider: 05/16/18 12:54 Notes: Patient is here for a nosebleed. He was here last night for the same and it was cauterized and the bleeding ceased and he was discharged home in continued to have no bleeding until about 1015 this morning it started bleeding again. His bleeding of the left side of his nose. Patient has a history of atrial fibrillation but is not on any blood thinning medications. Patient is a dialysis patient on Saturday, Saturday, and Saturday dialysis. He missed his morning Z dialysis today. He is also had a lot of chest congestion and phlegm production when he coughs for a few days. He was prescribed amoxicillin Saturday for his chest sounding "full". Patient has home oxygen that he uses all the time. Has had blood transfusions in the past, recently as often as every 2 weeks. His most recent hemoglobin was 8.5 on April 28. (ROBBIN DAVENPORT) - Related Data Allergies/Adverse Reactions: adhesive tape Allergy (Verified 05/15/18 17:05) Blisters amiodarone Adverse Reaction (Verified 05/15/18 17:05) lorazepam Adverse Reaction (Verified 05/15/18 17:05) prednisone Adverse Reaction (Verified 05/15/18 17:05) trazodone Adverse Reaction (Verified 05/15/18 17:05) propofol Adverse Reaction (Unknown, Uncoded 05/15/18 17:05) Past Medical History - Social History Smoking Status: Former Smoker Chew tobacco use (# tins/day): No Frequency of alcohol use: None Drug Abuse: None Family History: Reviewed & Not Pertinent, Hypertension Patient has suicidal ideation: No Patient has homicidal ideation: No - Past Medical History Cardiac Medical History: Reports: Hx Coronary Artery Disease, Hx Hypertension Pulmonary Medical History: Reports: Hx COPD - End stage O2 dependent. Renal/ Medical History: Reports: Hx End Stage Renal Disease - Dialysis, Hx Hemodialysis Musculoskeletal Medical History: Reports Hx Arthritis Past Surgical History: Reports: Hx Abdominal Surgery - hernia repair x2, Hx Cardiac Catheterization, Hx Cardiac Surgery - aortic valve replacement, Hx Herniorrhaphy, Hx Open Heart Surgery - mitral valve repair 2009, Hx Tonsillectomy, Other - Mitral valve repair - Immunizations Hx Diphtheria, Pertussis, Tetanus Vaccination: No Hx Pneumococcal Vaccination: 03/13/11 <ROBBIN DAVENPORT - Last Filed: 05/16/18 20:28> Review of Systems <ROBBIN DAVENPORT - Last Filed: 05/16/18 20:28> - Review of Systems Notes: REVIEW OF SYSTEMS: CONSTITUTIONAL : Denies fever. EENT: Denies eye, ear, nose or mouth or throat pain or other symptoms. Nosebleed, see HPI CARDIOVASCULAR: Denies chest pain. History of paroxysmal atrial fibrillation. RESPIRATORY: Has been very congested and coughing and is currently on amoxicillin. On chronic oxygen all the time at home. GASTROINTESTINAL: Denies abdominal pain or nausea, vomiting, or diarrhea. GENITOURINARY: Denies difficulty or painful urinating, urinary frequency, blood in urine. MUSCULOSKELETAL: Denies back or neck pain. Denies joint pain or swelling. SKIN: Denies rash or skin lesions. NEUROLOGICAL: Denies LOC or altered mental status. Denies headache. Denies sensory loss or motor deficits. ALL OTHER SYSTEMS REVIEWED AND NEGATIVE. (ROBBIN DAVENPORT) Physical Exam - Vital signs Interpretation: Normal. No: Hypoxic - While on oxygen. <ROBBIN DAVENPORT - Last Filed: 05/16/18 20:28> - Vital signs Vitals: Temp Pulse Resp BP Pulse Ox 97.2 F 80 28 H 111/48 L 80 L 05/16/18 11:57 05/16/18 11:57 05/16/18 11:57 05/16/18 11:57 05/16/18 11:57 Notes: PHYSICAL EXAMINATION: GENERAL: Well-appearing, in no acute distress. HEAD: Atraumatic, normocephalic. Bloody gauze pad in left nostril. Some old blood in the back of the throat. EYES: Pupils equal round and reactive to light, extraocular movements intact. ENT: oropharynx clear without exudates. Moist mucous membranes. NECK: Normal range of motion, supple. LUNGS: Patient has some fine scattered wheezes throughout both lungs feels. No impaired breathing, however. Very productive sounding cough. HEART: Irregularly irregular and rhythm without murmurs. Heart rate 80 at bedside by me. ABDOMEN: Soft, nontender. No guarding or rebound. No masses. BACK: No tenderness throughout entire back. EXTREMITIES: Normal range of motion without pain. NEUROLOGICAL: Normal speech, gait not tested. Normal sensory, motor, and reflex exams. Awake, alert, and oriented x3. PSYCH: Normal mood, normal affect. SKIN: Warm, dry, no rashes. (ROBBIN DAVENPORT) Course - Laboratory Result Diagrams: 05/16/18 12:42 05/16/18 12:04 - EKG Interpretation by Me Rate: Normal - At 76. Rhythm: A.Fib <ROBBIN DAVENPORT - Last Filed: 05/16/18 20:28> - Laboratory Result Diagrams: 05/16/18 12:42 05/16/18 12:04 <INESSA HELM - Last Filed: 05/17/18 01:49> - Re-evaluation Re-evalutation: 05/16/18 19:45 During patient's evaluation and care, it was discovered that he had missed his dialysis this morning. He is on Saturday dialysis. Eventually I was able to speak with Dr. Edwards and Dr. Pawan Rios, both of whom told me that there was no dialysis available at this hospital today or over the weekend. I was able to cauterize the patient's nose and achieve hemostasis. However during that time, it was noted that the patient began to have rapid ventricular rate between 130 and 145, with atrial fibrillation. His daughter says he has had this intermittently for some time. Patient was started on diltiazem drip at 2.5 mg/min and the patient's ventricular rate dropped to about 82. Blood pressure was maintained about 120. Patient's labs returned showing he has a hemoglobin of 5.5 so patient was typed and crossmatched for a couple of units of packed cells and they were administered. Patient's chest x-ray showed bibasilar infiltrates or atelectasis. He was started on Rocephin 1 g IV. Knowing that I was going to need to transfer the patient because of his need for dialysis, I called several of the local hospitals. [facility] is closed to transfers except for STEMI's and strokes, for the entire weekend. I contacted a [facility] and they had the same situation and the beds available over the weekend. I then contacted [facility] and presented the case to them and they were gracious enough to accept the patient. I also had contacted [facility] and presented the case to them and they also called back to accept the patient. The family preferred not to travel all the way to [facility] and will rather have the patient take care of it [place] so that plan at this time. 05/16/18 20:13 Patient is a DNR, DO NOT RESUSCITATE patient. He has in his possession here the yellow/orange DNR order. (ROBBIN DAVENPORT) 05/17/18 01:49 Patient is stable and appropriate for transport (INESSA HELM) - Vital Signs Vital signs: Temp Pulse Resp BP Pulse Ox 97.9 F 79 16 125/55 L 96 05/17/18 00:00 05/16/18 18:05 05/17/18 00:01 05/17/18 00:00 05/17/18 00:00 - Laboratory Laboratory results interpreted by me: 05/16/18 05/16/18 05/16/18 12:04 12:12 12:42 RBC 1.69 L Hgb 5.5 L Hct 17.3 L MCV 102 H RDW 19.7 H Monocytes % 14.6 H Sodium 134.8 L Chloride 97 L BUN 44 H Creatinine 4.19 H Est GFR ( Amer) 17 L Est GFR (Non-Af Amer) 14 L Glucose 132 H Calcium 8.0 L Total Bilirubin 1.4 H Direct Bilirubin 1.4 H Creatine Kinase 40 L Total Protein 4.7 L Albumin 2.6 L Crossmatch See Detail - Diagnostic Test Radiology results interpreted by me: 05/16/18 19:44 Chest x-ray shows bibasilar atelectasis or pneumonia. (ROBBIN DAVENPORT) Critical Care Note - Critical Care Note Total time excluding time spent on procedures (mins): 70 <ROBBIN DAVENPORT - Last Filed: 05/16/18 20:28> Discharge <ROBBIN DAVENPORT - Last Filed: 05/16/18 20:28> <INESSA HELM - Last Filed: 05/17/18 01:49> - Discharge Clinical Impression: Epistaxis, Atrial fibrillation with rapid ventricular response, Chronic obstructive lung disease, Pneumonia, Anemia, Chronic renal failure Condition: Serious Disposition: [facility] Referrals: Dean RIOS MD [Primary Care Provider] - Follow up as needed
[2018-05-16] MEDS ORDERED: DILTIAZEM HCL 30 MG TABLET PO ONE (19:54)
--- NOTE | 2018-05-16 22:52 | EKG REPORT ---
SEVERITY:- ABNORMAL ECG - UNKNOWN RHYTHM, IRREGULAR RATE 59-90 NONSPECIFIC IVCD WITH LAD PROBABLE INFERIOR INFARCT, AGE INDETERMINATE : Confirmed by: Marily Mcgrath MD 16-May-2018 22:51:28
[2018-05-17 00:16] VITALS: BP 125/55
== END 2018-05-17 02:17 | disposition short-term general hospital (02) ==
LOC: ER 11:56
DX: J18.9 Pneumonia, unspecified organism (principal); J44.0 Chronic obstructive pulmonary disease with (acute) lower respiratory infection; R04.0 Epistaxis; I12.0 Hypertensive chronic kidney disease with stage 5 chronic kidney disease or end stage renal disease; N18.6 End stage renal disease; D63.1 Anemia in chronic kidney disease; Z99.2 Dependence on renal dialysis; Z91.15 Patient's noncompliance with renal dialysis; I48.91 Unspecified atrial fibrillation; R09.89 Other specified symptoms and signs involving the circulatory and respiratory systems; R05 Cough; Z87.891 Personal history of nicotine dependence; I25.10 Atherosclerotic heart disease of native coronary artery without angina pectoris; Z95.2 Presence of prosthetic heart valve; Z99.81 Dependence on supplemental oxygen; Z98.890 Other specified postprocedural states; Z91.048 Other nonmedicinal substance allergy status; Z66 Do not resuscitate
CPT/HCPCS: 93005; 99291; 96361; 96365; 96366; 96368; 86900; 86901; 36415; 87040; 82553; 36430; 86850; 82550; 85025; 85610; 80053; 84484; 86920; 71045; 93010; 30901; P9016; A9270; J0696; J7050; J3490 ×2

== ENCOUNTER 2018-05-23 08:59 | Emergency (ER) | payer MEDICARE, OTHER ==
[2018-05-23 09:12] VITALS: BP 106/79
--- NOTE | 2018-05-23 10:14 | ER Document Report ---
ED ENT - General Chief Complaint: Nose Bleed Stated Complaint: NOSE BLEED Time Seen by Provider: 05/23/18 09:50 TRAVEL OUTSIDE OF THE [place] IN LAST 30 DAYS: No - HPI Notes: Patient is a 83-year-old male that presents to the emergency department for chief complaint of epistaxis. Patient reports he has had issues recently with epistaxis. He was seen here on May 15 and for left nares bleeding. Patient states that on the he was transferred to another facility and required a blood transfusion. He is on dialysis and has a history of anemia and requiring blood transfusions. Today he states that he is feeling well other than the bleeding from his right nares. He denies any lightheadedness chest pain and shortness of breath. Patient states his right nares began bleeding last night but stopped on its own while in the waiting room. Patient's family member had put a tampon in which stopped the bleeding. Patient does wear nasal cannula oxygen for COPD. Past Medical History: COPD, kidney failure Past Surgical History: Reviewed in chart Social History: Reviewed in chart Family History: Reviewed and noncontributory for presenting illness Allergies: Reviewed, see documented allergy list. REVIEW OF SYSTEMS: CONSTITUTIONAL : No fever No chills No diaphoresis No recent illness EENT: Epistaxis No vision changes No congestion No sore throat CARDIOVASCULAR: No chest pain No palpitations RESPIRATORY: No shortness of breath No cough No difficulty breathing GASTROINTESTINAL: No abdominal pain No nausea No vomiting No diarrhea GENITOURINARY: No dysuria No hematuria No difficulty urinating MUSCULOSKELETAL: No back pain No leg pain No arm pain SKIN: No rashes No lesions LYMPHATIC: No swollen, enlarged glands. NEUROLOGICAL: No lightheadedness No headache No weakness No paresthesias PSYCHIATRIC: No anxiety No depression PHYSICAL EXAMINATION: Vital signs reviewed, nursing noted reviewed. GENERAL: Well-appearing, well-nourished and in no acute distress. HEAD: Atraumatic, normocephalic. EYES: Eyes appear normal, extraocular movements intact, sclera anicteric, conjunctiva are mildly pale ENT: Dry blood around right nares, no active epistaxis, nares patent, oropharynx clear without exudates. Moist mucous membranes. NECK: Normal range of motion, supple without lymphadenopathy LUNGS: Breath sounds diminished and mild wheezing to auscultation bilaterally and equal. No accessory muscle use or tachypnea HEART: Regular rate and rhythm without murmurs ABDOMEN: Soft, nontender, normoactive bowel sounds. No rebound, guarding, or rigidity. No masses appreciated. EXTREMITIES: Nontender, good range of motion, no pitting or edema. NEUROLOGICAL: No focal neurological deficits. Moves all extremities spontaneous ly Motor and sensory grossly intact on exam. PSYCH: Normal mood, normal affect. SKIN: Warm, Dry, normal turgor, mildly pale. - Related Data Allergies/Adverse Reactions: adhesive tape Allergy (Verified 05/15/18 17:05) Blisters amiodarone Adverse Reaction (Verified 05/15/18 17:05) lorazepam Adverse Reaction (Verified 05/15/18 17:05) prednisone Adverse Reaction (Verified 05/15/18 17:05) trazodone Adverse Reaction (Verified 05/15/18 17:05) propofol Adverse Reaction (Unknown, Uncoded 05/15/18 17:05) Past Medical History - Social History Smoking Status: Former Smoker Family History: Reviewed & Not Pertinent, Hypertension - Past Medical History Cardiac Medical History: Reports: Hx Coronary Artery Disease, Hx Hypertension Denies: Hx Atrial Fibrillation, Hx Heart Attack Pulmonary Medical History: Reports: Hx COPD - End stage O2 dependent. Denies: Hx Asthma, Hx Bronchitis, Hx Pneumonia Neurological Medical History: Denies: Hx Cerebrovascular Accident, Hx Seizures Renal/ Medical History: Reports: Hx End Stage Renal Disease - Dialysis, Hx Hemodialysis. Denies: Hx Peritoneal Dialysis GI Medical History: Denies: Hx Cirrhosis, Hx Ulcer Musculoskeletal Medical History: Reports Hx Arthritis Psychiatric Medical History: Denies: Hx Depression Past Surgical History: Reports: Hx Abdominal Surgery - hernia repair x2, Hx Cardiac Catheterization, Hx Cardiac Surgery - aortic valve replacement, Hx Herniorrhaphy, Hx Open Heart Surgery - mitral valve repair 2009, Hx Tonsillectomy, Other - Mitral valve repair. Denies: Hx Pacemaker - Immunizations Hx Diphtheria, Pertussis, Tetanus Vaccination: No Hx Pneumococcal Vaccination: 03/13/11 Physical Exam - Vital signs Vitals: Temp Pulse Resp BP 97.4 F 81 16 106/79 05/23/18 09:10 05/23/18 09:10 05/23/18 09:10 05/23/18 09:10 Course - Re-evaluation Re-evalutation: 05/23/18 10:13 Vitals reviewed. Nursing notes reviewed. Patient is hemodynamically stable and his epistaxis is currently stopped. Patient chart review shows his hemoglobin was 5.5 on May 16 which is why he required blood transfusion. Patient and family expressed adamantly that they do not wish to have any further blood transfusion. His family member is power of tax associate attorney at bedside. Patient was kicked off of his hospice the last time he was admitted to the hospital because he was requiring that transfusion. Hospice has told him if he continues to require blood transfusion and wants to get them that he will no longer qualified. Patient adamantly wants to be on hospice. He understands that without checking blood work today there is no way to know if he is anemic or requiring another blood transfusion. He understands that without knowing this he may and is okay with this plan of care. I did offer blood work which patient and his family member are declining. Patient has dialysis today and they state that they will have routine blood work drawn there. Patient has not had any further bleeding during our conversation. His vitals are stable. He will be discharged to dialysis. I did tell them they could return at any point in time if they change their mind and we could do blood work and potentially transfusion if necessary. Patient in agreement with this plan, family in agreement with this plan. Stable at discharge. - Vital Signs Vital signs: Temp Pulse Resp BP Pulse Ox 97.4 F 81 16 106/79 05/23/18 09:10 05/23/18 09:10 05/23/18 09:10 05/23/18 09:10 Discharge - Discharge Clinical Impression: Epistaxis Condition: Stable Disposition: HOME, SELF-CARE Instructions: Nosebleed Instructions ([facility]) Referrals: SHEA ERVIN MD [COMMUNITY BASED STAFF] - Follow up as needed
== END 2018-05-23 10:14 | disposition home or self-care (01) ==
LOC: ER 08:59
DX: R04.0 Epistaxis (principal); I12.0 Hypertensive chronic kidney disease with stage 5 chronic kidney disease or end stage renal disease; N18.6 End stage renal disease; Z99.2 Dependence on renal dialysis; I25.10 Atherosclerotic heart disease of native coronary artery without angina pectoris; J44.9 Chronic obstructive pulmonary disease, unspecified; Z99.81 Dependence on supplemental oxygen; Z91.048 Other nonmedicinal substance allergy status; Z87.891 Personal history of nicotine dependence
CPT/HCPCS: 99283

== ENCOUNTER 2018-06-10 15:52 | Emergency (ER) | payer MEDICARE, OTHER ==
--- NOTE | 2018-06-10 17:19 | ER Document Report ---
ED Medical Screen (RME) - General Chief Complaint: Wound Infection Stated Complaint: PAIN/SWELLING, LEFT TOES, FINGERS Time Seen by Provider: 06/10/18 16:10 Primary Care Provider: Dean PORRAS MD [Primary Care Provider] - Follow up as needed TRAVEL OUTSIDE OF THE [place] IN LAST 30 DAYS: No - HPI Patient complains to provider of: Left foot/toe redness and pain, right hand fin gertip discoloration and cool Notes: 06/10/18 17:17 Patient is an 83-year-old male who is a dialysis patient with multiple other medical problems, presenting to the emergency room today complaining of 2-week history of swelling with redness and pain to his left second and third toes, has been taking antibiotics that were prescribed by his primary care provider with worsening of symptoms, he also notes purplish discoloration to the fingertips on his right hand Patient has good dopplerable DP pulses in the left foot, however the second and third digits are swollen, erythematous and cool to touch RAPID MEDICAL EVALUATION DISCLOSURE I have seen this patient as part of a Rapid Medical Evaluation and, if applicable, placed any initially appropriate orders. The patient will be seen and fully evaluated, including a full history and physical exam, by a provider (in Main ED or Fast Track) when a room becomes available. - Related Data Allergies/Adverse Reactions: adhesive tape Allergy (Verified 05/15/18 17:05) Blisters amiodarone Adverse Reaction (Verified 05/15/18 17:05) lorazepam Adverse Reaction (Verified 05/15/18 17:05) prednisone Adverse Reaction (Verified 05/15/18 17:05) trazodone Adverse Reaction (Verified 05/15/18 17:05) propofol Adverse Reaction (Unknown, Uncoded 05/15/18 17:05) Past Medical History - Past Medical History Cardiac Medical History: Reports: Hx Coronary Artery Disease, Hx Hypertension Denies: Hx Atrial Fibrillation, Hx Heart Attack Pulmonary Medical History: Reports: Hx COPD - End stage O2 dependent. Denies: Hx Asthma, Hx Bronchitis, Hx Pneumonia Neurological Medical History: Denies: Hx Cerebrovascular Accident, Hx Seizures Renal/ Medical History: Reports: Hx End Stage Renal Disease - Dialysis, Hx Hemodialysis. Denies: Hx Peritoneal Dialysis GI Medical History: Denies: Hx Cirrhosis, Hx Ulcer Musculoskeltal Medical History: Reports Hx Arthritis Psychiatric Medical History: Denies: Hx Depression Past Surgical History: Reports: Hx Abdominal Surgery - hernia repair x2, Hx Cardiac Catheterization, Hx Cardiac Surgery - aortic valve replacement, Hx Herniorrhaphy, Hx Open Heart Surgery - mitral valve repair 2009, Hx Tonsillectomy, Other - Mitral valve repair. Denies: Hx Pacemaker - Immunizations Hx Diphtheria, Pertussis, Tetanus Vaccination: No History of Influenza Vaccine for 02/2017 - 07/2017 Season: No Physical Exam - Vital signs Vitals: Temp Pulse Resp BP Pulse Ox 97.8 F 88 18 112/57 L 92 06/10/18 16:05 06/10/18 16:05 06/10/18 16:05 06/10/18 16:05 06/10/18 16:05 Course - Vital Signs Vital signs: Temp Pulse Resp BP Pulse Ox 97.8 F 88 18 112/57 L 92 06/10/18 16:05 06/10/18 16:05 06/10/18 16:05 06/10/18 16:05 06/10/18 16:05 Doctor's Discharge - Discharge Referrals: Dean PORRAS MD [Primary Care Provider] - Follow up as needed
--- NOTE | 2018-06-10 19:19 | ER Document Report ---
ED General - General Chief Complaint: Wound Infection Stated Complaint: PAIN/SWELLING, LEFT TOES, FINGERS Time Seen by Provider: 06/10/18 16:10 Primary Care Provider: Dean PORRAS MD [Primary Care Provider] - Follow up as needed Mode of Arrival: Wheelchair Information source: Patient, Relative TRAVEL OUTSIDE OF THE [place] 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 He was started on clindamycin for this and then also started some Keflex for this because it was worsening slightly. Since then nothing is made it better or worse it seemed to worsen a little bit prompting he and his daughter to come today for recheck. - Related Data Allergies/Adverse Reactions: adhesive tape Allergy (Verified 05/15/18 17:05) Blisters amiodarone Adverse Reaction (Verified 05/15/18 17:05) levofloxacin [From Levaquin] Adverse Reaction (Verified 06/10/18 17:23) lorazepam Adverse Reaction (Verified 05/15/18 17:05) prednisone Adverse Reaction (Verified 05/15/18 17:05) trazodone Adverse Reaction (Verified 05/15/18 17:05) propofol Adverse Reaction (Unknown, Uncoded 05/15/18 17:05) Past Medical History - General Information source: Patient, Relative - Social History Smoking Status: Former Smoker Chew tobacco use (# tins/day): No Frequency of alcohol use: None Family History: Reviewed & Not Pertinent, Hypertension Patient has suicidal ideation: No Patient has homicidal ideation: No - Past Medical History Cardiac Medical History: Reports: Hx Coronary Artery Disease, Hx Hypertension Denies: Hx Atrial Fibrillation, Hx Heart Attack Pulmonary Medical History: Reports: Hx COPD - End stage O2 dependent. Denies: Hx Asthma, Hx Bronchitis, Hx Pneumonia Neurological Medical History: Denies: Hx Cerebrovascular Accident, Hx Seizures Renal/ Medical History: Reports: Hx End Stage Renal Disease - Dialysis, Hx Hemodialysis. Denies: Hx Peritoneal Dialysis GI Medical History: Denies: Hx Cirrhosis, Hx Ulcer Musculoskeletal Medical History: Reports Hx Arthritis Psychiatric Medical History: Denies: Hx Depression Past Surgical History: Reports: Hx Abdominal Surgery - hernia repair x2, Hx Cardiac Catheterization, Hx Cardiac Surgery - aortic valve replacement, Hx Herniorrhaphy, Hx Open Heart Surgery - mitral valve repair 2010, Hx Tonsillectomy, Other - Mitral valve repair. Denies: Hx Pacemaker - Immunizations Hx Diphtheria, Pertussis, Tetanus Vaccination: No Hx Pneumococcal Vaccination: 03/13/11 Review of Systems - Review of Systems -: Yes All other systems reviewed and negative Physical Exam - Vital signs Vitals: Temp Pulse Resp BP Pulse Ox 97.8 F 88 18 112/57 L 92 06/10/18 16:05 06/10/18 16:05 06/10/18 16:05 06/10/18 16:05 06/10/18 16:05 - General General appearance: Appears well In distress: None - HEENT Head: Normocephalic Eyes: Normal Conjunctiva: Normal Cornea: Normal Extraocular movements intact: Yes Eyelashes: Normal Pupils: PERRL - Respiratory Respiratory status: No respiratory distress Chest status: Nontender Breath sounds: Normal Chest palpation: Normal - Cardiovascular Rhythm: Regular Heart sounds: Normal auscultation - Abdominal Inspection: Normal Distension: No distension Tenderness: Nontender - Back Back: Normal, Nontender - Extremities General upper extremity: Normal inspection, Nontender, Normal color, Normal ROM, Normal temperature General lower extremity: No: Sindy's sign Foot: Other - left foot demonstrates erythema and swelling i nthe 2nd and 3rd digits with an intact DP pulse, the foot is otherwise normal in appearance - Neurological Neuro grossly intact: Yes Cognition: Normal Orientation: AAOx4 [place] Coma Scale Eye Opening: Spontaneous Jeremias Coma Scale Verbal: Oriented [place] Coma Scale Motor: Obeys Commands [place] Coma Scale Total: 15 Speech: Normal Motor strength normal: LUE, RUE, LLE, RLE Sensory: Normal - Psychological Associated symptoms: Normal affect, Normal mood Course - Re-evaluation Re-evalutation: 83-year-old man on hospice that presents for evaluation of swelling and pain in the toes. On the left foot there is redness and swelling in the second and third digit. Through triage she had labs drawn as well as an x-ray ordered. The foot demonstrates what appears to be a combination of cellulitic changes and possible developing deeper infection. I believe that likely this patient does have cellulitis of the toes because of his poor circulation is having difficulty in treating this. Labs are relatively unremarkable, chemistry is at baseline as this patient is in end-stage renal disease patient. Spoke to this patient about treatment options including surgical evaluation for possible amputation, inpatient admission for reassessment and monitoring or adjustment of outpatient medications as I do believe he might respond to an alternate antibiotic regimen. We will plan to treat the cellulitis with doxycycline in addition to his previous medications. He is to be evaluated tomorrow and return in case of worsening. He is currently continuing hospice care but continues to seek frequent medical care for other medical problems as such I believe it would be appropriate for this gentleman to make long-term treatment decisions related to his desires whether or not he would like aggressive interventions or to pursue more conservative comfort management. - Vital Signs Vital signs: Temp Pulse Resp BP Pulse Ox 97.9 F 88 19 140/45 H 100 06/11/18 01:04 06/10/18 16:05 06/11/18 01:04 06/11/18 01:04 06/11/18 01:04 - Laboratory Result Diagrams: 06/10/18 19:19 06/10/18 20:50 Laboratory results interpreted by me: 06/10/18 06/10/18 06/10/18 19:19 19:19 20:50 RBC 2.43 L Hgb 8.2 L Hct 25.2 L MCV 103 H MCH 33.6 H RDW 21.0 H Eosinophils % 12.1 H APTT 37.1 H Sodium 130.9 L Chloride 93 L BUN 22 H Creatinine 3.98 H Est GFR ( Amer) 18 L Est GFR (Non-Af Amer) 15 L Calcium 8.2 L Direct Bilirubin 0.8 H AST 82 H Total Protein 4.9 L Albumin 2.7 L Discharge - Discharge Clinical Impression: Infection of skin of toes, Pain of finger of right hand Condition: Good Disposition: HOME, SELF-CARE Additional Instructions: You were seen today in the emergency department for the swelling and pain in your toes. I think that the swelling and pain in your toes is related to an infection in the skin around the toes. I would like to try to save these toes if we are able to. If we cannot save these toes it is possible surgeon may recommend that they be amputated. To try to maximize the treatment for your possible poor circulation I think you should use the antibiotics prescribed to you by me today to try and make sure that we are treating the infection as aggressively as we can. Otherwise follow-up as you would normally with your primary physician. Prescriptions: Aspirin [Aspirin 325 mg Tablet] 325 mg PO DAILY PRN #1 pkg PRN Reason: Cephalexin Monohydrate [Keflex 500 mg Capsule] 500 mg PO Q6H 5 Days capsule Doxycycline Hyclate 100 mg PO BID #14 capsule Referrals: Dean PORRAS MD [Primary Care Provider] - Follow up as needed
[2018-06-10 19:33] LABS: ABSOLUTE EOSINOPHILS # (AUTO) 0.5 10^3/uL (0.0-0.6); ABSOLUTE LYMPHOCYTES (AUTO) 0.5 10^3/uL (0.5-4.7); ABSOLUTE MONOCYTES (AUTO) 0.4 10^3/uL (0.1-1.4); ABSOLUTE NEUT (AUTO) 2.5 10^3/uL (1.7-8.2); EOSINOPHILS % (AUTO) 12.1 % (0-6); HEMATOCRIT 25.2 % (37.9-51.0); HEMOGLOBIN 8.2 g/dL (13.5-17.0); LYMPHOCYTES % (AUTO) 13.4 % (13-45); MEAN CORPUSCULAR HEMOGLOBIN 33.6 pg (27.0-33.4); MEAN CORPUSCULAR HGB CONC 32.5 g/dL (32.0-36.0); MEAN CORPUSCULAR VOLUME 103 fl (80-97); MONOCYTES % (AUTO) 10.9 % (3-13); PLATELET COUNT 184 10^3/uL (150-450); RED BLOOD COUNT 2.43 10^6/uL (4.35-5.55); SEGMENTED NEUTROPHILS % (AUTO) 62.6 % (42-78); TOTAL CELLS COUNTED % (AUTO) 100 %
[2018-06-10 19:39] LABS: INTERNATIONAL RATION (INR) 0.99; PROTHROMBIN TIME 13.6 SEC (11.4-15.4)
[2018-06-10 19:40] LABS: PARTIAL THROMBOPLASTIN TIME 37.1 SEC (23.5-35.8)
--- NOTE | 2018-06-10 19:49 | RADIOLOGY REPORT (SQ) ---
EXAM DESCRIPTION: FOOT LEFT COMPLETE COMPLETED DATE/TIME: 06/10/2018 7:41 pm REASON FOR STUDY: redness/swelling COMPARISON: None. NUMBER OF VIEWS: Three views. TECHNIQUE: AP, lateral and oblique radiographic images acquired of the left foot. LIMITATIONS: None. FINDINGS: MINERALIZATION: Osteopenia. BONES: No acute fracture or dislocation. No worrisome bone lesions. JOINTS: No effusions. SOFT TISSUES: No soft tissue swelling. No foreign body. OTHER: No other significant finding. IMPRESSION: Osteopenia. No acute osseous abnormality. TECHNICAL DOCUMENTATION: JOB ID: [id number] [employer]- All Rights Reserved Reading location - IP/workstation name: [email or web address]
[2018-06-10 21:44] LABS: ALANINE AMINOTRANSFERASE 44 U/L (21-72); ALBUMIN 2.7 g/dL (3.5-5.0); ALKALINE PHOSPHATASE 79 U/L (38-126); ANION GAP 10 (5-19); ASPARTATE AMINO TRANSFERASE 82 U/L (17-59); BILIRUBIN,DIRECT 0.8 mg/dL (0.0-0.4); BILIRUBIN,TOTAL 0.8 mg/dL (0.2-1.3); BLOOD UREA NITROGEN 22 mg/dL (7-20); CALCIUM 8.2 mg/dL (8.4-10.2); CARBON DIOXIDE 28 mmol/L (22-30); CHLORIDE 93 mmol/L (98-107); GLUCOSE 100 mg/dL (75-110); POTASSIUM 4.5 mmol/L (3.6-5.0); SODIUM 130.9 mmol/L (137-145); TOTAL PROTEIN 4.9 g/dL (6.3-8.2)
[2018-06-11] MEDS ORDERED: CEPHALEXIN 250 MG CAPSULE PO ONE (00:58)
[2018-06-11] MEDS ORDERED: DOXYCYCLINE HYCLATE 100 MG TABLET PO SCH ×2 (01:00→10:00)
[2018-06-11] MEDS ORDERED: DOXYCYCLINE HYCLATE 100 MG TABLET PO ONE (01:00)
[2018-06-11 01:25] VITALS: BP 140/45
--- NOTE | 2018-06-11 13:05 | XCELERA REPORT ---
[address] [address] Upper Extremity Arterial Evaluation Name: VERN COLLINS Age: 83 yrs Gender: Male : 1935 Patient Status: Emergency Patient Location: ER Study Date: 06/10/2018 06:14 PM Procedure: A duplex scan of the upper extremity arteries was performed on the right. Reason For Study: right fingers cold/purple Ordering Physician: RAJ OCAMPO Performed By: Zoraida Mix Measurements and Calculations Right Left Prox SCLA PSV 99.8 cm/sec Mid SCLA PSV 69.1 cm/sec Ax A PSV 80.5 cm/sec Dist Brach A PSV 127.8 cm/sec Mid Rad A PSV 85.2 cm/sec Mid Ulnar A PSV 38.7 cm/sec Ax A PSV 80.5 cm/sec Dist Brach A PSV 127.8 cm/sec Mid Rad A PSV 85.2 cm/sec Mid SCLA PSV 69.1 cm/sec Mid Ulnar A PSV 38.7 cm/sec Right Side Arterial Evaluation Normal velocity and triphasic waveforms noted from the Common Carotid artery to the forearm vessels . Interpretation Summary No hemodynamically significant lesions in the right upper extremity only, on duplex imaging, at rest. : RAJ OCAMPO [place] >
--- NOTE | 2018-06-11 13:09 | XCELERA REPORT ---
[address] [address] Lower Extremity Arterial Evaluation Name: VERN COLLINS Age: 83 yrs Gender: Male : 1935 Patient Status: Emergency Patient Location: ER Study Date: 06/10/2018 05:48 PM Procedure: A color flow and duplex scan of the lower extremity arteries was performed on the left with velocity and waveform anaylsis. Reason For Study: left foot pain/cool to touch Ordering Physician: RAJ OCAMPO Performed By: Zoraida Mix Measurements and Calculations Right Left JUNIOR ARCHITECT PSV -111.8 cm/sec Prox PFA PSV -37.0 cm/sec Prox SFA PSV 61.5 cm/sec Mid SFA PSV 76.6 cm/sec Dist SFA PSV -98.7 cm/sec Prox Pop A PSV 47.5 cm/sec Mid GRETCHEN PSV -89.2 cm/sec Mid SOFTWARE CLERK PSV 55.0 cm/sec Luis Miguel Pedis PSV -49.7 cm/sec Left Side Arterial Evaluation Arterial wall calcification noted, quite extensively. Normal velocity and triphasic waveforms noted from the Common Femoral artery to the Femoral . . Biphasic with normal velocity, moderate spectral broadening, from Popliteal to infrageniculate vessels. Ankle Brachial index not obtained. Interpretation Summary Moderate hemodynamically significant lesions in the left lower extremity only, on duplex imaging, at rest. Calcification with most vascular effect evident at the Popliteal. : RAJ OCAMPO > Wilmar Cancino
--- NOTE | 2018-06-12 07:37 | EKG REPORT ---
SEVERITY:- ABNORMAL ECG - SINUS OR ECTOPIC ATRIAL RHYTHM FIRST DEGREE AV BLOCK NONSPECIFIC INTRAVENTRICULAR CONDUCTION DELAY LOW VOLTAGE IN FRONTAL LEADS PROBABLE LEFT VENTRICULAR HYPERTROPHY : Confirmed by: [place] MD 12-Jun-2018 07:36:47
== END 2018-06-11 02:10 | disposition home or self-care (01) ==
LOC: ER 15:52
DX: L08.9 Local infection of the skin and subcutaneous tissue, unspecified (principal); M79.672 Pain in left foot; M79.89 Other specified soft tissue disorders; M79.675 Pain in left toe(s); M79.644 Pain in right finger(s); J43.9 Emphysema, unspecified; Z87.891 Personal history of nicotine dependence; I25.10 Atherosclerotic heart disease of native coronary artery without angina pectoris; Z99.81 Dependence on supplemental oxygen; I12.0 Hypertensive chronic kidney disease with stage 5 chronic kidney disease or end stage renal disease; N18.6 End stage renal disease; Z99.2 Dependence on renal dialysis
CPT/HCPCS: 93005; 99284; 36415; 87040; 85025; 85610; 85730; 80053; 93931 ×2; 93926 ×2; 73630; 93010; A9270 ×2; 85027

== ENCOUNTER 2018-06-11 19:47 | Emergency (ER) | payer MEDICARE, OTHER ==
--- NOTE | 2018-06-11 20:38 | ER Document Report ---
ED Medical Screen (RME) - General Chief Complaint: Abnormal Lab Results Stated Complaint: HEMOGLOBIN ISSUE Time Seen by Provider: 06/11/18 20:31 Primary Care Provider: Dean PORRAS MD [Primary Care Provider] - Follow up as needed Mode of Arrival: Wheelchair Notes: 83-year-old male sent to the emergency department by his banquet captain for a low hemoglobin. Patient was just seen in the emergency department yesterday for lower extremity issues. His hemoglobin was noted to be 8.2. Today he had blood work done at dialysis and his hemoglobin was 6.1. Occupational Therapist Aide is unsure if the value is accurate and wanted it to be repeated. Patient denies any melena, hematochezia, hematuria, hematemesis. Patient has had to have blood transfusions in the past for low hemoglobin. Patient did have a full dialysis treatment today. I have greeted and performed a rapid initial assessment of this patient. A comprehensive ED assessment and evaluation of the patient, analysis of test results and completion of the medical decision making process will be conducted by additional ED providers. PHYSICAL EXAMINATION: GENERAL: No acute distress. HEAD: Atraumatic, normocephalic. EYES: Pupils equal round extraocular movements intact, conjunctiva are normal. ENT: Nares patent NECK: Normal range of motion LUNGS: No respiratory distress Musculoskeletal: Normal range of motion NEUROLOGICAL: Normal speech, normal gait. PSYCH: Normal mood, normal affect. SKIN: Warm, Dry, normal turgor, no rashes or lesions noted. TRAVEL OUTSIDE OF THE [place] IN LAST 30 DAYS: No - Related Data Allergies/Adverse Reactions: adhesive tape Allergy (Verified 06/11/18 20:19) Blisters amiodarone Adverse Reaction (Verified 06/11/18 20:19) levofloxacin [From Levaquin] Adverse Reaction (Verified 06/11/18 20:19) lorazepam Adverse Reaction (Verified 06/11/18 20:19) prednisone Adverse Reaction (Verified 06/11/18 20:19) trazodone Adverse Reaction (Verified 06/11/18 20:19) propofol Adverse Reaction (Unknown, Uncoded 06/11/18 20:19) Past Medical History - Past Medical History Cardiac Medical History: Reports: Hx Coronary Artery Disease, Hx Hypertension Denies: Hx Atrial Fibrillation, Hx Heart Attack Pulmonary Medical History: Reports: Hx COPD - End stage O2 dependent. Denies: Hx Asthma, Hx Bronchitis, Hx Pneumonia Neurological Medical History: Denies: Hx Cerebrovascular Accident, Hx Seizures Renal/ Medical History: Reports: Hx End Stage Renal Disease - Dialysis, Hx Hemodialysis. Denies: Hx Peritoneal Dialysis GI Medical History: Denies: Hx Cirrhosis, Hx Ulcer Musculoskeltal Medical History: Reports Hx Arthritis Psychiatric Medical History: Denies: Hx Depression Past Surgical History: Reports: Hx Abdominal Surgery - hernia repair x2, Hx Cardiac Catheterization, Hx Cardiac Surgery - aortic valve replacement, Hx Herniorrhaphy, Hx Open Heart Surgery - mitral valve repair 2009, Hx Tonsillectomy, Other - Mitral valve repair. Denies: Hx Pacemaker - Immunizations Hx Diphtheria, Pertussis, Tetanus Vaccination: No History of Influenza Vaccine for 02/2017 - 07/2017 Season: No Physical Exam - Vital signs Vitals: Temp Pulse Resp BP Pulse Ox 98.8 F 80 26 H 97/34 L 94 06/11/18 20:16 06/11/18 20:16 06/11/18 20:16 06/11/18 20:16 06/11/18 20:16 Course - Vital Signs Vital signs: Temp Pulse Resp BP Pulse Ox 98.8 F 80 26 H 97/34 L 94 06/11/18 20:16 06/11/18 20:16 06/11/18 20:16 06/11/18 20:16 06/11/18 20:16 Doctor's Discharge - Discharge Referrals: Dean PORRAS MD [Primary Care Provider] - Follow up as needed
--- NOTE | 2018-06-11 22:13 | ER Document Report ---
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 Location: Global Onset: Gradual Provocation: None Quality: Weakness Radiation: None Severity: Mild Timing: Constant REVIEW OF SYSTEMS: CONSTITUTIONAL : Denies fever or chills, no sweats. Denies recent illness. EENT: Denies eye, ear, throat, or mouth pain or symptoms. Denies nasal or sinus congestion. CARDIOVASCULAR: Denies chest pain. RESPIRATORY: Denies cough, cold, or chest congestion. Denies shortness of breath, difficulty breathing, or wheezing. GASTROINTESTINAL: Denies abdominal pain. Denies nausea, vomiting, or diarrhea. Denies constipation. GENITOURINARY: Denies difficulty urinating, painful urination, burning, frequency, or blood in urine. MUSCULOSKELETAL: Denies neck or back pain or joint pain or swelling. SKIN: Denies rash or skin lesions. HEMATOLOGIC : Denies easy bruising or bleeding. LYMPHATIC: Denies swollen, enlarged glands. NEUROLOGICAL: Denies altered mental status or loss of consciousness. Denies headache. Denies weakness or paralysis or loss of use of either side. Denies problems with gait or speech. Denies sensory or motor loss. PSYCHIATRIC: Denies anxiety or stress or depression. All other systems reviewed and negative. PHYSICAL EXAMINATION: GENERAL: Tired-appearing, well-nourished and in no acute distress. HEAD: Atraumatic, normocephalic. No scalp deformity, depression, or crepitance. EYES: Pupils are 3 mm and equal/round/reactive to light, extraocular movements intact, sclera anicteric, conjunctiva are normal. ENT: Nares patent bilaterally, oropharynx clear without exudates or palatal petechia. Moist mucous membranes. No tonsil hypertrophy. NECK: Normal range of motion, supple without lymphadenopathy. LUNGS: Breath sounds present, equal, and clear to auscultation bilaterally. No wheezes, rales, or rhonchi. HEART: Regular rate and rhythm without murmurs, rubs, or gallops. 2+ peripheral pulses. Normal capillary refill. ABDOMEN: Soft, nontender, nondistended. Normoactive bowel sounds. No guarding, no rebound. No masses appreciated. BACK: Normal contour, no midline tenderness. Rectal exam deferred. GENITAL: Deferred. EXTREMITIES: The third and fourth toes on the left foot are erythematous and slightly swollen with thin/clear discharge, no purulence, no bleeding, erythema extends onto the dorsum of the left foot. Normal range of motion, no pitting or edema. No cyanosis. NEUROLOGICAL: No focal neurological deficits. Moves all extremities spontaneously and on command. PSYCH: Normal mood, normal affect. No suicidal thoughts/ideations. No homocidal thoughts/ideations. No hallucinations. SKIN: Warm, dry, normal turgor, no rashes or lesions noted. ASSESSMENT AND PLAN: This patient is a 83-year-old male who presents with "feeling tired" in the setting of likely acute on chronic anemia, likely etiology is from his chronic renal failure as the patient denies hematemesis/hematochezia/melena. 1. Will obtain labs, cardiac enzymes, type and screen, EKG, and reassess. 2. Will give empiric IV vancomycin for likely cellulitis to his left foot. 3. After speaking with his daughter who is his power of mail agent, especially given the patient is on hospice, patient will be managed in the emergency department with anticipated discharge if possible. TRAVEL OUTSIDE OF THE [place] IN LAST 30 DAYS: No - Related Data Allergies/Adverse Reactions: adhesive tape Allergy (Verified 06/11/18 20:19) Blisters amiodarone Adverse Reaction (Verified 06/11/18 20:19) levofloxacin [From Levaquin] Adverse Reaction (Verified 06/11/18 20:19) lorazepam Adverse Reaction (Verified 06/11/18 20:19) prednisone Adverse Reaction (Verified 06/11/18 20:19) trazodone Adverse Reaction (Verified 06/11/18 20:19) propofol Adverse Reaction (Unknown, Uncoded 06/11/18 20:19) Past Medical History - General Information source: Patient, Relative - Social History Smoking Status: Former Smoker Chew tobacco use (# tins/day): No Frequency of alcohol use: None Drug Abuse: None Lives with: Family Family History: Reviewed & Not Pertinent, Hypertension Patient has suicidal ideation: No Patient has homicidal ideation: No - Past Medical History Cardiac Medical History: Reports: Hx Congestive Heart Failure, Hx Coronary Artery Disease, Hx Hypertension Denies: Hx Atrial Fibrillation, Hx Heart Attack Pulmonary Medical History: Reports: Hx COPD - End stage O2 dependent. Denies: Hx Asthma, Hx Bronchitis, Hx Pneumonia EENT Medical History: Reports: None Neurological Medical History: Reports: None. Denies: Hx Cerebrovascular Accident, Hx Seizures Endocrine Medical History: Reports: None Renal/ Medical History: Reports: Hx End Stage Renal Disease - Dialysis, Hx Hemodialysis. Denies: Hx Peritoneal Dialysis Malignancy Medical History: Reports None GI Medical History: Reports: None. Denies: Hx Cirrhosis, Hx Ulcer Musculoskeletal Medical History: Reports Hx Arthritis Skin Medical History: Reports None Psychiatric Medical History: Reports: None Denies: Hx Depression Traumatic Medical History: Reports: None Infectious Medical History: Reports: None Past Surgical History: Reports: Hx Abdominal Surgery - hernia repair x2, Hx Cardiac Catheterization, Hx Cardiac Surgery - aortic valve replacement, Hx Herniorrhaphy, Hx Open Heart Surgery - mitral valve repair 2010, Hx Tonsillectomy, Other - Mitral valve repair. Denies: Hx Pacemaker - Immunizations Hx Diphtheria, Pertussis, Tetanus Vaccination: No Hx Pneumococcal Vaccination: 03/13/11 Physical Exam - Vital signs Vitals: Temp Pulse Resp BP Pulse Ox 98.8 F 80 26 H 97/34 L 94 06/11/18 20:16 06/11/18 20:16 06/11/18 20:16 06/11/18 20:16 06/11/18 20:16 Course - Re-evaluation Re-evalutation: 06/12/18 05:57 Patient did have a hemoglobin of 6.6 on initial blood work. Patient also had a mildly elevated troponin without EKG changes. After consultation with the daughter who is his healthcare power of mail agent, we have all agreed that since the patient is nontoxic-appearing it is safe to only transfuse 2 units of packed red blood cells while treating the cellulitis to his left foot and then discharge him home. Plan will be to obtain a repeat CBC to ensure his blood counts have improved at which time he will be discharged home. - Vital Signs Vital signs: Temp Pulse Resp BP Pulse Ox 97.9 F 37 L 21 H 128/80 H 77 L 06/12/18 06:30 06/12/18 05:30 06/12/18 06:31 06/12/18 06:30 06/12/18 05:30 - Laboratory Result Diagrams: 06/11/18 22:25 06/11/18 22:40 Laboratory results interpreted by me: 06/11/18 06/11/18 06/11/18 22:25 22:40 22:40 RBC 1.95 L Hgb 6.6 L Hct 20.1 L MCV 103 H MCH 33.7 H RDW 20.2 H Plt Count 126 L Lymphocytes % 10.2 L Monocytes % 15.3 H Eosinophils % 15.9 H Absolute Eosinophils 0.7 H APTT 41.1 H Sodium 132.1 L Chloride 94 L Carbon Dioxide 32 H Creatinine 2.69 H Est GFR ( Amer) 28 L Est GFR (Non-Af Amer) 23 L Glucose 72 L Calcium 7.7 L Direct Bilirubin 0.6 H AST 139 H Total Protein 4.4 L Albumin 2.4 L Crossmatch 06/11/18 22:40 RBC Hgb Hct MCV MCH RDW Plt Count Lymphocytes % Monocytes % Eosinophils % Absolute Eosinophils APTT Sodium Chloride Carbon Dioxide Creatinine Est GFR ( Amer) Est GFR (Non-Af Amer) Glucose Calcium Direct Bilirubin AST Total Protein Albumin Crossmatch See Detail - Transfer of Care Care transferred to following provider: Dr. Vanegas Notes: 06/12/18 06:48 Plan is to give the patient a second unit of packed red blood cells and then get a repeat CBC. As long as his blood counts improved, he may be safely dispositioned home. Discharge - Discharge Clinical Impression: Acute on chronic anemia, Cellulitis of left foot Condition: Stable Disposition: HOME, SELF-CARE Instructions: Anemia ([facility]), Cellulitis ([facility]) Additional Instructions: You have been evaluated in the Emergency Department for worsening anemia. Please follow-up with your [primary physician] as instructed to have repeat labs. Return to the Emergency Department if you experience chest pain, shortness of breath, worsening weakness, or any other concerning symptoms. Prescriptions: Cephalexin Monohydrate [Keflex 500 mg Capsule] 500 mg PO Q6H 5 Days #40 capsule Referrals: Dean PORRAS MD [Primary Care Provider] - Follow up as needed Print Language: Israeli
[2018-06-11 23:06] LABS: ABSOLUTE BASOPHILS # (AUTO) 0.1 10^3/uL (0.0-0.2); ABSOLUTE EOSINOPHILS # (AUTO) 0.7 10^3/uL (0.0-0.6); ABSOLUTE LYMPHOCYTES (AUTO) 0.5 10^3/uL (0.5-4.7); ABSOLUTE MONOCYTES (AUTO) 0.7 10^3/uL (0.1-1.4); ABSOLUTE NEUT (AUTO) 2.7 10^3/uL (1.7-8.2); BASOPHILS % (AUTO) 1.2 % (0-2); EOSINOPHILS % (AUTO) 15.9 % (0-6); HEMATOCRIT 20.1 % (37.9-51.0); LYMPHOCYTES % (AUTO) 10.2 % (13-45); MEAN CORPUSCULAR HEMOGLOBIN 33.7 pg (27.0-33.4); MEAN CORPUSCULAR HGB CONC 32.9 g/dL (32.0-36.0); MEAN CORPUSCULAR VOLUME 103 fl (80-97); MONOCYTES % (AUTO) 15.3 % (3-13); PLATELET COUNT 126 10^3/uL (150-450); RED BLOOD COUNT 1.95 10^6/uL (4.35-5.55); RED CELL DISTRIBUTION WIDTH 20.2 % (11.5-14.0); SEGMENTED NEUTROPHILS % (AUTO) 57.4 % (42-78); TOTAL CELLS COUNTED % (AUTO) 100 %; WHITE BLOOD COUNT 4.7 10^3/uL (4.0-10.5)
[2018-06-11 23:09] LABS: HEMOGLOBIN 6.6 g/dL (13.5-17.0)
[2018-06-11 23:13] LABS: ALANINE AMINOTRANSFERASE 72 U/L (21-72); ALBUMIN 2.4 g/dL (3.5-5.0); ALKALINE PHOSPHATASE 83 U/L (38-126); ANION GAP 6 (5-19); ASPARTATE AMINO TRANSFERASE 139 U/L (17-59); BILIRUBIN,DIRECT 0.6 mg/dL (0.0-0.4); BILIRUBIN,TOTAL 0.6 mg/dL (0.2-1.3); BLOOD UREA NITROGEN 13 mg/dL (7-20); CALCIUM 7.7 mg/dL (8.4-10.2); CARBON DIOXIDE 32 mmol/L (22-30); CHLORIDE 94 mmol/L (98-107); GLUCOSE 72 mg/dL (75-110); POTASSIUM 3.9 mmol/L (3.6-5.0); SODIUM 132.1 mmol/L (137-145); TOTAL PROTEIN 4.4 g/dL (6.3-8.2)
[2018-06-11] MEDS ORDERED: VANCOMYCIN HCL INJ 1000 MG VIAL IV ONE (23:31)
[2018-06-11] MEDS ORDERED: NORMAL SALINE 250 ML IV PRN (23:32)
[2018-06-11 23:42] LABS: INTERNATIONAL RATION (INR) 1.04; PROTHROMBIN TIME 14.1 SEC (11.4-15.4)
[2018-06-11 23:43] LABS: PARTIAL THROMBOPLASTIN TIME 41.1 SEC (23.5-35.8)
[2018-06-12 11:14] LABS: HEMATOCRIT 33.1 % (37.9-51.0); MEAN CORPUSCULAR HEMOGLOBIN 32.3 pg (27.0-33.4); MEAN CORPUSCULAR HGB CONC 33.5 g/dL (32.0-36.0); PLATELET COUNT 121 10^3/uL (150-450); RED BLOOD COUNT 3.43 10^6/uL (4.35-5.55); RED CELL DISTRIBUTION WIDTH 20.7 % (11.5-14.0); WHITE BLOOD COUNT 4.9 10^3/uL (4.0-10.5)
[2018-06-12 11:17] LABS: HEMOGLOBIN 11.1 g/dL (13.5-17.0)
[2018-06-12 11:18] LABS: MEAN CORPUSCULAR VOLUME 97 fl (80-97)
[2018-06-12 11:46] LABS: ABSOLUTE LYMPHOCYTES# (MANUAL) 0.6 10^3/uL (0.5-4.7); ABSOLUTE MONOCYTES # (MANUAL) 0.8 10^3/uL (0.1-1.4); ABSOLUTE NEUTROPHILS# (MANUAL) 2.7 10^3/uL (1.7-8.2); ANISOCYTOSIS 2+; BASOPHILS % (MANUAL) 3 % (0-2); BURR CELLS 1+; EOSINOPHILS % (MANUAL) 14 % (0-6); LYMPHOCYTES % (MANUAL) 12 % (13-45); MONOCYTES % (MANUAL) 16 % (3-13); OVALOCYTES SLIGHT; PLATELET COMMENT ADEQUATE; POIKILOCYTOSIS 1+; POLYCHROMASIA SLIGHT; SEGMENTED NEUTROPHILS % (MAN) 55 % (42-78); TOTAL CELLS COUNTED 100; TOXIC GRANULATION SLIGHT
[2018-06-12 11:52] VITALS: BP 152/71
== END 2018-06-12 11:53 | disposition home or self-care (01) ==
LOC: ER 19:47
DX: I12.0 Hypertensive chronic kidney disease with stage 5 chronic kidney disease or end stage renal disease (principal); N18.6 End stage renal disease; D63.1 Anemia in chronic kidney disease; Z99.2 Dependence on renal dialysis; J44.9 Chronic obstructive pulmonary disease, unspecified; L03.116 Cellulitis of left lower limb; I25.10 Atherosclerotic heart disease of native coronary artery without angina pectoris; R53.83 Other fatigue; R74.8 Abnormal levels of other serum enzymes; Z91.048 Other nonmedicinal substance allergy status; Z87.891 Personal history of nicotine dependence; Z95.2 Presence of prosthetic heart valve
CPT/HCPCS: 99283; 96365; 96366; 86900; 86901; 36415; 36430; 86850; 85025; 85610; 85730; 80053; 84484; 86920; P9016; J7050; J3370

== ENCOUNTER 2018-06-15 12:55 | Inpatient (IN) | payer MEDICARE, OTHER ==
[2018-06-15] MEDS ORDERED: CEFTRIAXONE 1 GM/D5W RTU 1 GM/50 ML RTUPB IV ONE (13:38)
--- NOTE | 2018-06-15 13:42 | ER Document Report ---
ED Medical Screen (RME) - General Chief Complaint: Skin Problem Stated Complaint: RIGHT SIDE PAIN Time Seen by Provider: 06/15/18 13:27 Primary Care Provider: Dean PORRAS MD [Primary Care Provider] - Follow up as needed TRAVEL OUTSIDE OF THE [place] IN LAST 30 DAYS: No - HPI Notes: 06/15/18 13:40 Patient has been on multiple antibiotics for cellulitis family members bring the patient in because the infection is getting worse patient was on hospice for COPD however now is now in hospice anymore. Patient is on dialysis and has not missed any dialysis sessions. Long discussion with family members as far as what they would like any treatment plan offered outpatient treatment with change of antibiotics follow-up with the sales development director for antibiotics to be given during dialysis and IV antibiotics initially here to the hospital. Family members are requesting admission and IV antibiotics at this time. - Related Data Allergies/Adverse Reactions: adhesive tape Allergy (Verified 06/15/18 12:57) Blisters amiodarone Adverse Reaction (Verified 06/15/18 12:57) levofloxacin [From Levaquin] Adverse Reaction (Verified 06/15/18 12:57) lorazepam Adverse Reaction (Verified 06/15/18 12:57) prednisone Adverse Reaction (Verified 06/15/18 12:57) trazodone Adverse Reaction (Verified 06/15/18 12:57) propofol Adverse Reaction (Unknown, Uncoded 06/15/18 12:57) Past Medical History - Past Medical History Cardiac Medical History: Reports: Hx Congestive Heart Failure, Hx Coronary Artery Disease, Hx Hypertension Denies: Hx Atrial Fibrillation, Hx Heart Attack Pulmonary Medical History: Reports: Hx COPD - End stage O2 dependent. Denies: Hx Asthma, Hx Bronchitis, Hx Pneumonia Neurological Medical History: Denies: Hx Cerebrovascular Accident, Hx Seizures Renal/ Medical History: Reports: Hx End Stage Renal Disease - Dialysis, Hx Hemodialysis. Denies: Hx Peritoneal Dialysis GI Medical History: Denies: Hx Cirrhosis, Hx Ulcer Musculoskeltal Medical History: Reports Hx Arthritis Psychiatric Medical History: Denies: Hx Depression Past Surgical History: Reports: Hx Abdominal Surgery - hernia repair x2, Hx Cardiac Catheterization, Hx Cardiac Surgery - aortic valve replacement, Hx Herniorrhaphy, Hx Open Heart Surgery - mitral valve repair 2009, Hx Tonsillectomy, Other - Mitral valve repair. Denies: Hx Pacemaker - Immunizations Hx Diphtheria, Pertussis, Tetanus Vaccination: No History of Influenza Vaccine for 02/2017 - 07/2017 Season: No Physical Exam - Vital signs Vitals: Temp Pulse Resp BP Pulse Ox 98.1 F 74 18 142/56 H 97 06/15/18 13:07 06/15/18 13:07 06/15/18 13:07 06/15/18 13:07 06/15/18 13:07 - Respiratory Respiratory status: No respiratory distress Chest status: Nontender Breath sounds: Normal Chest palpation: Normal Course - Vital Signs Vital signs: Temp Pulse Resp BP Pulse Ox 98.1 F 74 18 142/56 H 97 06/15/18 13:07 06/15/18 13:07 06/15/18 13:07 06/15/18 13:07 06/15/18 13:07 Doctor's Discharge - Discharge Referrals: Dean PORRAS MD [Primary Care Provider] - Follow up as needed
[2018-06-15 15:18] LABS: ABSOLUTE EOSINOPHILS # (AUTO) 0.8 10^3/uL (0.0-0.6); ABSOLUTE LYMPHOCYTES (AUTO) 0.6 10^3/uL (0.5-4.7); ABSOLUTE MONOCYTES (AUTO) 0.8 10^3/uL (0.1-1.4); ABSOLUTE NEUT (AUTO) 4.3 10^3/uL (1.7-8.2); BASOPHILS % (AUTO) 0.5 % (0-2); EOSINOPHILS % (AUTO) 11.9 % (0-6); HEMATOCRIT 30.5 % (37.9-51.0); HEMOGLOBIN 10.2 g/dL (13.5-17.0); LYMPHOCYTES % (AUTO) 9.5 % (13-45); MEAN CORPUSCULAR HEMOGLOBIN 33.1 pg (27.0-33.4); MEAN CORPUSCULAR HGB CONC 33.3 g/dL (32.0-36.0); MEAN CORPUSCULAR VOLUME 99 fl (80-97); MONOCYTES % (AUTO) 12.1 % (3-13); PLATELET COUNT 141 10^3/uL (150-450); RED BLOOD COUNT 3.08 10^6/uL (4.35-5.55); RED CELL DISTRIBUTION WIDTH 21.2 % (11.5-14.0); TOTAL CELLS COUNTED % (AUTO) 100 %; WHITE BLOOD COUNT 6.6 10^3/uL (4.0-10.5)
[2018-06-15 15:28] LABS: INTERNATIONAL RATION (INR) 1.09; PROTHROMBIN TIME 14.7 SEC (11.4-15.4)
[2018-06-15 15:29] LABS: PARTIAL THROMBOPLASTIN TIME 40.9 SEC (23.5-35.8)
[2018-06-15 15:39] LABS: ANION GAP 13 (5-19); BLOOD UREA NITROGEN 25 mg/dL (7-20); CALCIUM 8.4 mg/dL (8.4-10.2); CARBON DIOXIDE 24 mmol/L (22-30); CHLORIDE 95 mmol/L (98-107); GLUCOSE 96 mg/dL (75-110); POTASSIUM 4.5 mmol/L (3.6-5.0); SODIUM 131.5 mmol/L (137-145)
--- NOTE | 2018-06-15 18:02 | ER Document Report ---
Entered by ARTURO LLANOS SCRIBE 06/15/18 1455 Acting as scribe for:THU MALONE MD ED General - General Chief Complaint: Skin Problem Stated Complaint: RIGHT SIDE PAIN Time Seen by Provider: 06/15/18 13:27 Primary Care Provider: Dean RIOS MD [ACTIVE STAFF] - Follow up as needed Mode of Arrival: Wheelchair Information source: Patient, Parent Notes: Patient is an 83 year old male on dialysis with CHF, CAD, hypertension, ESRD (MWF dialysis) COPD, afib, chronic anemia, recently on hospice presents to the emergency department accompanied by daughter complaining of worsening cellulitis of the left toes. Daughter states the patient was recently diagnosed with cellulitis and was prescribed Clindamycin and Keflex. Patient presented to the emergency department on 06/10/2018 complaining of worsening redness and pain to the affected area and was discharged home with Doxycycline. Patient returns today complaining of worsening pain and redness to the affected areas further stating "it is getting worse". Patient states the infection is now spreading to his right foot and bilateral fingers. Daughter states the patient was recently "kicked out" of hospice so the patient could receive more aggressive treatment. Daughter request admission for IV antibiotics and dialysis. During patient's visit to the ED on 06/10/2018 his hemoglobin was 8.2. On 06/11/2018, patient returned to the ED due to a low hemoglobin and was found to have a hemoglobin of 6.6 and was transfused to 11.1. On 06/13/2018 patient had a hemoglobin of 8.3. TRAVEL OUTSIDE OF THE [place] IN LAST 30 DAYS: No - Related Data Allergies/Adverse Reactions: adhesive tape Allergy (Verified 06/15/18 12:57) Blisters amiodarone Adverse Reaction (Verified 06/15/18 12:57) levofloxacin [From Levaquin] Adverse Reaction (Verified 06/15/18 12:57) lorazepam Adverse Reaction (Verified 06/15/18 12:57) prednisone Adverse Reaction (Verified 06/15/18 12:57) trazodone Adverse Reaction (Verified 06/15/18 12:57) propofol Adverse Reaction (Unknown, Uncoded 06/15/18 12:57) Past Medical History - General Information source: Patient - Social History Smoking Status: Never Smoker Family History: Reviewed & Not Pertinent, Hypertension Patient has suicidal ideation: No Patient has homicidal ideation: No - Past Medical History Cardiac Medical History: Reports: Hx Congestive Heart Failure, Hx Coronary Artery Disease, Hx Hypertension Pulmonary Medical History: Reports: Hx COPD - End stage O2 dependent. Renal/ Medical History: Reports: Hx End Stage Renal Disease - Dialysis, Hx Hemodialysis Musculoskeletal Medical History: Reports Hx Arthritis Psychiatric Medical History: Denies: Hx Depression Past Surgical History: Reports: Hx Abdominal Surgery - hernia repair x2, Hx Cardiac Catheterization, Hx Cardiac Surgery - aortic valve replacement, Hx Herniorrhaphy, Hx Open Heart Surgery - mitral valve repair 2010, Hx Tonsillectomy, Other - Mitral valve repair. Denies: Hx Pacemaker - Immunizations Hx Diphtheria, Pertussis, Tetanus Vaccination: No Hx Pneumococcal Vaccination: 03/13/11 Review of Systems - Review of Systems Constitutional: No symptoms reported EENT: No symptoms reported Cardiovascular: No symptoms reported Respiratory: No symptoms reported Gastrointestinal: No symptoms reported Genitourinary: No symptoms reported Male Genitourinary: No symptoms reported Musculoskeletal: See HPI Skin: See HPI Hematologic/Lymphatic: No symptoms reported Neurological/Psychological: No symptoms reported -: Yes All other systems reviewed and negative Physical Exam - Vital signs Vitals: Temp Pulse Resp BP Pulse Ox 98.1 F 74 18 142/56 H 97 06/15/18 13:07 06/15/18 13:07 06/15/18 13:07 06/15/18 13:07 06/15/18 13:07 - Notes Notes: GENERAL: Alert, interacts well. No acute distress. HEAD: Normocephalic, atraumatic. EYES: Pupils equal, round, and reactive to light. Extraocular movements intact. Pale conjunctiva . ENT: Oral mucosa moist, tongue midline. NECK: Full range of motion. Supple. Trachea midline. LUNGS: Rhonchi. No respiratory distress. HEART: Regular rate and rhythm. No murmurs, gallops, or rubs. ABDOMEN: Soft, non-tender. Non-distended. Bowel sounds present in all 4 quadrants. EXTREMITIES: Moves all 4 extremities spontaneously. Left 2nd and 3rd toes are erythematous, blackened and tender to palpation. There is fungal like drainage coming from 2nd and 3rd toes, appears ischemic. Right 2nd-5th fingers tender to palpation, appears ischemic. The 3rd finger is most dusky and tender palpation, also edematous. Poor capillary refill of bilateral fingers. Unable to palpate radial pulses. Left hand does not yet appear ischemic. NEUROLOGICAL: Alert and oriented x3. Normal speech.. PSYCH: Normal affect, normal mood. SKIN: See extremities above. Course - Re-evaluation Re-evalutation: 06/15/18 17:44 Dr. Johnson talked with Dr. Rios about the patient, and decided to make the patient a telemetry 23 hour observation. - Vital Signs Vital signs: Temp Pulse Resp BP Pulse Ox 97.9 F 76 18 152/84 H 94 06/15/18 17:49 06/15/18 17:49 06/15/18 17:49 06/15/18 17:49 06/15/18 17:49 - Laboratory Result Diagrams: 06/15/18 14:54 06/15/18 14:54 Laboratory results interpreted by me: 06/15/18 06/15/18 06/15/18 14:54 14:54 14:54 RBC 3.08 L Hgb 10.2 L Hct 30.5 L MCV 99 H RDW 21.2 H Plt Count 141 L Lymphocytes % 9.5 L Eosinophils % 11.9 H Absolute Eosinophils 0.8 H APTT 40.9 H Sodium 131.5 L Chloride 95 L BUN 25 H Creatinine 4.23 H Est GFR ( Amer) 16 L Est GFR (Non-Af Amer) 14 L Lactic Acid 06/15/18 16:00 RBC Hgb Hct MCV RDW Plt Count Lymphocytes % Eosinophils % Absolute Eosinophils APTT Sodium Chloride BUN Creatinine Est GFR ( Amer) Est GFR (Non-Af Amer) Lactic Acid 0.6 L - Consults Dr. Johnson Time consulted: 15:44 Consulted provider: will come to ER - He will come see the patient, and talk with the daughter and decide if the patient is a candidate for inpatient treatment. Discharge - Discharge Clinical Impression: Ischemia of finger, Ischemic toe, End stage chronic obstructive pulmonary disease, Chronic renal failure, stage 5 Disposition: ADMITTED OBSERVATION Admitting Provider: Hospitalist Referrals: Dean RIOS MD [ACTIVE STAFF] - Follow up as needed Scribe Attestation: 06/15/18 15:59 I personally performed the services described in the documentation, reviewed and edited the documentation which was dictated to the scribe in my presence, and it accurately records my words and actions. I personally performed the services described in the documentation, reviewed and edited the documentation which was dictated to the scribe in my presence, and it accurately records my words and actions.
[2018-06-15] MEDS ORDERED: VANCOMYCIN HCL 0 MG in DEXTROSE 5%-WATER 250 ML IV NR (18:30)
--- NOTE | 2018-06-15 18:37 | PDOC H&P ---
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 Daughter/DPOA is also on bedside. He is a DNR/DNI and was on hospice before but requested frequent ER and hospital visits hence discharged from hospice. He does have prior melanotic stools, po sitive FOBT but unremarkable EGD and colonoscopies. Patient reportedly developed redness and pain on the first 3 digits of the left foot more than a month ago. Daughter says it started as a small wound in between the toes and he was treated with clindamycin initially for 5 days. He was then treated with cefazolin and doxycycline on the 3rd week of May with no significant relief. He was seen in the ER on Jun 10 and was prescribed doxycyline as well. He then started developing pain and purplish discoloration of the middle and 4th finger 2 weeks ago. This was subsequently followed by development of redness on the first 3 digits of the right foot a week ago. He denies fever or chills. 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 Denies: Asthma, Bronchitis, Pneumonia Neurological Medical History: Denies: Seizures Renal/ Medical History: Reports: End Stage Renal Disease - Dialysis GI Medical History: Denies: Cirrhosis Musculoskeltal Medical History: Reports: Arthritis Psychiatric Medical History: Denies: Depression Hematology: Reports: Anemia, Bleeding Tendencies Denies: Sickle Cell Disease Past Surgical History Past Surgical History: Reports: Cardiac Catheterization, Herniorrhaphy, Tonsillectomy, Other - Mitral valve repair Denies: Pacemaker Social History Smoking Status: Never Smoker Frequency of Alcohol Use: None Hx Recreational Drug Use: No Drugs: None Hx Prescription Drug Abuse: No Family History Family History: Reviewed & Not Pertinent, Hypertension Parental Family History Reviewed: Yes - no premature CAD Children Family History Reviewed: No Sibling(s) Family History Reviewed.: No Medication/Allergy Home Medications: Albuterol Sulfate [Proair HFA Inhalation Aerosol 8.5 gm MDI] 2 puff IH Q12HP PRN 06/16/18 Benzonatate [Tessalon Perle 100 mg Capsule] 100 mg PO BIDP PRN 06/16/18 Calcitriol [Rocaltrol 0.5 mcg Capsule] 0.5 mcg PO DAILY 06/16/18 Cephalexin [Cephalexin 500 MG Tablet] 500 mg PO QID 06/16/18 Cetirizine HCl [Zyrtec 10 mg Tablet] 10 mg PO DAILY 06/16/18 Cholecalciferol (Vitamin D3) [Vitamin D3 1000 Unit Tablet] 1,000 unit PO DAILY 06/16/18 Diazepam [Valium 5 mg Tablet] 2.5 mg PO Q6HP PRN 06/16/18 Doxycycline Hyclate [Vibramycin 100 mg Tablet] 100 mg PO BID 06/16/18 Ezetimibe [Zetia 10 mg Tablet] 10 mg PO DAILY 06/16/18 Fluticasone/Salmeterol [Advair 500-50 Diskus 14 Dose/Diskus] 1 puff HE Q12 06/16/18 Folic Acid/Vitamin B Comp W-C [Nephrocaps Softgel] 1 mg PO DAILY 06/16/18 Furosemide [Lasix 40 mg Tablet] 40 mg PO BID 06/16/18 Guaifenesin [Guaifenesin ER] 600 mg PO BID 06/16/18 Montelukast Sodium [Singulair 10 mg Tablet] 10 mg PO QHS 06/16/18 Rosuvastatin Calcium [Crestor] 40 mg PO DAILY 06/16/18 Sertraline HCl [Zoloft 50 mg Tablet] 50 mg PO DAILY 06/16/18 Tiotropium [place] [Spiriva Handihaler 5 Cap/Kit (18 Mcg/Cap)] 1 puff IH DAILY 06/16/18 Tramadol HCl [Ultram 50 mg Tablet] 50 mg PO Q8HP PRN 06/16/18 Allergies/Adverse Reactions: adhesive tape Allergy (Verified 06/15/18 12:57) Blisters amiodarone Adverse Reaction (Verified 06/15/18 12:57) levofloxacin [From Levaquin] Adverse Reaction (Verified 06/15/18 12:57) lorazepam Adverse Reaction (Verified 06/15/18 12:57) prednisone Adverse Reaction (Verified 06/15/18 12:57) trazodone Adverse Reaction (Verified 06/15/18 12:57) propofol Adverse Reaction (Unknown, Uncoded 06/15/18 12:57) Review of Systems All systems: reviewed and no additional remarkable complaints except as stated - as mentioned in HPI Physical Exam Vital Signs: Temp Pulse Resp BP Pulse Ox 98.1 F 74 18 142/56 H 97 06/15/18 13:07 06/15/18 13:07 06/15/18 13:07 06/15/18 13:07 06/15/18 13:07 Intake & Output 06/14/18 06/15/18 06/16/18 06:59 06:59 06:59 Intake Total 50 Balance 50 Weight 153 lb 7.068 oz General appearance: PRESENT: no acute distress, well-developed, well-nourished Head exam: PRESENT: atraumatic, normocephalic Eye exam: PRESENT: conjunctiva pink, EOMI, PERRLA. ABSENT: scleral icterus Ear exam: PRESENT: normal external ear exam Neck exam: ABSENT: carotid bruit, JVD, lymphadenopathy, thyromegaly Respiratory exam: PRESENT: clear to auscultation raymond. ABSENT: rales, rhonchi, wheezes Cardiovascular exam: PRESENT: RRR, systolic murmur. ABSENT: rubs Pulses: PRESENT: normal dorsalis pedis pul GI/Abdominal exam: PRESENT: normal bowel sounds, soft. ABSENT: distended, guarding, mass, organolmegaly, rebound, tenderness Rectal exam: PRESENT: deferred Musculoskeletal exam: PRESENT: other - Upon exam, there is note of erythematous first 3 digit of the left foot as well as erythema on the first 3 digits of the right foot. The is full palpable femoral and popliteal pulses. Faint dorsalis pedal pulse on the left. The middle and and 4th finger appear cyanotic on the distal ends. Neurological exam: PRESENT: alert, awake, oriented to person, oriented to place, oriented to time, oriented to situation Results Laboratory Results: 06/15/18 14:54 06/15/18 14:54 06/15/18 06/15/18 06/15/18 14:54 14:54 16:00 WBC 6.6 RBC 3.08 L Hgb 10.2 L Hct 30.5 L MCV 99 H MCH 33.1 MCHC 33.3 RDW 21.2 H Plt Count 141 L Seg Neutrophils % 66.0 Lymphocytes % 9.5 L Monocytes % 12.1 Eosinophils % 11.9 H Basophils % 0.5 Absolute Neutrophils 4.3 Absolute Lymphocytes 0.6 Absolute Monocytes 0.8 Absolute Eosinophils 0.8 H Absolute Basophils 0.0 Sodium 131.5 L Potassium 4.5 Chloride 95 L Carbon Dioxide 24 Anion Gap 13 BUN 25 H Creatinine 4.23 H Est GFR ( Amer) 16 L Est GFR (Non-Af Amer) 14 L Glucose 96 Lactic Acid 0.6 L Calcium 8.4 Blood Type Antibody Screen 06/15/18 16:00 WBC RBC Hgb Hct MCV MCH MCHC RDW Plt Count Seg Neutrophils % Lymphocytes % Monocytes % Eosinophils % Basophils % Absolute Neutrophils Absolute Lymphocytes Absolute Monocytes Absolute Eosinophils Absolute Basophils Sodium Potassium Chloride Carbon Dioxide Anion Gap BUN Creatinine Est GFR ( Amer) Est GFR (Non-Af Amer) Glucose Lactic Acid Calcium Blood Type O POSITIVE Antibody Screen NEGATIVE Assessment & Plan - Diagnosis (1) Ischemic toe Is this a current diagnosis for this admission?: Yes Plan: Ischemia on toes and right hand fingers. Upon exam, there is note of erythematous first 3 digit of the left foot as well as erythema on the first 3 digits of the right foot. The is full palpable femoral and popliteal pulses. Faint dorsalis pedal pulse on the left. The middle and and 4th finger appear cyanotic on the distal ends. Left hand appears unremarkable. There is full radial pulses bilaterally. This is a highly complex patient presenting with ischemic limbs but at very high risk of bleeding. Discussed with Dr. Wilmar Cancino in length. Discussed with patient and daughter/DPOA as well. Will defer anticoagulation due to high risk of bleeding as patient has known recurrent anemia requiring multiple blood transfusion and there is also suspicion of possible GI AVM. Will order CTA of the LEs tomorrow morning. Also discussed with nephrology. Patient will be dialyzed later tomorrow. (2) Ischemic finger Is this a current diagnosis for this admission?: Yes Plan: As per number 1. (3) CAD (coronary artery disease) Is this a current diagnosis for this admission?: Yes Plan: Continue aspirin and statin. (4) ESRD (end stage renal disease) on dialysis Is this a current diagnosis for this admission?: Yes Plan: Nephrology consulted. Will be dialyzed tomorrow after CTA. - Time Time Spent: 50 to 70 Minutes
[2018-06-15 18:40] LABS: ALANINE AMINOTRANSFERASE 66 U/L (21-72); ALBUMIN 2.6 g/dL (3.5-5.0); ALKALINE PHOSPHATASE 95 U/L (38-126); ASPARTATE AMINO TRANSFERASE 82 U/L (17-59); BILIRUBIN,DIRECT 0.8 mg/dL (0.0-0.4); BILIRUBIN,TOTAL 0.8 mg/dL (0.2-1.3); TOTAL PROTEIN 4.7 g/dL (6.3-8.2)
[2018-06-15] MEDS ORDERED: VANCOMYCIN HCL INJ 1000 MG VIAL IV PRN (18:53)
[2018-06-15] MEDS ORDERED: IPRATROPIUM/ALBUTEROL 0.5-2.5 MG/3 ML AMPUL NEB PRN (19:01)
[2018-06-15] MEDS ORDERED: VANCOMYCIN HCL 1,000 MG in DEXTROSE 5%-WATER 250 ML IV ONE (20:00)
[2018-06-15] MEDS ORDERED: VANCOMYCIN HCL INJ 1000 MG VIAL ONE (20:49)
[2018-06-15] MEDS: ACETAMINOPHEN 325 MG TABLET PO PRN (21:18)
--- NOTE | 2018-06-15 22:01 | PDOC CONSULTATION ---
Consultation Consult Date: 06/15/18 Consult reason:: cellulitis both feet and ischemic changes right 3rd finger History of Present Illness Admission Date/PCP: 06/15/18 17:53 MILKA RUBY MD History of Present Illness: VERN COLLINS is a 83 year old malewith COPD,CHF,CAD,Hypertension,arthritis,A Fib on Hemodialysis for past 2 years, noted pains and reddish discoloration left 2nd and 3rd toes about a month ago. Denies trauma. This was followed by pains and redness of the right 2nnd toe 2 weeks ago. The pains and bluish discoloration right 3rd finger about a week ago. His dialysis shunt is on his left arm. 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 Denies: Asthma, Bronchitis, Pneumonia Neurological Medical History: Denies: Seizures Renal/ Medical History: Reports: End Stage Renal Disease - Dialysis GI Medical History: Denies: Cirrhosis Musculoskeltal Medical History: Reports: Arthritis Psychiatric Medical History: Denies: Depression Hematology: Reports: Anemia, Bleeding Tendencies Denies: Sickle Cell Disease Past Surgical History Past Surgical History: Reports: Cardiac Catheterization, Herniorrhaphy, Tonsillectomy, Other - Mitral valve repair Denies: Pacemaker Social History Smoking Status: Former Smoker Frequency of Alcohol Use: None Hx Recreational Drug Use: No Drugs: None Hx Prescription Drug Abuse: No Family History Family History: Reviewed & Not Pertinent, Hypertension Parental Family History Reviewed: Yes Children Family History Reviewed: No Sibling(s) Family History Reviewed.: No Medication/Allergy Home Medications: Albuterol Sulfate [Proair Hfa Inhalation Aerosol 8.5 gm Mdi] 2 puff IH Q12 06/15/18 Benzonatate [Tessalon Perle 100 mg Capsule] 100 mg PO BIDP PRN 06/15/18 Calcitriol 0.5 mcg PO DAILY 06/15/18 Cephalexin Monohydrate [Keflex 500 mg Capsule] 1 cap PO QID 06/15/18 Cetirizine HCl [Zyrtec 10 mg Tablet] 1 tab PO DAILY 06/15/18 Cholecalciferol (Vitamin D3) [Vitamin D3] 1,000 unit PO DAILY 06/15/18 Diazepam [Valium 5 mg Tablet] 2.5 mg PO Q6HP PRN 06/15/18 Doxycycline Hyclate [Vibramycin 100 mg Tablet] 1 cap PO BID 06/15/18 Ezetimibe [Zetia] 1 tab PO DAILY 06/15/18 Fluticasone/Salmeterol [Advair 500-50 Diskus 14 Dose/Diskus] 1 inh IH Q12H 06/15/18 Folic Acid/Vitamin B Comp W-C [Nephrocaps Multiple Vitamin Capsule] 1 cap PO DAILY 06/15/18 Furosemide [Lasix 40 mg Tablet] 1 tab PO BID 06/15/18 Guaifenesin/Pseudoephedrne HCl [Mucinex D ER Tablet] 1 each PO BID 06/15/18 Montelukast Sodium [Singulair 10 mg Tablet] 10 mg PO QHS 06/15/18 Rosuvastatin Calcium [Crestor] 40 mg PO DAILY 06/15/18 Sertraline HCl [Zoloft 50 mg Tablet] 50 mg PO DAILY 06/15/18 Tiotropium [place] [Spiriva Respimat] 2 puff IH DAILY 06/15/18 Tramadol HCl [Ultram 50 mg Tablet] 1 tab PO Q8HP PRN 06/15/18 Allergies/Adverse Reactions: adhesive tape Allergy (Verified 06/15/18 12:57) Blisters amiodarone Adverse Reaction (Verified 06/15/18 12:57) levofloxacin [From Levaquin] Adverse Reaction (Verified 06/15/18 12:57) lorazepam Adverse Reaction (Verified 06/15/18 12:57) prednisone Adverse Reaction (Verified 06/15/18 12:57) trazodone Adverse Reaction (Verified 06/15/18 12:57) propofol Adverse Reaction (Unknown, Uncoded 06/15/18 12:57) Review of Systems Constitutional: PRESENT: other - no fever/chills Eyes: PRESENT: other - no visual/hearing changes Cardiovascular: PRESENT: other - no chest pains/cough Gastrointestinal: PRESENT: other - no pains Musculoskeletal: PRESENT: other - Has palpable bilateral popliteal arteries but unable to palpate bilateral ankle pulses Left first and 2nd toes erythematous and tender. Superficial dry ulceration aound left 2nd toe Erythema with tenderness right 2nd toe. Right 3rd finger with slightly bluish discoloration and tenderness. Has palpable right brachial pulse and diminish right wrist pulses. Physical Exam Vital Signs: Temp Pulse Resp BP Pulse Ox 97.7 F 79 18 151/69 H 94 06/15/18 19:33 06/15/18 19:33 06/15/18 19:33 06/15/18 19:33 06/15/18 17:49 Intake & Output 06/14/18 06/15/18 06/16/18 06:59 06:59 06:59 Intake Total 50 Balance 50 Weight 61.8 kg General appearance: PRESENT: mild distress Eye exam: PRESENT: conjunctiva pink Neck exam: PRESENT: full ROM Respiratory exam: PRESENT: clear to auscultation raymond Cardiovascular exam: PRESENT: RRR Pulses: PRESENT: normal femoral pulses, other - +2 bilateral popliteal pulses. Absent ankle pulses raymond +2 right brachial pulse Absent right wrist pulse Vascular exam: PRESENT: pallor - right 3rd finger GI/Abdominal exam: PRESENT: soft Rectal exam: PRESENT: deferred Extremities exam: PRESENT: other - erythema, tender left 2nd and 3rd toes erythema and tenderness right 2nd toe Musculoskeletal exam: PRESENT: ambulatory - walks very slow per patient Neurological exam: PRESENT: alert, oriented to person, oriented to place, oriented to time, oriented to situation Psychiatric exam: PRESENT: appropriate affect Skin exam: PRESENT: normal color - except toes and right finger, warm Results Laboratory Results: 06/15/18 14:54 06/15/18 14:54 06/15/18 06/15/18 06/15/18 14:54 14:54 14:54 WBC 6.6 RBC 3.08 L Hgb 10.2 L Hct 30.5 L MCV 99 H MCH 33.1 MCHC 33.3 RDW 21.2 H Plt Count 141 L Seg Neutrophils % 66.0 Lymphocytes % 9.5 L Monocytes % 12.1 Eosinophils % 11.9 H Basophils % 0.5 Absolute Neutrophils 4.3 Absolute Lymphocytes 0.6 Absolute Monocytes 0.8 Absolute Eosinophils 0.8 H Absolute Basophils 0.0 Sodium 131.5 L Potassium 4.5 Chloride 95 L Carbon Dioxide 24 Anion Gap 13 BUN 25 H Creatinine 4.23 H Est GFR ( Amer) 16 L Est GFR (Non-Af Amer) 14 L Glucose 96 Lactic Acid Calcium 8.4 Total Bilirubin 0.8 AST 82 H ALT 66 Alkaline Phosphatase 95 Total Protein 4.7 L Albumin 2.6 L Blood Type Antibody Screen 06/15/18 06/15/18 16:00 16:00 WBC RBC Hgb Hct MCV MCH MCHC RDW Plt Count Seg Neutrophils % Lymphocytes % Monocytes % Eosinophils % Basophils % Absolute Neutrophils Absolute Lymphocytes Absolute Monocytes Absolute Eosinophils Absolute Basophils Sodium Potassium Chloride Carbon Dioxide Anion Gap BUN Creatinine Est GFR ( Amer) Est GFR (Non-Af Amer) Glucose Lactic Acid 0.6 L Calcium Total Bilirubin AST ALT Alkaline Phosphatase Total Protein Albumin Blood Type O POSITIVE Antibody Screen NEGATIVE Assessment & Plan - Diagnosis (1) Ischemia of finger Is this a current diagnosis for this admission?: Yes (2) Ischemic toe Is this a current diagnosis for this admission?: Yes (3) Ischemic toe Is this a current diagnosis for this admission?: Yes - Time Time Spent: 30 to 50 Minutes - Plan Summary Plan Summary: Has iscemic changes to bot feet(toes) and right 3rd finger. He refuse any amputation at this time. Suggest vascular surgery evaluation because eventual amputation of toes may not heal due to poor circulation. Amputation right 3rd finger not indicated at this time. Also has poor circulation from right wrist.
[2018-06-16] MEDS: ACETAMINOPHEN 325 MG TABLET PO PRN ×2 (04:48→21:50)
[2018-06-16] MEDS ORDERED: EPOETIN ALFA INJ 20000 UNIT/1 ML VIAL (RENAL) IV PRN (07:00)
[2018-06-16] MEDS ORDERED: EPOETIN ALFA 10,000 UNIT in SYRINGE, DISPOSABLE, 1 EACH IV PRN (07:15)
[2018-06-16] MEDS ORDERED: ALBUTEROL SULFATE HFA (90 MCG/PUFF) 200 PUFF/8.5 GM MDI IH PRN (10:48)
[2018-06-16] MEDS ORDERED: DIAZEPAM 5 MG TABLET PO PRN (10:48)
--- NOTE | 2018-06-16 10:56 | PDOC PROGRESS REPORT ---
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 Daughter/DPOA is also on bedside. He is a DNR/DNI and was on hospice before but requested frequent ER and hospital visits hence di scharged from hospice. He does have prior melanotic stools, positive FOBT but unremarkable EGD and colonoscopies (aside form hemorrhoids). He was admitted for ischemic toes and right fingers. 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 No acute issue overnight. Discoloration and erythema on toes and right finger are unchanged from yesterday. He is going for CTA studies today. Reason For Visit: LEG ISCHEMIA,POSSIBLE SYSTEMIC EMBOLIZATION Physical Exam Vital Signs: Temp Pulse Resp BP Pulse Ox 97.6 F 65 20 142/56 H 95 06/16/18 07:53 06/16/18 07:53 06/16/18 07:53 06/16/18 07:53 06/16/18 07:53 Intake & Output 06/15/18 06/16/18 06/17/18 06:59 06:59 06:59 Intake Total 620 Balance 620 Weight 136 lb 3.931 oz General appearance: PRESENT: no acute distress, well-developed, well-nourished Head exam: PRESENT: atraumatic, normocephalic Eye exam: PRESENT: conjunctiva pink, EOMI, PERRLA. ABSENT: scleral icterus Ear exam: PRESENT: normal external ear exam Mouth exam: PRESENT: moist, tongue midline Neck exam: ABSENT: carotid bruit, JVD, lymphadenopathy, thyromegaly Respiratory exam: PRESENT: clear to auscultation raymond. ABSENT: rales, rhonchi, wheezes Cardiovascular exam: PRESENT: RRR. ABSENT: diastolic murmur, rubs, systolic murmur Pulses: PRESENT: normal dorsalis pedis pul GI/Abdominal exam: PRESENT: normal bowel sounds, soft. ABSENT: distended, guarding, mass, organolmegaly, rebound, tenderness Rectal exam: PRESENT: deferred Gentrourinary exam: PRESENT: other - there is note of erythematous first 3 digit of the left foot as well as erythema on the first 3 digits of the right foot. The is full palpable femoral and popliteal pulses. Faint dorsalis pedal pulse on the left. The middle and and 4th finger appear cyanotic on the distal ends Neurological exam: PRESENT: alert, awake, oriented to person, oriented to place, oriented to time, reflexes normal Results Laboratory Results: 06/15/18 14:54 06/15/18 14:54 06/15/18 06/15/18 06/15/18 14:54 14:54 14:54 WBC 6.6 RBC 3.08 L Hgb 10.2 L Hct 30.5 L MCV 99 H MCH 33.1 MCHC 33.3 RDW 21.2 H Plt Count 141 L Seg Neutrophils % 66.0 Lymphocytes % 9.5 L Monocytes % 12.1 Eosinophils % 11.9 H Basophils % 0.5 Absolute Neutrophils 4.3 Absolute Lymphocytes 0.6 Absolute Monocytes 0.8 Absolute Eosinophils 0.8 H Absolute Basophils 0.0 Sodium 131.5 L Potassium 4.5 Chloride 95 L Carbon Dioxide 24 Anion Gap 13 BUN 25 H Creatinine 4.23 H Est GFR ( Amer) 16 L Est GFR (Non-Af Amer) 14 L Glucose 96 Lactic Acid Calcium 8.4 Total Bilirubin 0.8 AST 82 H ALT 66 Alkaline Phosphatase 95 Total Protein 4.7 L Albumin 2.6 L Blood Type Antibody Screen 06/15/18 06/15/18 16:00 16:00 WBC RBC Hgb Hct MCV MCH MCHC RDW Plt Count Seg Neutrophils % Lymphocytes % Monocytes % Eosinophils % Basophils % Absolute Neutrophils Absolute Lymphocytes Absolute Monocytes Absolute Eosinophils Absolute Basophils Sodium Potassium Chloride Carbon Dioxide Anion Gap BUN Creatinine Est GFR ( Amer) Est GFR (Non-Af Amer) Glucose Lactic Acid 0.6 L Calcium Total Bilirubin AST ALT Alkaline Phosphatase Total Protein Albumin Blood Type O POSITIVE Antibody Screen NEGATIVE Assessment & Plan - Diagnosis (1) Ischemic toe Is this a current diagnosis for this admission?: Yes Plan: Ischemia on toes and right hand fingers. Upon exam, there is note of erythematous first 3 digit of the left foot as well as erythema on the first 3 digits of the right foot. The is full palpable femoral and popliteal pulses. Faint dorsalis pedal pulse on the left. The middle and and 4th finger appear cyanotic on the distal ends. Left hand appears unremarkable. There is full radial pulses bilaterally. This is a highly complex patient presenting with ischemic limbs but at very high risk of bleeding. Discussed with Dr. Wilmar Cancino in length. Discussed with patient and daughter/DPOA as well. Will defer anticoagulation due to high risk of bleeding as patient has known recurrent anemia requiring multiple blood transfusion and there is also suspicion of possible GI AVM. CTA studies pending. Await further recommendations from Dr. Cancino after CTA results are back. (2) Ischemia of finger Is this a current diagnosis for this admission?: Yes Plan: As per number 1. (3) CAD (coronary artery disease) Is this a current diagnosis for this admission?: Yes Plan: Continue aspirin and statin. (4) ESRD (end stage renal disease) on dialysis Is this a current diagnosis for this admission?: Yes Plan: Nephrology following. Will be dialyzed today after CTA. - Time Time Spent with patient: 25-34 minutes
[2018-06-16] MEDS ORDERED: NORMAL SALINE INJ/PF 0.9% 10 ML SDV IV PRN (12:43)
--- NOTE | 2018-06-16 12:43 | Operative Report ---
Operative Report DATE OF SURGERY: 06/16/18 PREOPERATIVE DIAGNOSIS: Ischemic digits. ESRD POSTOPERATIVE DIAGNOSIS: Same OPERATION: 1. Focused ultrasound of the right neck. 2. Insertion triple-lumen central venous access catheter right IJ SURGEON: MICHAELA CELESTIN ANESTHESIA: Local TISSUE REMOVED OR ALTERED: See below COMPLICATIONS: None ESTIMATED BLOOD LOSS: Scant INTRAOPERATIVE FINDINGS: See below PROCEDURE: Informed consent was obtained. The patient was placed in Trendelenburg the right neck and chest wall were exposed, and prepped and draped in a sterile fashion. Surgical plan and surgical timeout discussed. The right neck was anesthetized with 1% lidocaine without epinephrine. Using the variable frequency linear transducer, real time, a 18-gauge needle and wire were threaded into the right internal jugular vein. The tract was dilated up, the dilator removed, and the triple-lumen central venous access catheter was threaded into the right internal jugular vein uneventfully to the hub. There was excellent aspiration and flush of saline through all 3 lumens. The catheter was affixed to the skin with a Biopatch and 2-0 silk suture; sterile dressing applied. The patient tolerated the procedure well. There were no complications. Portable upright chest x-ray pending at time of dictation.
[2018-06-16] MEDS ORDERED: LIDOCAINE 1% INJ-PF (10 MG/ML) 30 ML SDV INJ PRN (13:15)
--- NOTE | 2018-06-16 13:54 | RADIOLOGY REPORT (SQ) ---
EXAM DESCRIPTION: CHEST SINGLE VIEW COMPLETED DATE/TIME: 06/16/2018 1:38 pm REASON FOR STUDY: Status post line placement COMPARISON: 05/16/2018 NUMBER OF VIEWS: One view. TECHNIQUE: Single frontal radiographic image of the chest acquired. LIMITATIONS: None. FINDINGS: LUNGS AND PLEURA: Chronic scarring or infiltrate left lower lobe not significantly changed . No pneumothorax. MEDIASTINUM AND HEART: Stable heart size and mediastinal structures. SUPPORT DEVICES: Right-sided central line tip overlying cavoatrial junction. BONY STRUCTURES: No acute findings. HARDWARE: None. OTHER: No other significant finding. IMPRESSION: Satisfactory position of central line. No pneumothorax. Reading location - IP/workstation name: [email or web address]
--- NOTE | 2018-06-16 14:45 | RADIOLOGY REPORT (SQ) ---
EXAM DESCRIPTION: CTA ABD AORTA AND EXTREMITY COMPLETED DATE/TIME: 06/16/2018 2:29 pm REASON FOR STUDY: poss ischemia, lower extremities, dialysis later today COMPARISON: None. TECHNIQUE: CT scan of the body and lower extremities performed with intravenous contrast using helic al scanning technique with dynamic intravenous contrast injection. Images reviewed with lung, soft ti ssue, and bone windows. Reconstructed coronal and sagittal MPR images reviewed. All images stored on PACS. Advanced 3D imaging as volume-rendering, MIPs, SSD performed? yes All CT scanners at this facility use dose modulation, iterative reconstruction, and/or weight based d osing when appropriate to reduce radiation dose to as low as reasonably achievable (ALARA). [facility]: Dose Right [facility]: CareDose [facility]: Dose Right [facility]: Teradose 4D [facility]: Microblr CONTRAST TYPE AND DOSE: contrast/concentration: Isovue 350.00 mg/ml; Total Contrast Delivered: 100.0 ml; Total Saline Delivered: 100.0 ml RENAL FUNCTION: On hemodialysis. LIMITATIONS: None. FINDINGS: There is body wall edema. Urinary bladder is distended. Severe diffuse disease in the aorta and pelvic vessels. Severe diffuse disease in the runoff with nu merous collateral vessels in the lower extremities bilaterally. 3 vessel runoff with extensive calci fications and collateral vessels. IMPRESSION: Severe diffuse disease without evidence of acute high-grade occlusion. Numerous collate rals. TECHNICAL DOCUMENTATION: JOB ID: [id number] Quality ID # [id number]: Final reports with documentation of one or more dose reduction techniques (e.g., Au tomated exposure control, adjustment of the mA and/or kV according to patient size, use of iterative reconstruction technique) 2010 [employer]- All Rights Reserved Reading location - IP/workstation name: [email or web address]
[2018-06-16] MEDS: ASPIRIN 81 MG TABLET, CHEWABLE PO SCH (14:48)
--- NOTE | 2018-06-16 16:56 | EKG REPORT ---
SEVERITY:- ABNORMAL ECG - SINUS OR ECTOPIC ATRIAL RHYTHM FIRST DEGREE AV BLOCK NONSPECIFIC INTRAVENTRICULAR CONDUCTION DELAY LOW VOLTAGE IN FRONTAL LEADS [facility]H : Confirmed by: Vern Viramontes 16-Jun-2018 16:55:14
--- NOTE | 2018-06-16 17:32 | PDOC CONSULTATION ---
Consultation Consult Date: 06/16/18 Attending physician:: MATT COOLEY Consult reason:: Cyanosis in right fingers, redness and left toes. History of Present Illness Admission Date/PCP: 06/15/18 17:53 MILKA RUBY MD History of Present Illness: VERN COLLINS is a 83 year old male History of at least 2 weeks of cyanosis in the fingers of the right hand and redness in the toes of the left foot. He has been treated with rounds of antibiotic. 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 Denies: Asthma, Bronchitis, Pneumonia Neurological Medical History: Denies: Seizures Renal/ Medical History: Reports: End Stage Renal Disease - Dialysis GI Medical History: Denies: Cirrhosis Musculoskeltal Medical History: Reports: Arthritis Psychiatric Medical History: Denies: Depression Hematology: Reports: Anemia, Bleeding Tendencies Denies: Sickle Cell Disease Past Surgical History Past Surgical History: Reports: Cardiac Catheterization, Herniorrhaphy, Tonsillectomy, Other - Mitral valve repair Denies: Pacemaker Social History Smoking Status: Never Smoker Frequency of Alcohol Use: None Hx Recreational Drug Use: No Drugs: None Hx Prescription Drug Abuse: No Family History Family History: Reviewed & Not Pertinent, Hypertension Parental Family History Reviewed: No Children Family History Reviewed: No Sibling(s) Family History Reviewed.: No Medication/Allergy Home Medications: Albuterol Sulfate [Proair HFA Inhalation Aerosol 8.5 gm MDI] 2 puff IH Q12HP PRN 06/16/18 Benzonatate [Tessalon Perle 100 mg Capsule] 100 mg PO BIDP PRN 06/16/18 Calcitriol [Rocaltrol 0.5 mcg Capsule] 0.5 mcg PO DAILY 06/16/18 Cephalexin [Cephalexin 500 MG Tablet] 500 mg PO QID 06/16/18 Cetirizine HCl [Zyrtec 10 mg Tablet] 10 mg PO DAILY 06/16/18 Cholecalciferol (Vitamin D3) [Vitamin D3 1000 Unit Tablet] 1,000 unit PO DAILY 06/16/18 Diazepam [Valium 5 mg Tablet] 2.5 mg PO Q6HP PRN 06/16/18 Doxycycline Hyclate [Vibramycin 100 mg Tablet] 100 mg PO BID 06/16/18 Ezetimibe [Zetia 10 mg Tablet] 10 mg PO DAILY 06/16/18 Fluticasone/Salmeterol [Advair 500-50 Diskus 14 Dose/Diskus] 1 puff HE Q12 06/16/18 Folic Acid/Vitamin B Comp W-C [Nephrocaps Softgel] 1 mg PO DAILY 06/16/18 Furosemide [Lasix 40 mg Tablet] 40 mg PO BID 06/16/18 Guaifenesin [Guaifenesin ER] 600 mg PO BID 06/16/18 Montelukast Sodium [Singulair 10 mg Tablet] 10 mg PO QHS 06/16/18 Rosuvastatin Calcium [Crestor] 40 mg PO DAILY 06/16/18 Sertraline HCl [Zoloft 50 mg Tablet] 50 mg PO DAILY 06/16/18 Tiotropium [place] [Spiriva Handihaler 5 Cap/Kit (18 Mcg/Cap)] 1 puff IH DAILY 06/16/18 Tramadol HCl [Ultram 50 mg Tablet] 50 mg PO Q8HP PRN 06/16/18 Allergies/Adverse Reactions: adhesive tape Allergy (Verified 06/15/18 12:57) Blisters amiodarone Adverse Reaction (Verified 06/15/18 12:57) levofloxacin [From Levaquin] Adverse Reaction (Verified 06/15/18 12:57) lorazepam Adverse Reaction (Verified 06/15/18 12:57) prednisone Adverse Reaction (Verified 06/15/18 12:57) trazodone Adverse Reaction (Verified 06/15/18 12:57) propofol Adverse Reaction (Unknown, Uncoded 06/15/18 12:57) Physical Exam Vital Signs: Temp Pulse Resp BP Pulse Ox 98.1 F 76 18 147/61 H 100 06/16/18 11:57 06/16/18 14:00 06/16/18 11:57 06/16/18 11:57 06/16/18 11:57 Intake & Output 06/15/18 06/16/18 06/17/18 06:59 06:59 06:59 Intake Total 620 675 Balance 620 675 Weight 61.8 kg Additional comments: Constitutional: Well-developed well-nourished gentleman. No apparent acute distress. Eyes: Mucous membranes pink and moist, pupils equal and reactive to light. Conjunctiva normal. Arcus senilis noted. ENT: Hearing grossly normal. External pinna normal to inspection. Teeth mostly intact. Tongue normal to inspection. Cardiac: Heart sounds 1 and 2 present. Irregularly irregular heartbeat consistent with atrial fibrillation. Respiratory breath sounds are present bilaterally, normal. Mild increase in respiratory effort, at rest. Psychiatric: Judgment, memory, insight seem normal. Mood is pleasant and appropriate. Extremities: Upper extremities show normal range of movement. Pulses difficult to feel at the radial arteries. Capillary refill normal. Cyanosis noted in the tips and distal phalanx of the right hand fingers. No muscle wasting noted. Functioning left forearm radiocephalic fistula, dialysis in progress. Mild edema noted in the left arm. Lower extremities show normal range of movement. Pulses present not palpable at the dorsalis pedis artery. Capillary refill borderline. Dependent rubor noted. Second and third digits of the left foot a little small and with some Betadine staining. Consistent with chronic ischemia. No acute changes. Results Laboratory Results: 06/15/18 14:54 06/15/18 14:54 06/15/18 14:54 Total Bilirubin 0.8 AST 82 H ALT 66 Alkaline Phosphatase 95 Total Protein 4.7 L Albumin 2.6 L Impressions: Aorta w/Runoff CTA 06/16/18 08:00 IMPRESSION: Severe diffuse disease without evidence of acute high-grade occlusion. Numerous collaterals. Chest X-Ray 06/16/18 12:41 IMPRESSION: Satisfactory position of central line. No pneumothorax. Assessment & Plan - Diagnosis (1) Ischemic toe Is this a current diagnosis for this admission?: Yes (2) Ischemia of finger Is this a current diagnosis for this admission?: Yes (3) CAD (coronary artery disease) Is this a current diagnosis for this admission?: Yes (4) Chronic renal failure, stage 5 Is this a current diagnosis for this admission?: Yes (5) ESRD (end stage renal disease) on dialysis Is this a current diagnosis for this admission?: Yes - Plan Summary Plan Summary: In this very complex patient with multiple confounding comorbidities, chronic ischemic changes in the left foot appreciated. Also of the right hand distally. There is an element of microangiopathy as well as peripheral vascular disease. Based on duplex ultrasounds done on 10 June 2018, the patient has fairly good circulation to the right upper extremity. There is moderate compromise in the left lower extremity venous mostly at the popliteal level. Based on the CT angiogram there is appears to be continuity of flow from the aorta down to the posterior tibial arteries bilaterally. Possibly into other infrageniculate vessels, as well. Given the complexity of his situation, being on end-stage renal disease, dialysis, atrial fibrillation with evidence of GI bleed and anemia, must consider chronic anticoagulation and possibly use of antiplatelet agents. Regarding his foot, there is always the danger of a major amputation, this seems to be chronic. The patient is very alert and in tune with his medical situation. He wants to continue optimal care. He wishes to continue hemodialysis on schedule. He is scheduled also for a angiogram with Dr. White on . He is perfectly amenable to traveling to [place] for vascular opinion regarding endovascular intervention. Given these findings I feel that the patient can very reasonably be discharged when appropriate. I will go ahead and arrange for a consultation with Dr. Pugh in [place] perhaps as early as next week. He should certainly keep a copy of his CTA which will facilitate his vascular second opinion in [place]. The patient wishes me to be in touch with his daughter and power of finance attorney which I will be happy to do. For the time being foot protection is to be optimal, painting the involved wounds with Betadine I believe is appropriate. Ideally he would be on antiplatelet and/or anticoagulation however the confounding problems with anemia and blood loss as well as ongoing episodic anticoagulation on dialysis make this a difficult medical choice. Thank you for having me see this very pleasant gentleman. I will be available for follow-up as needed.
[2018-06-16] MEDS ORDERED: VANCOMYCIN HCL 500 MG in DEXTROSE 5%-WATER 100 ML IV SCH (18:00)
--- NOTE | 2018-06-16 18:47 | PDOC CONSULTATION ---
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 He reportedly developed redness and pain on the first 3 digits of the left foot more than a month ago.He was initially treated with clindamycin followed by cefazolin and la ter by doxycycline as an outpatient but was not responding very well. He was seen in the ER on Jun 10 and was prescribed doxycyline as well. He then started developing pain and purplish discoloration of the middle and 4th finger 2 weeks ago. This was subsequently followed by development of redness on the first 3 digits of the right foot a week ago. He denies fever or chills. He has not been put on any anticoagulations because of his severe anemia and propensity to have GI bleeds from apparent AV malformations. He is a DNR/DNI and was on hospice before but requested frequent ER and hospital visits hence discharged from hospice. He does have prior melanotic stools, positive FOBT but unremarkable EGD and colonoscopies. Is currently being seen undergoing dialysis. Vital signs are stable.He admits to some pain of the toes of both feet. No history of any fever or chills. Labs and medications were reviewed. 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 Denies: Asthma, Bronchitis, Pneumonia Neurological Medical History: Denies: Seizures Renal/ Medical History: Reports: End Stage Renal Disease - Dialysis, Secondary Hyperparathyroidism GI Medical History: Denies: Cirrhosis Musculoskeltal Medical History: Reports: Arthritis Psychiatric Medical History: Denies: Depression Hematology Medical History: Reports Anemia of Chronic Kidney Disease, Reports Iron Deficiency Anemia Past Surgical History Past Surgical History: Reports: Cardiac Catheterization, Herniorrhaphy, Tonsillectomy, Other - Mitral valve repair Denies: Pacemaker Social History Smoking Status: Never Smoker Frequency of Alcohol Use: None Hx Recreational Drug Use: No Drugs: None Hx Prescription Drug Abuse: No Family History Parental Family History Reviewed: Yes - Negative for ESRD Children Family History Reviewed: No Sibling(s) Family History Reviewed.: No Medication/Allergy Home Medications: Albuterol Sulfate [Proair HFA Inhalation Aerosol 8.5 gm MDI] 2 puff IH Q12HP PRN 06/16/18 Benzonatate [Tessalon Perle 100 mg Capsule] 100 mg PO BIDP PRN 06/16/18 Calcitriol [Rocaltrol 0.5 mcg Capsule] 0.5 mcg PO DAILY 06/16/18 Cephalexin [Cephalexin 500 MG Tablet] 500 mg PO QID 06/16/18 Cetirizine HCl [Zyrtec 10 mg Tablet] 10 mg PO DAILY 06/16/18 Cholecalciferol (Vitamin D3) [Vitamin D3 1000 Unit Tablet] 1,000 unit PO DAILY 06/16/18 Diazepam [Valium 5 mg Tablet] 2.5 mg PO Q6HP PRN 06/16/18 Doxycycline Hyclate [Vibramycin 100 mg Tablet] 100 mg PO BID 06/16/18 Ezetimibe [Zetia 10 mg Tablet] 10 mg PO DAILY 06/16/18 Fluticasone/Salmeterol [Advair 500-50 Diskus 14 Dose/Diskus] 1 puff HE Q12 06/16/18 Folic Acid/Vitamin B Comp W-C [Nephrocaps Softgel] 1 mg PO DAILY 06/16/18 Furosemide [Lasix 40 mg Tablet] 40 mg PO BID 06/16/18 Guaifenesin [Guaifenesin ER] 600 mg PO BID 06/16/18 Montelukast Sodium [Singulair 10 mg Tablet] 10 mg PO QHS 06/16/18 Rosuvastatin Calcium [Crestor] 40 mg PO DAILY 06/16/18 Sertraline HCl [Zoloft 50 mg Tablet] 50 mg PO DAILY 06/16/18 Tiotropium [place] [Spiriva Handihaler 5 Cap/Kit (18 Mcg/Cap)] 1 puff IH DAILY 06/16/18 Tramadol HCl [Ultram 50 mg Tablet] 50 mg PO Q8HP PRN 06/16/18 Allergies/Adverse Reactions: adhesive tape Allergy (Verified 06/15/18 12:57) Blisters amiodarone Adverse Reaction (Verified 06/15/18 12:57) levofloxacin [From Levaquin] Adverse Reaction (Verified 06/15/18 12:57) lorazepam Adverse Reaction (Verified 06/15/18 12:57) prednisone Adverse Reaction (Verified 06/15/18 12:57) trazodone Adverse Reaction (Verified 06/15/18 12:57) propofol Adverse Reaction (Unknown, Uncoded 06/15/18 12:57) Review of Systems Constitutional: PRESENT: fatigue, weakness. ABSENT: fever(s), headache(s), night sweats Ears: PRESENT: hearing changes Nose, Mouth, and Throat: ABSENT: mouth pain, sore throat Cardiovascular: PRESENT: dyspnea on exertion. ABSENT: chest pain, edema, orthropnea Gastrointestinal: ABSENT: abdominal pain, coffee ground emesis, diarrhea, dysphagia, heartburn, hematemesis, hematochezia Genitourinary: ABSENT: dysuria, hematuria Neurological: ABSENT: abnormal gait, abnormal speech, focal weakness, frequent falls Endocrine: ABSENT: flushing, polydipsia Hematologic/Lymphatic: ABSENT: easy bruising, lymphadenopathy Physical Exam Vital Signs: Temp Pulse Resp BP Pulse Ox 98.1 F 76 18 147/61 H 100 06/16/18 11:57 06/16/18 14:00 06/16/18 11:57 06/16/18 11:57 06/16/18 11:57 Intake & Output 06/15/18 06/16/18 06/17/18 06:59 06:59 06:59 Intake Total 620 675 Balance 620 675 Weight 61.8 kg General appearance: PRESENT: no acute distress Eye exam: PRESENT: EOMI, PERRLA Ear exam: PRESENT: normal external ear exam Mouth exam: PRESENT: moist, neck supple Neck exam: ABSENT: meningismus, tenderness, thyromegaly, tracheal deviation Respiratory exam: PRESENT: clear to auscultation raymond, crackles, rhonchi Cardiovascular exam: PRESENT: +S1, +S2, systolic murmur Pulses: ABSENT: normal dorsalis pedis pul GI/Abdominal exam: PRESENT: normal bowel sounds, soft. ABSENT: organomegaly, tenderness Extremities exam: PRESENT: pedal edema Neurological exam: PRESENT: alert, awake, oriented to person, oriented to place Psychiatric exam: PRESENT: anxious Skin exam: PRESENT: cyanosis, erythema - He has erythema and bluish discoloration of the digits of both lower extremities. Absent dorsalis pedis and posterior tibial in both the feet.. ABSENT: mottled Results Laboratory Results: 06/15/18 14:54 06/15/18 14:54 06/15/18 06/15/18 06/15/18 14:54 14:54 16:00 Sodium 131.5 L Potassium 4.5 Chloride 95 L Carbon Dioxide 24 Anion Gap 13 BUN 25 H Creatinine 4.23 H Est GFR ( Amer) 16 L Est GFR (Non-Af Amer) 14 L Glucose 96 Lactic Acid 0.6 L Calcium 8.4 Total Bilirubin 0.8 AST 82 H ALT 66 Alkaline Phosphatase 95 Total Protein 4.7 L Albumin 2.6 L Blood Type Antibody Screen 06/15/18 16:00 Sodium Potassium Chloride Carbon Dioxide Anion Gap BUN Creatinine Est GFR ( Amer) Est GFR (Non-Af Amer) Glucose Lactic Acid Calcium Total Bilirubin AST ALT Alkaline Phosphatase Total Protein Albumin Blood Type O POSITIVE Antibody Screen NEGATIVE Impressions: Aorta w/Runoff CTA 06/16/18 08:00 IMPRESSION: Severe diffuse disease without evidence of acute high-grade occlusion. Numerous collaterals. Chest X-Ray 06/16/18 12:41 IMPRESSION: Satisfactory position of central line. No pneumothorax. Assessment & Plan - Diagnosis (1) ESRD (end stage renal disease) on dialysis Is this a current diagnosis for this admission?: Yes Plan: Patient currently undergoing dialysis. He has evidences of peripheral fluid overload. The procedure is being supervised to ensure safe and smooth procedure. Vital signs are stable. Plan to remove between 3 and 4 L as tolerated. Dialysis orders were reviewed with the treating dialysis nurse. (2) End stage chronic obstructive pulmonary disease Plan: Currently stable on nasal cannula oxygen. (3) Ischemia of finger Is this a current diagnosis for this admission?: Yes Plan: No acute ischemic issues. Apparently this is chronic. Surgeons have been consulted. He is currently on low-dose aspirin. Monitor for anemia. (4) Ischemic toe Is this a current diagnosis for this admission?: Yes Plan: Start early dry gangrene. Suggestive of a combination of microvascular and macrovascular disease. Review of CT angiogram that he had done today. He has got apparent extensive atherosclerosis of both lower extremities. Low-dose aspirin. Being planned to be referred for vascular evaluation in [place]. (5) Anemia in chronic renal disease Qualifiers: Chronic kidney disease stage: on chronic dialysis Qualified Code(s): N18.6 - End stage renal disease; D63.1 - Anemia in chronic kidney disease; D63.1 - Anemia in chronic kidney disease; Z99.2 - Dependence on renal dialysis; Z99.2 - Dependence on renal dialysis; Z99.2 - Dependence on renal dialysis; Z99.2 - Dependence on renal dialysis Plan: Currently his hemoglobin is stable at 10.2. Monitor carefully for any evidences of acute anemia given his previous history and propensity for sudden drop in hemoglobin. Is currently on low-dose of aspirin.
[2018-06-16] MEDS: ATORVASTATIN CALCIUM 80 MG TABLET PO SCH (21:50)
[2018-06-16] MEDS: FLUTICASONE/SALMETEROL DISKUS 500-50 MCG/DOSE IH SCH (21:50)
[2018-06-17] MEDS: TRAMADOL HCL 50 MG TABLET PO PRN ×2 (02:29→10:33)
[2018-06-17] MEDS ORDERED: (PENDING PHARMACY ID) (Rosuvastatin Calcium [Crestor] 40 MG) PO SCH (10:00)
[2018-06-17] MEDS ORDERED: BENZONATATE 100 MG CAPSULE PO PRN (10:13)
[2018-06-17] MEDS: FLUTICASONE/SALMETEROL DISKUS 500-50 MCG/DOSE IH SCH ×2 (10:20→22:39)
[2018-06-17] MEDS: TIOTROPIUM BROMIDE DPI 5 CAP/KIT (18 MCG/CAP) IH SCH (10:21)
[2018-06-17] MEDS: ASPIRIN 81 MG TABLET, CHEWABLE PO SCH (10:21)
[2018-06-17] MEDS: EZETIMIBE 10 MG TABLET PO SCH (10:21)
[2018-06-17] MEDS: SERTRALINE HCL 50 MG TABLET PO SCH (10:22)
[2018-06-17] MEDS: CALCITRIOL 0.25 MCG CAPSULE PO SCH (10:22)
--- NOTE | 2018-06-17 10:50 | PDOC PROGRESS REPORT ---
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 Daughter/DPOA is also on bedside. He is a DNR/DNI and was on hospice before but requested frequent ER and hospital visits hence discharged from [facility]. He does have prior melanotic stools, positive FOBT but unremarkable EGD and colonoscopies (aside form hemorrhoids). He was admitted for ischemic toes and right fingers. 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 No acute issue overnight. Discoloration and erythema on toes and right finger are unchanged from yesterday. He is going for CTA studies today. [id number]-old male with multiple medical problems including coronary artery disease mitral valve repair questionable aortic wall replacement, history of atrial fibrillation off anticoagulation because of the recurrent anemia requiring multiple blood transfusions possibly secondary to GI AV malformations and end-stage dialysis patient on Saturday dialysis admitted for pain in the left foot and right hand. Initially was DNR/DNI about hospice [place] use of the multiple admissions he was discharged from the hospice care. No acute events in the last 24 hours. Patient is afebrile. Patient is presently on tramadol and Tylenol he wants a little bit stronger pain medication I suggested Percocet he wants to try those to see if it is going to help him or not. I had a discussion with the daughter about plan of care today she wants him to be discharged tomorrow after the dialysis was done and they are planning to take the patient to [place] next week to see the vascular surgeon there. Reason For Visit: LEG ISCHEMIA,POSSIBLE SYSTEMIC EMBOLIZATION Physical Exam Vital Signs: Temp Pulse Resp BP Pulse Ox 98.2 F 80 20 133/60 H 73 L 06/17/18 07:24 06/17/18 07:24 06/17/18 07:24 06/17/18 07:24 06/17/18 07:24 Intake & Output 06/16/18 06/17/18 06/18/18 06:59 06:59 06:59 Intake Total 620 775.5 Output Total 3400 Balance 620 -2624.5 Weight 61.8 kg 60.4 kg General appearance: PRESENT: no acute distress Head exam: PRESENT: atraumatic Eye exam: PRESENT: PERRLA Mouth exam: PRESENT: moist, tongue midline Neck exam: ABSENT: carotid bruit, JVD, lymphadenopathy, thyromegaly Respiratory exam: PRESENT: decreased breath sounds Cardiovascular exam: PRESENT: irregular rhythm, tachycardia Pulses: PRESENT: other - Poor dorsalis pedis pulses on the left foot GI/Abdominal exam: PRESENT: normal bowel sounds, soft. ABSENT: distended, guarding, mass, organolmegaly, rebound, tenderness Extremities exam: PRESENT: full ROM. ABSENT: calf tenderness, clubbing, pedal edema Neurological exam: PRESENT: alert, awake, oriented to person, oriented to place, oriented to time, oriented to situation, CN II-XII grossly intact. ABSENT: motor sensory deficit Psychiatric exam: PRESENT: appropriate affect, normal mood. ABSENT: homicidal ideation, suicidal ideation Skin exam: PRESENT: other - Blackish discoloration of the third fourth fifth fingers of the right hand. Erythematous changes in the first 3 digits of the left foot. Results Laboratory Results: 06/15/18 14:54 06/15/18 14:54 Impressions: Aorta w/Runoff CTA 06/16/18 08:00 IMPRESSION: Severe diffuse disease without evidence of acute high-grade occlusion. Numerous collaterals. Chest X-Ray 06/16/18 12:41 IMPRESSION: Satisfactory position of central line. No pneumothorax. Assessment & Plan - Diagnosis (1) Ischemic toe Is this a current diagnosis for this admission?: Yes Plan: Ischemia on toes and right hand fingers. Upon exam, there is note of erythematous first 3 digit of the left foot as well as erythema on the first 3 digits of the right foot. The is full palpable femoral and popliteal pulses. Faint dorsalis pedal pulse on the left. The middle and and 4th finger appear cyanotic on the distal ends. Left hand appears unremarkable. There is full radial pulses bilaterally. This is a highly complex patient presenting with ischemic limbs but at very high risk of bleeding. Discussed with Dr. Wilmar Cancino in length. Discussed with patient and daughter/DPOA as well. Will defer anticoagulation due to high risk of bleeding as patient has known recurrent anemia requiring multiple blood transfusion and there is also suspicion of possible GI AVM. CTA studies pending. Await further recommendations from Dr. Cancino after CTA results are back. 06/17/2018-patient was seen by Dr. Cancino yesterday. He reviewed the CT angiogram. Dr. Cancino had a long discussion with the patient yesterday. He is going to arrange for a consultation with Dr. Pugh in [place] as early as next week. Patient and patient's daughter are in agreement. Patient prefers to stay another day to complete his dialysis schedule tomorrow here in the hospital prior to the discharge. Patient is off anticoagulation because of the high risk of bleeding. (2) Ischemic finger Is this a current diagnosis for this admission?: Yes Plan: 06/17/2018 on examination blackish discoloration of the third fourth fifth fingers of the left hand. Patient is not on anticoagulation because of high risk of bleed. 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 Dr. Cancino is making arrangements for the patient to see the vascular surgeon in [place] next week. Patient is complaining of pain in both left foot and right arm presently is on tramadol and Tylenol I am going to start him on Percocet today. (3) ESRD (end stage renal disease) on dialysis Is this a current diagnosis for this admission?: Yes Plan: 06/17/2018-patient has history of end-stage renal disease he has AV fistula left home which was functioning well he is due for dialysis tomorrow. Dr. Rios is also following the patient. Patient has hyponatremia of sodium 131.5 probably secondary to end-stage renal disease. (4) CAD (coronary artery disease) Is this a current diagnosis for this admission?: Yes Plan: 06/17/2018 patient has history of coronary artery disease presently on aspirin and statin. Plan is to continue the present management. 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 - Time Time Spent with patient: 15-24 minutes Medications reviewed and adjusted accordingly: Yes Anticipated discharge: Home
[2018-06-17 14:31] LABS: ABSOLUTE BASOPHILS # (AUTO) 0.1 10^3/uL (0.0-0.2); ABSOLUTE EOSINOPHILS # (AUTO) 0.2 10^3/uL (0.0-0.6); ABSOLUTE LYMPHOCYTES (AUTO) 0.6 10^3/uL (0.5-4.7); ABSOLUTE MONOCYTES (AUTO) 0.9 10^3/uL (0.1-1.4); ABSOLUTE NEUT (AUTO) 4.7 10^3/uL (1.7-8.2); BASOPHILS % (AUTO) 1.3 % (0-2); EOSINOPHILS % (AUTO) 2.5 % (0-6); HEMATOCRIT 26.6 % (37.9-51.0); HEMOGLOBIN 8.8 g/dL (13.5-17.0); LYMPHOCYTES % (AUTO) 9.6 % (13-45); MEAN CORPUSCULAR HEMOGLOBIN 32.9 pg (27.0-33.4); MEAN CORPUSCULAR HGB CONC 33.1 g/dL (32.0-36.0); MEAN CORPUSCULAR VOLUME 100 fl (80-97); MONOCYTES % (AUTO) 14.2 % (3-13); PLATELET COUNT 123 10^3/uL (150-450); RED BLOOD COUNT 2.68 10^6/uL (4.35-5.55); RED CELL DISTRIBUTION WIDTH 21.7 % (11.5-14.0); SEGMENTED NEUTROPHILS % (AUTO) 72.4 % (42-78); TOTAL CELLS COUNTED % (AUTO) 100 %; WHITE BLOOD COUNT 6.5 10^3/uL (4.0-10.5)
[2018-06-17 14:59] LABS: ALANINE AMINOTRANSFERASE 46 U/L (21-72); ALBUMIN 2.5 g/dL (3.5-5.0); ALKALINE PHOSPHATASE 78 U/L (38-126); ANION GAP 8 (5-19); ASPARTATE AMINO TRANSFERASE 52 U/L (17-59); BILIRUBIN,DIRECT 0.6 mg/dL (0.0-0.4); BILIRUBIN,TOTAL 0.6 mg/dL (0.2-1.3); BLOOD UREA NITROGEN 27 mg/dL (7-20); CALCIUM 8.5 mg/dL (8.4-10.2); CARBON DIOXIDE 31 mmol/L (22-30); CHLORIDE 96 mmol/L (98-107); GLUCOSE 95 mg/dL (75-110); POTASSIUM 4.1 mmol/L (3.6-5.0); SODIUM 135.1 mmol/L (137-145); TOTAL PROTEIN 4.6 g/dL (6.3-8.2)
[2018-06-17] MEDS: FUROSEMIDE 40 MG TABLET PO SCH (18:03)
[2018-06-17] MEDS: GUAIFENESIN 600 MG TABLET.SA PO SCH (18:04)
[2018-06-17] MEDS: OXYCODONE-ACETAMINOPHEN 5-325 MG TABLET PO PRN (19:19)
[2018-06-17] MEDS ORDERED: MONTELUKAST SODIUM 10 MG TABLET PO SCH (22:00)
[2018-06-17] MEDS: ATORVASTATIN CALCIUM 80 MG TABLET PO SCH (22:36)
[2018-06-18] MEDS: OXYCODONE-ACETAMINOPHEN 5-325 MG TABLET PO PRN ×2 (01:33→15:17)
[2018-06-18] MEDS ORDERED: EPOETIN ALFA INJ 20000 UNIT/1 ML VIAL (RENAL) IV PRN (05:00)
[2018-06-18 05:54] LABS: HEMATOCRIT 23.7 % (37.9-51.0); MEAN CORPUSCULAR HEMOGLOBIN 33.5 pg (27.0-33.4); MEAN CORPUSCULAR HGB CONC 33.5 g/dL (32.0-36.0); MEAN CORPUSCULAR VOLUME 100 fl (80-97); PLATELET COUNT 114 10^3/uL (150-450); RED BLOOD COUNT 2.37 10^6/uL (4.35-5.55); RED CELL DISTRIBUTION WIDTH 21.4 % (11.5-14.0)
[2018-06-18 05:57] LABS: HEMOGLOBIN 7.9 g/dL (13.5-17.0)
[2018-06-18 06:15] LABS: ANION GAP 8 (5-19); BLOOD UREA NITROGEN 36 mg/dL (7-20); CALCIUM 8.3 mg/dL (8.4-10.2); CARBON DIOXIDE 29 mmol/L (22-30); CHLORIDE 97 mmol/L (98-107); GLUCOSE 96 mg/dL (75-110); POTASSIUM 4.2 mmol/L (3.6-5.0); SODIUM 133.6 mmol/L (137-145)
[2018-06-18] MEDS ORDERED: CHOLECALCIFEROL (D3) 1,000 UNIT TABLET PO SCH (10:00)
[2018-06-18] MEDS ORDERED: VANCOMYCIN HCL 500 MG in DEXTROSE 5%-WATER 100 ML IV SCH (10:00)
[2018-06-18] MEDS ORDERED: CETIRIZINE 10 MG TABLET PO SCH (10:00)
[2018-06-18] MEDS ORDERED: FOLIC ACID/VITAMIN B COMP W-C CAPSULE PO SCH (10:00)
[2018-06-18] MEDS: CALCITRIOL 0.25 MCG CAPSULE PO SCH (13:11)
[2018-06-18] MEDS: FUROSEMIDE 40 MG TABLET PO SCH (13:13)
[2018-06-18] MEDS: GUAIFENESIN 600 MG TABLET.SA PO SCH (13:14)
[2018-06-18] MEDS: ASPIRIN 81 MG TABLET, CHEWABLE PO SCH (13:17)
[2018-06-18] MEDS: SERTRALINE HCL 50 MG TABLET PO SCH (13:18)
[2018-06-18] MEDS: FLUTICASONE/SALMETEROL DISKUS 500-50 MCG/DOSE IH SCH (13:21)
[2018-06-18] MEDS: EZETIMIBE 10 MG TABLET PO SCH (13:21)
[2018-06-18] MEDS: TIOTROPIUM BROMIDE DPI 5 CAP/KIT (18 MCG/CAP) IH SCH (13:22)
--- NOTE | 2018-06-18 16:41 | PDOC DISCHARGE SUMMARY ---
General - Admit/Disc Date/PCP Admission Date/Primary Care Provider: 06/15/18 17:53 MILKA RUBY MD Discharge Date: 06/18/18 - Discharge Diagnosis (1) Ischemic toe Is this a current diagnosis for this admission?: Yes Summary: Ischemia on toes and right hand fingers. Upon exam, there is note of erythematous first 3 digit of the left foot as well as erythema on the first 3 digits of the right foot. The is full palpable femoral and popliteal pulses. Faint dorsalis pedal pulse on the left. The middle and and 4th finger appear cyanotic on the distal ends. Left hand appears unremarkable. There is full radial pulses bilaterally. This is a highly complex patient presenting with ischemic limbs but at very high risk of bleeding. Discussed with Dr. Wilmar Cancino in length. Discussed with patient and daughter/DPOA as well. Will defer anticoagulation due to high risk of bleeding as patient has known recurrent anemia requiring multiple blood transfusion and there is also suspicion of possible GI AVM. CTA studies pending. Await further recommendations from Dr. Cancino after CTA results are back. 06/17/2018-patient was seen by Dr. Cancino yesterday. He reviewed the CT angiogram. Dr. Cancino had a long discussion with the patient yesterday. He is going to arrange for a consultation with Dr. Pugh in [place] as early as next week. Patient and patient's daughter are in agreement. Patient prefers to stay another day to complete his dialysis schedule tomorrow here in the hospital prior to the discharge. Patient is off anticoagulation because of the high risk of bleeding. 06/18/2018-patient is admitted with ischemic involving the left foot toes are not right hand fingers. Seen by the surgeons recommendation is to follow-up with Dr. Pugh in [place] in next week. Patient and the power of sports attorney is aware of the recommendation. No complaints from the patient's today. Patient completed his dialysis today. (2) Ischemic finger Is this a current diagnosis for this admission?: Yes Summary: 06/17/2018 on examination blackish discoloration of the third fourth fifth fingers of the rt hand. Patient is not on anticoagulation because of high risk of bleed. 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 Dr. Cancino is making arrangements for the patient to see the vascular surgeon in [place] next week. Patient is complaining of pain in both left foot and right arm presently is on tramadol and Tylenol I am going to start him on Percocet today. 06/18/2018-on examination blackish discoloration of the third fourth and fifth fingers of the rt right hand. Patient is not on anticoagulation because of the high risk of bleeds. Secondary to GI AV malformations. Patient supposed to see Dr. Pugh as an outpatient next week. (3) ESRD (end stage renal disease) on dialysis Is this a current diagnosis for this admission?: Yes Summary: 06/17/2018-patient has history of end-stage renal disease he has AV fistula left home which was functioning well he is due for dialysis tomorrow. Dr. Rios is also following the patient. Patient has hyponatremia of sodium 131.5 probably secondary to end-stage renal disease. 06/18/2018 patient has end-stage renal disease he is on dialysis Saturday he completed his session today. As per the dialysis nurse the fistula is not working well and patient aware that he needs to see vascular surgeon as an outpatient. (4) CAD (coronary artery disease) Is this a current diagnosis for this admission?: Yes Summary: 06/17/2018 patient has history of coronary artery disease presently on aspirin and statin. Plan is to continue the present management. 06/18/2018 patient has history of coronary artery disease on aspirin and statin patient was advised to continue these medications at home. (5) Atrial fibrillation Is this a current diagnosis for this admission?: Yes Summary: Patient has history of chronic atrial fibrillation not on anticoagulation because of chronic anemia requiring blood transfusions and possible high risk of bleeding probably secondary to GI AV malformations. 06/18/2018-patient has history of chronic atrial fibrillation not on anticoagulation because of the chronic anemia and high risk of bleed from GI AV malformations. (6) Physical debility Is this a current diagnosis for this admission?: Yes Summary: 06/18/2018-cane/walker is not sufficient for the patient. Patient needs a wheelchair for ADLs. - Additional Information Discharge Diet: Cardiac Discharge Activity: Activity As Tolerated Home Medications: Albuterol Sulfate [Proair HFA Inhalation Aerosol 8.5 gm MDI] 2 puff IH Q12HP PRN 06/16/18 Benzonatate [Tessalon Perle 100 mg Capsule] 100 mg PO BIDP PRN 06/16/18 Calcitriol [Rocaltrol 0.5 mcg Capsule] 0.5 mcg PO DAILY 06/16/18 Cetirizine HCl [Zyrtec 10 mg Tablet] 10 mg PO DAILY 06/16/18 Cholecalciferol (Vitamin D3) [Vitamin D3 1000 Unit Tablet] 1,000 unit PO DAILY 06/16/18 Diazepam [Valium 5 mg Tablet] 2.5 mg PO Q6HP PRN 06/16/18 Ezetimibe [Zetia 10 mg Tablet] 10 mg PO DAILY 06/16/18 Fluticasone/Salmeterol [Advair 500-50 Diskus 14 Dose/Diskus] 1 puff HE Q12 06/16/18 Folic Acid/Vitamin B Comp W-C [Nephrocaps Softgel] 1 mg PO DAILY 06/16/18 Furosemide [Lasix 40 mg Tablet] 40 mg PO BID 06/16/18 Guaifenesin [Guaifenesin ER] 600 mg PO BID 06/16/18 Montelukast Sodium [Singulair 10 mg Tablet] 10 mg PO QHS 06/16/18 Rosuvastatin Calcium [Crestor] 40 mg PO DAILY 06/16/18 Sertraline HCl [Zoloft 50 mg Tablet] 50 mg PO DAILY 06/16/18 Tiotropium [place] [Spiriva Handihaler 5 Cap/Kit (18 Mcg/Cap)] 1 puff IH DAILY 06/16/18 History of Present Illness History of Present Illness: VERN COLLINS is a 83 year old male 83 year old male with a PMH of COPD on home, CAD, HTN, mitral valve repair, ??aortic valve replacement, history of Afib off anticoagulation due to recurrent anemia, chronic recurrent anemia requiring transfusions, 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 Daughter/DPOA is also on bedside. He is a DNR/DNI and was on hospice before but requested frequent ER and hospital visits hence discharged from hospice. He does have prior melanotic stools, positive FOBT but unremarkable EGD and colonoscopies. Patient reportedly developed redness and pain on the first 3 digits of the left foot more than a month ago. Daughter says it started as a small wound in between the toes and he was treated with clindamycin initially for 5 days. He was then treated with cefazolin and doxycycline on the 3rd week of May with no significant relief. He was seen in the ER on Jun 10 and was prescribed doxycyline as well. He then started developing pain and purplish discoloration of the middle and 4th finger 2 weeks ago. This was subsequently followed by development of redness on the first 3 digits of the right foot a week ago. He denies fever or chills. Physical Exam Vital Signs: Temp Pulse Resp BP Pulse Ox 98.2 F 75 18 85/43 L 93 06/18/18 03:00 06/18/18 14:00 06/18/18 03:00 06/18/18 03:00 06/18/18 03:00 Intake & Output 06/17/18 06/18/18 06/19/18 06:59 06:59 06:59 Intake Total 775.5 320 Output Total 3400 Balance -2624.5 320 Weight 60.4 kg 63.5 kg General appearance: PRESENT: no acute distress Head exam: PRESENT: atraumatic Eye exam: PRESENT: PERRLA Mouth exam: PRESENT: dry mucosa Neck exam: ABSENT: carotid bruit, JVD, lymphadenopathy, thyromegaly Respiratory exam: PRESENT: decreased breath sounds Cardiovascular exam: PRESENT: irregular rhythm, systolic murmur, tachycardia Pulses: PRESENT: other - Poor peripheral pulses. GI/Abdominal exam: PRESENT: normal bowel sounds, soft. ABSENT: distended, guarding, mass, organolmegaly, rebound, tenderness Extremities exam: PRESENT: other - Discoloration of the third fourth fifth right hand and fingers and discoloration of the last 3 digits of the left foot. Neurological exam: PRESENT: alert, awake, oriented to person, oriented to place, oriented to time, oriented to situation, CN II-XII grossly intact. ABSENT: m otor sensory deficit Psychiatric exam: PRESENT: appropriate affect, normal mood. ABSENT: homicidal ideation, suicidal ideation Results Laboratory Results: 06/18/18 05:30 06/18/18 05:30 06/18/18 06/18/18 05:30 05:30 WBC 6.0 RBC 2.37 L Hgb 7.9 L Hct 23.7 L MCV 100 H MCH 33.5 H MCHC 33.5 RDW 21.4 H Plt Count 114 L Sodium 133.6 L Potassium 4.2 Chloride 97 L Carbon Dioxide 29 Anion Gap 8 BUN 36 H Creatinine 4.63 H Est GFR ( Amer) 15 L Est GFR (Non-Af Amer) 12 L Glucose 96 Calcium 8.3 L Impressions: Aorta w/Runoff CTA 06/16/18 08:00 IMPRESSION: Severe diffuse disease without evidence of acute high-grade occlusion. Numerous collaterals. Chest X-Ray 06/16/18 12:41 IMPRESSION: Satisfactory position of central line. No pneumothorax. Qualifiers - * PATIENT BEING DISCHARGED WITH ANY OF THE FOLLOWING DIAGNOSIS: No VTE patient discharged on overlapping Therapy?: Yes
--- NOTE | 2018-06-18 17:33 | PDOC PROGRESS REPORT ---
Subjective Progress Note for:: 06/18/18 Reason For Visit: Patient seen today on dialysis. He is undergoing dialysis without any issues. He denies any history of chest pain or shortness of breath. Labs and medications were reviewed. As far as the chronic ischemia of his legs and hands are concerned he is being planned to have outpatient evaluations in [facility]. Dialysis orders were reviewed with the treating dialysis nurse. Physical Exam Vital Signs: Temp Pulse Resp BP Pulse Ox 98.2 F 82 18 128/44 H 93 06/18/18 17:06 06/18/18 17:06 06/18/18 17:06 06/18/18 17:06 06/18/18 17:06 Intake & Output 06/17/18 06/18/18 06/19/18 06:59 06:59 06:59 Intake Total 775.5 320 Output Total 3400 Balance -2624.5 320 Weight 60.4 kg 63.5 kg General appearance: PRESENT: no acute distress Respiratory exam: PRESENT: clear to auscultation raymond. ABSENT: crackles Cardiovascular exam: PRESENT: +S1, +S2, systolic murmur GI/Abdominal exam: PRESENT: normal bowel sounds, soft. ABSENT: organomegaly, tenderness Extremities exam: ABSENT: pedal edema Neurological exam: PRESENT: alert, awake, oriented to person, oriented to place Skin exam: PRESENT: erythema, mottled - Of digits of lower extremities Results Laboratory Results: 06/18/18 05:30 06/18/18 05:30 06/18/18 06/18/18 05:30 05:30 WBC 6.0 RBC 2.37 L Hgb 7.9 L Hct 23.7 L MCV 100 H MCH 33.5 H MCHC 33.5 RDW 21.4 H Plt Count 114 L Sodium 133.6 L Potassium 4.2 Chloride 97 L Carbon Dioxide 29 Anion Gap 8 BUN 36 H Creatinine 4.63 H Est GFR ( Amer) 15 L Est GFR (Non-Af Amer) 12 L Glucose 96 Calcium 8.3 L Impressions: Aorta w/Runoff CTA 06/16/18 08:00 IMPRESSION: Severe diffuse disease without evidence of acute high-grade occlusion. Numerous collaterals. Chest X-Ray 06/16/18 12:41 IMPRESSION: Satisfactory position of central line. No pneumothorax. Assessment & Plan - Diagnosis (1) ESRD (end stage renal disease) on dialysis Is this a current diagnosis for this admission?: Yes Plan: Patient currently undergoing dialysis without any issues. Is being supervised to ensure safe and smooth procedure. Plan to remove it in 1-1.5 L as tolerated. Dialysis orders were reviewed the treating dialysis nurse. (2) End stage chronic obstructive pulmonary disease Plan: On oxygen via nasal cannula and stable. (3) Ischemia of finger Is this a current diagnosis for this admission?: Yes Plan: As per hospitalist/surgeons. Currently stable. Pain tolerable. (4) Ischemic toe Is this a current diagnosis for this admission?: Yes Plan: As per hospitalist/surgeons. Currently pain tolerable. Planning for outpatient evaluations by vascular surgeon in [place]. (5) Anemia in chronic renal disease Qualifiers: Chronic kidney disease stage: on chronic dialysis Qualified Code(s): N18.6 - End stage renal disease; D63.1 - Anemia in chronic kidney disease; D63.1 - Anemia in chronic kidney disease; Z99.2 - Dependence on renal dialysis; Z99.2 - Dependence on renal dialysis; Z99.2 - Dependence on renal dialysis; Z99.2 - Dependence on renal dialysis Plan: Adjust erythropoietin.
[2018-06-18 18:23] VITALS: BP 128/44
== END 2018-06-18 17:50 | disposition home health service (06) | DRG 302 ==
LOC: ER 12:55 → EH 17:53 → 4N 19:10
PROVIDERS: ADMIT Internal Medicine; ATTEND Internal Medicine
PROC: 5A1D70Z Performance of Urinary Filtration, Intermittent, Less than 6 Hours Per Day (ICD-10-PCS; principal; 2018-06-16)
PROC: 3E0234Z Introduction of Serum, Toxoid and Vaccine into Muscle, Percutaneous Approach (ICD-10-PCS; 2018-06-16)
PROC: 05HM33Z Insertion of Infusion Device into Right Internal Jugular Vein, Percutaneous Approach (ICD-10-PCS; 2018-06-16)
PROC: B543ZZA Ultrasonography of Right Jugular Veins, Guidance (ICD-10-PCS; 2018-06-16)
PROC: 5A1D70Z Performance of Urinary Filtration, Intermittent, Less than 6 Hours Per Day (ICD-10-PCS; 2018-06-18)
DX: I99.8 Other disorder of circulatory system (principal); N18.6 End stage renal disease; L03.116 Cellulitis of left lower limb; L03.115 Cellulitis of right lower limb; I25.10 Atherosclerotic heart disease of native coronary artery without angina pectoris; J44.9 Chronic obstructive pulmonary disease, unspecified; I50.9 Heart failure, unspecified; M19.90 Unspecified osteoarthritis, unspecified site; I13.2 Hypertensive heart and chronic kidney disease with heart failure and with stage 5 chronic kidney disease, or end stage renal disease; L03.039 Cellulitis of unspecified toe; I48.2 Chronic atrial fibrillation; D63.8 Anemia in other chronic diseases classified elsewhere; Z99.81 Dependence on supplemental oxygen; Z95.2 Presence of prosthetic heart valve; Z87.891 Personal history of nicotine dependence; Q27.33 Arteriovenous malformation of digestive system vessel; Z79.899 Other long term (current) drug therapy; Z88.4 Allergy status to anesthetic agent; Z88.3 Allergy status to other anti-infective agents; Z88.8 Allergy status to other drugs, medicaments and biological substances; Z82.49 Family history of ischemic heart disease and other diseases of the circulatory system; Z99.2 Dependence on renal dialysis; Z79.82 Long term (current) use of aspirin
CPT/HCPCS: 36415; 71045; 75635; 80048; 80053; 80076; 83605; 83735; 85025; 85027; 85610; 85730; 86850; 86900; 86901; 87040; 93005; 93010; 96365; 99284; C1751; J0696; J1642; J3370; J3490; J7060; Q4081

== ENCOUNTER 2018-07-03 12:30 | Emergency (ER) | payer MEDICARE, OTHER ==
--- NOTE | 2018-07-03 13:44 | ER Document Report ---
ED General - General Chief Complaint: Other Stated Complaint: PORT ISSUES Time Seen by Provider: 07/03/18 13:26 Primary Care Provider: SHEA ERVIN MD [Primary Care Provider] - Follow up as needed Notes: Patient is an 83-year-old male who presents to the emergency department with a chief complaint of bleeding from his fistula site. He had dialysis yesterday and has been continuously bleeding from the area. His daughter is at bedside to provide additional history. They have dressed the area 4-5 times since y esterday and the fistula continues to bleed. He denies any pain to the area. According to his insurance follow up specialist, he seemed lethargic earlier in the day. TRAVEL OUTSIDE OF THE [place] IN LAST 30 DAYS: No - Related Data Allergies/Adverse Reactions: adhesive tape Allergy (Verified 06/15/18 12:57) Blisters amiodarone Adverse Reaction (Verified 06/15/18 12:57) levofloxacin [From Levaquin] Adverse Reaction (Verified 06/15/18 12:57) lorazepam Adverse Reaction (Verified 06/15/18 12:57) prednisone Adverse Reaction (Verified 06/15/18 12:57) trazodone Adverse Reaction (Verified 06/15/18 12:57) propofol Adverse Reaction (Unknown, Uncoded 06/15/18 12:57) Past Medical History - Social History Smoking Status: Former Smoker Family History: Reviewed & Not Pertinent, Hypertension Patient has suicidal ideation: No Patient has homicidal ideation: No - Past Medical History Cardiac Medical History: Reports: Hx Congestive Heart Failure, Hx Coronary Artery Disease, Hx Hypertension Denies: Hx Atrial Fibrillation, Hx Heart Attack Pulmonary Medical History: Reports: Hx COPD - End stage O2 dependent. Denies: Hx Asthma, Hx Bronchitis, Hx Pneumonia Neurological Medical History: Denies: Hx Cerebrovascular Accident, Hx Seizures Renal/ Medical History: Reports: Hx End Stage Renal Disease - Dialysis, Hx Hemodialysis. Denies: Hx Peritoneal Dialysis GI Medical History: Denies: Hx Cirrhosis, Hx Ulcer Musculoskeletal Medical History: Reports Hx Arthritis Psychiatric Medical History: Denies: Hx Depression Past Surgical History: Reports: Hx Abdominal Surgery - hernia repair x2, Hx Cardiac Catheterization, Hx Cardiac Surgery - aortic valve replacement, Hx Herniorrhaphy, Hx Open Heart Surgery - mitral valve repair 2009, Hx Tonsillectomy, Other - Mitral valve repair. Denies: Hx Pacemaker - Immunizations Hx Diphtheria, Pertussis, Tetanus Vaccination: No Hx Pneumococcal Vaccination: 03/13/11 Review of Systems - Review of Systems Notes: REVIEW OF SYSTEMS: CONSTITUTIONAL : Denies recent illness. Denies recent unintentional weight loss. Denies fever, chills, or sweats. EENT: Denies eye, ear, throat, or mouth pain, discharge, or symptoms. Denies nasal or sinus congestion. CARDIOVASCULAR: Denies chest pain. RESPIRATORY: Denies shortness of breath, cough, congestion, difficulty breathing, or wheezing. GASTROINTESTINAL: Denies nausea, vomiting, and diarrhea. Denies abdominal pain. Denies constipation. GENITOURINARY: Denies difficulty urinating, burning, blood in urine, urgency or frequency. MUSCULOSKELETAL: Denies neck and back pain. Denies joint pain or swelling. SKIN: See HPI HEMATOLOGIC : See HPI LYMPHATIC: Denies swollen, painful, enlarged glands. NEUROLOGICAL: Denies no numbness or tingling denies weakness. Denies headache. Denies altered mental status. Denies alteration in speech. PSYCHIATRIC: Denies stress, anxiety, alteration in sleep patterns, or depression. All other systems reviewed and negative. Physical Exam - Vital signs Vitals: Temp Pulse BP Pulse Ox 97.4 F 80 144/57 H 100 07/03/18 12:37 07/03/18 12:37 07/03/18 12:37 07/03/18 12:37 - Notes Notes: PHYSICAL EXAMINATION: GENERAL: Appears well, healthy, well-nourished, no acute distress. HEAD: Normocephalic, atraumatic. EYES: PERRL, conjunctiva normal, all extraocular movements intact, sclera nonicteric ENT: Moist mucous membranes. NECK: Supple, no noticeable swelling, redness, rash. Normal range of motion. LUNGS: Equal breath sounds bilaterally and clear to auscultation. No wheezes rales or rhonchi. CARDIOVASCULAR: S1-S2, regular rate, regular rhythm. Radial pulses 2+, normal. ABDOMEN: Normoactive bowel sounds. Soft, nontender, no guarding, no rebound tenderness, and no masses palpated. EXTREMITIES: Normal strength and range of motion, no pitting or edema. No cyanosis. NEUROLOGICAL: Moves all extremities upon command. PSYCH: Normal mood, normal affect. SKIN: Warm, dry. Oozing blood noted to fistula site. Course - Re-evaluation Re-evalutation: 07/03/18 14:50 Quick clot was placed to the area. Patient's hemoglobin and hematocrit are stable from his previous visit. They have actually improved. Based off the patient's lab results and vital signs, he is stable for discharge. Results were given to the patient and his family. Verbal discharge instructions were given to the patient. They verbalized understanding. They are stable for discharge. - Vital Signs Vital signs: Temp Pulse Resp BP Pulse Ox 97.4 F 80 144/57 H 100 07/03/18 12:37 07/03/18 12:40 07/03/18 12:37 07/03/18 12:37 - Laboratory Result Diagrams: 07/03/18 13:26 07/03/18 13:26 Laboratory results interpreted by me: 07/03/18 07/03/18 13:26 13:26 RBC 2.43 L Hgb 8.0 L Hct 25.2 L MCV 104 H D MCHC 31.7 L RDW 19.0 H Plt Count 107 L Lymphocytes % 12.7 L Monocytes % 14.4 H Sodium 135.3 L Chloride 96 L BUN 38 H Creatinine 4.87 H Est GFR ( Amer) 14 L Est GFR (Non-Af Amer) 12 L Calcium 8.1 L Discharge - Discharge Clinical Impression: Hemorrhage of arteriovenous fistula Qualifiers: Encounter type: initial encounter Qualified Code(s): T82.838A - Hemorrhage due to vascular prosthetic devices, implants and grafts, initial encounter Condition: Stable Disposition: HOME, SELF-CARE Additional Instructions: You were seen today in the emergency department for bleeding from your fistula site. Your labs are normal. A cloth called quick clot was placed to the area to help clot the area. The area looks normal. Please leave the quick clot on until the bleeding completely stops. If your fistula site continues to bleed, you can come back to the emergency department to be reevaluated or see your primary care provider. Referrals: SHEA ERVIN MD [Primary Care Provider] - Follow up as needed
[2018-07-03 14:02] LABS: ANION GAP 11 (5-19); BLOOD UREA NITROGEN 38 mg/dL (7-20); CALCIUM 8.1 mg/dL (8.4-10.2); CARBON DIOXIDE 28 mmol/L (22-30); CHLORIDE 96 mmol/L (98-107); GLUCOSE 86 mg/dL (75-110); POTASSIUM 4.7 mmol/L (3.6-5.0); SODIUM 135.3 mmol/L (137-145)
[2018-07-03 14:08] LABS: ABSOLUTE EOSINOPHILS # (AUTO) 0.3 10^3/uL (0.0-0.6); ABSOLUTE LYMPHOCYTES (AUTO) 0.8 10^3/uL (0.5-4.7); ABSOLUTE MONOCYTES (AUTO) 0.9 10^3/uL (0.1-1.4); BASOPHILS % (AUTO) 0.5 % (0-2); EOSINOPHILS % (AUTO) 4.8 % (0-6); HEMATOCRIT 25.2 % (37.9-51.0); LYMPHOCYTES % (AUTO) 12.7 % (13-45); MEAN CORPUSCULAR HEMOGLOBIN 32.9 pg (27.0-33.4); MEAN CORPUSCULAR HGB CONC 31.7 g/dL (32.0-36.0); MONOCYTES % (AUTO) 14.4 % (3-13); PLATELET COUNT 107 10^3/uL (150-450); RED BLOOD COUNT 2.43 10^6/uL (4.35-5.55); SEGMENTED NEUTROPHILS % (AUTO) 67.6 % (42-78); TOTAL CELLS COUNTED % (AUTO) 100 %
[2018-07-03 14:11] LABS: MEAN CORPUSCULAR VOLUME 104 fl (80-97)
[2018-07-03] MEDS ORDERED: TRANEXAMIC ACID INJ/PF 1,000 MG/10 ML SDV IV ONE (14:14)
[2018-07-03 15:45] VITALS: BP 120/92
== END 2018-07-03 15:45 | disposition home or self-care (01) ==
LOC: ER 12:30
DX: T82.838A Hemorrhage due to vascular prosthetic devices, implants and grafts, initial encounter (principal); R53.83 Other fatigue; I13.2 Hypertensive heart and chronic kidney disease with heart failure and with stage 5 chronic kidney disease, or end stage renal disease; N18.6 End stage renal disease; I50.9 Heart failure, unspecified; Z99.2 Dependence on renal dialysis; J44.9 Chronic obstructive pulmonary disease, unspecified; Z99.81 Dependence on supplemental oxygen; Z87.891 Personal history of nicotine dependence
CPT/HCPCS: 36415; 80048; 85025; 99283

== ENCOUNTER 2018-07-06 02:34 | Inpatient (IN) | payer MEDICARE, OTHER ==
[2018-07-06] MEDS ORDERED: MORPHINE SULFATE IR 30 MG TABLET ONE (02:49)
[2018-07-06] MEDS ORDERED: MORPHINE SULFATE IR 15 MG TABLET PO ONE (02:52)
[2018-07-06] MEDS ORDERED: MORPHINE SULFATE IR 15 MG TABLET PO PRN (02:53)
--- NOTE | 2018-07-06 03:00 | ER Document Report ---
ED General - General Stated Complaint: SHORTNESS OF BREATH Time Seen by Provider: 07/06/18 02:52 Primary Care Provider: SHEA ERVIN MD [Primary Care Provider] - Follow up as needed Cannot obtain history due to: Unstable vital signs, Altered mental status Notes: -year-old male with a past medical history of end-stage renal disease with dialysis dependence was subsequently discontinued dialysis, peripheral vascular disease, hypertension, presents by EMS with increasing shortness of breath. History is somewhat limited as the patient is somewhat lethargic and in distress at time of initial presentation. EMS does report that normal home oxygen patient was saturating to the low 80s, even on 6 L of nasal cannula did not become above 86%. Patient apparently is planning to transition to hospice care next week. TRAVEL OUTSIDE OF THE [place] IN LAST 30 DAYS: No - Related Data Allergies/Adverse Reactions: adhesive tape Allergy (Verified 07/06/18 03:11) Blisters amiodarone Adverse Reaction (Verified 07/06/18 03:11) levofloxacin [From Levaquin] Adverse Reaction (Verified 07/06/18 03:11) lorazepam Adverse Reaction (Verified 07/06/18 03:11) prednisone Adverse Reaction (Verified 07/06/18 03:11) trazodone Adverse Reaction (Verified 07/06/18 03:11) propofol Adverse Reaction (Unknown, Uncoded 07/06/18 03:11) Past Medical History - General Information source: Patient, Relative - Social History Smoking Status: Former Smoker Frequency of alcohol use: None Drug Abuse: None Lives with: Family Family History: Reviewed & Not Pertinent, Hypertension - Past Medical History Cardiac Medical History: Reports: Hx Congestive Heart Failure, Hx Coronary Artery Disease, Hx Hypertension Denies: Hx Atrial Fibrillation, Hx Heart Attack Pulmonary Medical History: Reports: Hx COPD - End stage O2 dependent. Denies: Hx Asthma, Hx Bronchitis, Hx Pneumonia Neurological Medical History: Denies: Hx Cerebrovascular Accident, Hx Seizures Renal/ Medical History: Reports: Hx End Stage Renal Disease - Dialysis, Hx Hemodialysis. Denies: Hx Peritoneal Dialysis GI Medical History: Denies: Hx Cirrhosis, Hx Ulcer Musculoskeletal Medical History: Reports Hx Arthritis Psychiatric Medical History: Denies: Hx Depression Past Surgical History: Reports: Hx Abdominal Surgery - hernia repair x2, Hx Cardiac Catheterization, Hx Cardiac Surgery - aortic valve replacement, Hx Herniorrhaphy, Hx Open Heart Surgery - mitral valve repair 2009, Hx Tonsillectomy, Other - Mitral valve repair. Denies: Hx Pacemaker - Immunizations Hx Diphtheria, Pertussis, Tetanus Vaccination: No Hx Pneumococcal Vaccination: 03/13/11 Review of Systems - Review of Systems Notes: Constitutional: Negative for fever. HENT: Negative for sore throat. Eyes: Negative for visual changes. Cardiovascular: Negative for chest pain. Respiratory: Positive for shortness of breath. Gastrointestinal: Negative for abdominal pain, vomiting or diarrhea. Genitourinary: Negative for dysuria. Musculoskeletal: Positive for diffuse musculoskeletal pain Skin: Negative for rash. Neurological: Negative for headaches, weakness or numbness. 10 point ROS negative except as marked above and in HPI. Physical Exam - Vital signs Vitals: Temp Pulse Resp BP Pulse Ox 97.7 F 114 H 28 H 121/52 L 91 L 07/06/18 02:35 07/06/18 02:35 07/06/18 02:35 07/06/18 02:35 07/06/18 02:35 Notes: PHYSICAL EXAMINATION: GENERAL: Frail, elderly male in moderate to severe respiratory distress HEAD: Atraumatic, normocephalic. EYES: Pupils equal round and reactive to light, extraocular movements intact, sclera anicteric, conjunctiva are normal. ENT: nares patent, oropharynx clear without exudates. Dry mucous membranes. NECK: Normal range of motion, supple without lymphadenopathy LUNGS: Diffuse rales in all lung ang HEART: Regular tachycardia without murmurs ABDOMEN: Soft, nontender, normoactive bowel sounds. No guarding, no rebound. No masses appreciated. EXTREMITIES: 2+ pitting edema in the bilateral lower extremities that is equal and symmetric NEUROLOGICAL: No focal neurological deficits. Moves all extremities sponta neously. PSYCH: Somewhat lethargic SKIN: Cool skin, cyanosis in the hands and feet bilaterally. Course - Re-evaluation Re-evalutation: 07/06/18 0248 Patient presents in moderate respiratory distress, breathing with pursed lips, rales in all lung ang, hypoxic on 6 L by nasal cannula into the mid 80s. Patient has cyanosis in the periphery, recently discontinued dialysis. He presents as actively dying. I immediately came to the patient's bedside. Initially no family members were at bedside. Patient and I had a conversation about goals of care. The patient states that he does not wish to have any further interventions, no dialysis, no IV placements. States that he has come to terms with his and just wants to be comfortable at this point. His daughter then came to the bedside. We reviewed that the patient was planning to transition to hospice on Saturday, had been labored in his breathing all day today and family had been trying to get him comfortable was unable to do so. They eventually decided to call EMS because the patient was becoming so uncomfortable in his work of breathing. I again discussed goals of care with the daughter who is very much sonogram with her father's decision. We have elected to proceed initially with oral morphine while the patient is still able to tolerate. An initial dose of 30 mg of oral morphine was administered. I have also placed orders for subcutaneous morphine which would be more rapid acting and would be more appropriate if the patient is becoming increasingly somnolent. I anticipate that the patient will actually deteriorate quite rapidly given his hypoxemia as well as work of breathing. Will continue to reassess the patient to ensure comfort. Patient will then be subsequently admitted for comfort measures to the hospital. 07/06/18 03:45 Patient has been reassessed on multiple occasions. He is resting comfortably, remains with tachypnea, tachycardia although in not labored in his breathing. I discussed with the hospitalist Dr. Yancey who has accepted the patient for admission. - Vital Signs Vital signs: Temp Pulse Resp BP Pulse Ox 97.7 F 114 H 28 H 121/52 L 91 L 07/06/18 02:35 07/06/18 02:35 07/06/18 02:35 07/06/18 02:35 07/06/18 02:35 Critical Care Note - Critical Care Note Total time excluding time spent on procedures (mins): 35 Comments: Critical care time spent obtaining history from patient or surrogate, development of treatment plan with patient or surrogate, evaluation of patient's response to treatment, examination of patient, ordering and performing treatments and interventions, goals of care conversation. Discharge - Discharge Clinical Impression: Respiratory distress, Severe hypoxemia, Comfort measures only status, End of life care Chronic obstructive lung disease Qualifiers: COPD type: unspecified COPD Qualified Code(s): J44.9 - Chronic obstructive pulmonary disease, unspecified Condition: Critical Disposition: ADMITTED INPATIENT Admitting Provider: Hospitalist Unit Admitted: Medical Floor Referrals: SHEA ERVIN MD [Primary Care Provider] - Follow up as needed
[2018-07-06] MEDS ORDERED: ONDANSETRON 4 MG TAB.RAPDIS PO PRN (04:45)
[2018-07-06] MEDS ORDERED: LEVALBUTEROL HCL NEB 1.25 MG/3 ML AMPUL NEB PRN (04:52)
[2018-07-06] MEDS ORDERED: HALOPERIDOL LACTATE ORAL SOLN 10 MG/5 ML UDCUP PO PRN (04:54)
[2018-07-06] MEDS ORDERED: MORPHINE SULFATE 10 MG/5 ML ORAL SOLUTION UDCUP PO PRN ×2 (04:54→05:15)
[2018-07-06] MEDS ORDERED: ATROPINE SULFATE 1% OPH SOLN 5 ML BOTTLE SL PRN (06:50)
--- NOTE | 2018-07-06 06:50 | PDOC H&P ---
History of Present Illness Admission Date/PCP: 07/06/18 03:55 SHEA ERVIN MD Patient complains of: dyspnea History of Present Illness: VERN COLLINS is a 83 year old male who presented to the emergency room with progressively worsening dyspnea over the last 2 days. Patient and his family relate that he decided to stop using hemodialysis for his end-stage renal disease on Saturday and has made the determination that he wants to enter hospice with comfort measures only. He was planning on entering hospice tomorrow but his dyspnea became so great that he needed some comfort and relief of the suffocating feeling that he was having with his dyspnea. He describes dyspnea as severe and denies accompanying symptoms. He has had similar symptoms numerous times in the past with fluid overload or volume overload related to his kidney failure. He has not identified any aggravating or ameliorating factors for his dyspnea other than his discontinuation of dialysis. In the emergency room he was found to be significantly dyspneic and hypoxic and was treated with increased oxygen via nasal cannula and oral morphine he showed dramatic improvement with this therapy and arrangements were made to admit the patient for comfort measures only care. Past Medical History Cardiac Medical History: Reports: Atrial Fibrillation, Congestive Heart Failure, Coronary Artery Disease, Hypertension, Peripheral Vascular Disease Denies: Myocardial Infarction Pulmonary Medical History: Reports: Chronic Obstructive Pulmonary Disease (COPD) - End stage O2 dependent. Denies: Asthma, Bronchitis, Pneumonia EENT Medical History: Reports: None Neurological Medical History: Denies: Multiple Sclerosis, Seizures Endocrine Medical History: Denies: Diabetes Mellitus Type 1, Diabetes Mellitus Type 2, Hyperthyroidism, Hypothyroidism Renal/ Medical History: Reports: End Stage Renal Disease - Dialysis Denies: Nephrolithiasis Malignancy Medical History: Reports: None GI Medical History: Denies: Cirrhosis, Hepatitis Musculoskeltal Medical History: Reports: Arthritis Denies: Fibromyalgia, Gout Skin Medical History: Denies: Eczema, Psoriasis Psychiatric Medical History: Denies: Alcohol Dependency, Depression, Substance Abuse, Tobacco Dependency Traumatic Medical History: Reports: None Hematology: Reports: Anemia, Bleeding Tendencies Infectious Medical History: Reports: None Past Surgical History Past Surgical History: Reports: Cardiac Catheterization, Herniorrhaphy, Tonsillectomy, Other - Mitral valve repair Social History Lives with: Family Smoking Status: Former Smoker Frequency of Alcohol Use: None Hx Recreational Drug Use: No Drugs: None Hx Prescription Drug Abuse: No - Advance Directive Resuscitation Status: Comfort Measures Only Surrogate healthcare decision maker:: His daughter Family History Family History: Hypertension Parental Family History Reviewed: Yes Children Family History Reviewed: No Sibling(s) Family History Reviewed.: Yes Medication/Allergy Home Medications: Albuterol Sulfate [Proair HFA Inhalation Aerosol 8.5 gm MDI] 2 puff IH Q12HP PRN 06/16/18 Benzonatate [Tessalon Perle 100 mg Capsule] 100 mg PO BIDP PRN 06/16/18 Calcitriol [Rocaltrol 0.5 mcg Capsule] 0.5 mcg PO DAILY 06/16/18 Cetirizine HCl [Zyrtec 10 mg Tablet] 10 mg PO NOON 06/16/18 Cholecalciferol (Vitamin D3) [Vitamin D3 1000 Unit Tablet] 1,000 unit PO NOON 06/16/18 Diazepam [Valium 5 mg Tablet] 2.5 mg PO Q6HP PRN 06/16/18 Ezetimibe [Zetia 10 mg Tablet] 10 mg PO QHS 06/16/18 Fluticasone/Salmeterol [Advair 500-50 Diskus 14 Dose/Diskus] 1 puff HE Q12 06/16/18 Folic Acid/Vitamin B Comp W-C [Nephrocaps Softgel] 1 mg PO DAILY 06/16/18 Furosemide [Lasix 40 mg Tablet] 40 mg PO BID 06/16/18 Guaifenesin [Guaifenesin ER] 600 mg PO BID 06/16/18 Montelukast Sodium [Singulair 10 mg Tablet] 10 mg PO QHS 06/16/18 Rosuvastatin Calcium [Crestor] 40 mg PO QHS 06/16/18 Sertraline HCl [Zoloft 50 mg Tablet] 50 mg PO DAILY 06/16/18 Tiotropium Brandeis [Spiriva Handihaler 5 Cap/Kit (18 Mcg/Cap)] 2 puff IH DAILY 06/16/18 Aspirin [Aspirin 81 mg Chewable Tablet] 81 mg PO DAILY 07/06/18 Folic Acid/Vitamin B Comp W-C [Nephrocaps Softgel] 1 mg PO NOON 07/06/18 Ipratropium [place]is 1 ml NS BID PRN 07/06/18 Tramadol HCl [Ultram] 50 mg PO BID 07/06/18 Allergies/Adverse Reactions: adhesive tape Allergy (Verified 07/06/18 03:11) Blisters amiodarone Adverse Reaction (Verified 07/06/18 03:11) levofloxacin [From Levaquin] Adverse Reaction (Verified 07/06/18 03:11) lorazepam Adverse Reaction (Verified 07/06/18 03:11) prednisone Adverse Reaction (Verified 07/06/18 03:11) trazodone Adverse Reaction (Verified 07/06/18 03:11) propofol Adverse Reaction (Unknown, Uncoded 07/06/18 03:11) Review of Systems Constitutional: ABSENT: chills, fever(s) Eyes: ABSENT: visual disturbances, other - Eye pain Ears: ABSENT: hearing changes, other - Ear pain Nose, Mouth, and Throat: ABSENT: mouth pain, sore throat Cardiovascular: PRESENT: as per HPI, dyspnea on exertion, edema, orthropnea. ABSENT: chest pain, palpitations Respiratory: PRESENT: dyspnea. ABSENT: cough Gastrointestinal: ABSENT: abdominal pain, constipation, diarrhea, nausea, vomiting Genitourinary: ABSENT: dysuria, hematuria Musculoskeletal: ABSENT: back pain, deformity, joint swelling Integumentary: ABSENT: pruritus, rash Neurological: ABSENT: confusion, convulsions, focal weakness, memory loss Psychiatric: ABSENT: anxiety, depression Endocrine: ABSENT: cold intolerance, heat intolerance Hematologic/Lymphatic: PRESENT: easy bleeding, easy bruising Physical Exam Vital Signs: Temp Pulse Resp BP Pulse Ox 97.7 F 114 H 28 H 121/52 L 91 L 07/06/18 02:35 07/06/18 02:35 07/06/18 02:35 07/06/18 02:35 07/06/18 02:35 Intake & Output 07/04/18 07/05/18 07/06/18 23:59 23:59 23:59 Weight 63 kg General appearance: PRESENT: cooperative, mild distress - On 6 L of oxygen per nasal cannula continues to have mild respiratory distress, other - Somewhat somnolent secondary to morphine Head exam: PRESENT: atraumatic, normocephalic Eye exam: PRESENT: conjunctiva pink. ABSENT: scleral icterus Ear exam: PRESENT: TM's normal bilaterally. ABSENT: bleeding Mouth exam: PRESENT: dry mucosa, neck supple Neck exam: PRESENT: JVD - Bilateral at 45 degrees elevation. ABSENT: thyromegaly, tracheal deviation Respiratory exam: PRESENT: decreased breath sounds - Decreased breath sounds at both bases, rales - Moderate bibasilar rales over the lower one third of both lung ang, symmetrical, tachypnea - 22 times per minute, wheezes - Mild expiratory wheezes throughout all ang Cardiovascular exam: PRESENT: irregular rhythm - Irregularly irregular rate and rhythm, tachycardia - 110s. ABSENT: clicks, gallop, rubs Pulses: PRESENT: normal radial pulses, normal dorsalis pedis pul Vascular exam: PRESENT: other - Gangrenous changes noted on the left toes (3 - 5) and the right fingers (2 - 4). ABSENT: normal capillary refill, pallor GI/Abdominal exam: PRESENT: normal bowel sounds, soft Rectal exam: PRESENT: deferred Extremities exam: PRESENT: pedal edema - Mild bipedal edema. ABSENT: joint swelling Musculoskeletal exam: ABSENT: deformity, dislocation Neurological exam: PRESENT: alert, oriented to person, oriented to place, oriented to time, oriented to situation, CN II-XII grossly intact. ABSENT: motor sensory deficit Psychiatric exam: PRESENT: appropriate affect, normal mood Skin exam: PRESENT: dry, intact, warm. ABSENT: jaundice, rash, urticaria Assessment & Plan - Diagnosis (1) Acute and chronic respiratory failure with hypoxia Is this a current diagnosis for this admission?: Yes Plan: Patient was treated with increased supplemental oxygen which is appropriate and also with morphine which helped to alleviate his anxiety and to reduce his respiratory hunger by alleviating, at least in part, his pulmonary edema due to acute fluid overload. He will be maintained on morphine and supplemental oxygen with other comfort measures as required. (2) Comfort measures only status Is this a current diagnosis for this admission?: Yes (3) Chronic obstructive lung disease Qualifiers: COPD type: unspecified COPD Qualified Code(s): J44.9 - Chronic obstructive pulmonary disease, unspecified Is this a current diagnosis for this admission?: Yes Plan: Patient placed on comfort measures only with supplemental oxygen and as needed nebulizer treatments with Xopenex as the only means of treating his COPD to provide him with comfort measures to deal with severe dyspnea. (4) Atrial fibrillation Qualifiers: Atrial fibrillation type: chronic Qualified Code(s): I48.2 - Chronic atrial fibrillation Is this a current diagnosis for this admission?: Yes Plan: Patient will be placed on comfort measures only with no intervention for control of his atrial fibrillation. (5) Atherosclerotic peripheral vascular disease with gangrene Is this a current diagnosis for this admission?: Yes Plan: Affecting me left toes and the right fingers primarily, sole intervention at this time will be for pain control. - Time Time Spent: 30 to 50 Minutes Critical Time spent with patient: Less than 15 minutes Medications reviewed and adjusted accordingly: Yes Anticipated discharge: Hospice - Inpatient Certification Based on my medical assessment, after consideration of the patient's comorbidities, presenting symptoms, or acuity I expect that the services needed warrant INPATIENT care.: Yes I certify that my determination is in accordance with my understanding of Medicare's requirements for reasonable and necessary INPATIENT services [42 CFR 412.3e].: Yes Medical Necessity: Need for Pain Control
[2018-07-06 10:52] VITALS: BP 129/98
[2018-07-06] MEDS: LORAZEPAM 1 MG TABLET SL PRN (21:44)
[2018-07-06] MEDS: MORPHINE SULFATE 10 MG/ML INJ SUBCUT PRN (22:52)
[2018-07-07] MEDS: LORAZEPAM 1 MG TABLET SL PRN (00:30)
[2018-07-07] MEDS: MORPHINE SULFATE 10 MG/ML INJ SUBCUT PRN (00:30)
--- NOTE | 2018-07-08 18:10 | Death Summary ---
Summary Date : 07/07/18 Time of :: 01:30 Resuscitation Status: Do Not Resuscitate - Final Diagnosis (1) Acute and chronic respiratory failure with hypoxia Is this a current diagnosis for this admission?: Yes (2) COPD (chronic obstructive pulmonary disease) Is this a current diagnosis for this admission?: Yes (3) End stage renal disease Is this a current diagnosis for this admission?: Yes (4) A-fib Is this a current diagnosis for this admission?: Yes Hospital Course:: This is 83 years old male patient with multiple comorbidities including atrial fibrillation, CHF, end-stage renal disease, coronary artery disease, hypertension, peripheral arterial disease and COPD which is end-stage O2 dependent patient brought by family members with chief complaint of dyspnea patient decided not to have dialysis since last Saturday and determined to be a hospice patient. At this is presentation patient wants only comfort care. Patient has been treated supportively with oxygen via nasal cannula. Patient's condition is gradually deteriorated and pronounced sedated at 01:30 on the day of admission.
== END 2018-07-07 03:30 | disposition left against medical advice (07) | DRG 189 ==
LOC: ER 02:34 → EH 03:55 → 4S 12:04
PROVIDERS: ADMIT Emergency Medicine; ATTEND Emergency Medicine
DX: J96.21 Acute and chronic respiratory failure with hypoxia (principal); N18.6 End stage renal disease; I13.2 Hypertensive heart and chronic kidney disease with heart failure and with stage 5 chronic kidney disease, or end stage renal disease; I70.269 Atherosclerosis of native arteries of extremities with gangrene, unspecified extremity; I50.9 Heart failure, unspecified; J44.9 Chronic obstructive pulmonary disease, unspecified; I48.2 Chronic atrial fibrillation; Z51.5 Encounter for palliative care; Z99.2 Dependence on renal dialysis; Z99.81 Dependence on supplemental oxygen; Z87.891 Personal history of nicotine dependence; Z95.2 Presence of prosthetic heart valve; Z79.82 Long term (current) use of aspirin; Z79.51 Long term (current) use of inhaled steroids; Z79.899 Other long term (current) drug therapy
CPT/HCPCS: 36415; 80048; 85025; 99283; 99291; J2270